=== PATIENT | female | born 1950 | race Caucasian/White ===

== ENCOUNTER → 2017-01-03 | Outpatient (CLI) | payer OTHER ==
[~2017-01-03] MED LIST: ALBUAER2 INH; ASPI-232 PO; CALC1CHW57 PO; CETI10TA10 PO; CONJ0.3T3 PO; FLUT0.0529 NAE; HYDR25TA5 PO; IPRA17AE2 INH; LEVO100T PO; LISI40TA PO; MISCCAP80 PO; MULT-884 PO; TNR25 PO; VITA1TAB4 PO
--- NOTE | 2017-01-03 15:21 | MAMMOGRAPHY REPORT ---
BILATERAL DIGITAL SCREENING MAMMOGRAM WITH CAD: 01/03/2017 CLINICAL HISTORY: Routine screening. TECHNIQUE: Current study was also evaluated with a Computer Aided Detection (CAD) system. Bilateral CC and MLO views were obtained. COMPARISON: Comparison is made to exams dated: 12/29/2015 mammogram, 12/22/2014 mammogram, 12/18/2012 saurabh mogram, 12/21/2013 mammogram, 12/10/2011 mammogram, and 12/07/2010 mammogram - [facility]. BREAST COMPOSITION: The tissue of both breasts is almost entirely fatty. FINDINGS: No suspicious masses, calcifications, or areas of architectural distortion are noted in ei ther breast. There has been no significant interval change compared to prior exams. IMPRESSION: ACR BI-RADS CATEGORY 1: NEGATIVE There is no mammographic evidence of malignancy. A 1 year screening mammogram is recommended. The pa tient will receive written notification of the results. Approximately 10% of breast cancers are not detected with mammography. A negative mammographic report should not delay biopsy if a clinically suggestive mass is present. Heaven Suarez M.D. ah/:01/03/2017 12:28:06 Computer Customer Support Specialist: Kajal TAPIA(R)(M), [facility] letter sent: Normal 1/2 BI-RADS Code: ACR BI-RADS Category 1: Negative
== END | disposition home or self-care (01) ==
LOC: C.MAMM 09:20
PROVIDERS: ATTEND Obstetrics & Gynecology
DX: Z12.31 Encounter for screening mammogram for malignant neoplasm of breast (principal)

== ENCOUNTER → 2017-01-07 | Outpatient (CLI) | payer OTHER | END | disposition home or self-care (01) | LOC: C.PAPS 09:49 | PROVIDERS: ATTEND Obstetrics & Gynecology | DX: Z01.419 Encounter for gynecological examination (general) (routine) without abnormal findings (principal) ==

== ENCOUNTER → 2018-01-16 | Outpatient (CLI) | payer OTHER ==
--- NOTE | 2018-01-16 16:01 | MAMMOGRAPHY REPORT ---
BILATERAL DIGITAL SCREENING MAMMOGRAM TOMOSYNTHESIS WITH CAD: 01/16/2018 CLINICAL HISTORY: Routine screening. Patient has no complaints. TECHNIQUE: The study was acquired using full field digital technology and interpreted from soft copy. Breast tomosynthesis in addition to standard 2D mammography was performed. Current study was also ev aluated with a Computer Aided Detection (CAD) system. COMPARISON: Comparison is made to exams dated: 01/03/2017 mammogram, 12/29/2015 mammogram, 12/22/2014 saurabh mogram, 12/21/2013 mammogram, 12/18/2012 mammogram, and 12/07/2010 mammogram - [facility]. BREAST COMPOSITION: The tissue of both breasts is almost entirely fatty. FINDINGS: No suspicious masses, calcifications, or areas of architectural distortion are noted in either breast . There has been no significant interval change compared to prior exams. Asymmetry in the right medi al posterior breast on the cc view is stable dating back to at least the 2008 exam and considered hsagufta ign given long-term stability. IMPRESSION: ACR BI-RADS CATEGORY 2: BENIGN There is no mammographic evidence of malignancy. A 1 year screening mammogram is recommended.( 019) The patient will receive written notification of the results. Some breast cancers are not detected with mammography. A negative mammographic report should not roberto y biopsy if a clinically suggestive mass is present. Heaven Suarez M.D. /:01/16/2018 15:22:02 Psychosocial Rehabilitation Counselor: RT Amrit(R)(M), [facility] letter sent: Normal 1/2 BI-RADS Code: ACR BI-RADS Category 2: Benign
== END | disposition home or self-care (01) ==
LOC: C.MAMM 14:21
PROVIDERS: ATTEND Obstetrics & Gynecology Obstetrics
DX: Z12.31 Encounter for screening mammogram for malignant neoplasm of breast (principal)

== ENCOUNTER 2022-09-20 12:52 | Inpatient (IN) ==
[2022-09-20 13:52] LABS: Basophils # (auto) 0.04 K/uL (0-0.2); Basophils % (auto) 0.3 %; Eosinophils # (auto) 0.07 K/uL (0-0.50); Eosinophils % (auto) 0.6 %; Hematocrit (blood only) 45.4 % (37.0-47.0); Hemoglobin 16.2 g/dl (12.0-16.0); Immature Granulocytes # (auto) 0.04 K/uL (0.01-0.20); Immature Granulocytes % (auto) 0.3 %; Lymphocytes # (auto) 1.38 K/uL (1.2-3.4); Lymphocytes % (auto) 11.9 %; Mean Corpuscular Hemoglobin 29.6 pg (25.0-34.0); Mean Corpuscular Hgb Conc 35.7 g/dL (32.0-36.0); Mean Corpuscular Volume 82.8 fL (80.0-100.0); Mean Platelet Volume 9.5 fL (9.4-12.4); Monocytes # (auto) 1.16 K/uL (0.11-0.59); Neutrophils # (auto) 8.88 K/uL (1.40-6.50); Neutrophils % (auto) 76.9 %; Platelet Count 352 K/uL (130-400); RDW Coefficient of Variation 12.3 % (11.5-14.5); RDW Standard Deviation 37.2 fL (36.4-46.3); Red Blood Count 5.48 M/uL (4.20-5.40); White Blood Count 11.57 K/ul (4.8-10.8)
--- NOTE | 2022-09-20 13:53 | XRay Report ---
XR chest 1V not portable CLINICAL HISTORY: Chest pain, nonspecific TECHNIQUE: Single frontal radiograph of the chest was obtained. Comparison: None available at the time of this dictation. FINDINGS: No lines and tubes are seen. The cardiomediastinal silhouette is normal. The lungs are clear. No evid ence of pleural effusion or pneumothorax. IMPRESSION: No acute chest disease. ACT 112: Negative or not required by law. Electronically signed by: Santy Fonseca M.D. 09/20/2022 1:52 PM
[2022-09-20 14:23] LABS: Partial Thromboplastin Ratio 1.1; Partial Thromboplastin Time 30.3 Seconds (21.0-31.0)
[2022-09-20 14:29] LABS: Troponin I High Sensitivity 10.9 pg/ml (0-14)
[2022-09-20 14:37] LABS: Albumin Level 4.1 gm/dl (3.4-5.0); Bilirubin,Total 0.8 mg/dl (0.2-1.0); Calcium 8.9 mg/dl (8.6-10.3); Potassium 3.4 mmol/L (3.5-5.1)
[2022-09-20 14:43] LABS: Albumin Globulin Ratio 1.2 (0.9-2); Creatinine Clr Calc Pharmacy 98.3 ml/min; Est GFR (African American) 116.8 ml/min; Est GFR (Non-African American) 100.8 ml/min; Globulin 3.3 gm/dl (2.5-4.0); Total Protein 7.4 gm/dl (6.0-8.3)
[2022-09-20] MEDS ORDERED: ALBUTEROL 0.083% NEBU SOLN 3 ML VIAL NEB STA (15:53)
[2022-09-20] MEDS ORDERED: methylPREDNISolone 125 MG/2 ML VIAL IV STA (15:53)
--- NOTE | 2022-09-20 15:56 | Emergency Department Note ---
Impression & Plan Hypoxia, COPD exacerbation ED Provider Note NAME: BLANK HAJI AGE: 71 SEX: F : 1950 ARRIVES VIA: Walk-In INFORMANT: Patient ED PROVIDER(S): Alejandro Pacheco DO CHIEF COMPLAINT: Shortness of breath HPI: Patient is a 71-year-old female who presents to the ER with past medical history of COPD for shortness of breath. She notes that she has had 2 viral upper respiratory infections with 1 in July and another when going in to August. She has been significantly short of breath since then. Denies any headache or change in vision. Still has a productive cough. No fevers. No belly pain, nausea, vomiting, or diarrhea. No dysuria, urgency, or frequency. No other exacerbating or remitting factors. PAST MEDICAL HISTORY:See Below PAST SURGICAL HISTORY:See Below FAMILY HISTORY:See Below SOCIAL HISTORY:See Below HOME MEDICATIONS:See Below ALLERGIES:See Below VITALS:See Below PHYSICAL EXAMINATION: GENERAL: Sitting up in bed, alert, well appearing, well nourished, no distress, non-toxic EYE EXAM: normal conjunctiva. OROPHARYNX:mucous membranes are dry NECK: supple, no nuchal rigidity, no adenopathy, non-tender LUNGS: Diminished bilaterally. Normal chest wall mechanics HEART: no murmurs, S1 normal and S2 normal ABDOMEN: abdomen soft, non-tender, normo-active bowel sounds, no masses, no rebound or guarding. UPPER EXTREMITIES: upper extremities are grossly normal. LOWER EXTREMITIES: No pitting edema. NEURO EXAM: Normal sensorium, cranial nerves II-XII grossly intact, normal speech, no gross weakness of arms, no gross weakness of legs. MEDICAL DECISION MAKING: Patient is a 71-year-old female with past medical history of COPD who presents to the ER for shortness of breath. IV was established blood work was obtained. She was found to be hypoxic. She was given neb treatments and steroids. Remained on 2 L nasal cannula. Pulse ox was in the upper 80s. Labs with mild leukocytosis. INR unremarkable. BMP with mild hyponatremia at 128. Mild hypokalemia 3.4. LFTs bilirubin was unremarkable. Troponin was negative. Patient was given IV fluids. She is given the neb treatments and oxygen as previously discussed. Discussed with hospitalist admitted for further work-up of her hypoxia and shortness of breath. EKG was nondiagnostic. Chest x-ray was clean. Triage Nursing notes reviewed. Limited review of prior medical records performed Vital Signs: reviewed and remarkable for hypoxic Differential diagnosis: Differential diagnoses includes but is not limited to pneumonia, bronchitis, COPD/Asthma exacerbation, pneumothorax, pulmonary embolism, congestive heart failure, acute coronary syndrome ER treatment provided: See below Diagnostics interpreted by me include EKG and cardiac monitoring as listed below: -Cardiac Monitoring: An order was placed for continuous cardiac monitoring. The monitor shows a rate of 78 with sinus rhythm. -ECG: Sinus rhythm rate 77 Normal axis No PVCs QTc 439 -Laboratory studies:Interpreted by me as stated above in MDM and shown below. Imaging studies: Xrays: As interpreted by me: Portable AP upright 1 view of the chest shows no pneumonia CTs show: none Consultation(s): Discussed with the hospitalist as described above Procedures:none Critical Care: I have personally spent 32 minutes of critical care time in the direct management of this patient. This includes bedside care, interpretation of diagnostic studies, and testing, discussion with consultants, patient, and family members, and other required patient management activities. This 32 minutes is in excess of all separately billable procedures. Past Med/Surg History Medical History (Updated 09/20/22 @ 20:29 by Alejandro Pacheco DO) Anxiety COPD (chronic obstructive pulmonary disease) HLD (hyperlipidemia) HTN (hypertension) Hx of Clostridium difficile infection Hypothyroidism Meningocele Ulcerative colitis Surgical History (Updated 09/20/22 @ 16:16 by Yulissa Hopper PA-C) History of carpal tunnel surgery Hx of partial thyroidectomy Hx of tubal ligation Family History (Updated 09/20/22 @ 16:17 by Yulissa Hopper PA-C) Father , 66 Sudden cardiac Mother Bipolar disorder Social History (Updated 09/20/22 @ 16:17 by Yulissa Hopper PA-C) Smoking Status: Former smoker packs per day: 0.5; Smoking End Date: 2022; Hx Alcohol Use: No Hx Substance Use: No Preferred Language: Brazilian Feels Safe at Home: Yes Allergies Allergies Allergy/AdvReac Type Severity Reaction Status Date / Time adhesive tape Allergy Intermediate SKIN Verified 09/20/22 16:16 IRRITATION/TAKES SKIN OFF WHEN TAKEN OFF midazolam Allergy Unknown NOT ON GMG Verified 09/20/22 16:16 OR PT LIST sulfasalazine AdvReac Severe PANCREATITI Verified 09/20/22 16:16 S Home Meds Home Medications Medication Instructions Recorded Confirmed albuterol sulfate 2.5 mg/3 mL 2.5 mg inhalation DIRECTED PRN 09/20/22 09/20/22 (0.083 %) solution for nebulization Shortness Of Breath Or Wheezing albuterol sulfate 90 mcg/actuation 2 puff inhalation Q4H PRN Wheezing 09/20/22 09/20/22 aerosol inhaler atenolol 25 mg tablet 25 mg PO QAM 09/20/22 09/20/22 betamethasone dipropionate 0.05 % 1 applic topical BID PRN AFFECTED 09/20/22 09/20/22 topical cream AREA bupropion HCl 150 mg tablet,12 hr 150 mg PO BID 09/20/22 09/20/22 sustained-release (Wellbutrin SR) cetirizine 10 mg tablet (Zyrtec) 10 mg PO HS 09/20/22 09/20/22 cholecalciferol (vitamin D3) 25 25 mcg PO DAILY 09/20/22 09/20/22 mcg (1,000 unit) capsule (Vitamin D3) diclofenac sodium 1 % topical gel 2 g topical QID PRN Pain 09/20/22 09/20/22 fluticasone propionate 50 2 spray intranasal DAILY PRN 09/20/22 09/20/22 mcg/actuation nasal Congestion spray,suspension hydrochlorothiazide 25 mg tablet 25 mg PO QAM 09/20/22 09/20/22 ipratropium 0.5 mg-albuterol 3 mg 3 ml inhalation QID 09/20/22 09/20/22 (2.5 mg base)/3 mL nebulization soln ipratropium bromide 17 2 puff inhalation QID 09/20/22 09/20/22 mcg/actuation HFA aerosol inhaler (Atrovent HFA) levothyroxine 88 mcg tablet 88 mcg PO DAILYBB 09/20/22 09/20/22 multivitamin 1 tab PO DAILY 09/20/22 09/20/22 polyethylene glycol 3350 17 8.5 g PO DAILY 09/20/22 09/20/22 gram/dose oral powder (Miralax) psyllium husk 0.4 gram capsule 0 g PO QAM 09/20/22 09/20/22 (Metamucil) tiotropium bromide 18 mcg capsule 18 mcg inhalation DAILY 09/20/22 09/20/22 with inhalation device (Spiriva with HandiHaler) vitamin E 268 mg (400 unit) capsule 268 mg PO DAILY 09/20/22 09/20/22 Results & Data (ED) Vital Signs Vital Signs - 24 hr 09/20/22 13:14 09/20/22 13:17 09/20/22 13:17 Temperature 36.6 C Temperature Source Oral Pulse Rate 83 Pulse Rate [Right Finger] Pulse Rate from SpO2 Sensor Respiratory Rate 18 Respiratory Effort / Characteristics Non-Labored Spontaneous Respiratory Depth Normal Respiratory Pattern Regular Blood Pressure 135/75 Blood Pressure [Right Arm] Blood Pressure Mean 95 Blood Pressure Mean [Right Arm] Blood Pressure Position Sitting Pulse Oximetry 88 L 91 Oxygen Delivery Method Room Air Nasal Cannula Room Air Oxygen Flow Rate 2 Sepsis Recent Fever Within 48 Hours No Sepsis New/Unexplained Change in Mental Status No Sepsis Action Taken by Nursing No Action Required 09/20/22 15:50 09/20/22 16:21 09/20/22 15:51 Temperature Temperature Source Pulse Rate 86 Pulse Rate [Right Finger] 90 Pulse Rate from SpO2 Sensor 85 Respiratory Rate 20 24 Respiratory Effort / Characteristics Respiratory Depth Respiratory Pattern Blood Pressure Blood Pressure [Right Arm] 142/85 H Blood Pressure Mean Blood Pressure Mean [Right Arm] 104 Blood Pressure Position Pulse Oximetry 97 94 Oxygen Delivery Method Room Air Nebulizer Nasal Cannula Oxygen Flow Rate 2 Sepsis Recent Fever Within 48 Hours Sepsis New/Unexplained Change in Mental Status Sepsis Action Taken by Nursing 09/20/22 16:00 09/20/22 16:10 09/20/22 16:19 Temperature Temperature Source Pulse Rate 85 85 91 H Pulse Rate [Right Finger] Pulse Rate from SpO2 Sensor 83 85 91 H Respiratory Rate 14 23 21 Respiratory Effort / Characteristics Respiratory Depth Respiratory Pattern Blood Pressure Blood Pressure [Right Arm] Blood Pressure Mean Blood Pressure Mean [Right Arm] Blood Pressure Position Pulse Oximetry 94 94 98 Oxygen Delivery Method Nasal Cannula Nasal Cannula Nasal Cannula Oxygen Flow Rate 2 2 2 Sepsis Recent Fever Within 48 Hours Sepsis New/Unexplained Change in Mental Status Sepsis Action Taken by Nursing 09/20/22 16:19 09/20/22 16:20 09/20/22 16:30 Temperature Temperature Source Pulse Rate 92 H 108 H Pulse Rate [Right Finger] Pulse Rate from SpO2 Sensor 90 109 H Respiratory Rate 18 27 H Respiratory Effort / Characteristics Respiratory Depth Respiratory Pattern Blood Pressure 142/85 H Blood Pressure [Right Arm] Blood Pressure Mean 104 Blood Pressure Mean [Right Arm] Blood Pressure Position Pulse Oximetry 97 98 Oxygen Delivery Method Oxygen Flow Rate Sepsis Recent Fever Within 48 Hours Sepsis New/Unexplained Change in Mental Status Sepsis Action Taken by Nursing 09/20/22 16:40 Temperature Temperature Source Pulse Rate 113 H Pulse Rate [Right Finger] Pulse Rate from SpO2 Sensor 114 H Respiratory Rate 22 Respiratory Effort / Characteristics Respiratory Depth Respiratory Pattern Blood Pressure Blood Pressure [Right Arm] Blood Pressure Mean Blood Pressure Mean [Right Arm] Blood Pressure Position Pulse Oximetry 91 Oxygen Delivery Method Oxygen Flow Rate Sepsis Recent Fever Within 48 Hours Sepsis New/Unexplained Change in Mental Status Sepsis Action Taken by Nursing Laboratory Data 09/20/22 13:30 09/20/22 13:30 Lab Results 09/20/22 09/20/22 09/20/22 Range/Units 13:30 13:30 13:30 WBC 11.57 H (4.8-10.8) K/ul RBC 5.48 H (4.20-5.40) M/uL Hgb 16.2 H (12.0-16.0) g/dl Hct 45.4 (37.0-47.0) % MCV 82.8 (80.0-100.0) fL MCH 29.6 (25.0-34.0) pg MCHC 35.7 (32.0-36.0) g/dL RDW Std Deviation 37.2 (36.4-46.3) fL RDW Coeff of Darryl 12.3 (11.5-14.5) % Plt Count 352 (130-400) K/uL MPV 9.5 (9.4-12.4) fL Immature Gran % (Auto) 0.3 % Neut % (Auto) 76.9 % Lymph % (Auto) 11.9 % Brewster % (Auto) 10.0 % Eos % (Auto) 0.6 % Baso % (Auto) 0.3 % Neut # (Auto) 8.88 H (1.40-6.50) K/uL Lymph # (Auto) 1.38 (1.2-3.4) K/uL Brewster # (Auto) 1.16 H (0.11-0.59) K/uL Eos # (Auto) 0.07 (0-0.50) K/uL Baso # (Auto) 0.04 (0-0.2) K/uL Immature Gran # (Auto) 0.04 (0.01-0.20) K/uL PT 11.0 (9.0-12.0) Seconds INR 1.0 (0.9-1.1) APTT 30.3 (21.0-31.0) Seconds PTT Ratio 1.1 D-Dimer (0-500) ug/L FEU Sodium 128 L (136-145) mmol/L Potassium 3.4 L (3.5-5.1) mmol/L Chloride 92 L (98-107) mmol/L Carbon Dioxide 27 (21-32) mmol/L Anion Gap 9 (3-11) BUN 6 (6-23) mg/dl Creatinine 0.46 L (0.6-1.2) mg/dl Est Cr Clr Drug Dosing 98.3 ml/min Est GFR ( Amer) 116.8 ml/min Est GFR (Non-Af Amer) 100.8 ml/min BUN/Creatinine Ratio 13.0 (10-20) Glucose 94 (70-99(Fasting)) mg/dl Osmolality (280-300) mOsm/kg Calcium 8.9 (8.6-10.3) mg/dl Total Bilirubin 0.8 (0.2-1.0) mg/dl AST 18 (13-39) U/L ALT 12 (7-52) U/L Alkaline Phosphatase 61 (34-104) U/L Troponin I High Sens 10.9 (0-14) pg/ml Total Protein 7.4 (6.0-8.3) gm/dl Albumin 4.1 (3.4-5.0) gm/dl Globulin 3.3 (2.5-4.0) gm/dl Albumin/Globulin Ratio 1.2 (0.9-2) 09/20/22 09/20/22 Range/Units 13:30 13:30 WBC (4.8-10.8) K/ul RBC (4.20-5.40) M/uL Hgb (12.0-16.0) g/dl Hct (37.0-47.0) % MCV (80.0-100.0) fL MCH (25.0-34.0) pg MCHC (32.0-36.0) g/dL RDW Std Deviation (36.4-46.3) fL RDW Coeff of Darryl (11.5-14.5) % Plt Count (130-400) K/uL MPV (9.4-12.4) fL Immature Gran % (Auto) % Neut % (Auto) % Lymph % (Auto) % Brewster % (Auto) % Eos % (Auto) % Baso % (Auto) % Neut # (Auto) (1.40-6.50) K/uL Lymph # (Auto) (1.2-3.4) K/uL Brewster # (Auto) (0.11-0.59) K/uL Eos # (Auto) (0-0.50) K/uL Baso # (Auto) (0-0.2) K/uL Immature Gran # (Auto) (0.01-0.20) K/uL PT (9.0-12.0) Seconds INR (0.9-1.1) APTT (21.0-31.0) Seconds PTT Ratio D-Dimer 360 (0-500) ug/L FEU Sodium (136-145) mmol/L Potassium (3.5-5.1) mmol/L Chloride (98-107) mmol/L Carbon Dioxide (21-32) mmol/L Anion Gap (3-11) BUN (6-23) mg/dl Creatinine (0.6-1.2) mg/dl Est Cr Clr Drug Dosing ml/min Est GFR ( Amer) ml/min Est GFR (Non-Af Amer) ml/min BUN/Creatinine Ratio (10-20) Glucose (70-99(Fasting)) mg/dl Osmolality 268 L (280-300) mOsm/kg Calcium (8.6-10.3) mg/dl Total Bilirubin (0.2-1.0) mg/dl AST (13-39) U/L ALT (7-52) U/L Alkaline Phosphatase (34-104) U/L Troponin I High Sens (0-14) pg/ml Total Protein (6.0-8.3) gm/dl Albumin (3.4-5.0) gm/dl Globulin (2.5-4.0) gm/dl Albumin/Globulin Ratio (0.9-2) Administered Medications Discontinued Medications Albuterol (Albuterol 0.083% Nebu Soln 3 Ml Vial) 5 mg NEB NOW STA; Protocol Stop: 09/20/22 15:54 Last Admin: 09/20/22 16:13 Dose: 5 mg Documented By: NRB Sodium Chloride (Nss 1000ml) 1,000 mls @ 999 mls/hr IV .Q1H1M ONE Stop: 09/20/22 17:22 Last Admin: 09/20/22 16:24 Dose: 999 mls/hr Documented By: NRB Methylprednisolone (Methylprednisolone 125 Mg/2 Ml Vial) 60 mg IV NOW STA Stop: 09/20/22 15:54 Last Admin: 09/20/22 16:12 Dose: 60 mg Documented By: NRB Potassium Chloride (Potassium Chloride Crtab 20 Meq Tabcr) 40 meq PO NOW STA Stop: 09/20/22 16:23 Last Admin: 09/20/22 16:24 Dose: 40 meq Documented By: NRB Imaging Data Radiologist's Impression: Chest X-Ray 09/20/22 13:17 XR chest 1V not portable CLINICAL HISTORY: Chest pain, nonspecific TECHNIQUE: Single frontal radiograph of the chest was obtained. Comparison: None available at the time of this dictation. FINDINGS: No lines and tubes are seen. The cardiomediastinal silhouette is normal. The lungs are clear. No evidence of pleural effusion or pneumothorax. IMPRESSION: No acute chest disease. ACT 112: Negative or not required by law. Electronically signed by: Satny Fonseca M.D. 09/20/2022 1:52 PM Discharge Plan Visit Data Chief Complaint: Shortness of Breath/Dyspnea Stated Complaint: [id number] SOB, REF BY DR TOTH ED Provider: Alejandro Pacheco Discharge Problem: Hypoxia, COPD exacerbation Patient Disposition: Admitted As Inpatient Discharge Instructions Interventions: ED Discharge Assessment Last Done: 09/20/22 19:37
--- NOTE | 2022-09-20 16:18 | History & Physical Report ---
Date of Service September 20, 2022 Assessment & Plan (1) COPD exacerbation: (2) Hypoxia: (3) Chronic hyponatremia: (4) Hypokalemia: (5) HTN (hypertension): (6) Hypothyroidism: Plan This is a 71-year-old female who has significant past medical history of HTN, HLD, COPD, hypothyroidism, ulcerative colitis, Angio-Seal, history of C. difficile s/p fecal transplant and anxiety who presents to ED secondary to shortness of breath x 2 weeks. COPD exacerbation Hypoxia Admit to medical telemetry IV Solu-Medrol 40 mg twice daily Due to patient complaining of shaking as well as mild tachycardia in ED will place on levalbuterol/ipratropium 4 times daily Pulmonary toilet with incentive spirometry and flutter valve Sputum culture Obtain CT chest, since D-dimer negative without contrast as PE less likely --CT chest:Mucoid opacification of the bronchus intermedius which extends into the proximal right middle lobe bronchi and opacifies the right lower lobe bronchi. There is patchy consolidation within the right lower lobe medially. Therefore, these findings are consistent with a right lower lobe pneumonia, likely due to aspiration. Follow-up bronchoscopy or [address] recommended to ensure resolution of these findings. 2. Subcarinal and right hilar lymphadenopathy. This may be reactive. Attention at follow-up recommended. 3. A 4 mm nodule within the right lower lobe. Will place on IV unasyn and oral azithromycin + probiotic Consider pulmonology consult, she has not established with pulm as outpatient Consult speech therapy in setting of aspiration findings on chest CT recommend f/u Chest CT in 3 months to ensure resolution Chronic hyponatremia pt runs 133-135 as OP, likely 2/2 HCTZ will d/c HCTZ urine na, osm and serum osm gentle IVF x 1 L repeat in a.m. Hypokalemia replete HTN continue atenolol will d/c HCTZ in favor of lisinopril 10mg daily pt with mild lower ext swelling therefore will avoid norvasc for now will need repeat bmp in 1 week at d/c Hypothyroidism continue levothyroxine TSH 1.49 3 DVT ppx: SQ Lovenox Dispo: admit to med tele FULL CODE PCP: Xiomara A total of 75 minutes was spent with greater than 50% of that time personally viewing all current laboratory work and diagnostic imaging studies obtained in the ED. Additionally, I was able to view the patients past medication reconciliation and history with direct visualization in the patients chart. Included in the time above, a portion of that time was spent assessing the patient while discussing and collaborating with specialists, if necessary, and making medical decision making on treatment plan. All of the above was collaborated with Dr. Brito. Please see addendum for further details. History of Present Illness Chief Complaint: SOB x 2 weeks, Primary Care Provider: Sb Solano MD This is a 71-year-old female who has significant past medical history of HTN, HLD, COPD, hypothyroidism, ulcerative colitis, Angio-Seal, history of C. difficile s/p fecal transplant and anxiety who presents to ED secondary to shortness of breath x 2 weeks. She was seen in clinic today by PCP. Per clinic note she was seen 2 weeks prior and also complained of shortness of breath with activity which was felt to be due to recent respiratory infections. Chest x-ray done 07/30/2022 showed no active disease. At that time she was only on as needed albuterol and Spiriva. She also used Atrovent on a as needed basis. In the last 2 weeks her breathing has gotten worse. She occasionally checks her pulse ox and has been as low as 88 to 89%. She further complains of coughing worse at night. She also has substernal chest discomfort that comes and goes. Per PCP notes she is lost 5 pounds in the past 2 weeks and 18 pounds in the last year. In ED patient states she has suffered from 2 respiratory infections in the past 2 months. Initially in July she was treated with a course of prednisone and antibiotics. In August states she suffered through it with routine nebulizer treatments. She continues to have worsened shortness of breath, specifically with exertion. At rest she denies shortness of breath. She complains of a productive cough of purulent sputum. Typically she does have purulent sputum but cough is worse and more productive than usual. She denies any wheezing. She occasionally gets dizzy and complaining of being off balance. She denies any fever, chills, sweats, lightheadedness, dizziness, hemoptysis, nausea, vomiting, abdominal pain, change in bowel or urinary habits. Overall she states she has poor taste and this is attributed to her weight loss. She has lost 5 pounds in the past 2 weeks and 18 pounds in the last month. Her PCP is aware of this. At home she is mostly been using nebulizer treatments twice a day as well as Atrovent and as needed albuterol. She does not use a steroid inhaler. She does not follow with a resident physician in radiology. She is a former smoker quitting in July. 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 Pt also complains of feeling shaky over last several weeks. Allergies Allergy/AdvReac Type Severity Reaction Status Date / Time adhesive tape Allergy Intermediate SKIN Verified 09/20/22 16:16 IRRITATION/TAKES SKIN OFF WHEN TAKEN OFF midazolam Allergy Unknown NOT ON GMG Verified 09/20/22 16:16 OR PT LIST sulfasalazine AdvReac Severe PANCREATITI Verified 09/20/22 16:16 S Home Medications Medication Instructions Recorded Confirmed Type albuterol sulfate 2.5 mg/3 mL 2.5 mg inhalation DIRECTED PRN 09/20/22 09/20/22 History (0.083 %) solution for nebulization Shortness Of Breath Or Wheezing albuterol sulfate 90 mcg/actuation 2 puff inhalation Q4H PRN Wheezing 09/20/22 09/20/22 History aerosol inhaler atenolol 25 mg tablet 25 mg PO QAM 09/20/22 09/20/22 History betamethasone dipropionate 0.05 % 1 applic topical BID PRN AFFECTED 09/20/22 09/20/22 History topical cream AREA bupropion HCl 150 mg tablet,12 hr 150 mg PO BID 09/20/22 09/20/22 History sustained-release (Wellbutrin SR) cetirizine 10 mg tablet (Zyrtec) 10 mg PO HS 09/20/22 09/20/22 History cholecalciferol (vitamin D3) 25 25 mcg PO DAILY 09/20/22 09/20/22 History mcg (1,000 unit) capsule (Vitamin D3) diclofenac sodium 1 % topical gel 2 g topical QID PRN Pain 09/20/22 09/20/22 History fluticasone propionate 50 2 spray intranasal DAILY PRN 09/20/22 09/20/22 History mcg/actuation nasal Congestion spray,suspension hydrochlorothiazide 25 mg tablet 25 mg PO QAM 09/20/22 09/20/22 History ipratropium 0.5 mg-albuterol 3 mg 3 ml inhalation QID 09/20/22 09/20/22 History (2.5 mg base)/3 mL nebulization soln ipratropium bromide 17 2 puff inhalation QID 09/20/22 09/20/22 History mcg/actuation HFA aerosol inhaler (Atrovent HFA) levothyroxine 88 mcg tablet 88 mcg PO DAILYBB 09/20/22 09/20/22 History multivitamin 1 tab PO DAILY 09/20/22 09/20/22 History polyethylene glycol 3350 17 8.5 g PO DAILY 09/20/22 09/20/22 History gram/dose oral powder (Miralax) psyllium husk 0.4 gram capsule 0 g PO QAM 09/20/22 09/20/22 History (Metamucil) tiotropium bromide 18 mcg capsule 18 mcg inhalation DAILY 09/20/22 09/20/22 History with inhalation device (Spiriva with HandiHaler) vitamin E 268 mg (400 unit) capsule 268 mg PO DAILY 09/20/22 09/20/22 History Past Med/Surg History Medical History (Updated 09/20/22 @ 17:02 by Yulissa Hopper PA-C) Anxiety COPD (chronic obstructive pulmonary disease) HLD (hyperlipidemia) HTN (hypertension) Hx of Clostridium difficile infection Hypothyroidism Meningocele Ulcerative colitis Surgical History (Updated 09/20/22 @ 16:16 by Yulissa Hopper PA-C) History of carpal tunnel surgery Hx of partial thyroidectomy Hx of tubal ligation Family History (Updated 09/20/22 @ 16:17 by Yulissa Hopper PA-C) Father , 66 Sudden cardiac Mother Bipolar disorder Social History (Updated 09/20/22 @ 16:17 by Yulissa Hopper PA-C) Smoking Status: Former smoker packs per day: 0.5; Smoking End Date: 2022; Hx Alcohol Use: No Hx Substance Use: No Preferred Language: Mohawk Feels Safe at Home: Yes Review of Systems Review of Systems: All systems reviewed & are unremarkable except as noted in HPI & below Physical Exam Physical Exam: Constitutional: WD/WN, vitals as above, NAD, sitting up in bed, pleasant, conversing easily Head: Normocephalic, Atraumatic Eyes: PERRL, conjunctivae normal, anicteric sclerae ENMT: external ear and nose normal, oropharynx normal Neck: trachea midline, no thyromegaly normal visual inspection Respiratory: normal respiratory effort, decreased inspiration and distant l bo sounds but otherwise lungs clear to auscultation, no wheeze, rales, rhonchi. no accessory muscle use, currently receiving Neb tx Cardiovascular: tachycardic rate, regular rhythm, no murmur, trace b/l ankle edema Vessels: no JVD or carotid bruit Chest: normal inspection of chest,+barrel chested Abdomen: normal bowel sounds, soft, nontender, no hepatosplenomegaly Musculoskeletal: no cyanosis or clubbing, extremities motor strength 5/5 Skin: + macular rash to b/l posterior thorax and erythema to nape of neck, pt states its chronic and due to hot showers/not itchy, warm and dry normal turgor Neurologic: PERRL, EOMI, accommodation nl, no face palsy, no dysarthria CN's II-XI intact bilaterally and moves all extremities Psychiatric: A+Ox3, euthymic affect Lymphatic: no cervical or axillary lymphadenopathy : deferred Results & Data Results & Data Vital Signs (Past 12 Hours) Vital Signs Temp Pulse Resp BP Pulse Ox O2 Del Method O2 Flow Rate 09/20/22 15:50 Room Air 09/20/22 13:17 91 Room Air 09/20/22 13:17 Nasal Cannula 2 09/20/22 13:14 36.6 C 83 18 135/75 88 L Room Air Diagnostic Findings Chest X-Ray 09/20/22 13:17 XR chest 1V not portable CLINICAL HISTORY: Chest pain, nonspecific TECHNIQUE: Single frontal radiograph of the chest was obtained. Comparison: None available at the time of this dictation. FINDINGS: No lines and tubes are seen. The cardiomediastinal silhouette is normal. The lungs are clear. No evidence of pleural effusion or pneumothorax. IMPRESSION: No acute chest disease. ACT 112: Negative or not required by law. Electronically signed by: Santy Fonseca M.D. 09/20/2022 1:52 PM Medications Administered Medication List Discontinued Medications Albuterol (Albuterol 0.083% Nebu Soln 3 Ml Vial) 5 mg NEB NOW STA; Protocol Stop: 09/20/22 15:54 Last Admin: 09/20/22 16:13 Dose: 5 mg Documented By: NRB Methylprednisolone (Methylprednisolone 125 Mg/2 Ml Vial) 60 mg IV NOW STA Stop: 09/20/22 15:54 Last Admin: 09/20/22 16:12 Dose: 60 mg Documented By: NRB ECG Rate (beats per minute): 77 Rhythm: normal sinus Additional Comments: qtc 439ms, reviewed by ar COVID-19 Results Results COVID-19 Adm Lab Results: RBC 5.48 M/uL (4.20-5.40) H 09/20/22 WBC 11.57 K/ul (4.8-10.8) H 09/20/22 Hgb 16.2 g/dl (12.0-16.0) H 09/20/22 Hct 45.4 % (37.0-47.0) 09/20/22 Plt Count 352 K/uL (130-400) 09/20/22 Neutrophils (%) (Auto) 76.9 % 09/20/22 Lymphocytes (%) (Auto) 11.9 % 09/20/22 Monocytes # (Auto) 1.16 K/uL (0.11-0.59) H 09/20/22 Eosinophils # (Auto) 0.07 K/uL (0-0.50) 09/20/22 Immature Granulocyte % (Auto) 0.3 % 09/20/22 Neutrophils # (Auto) 8.88 K/uL (1.40-6.50) H 09/20/22 Lymphocytes # (Auto) 1.38 K/uL (1.2-3.4) 09/20/22 Monocytes # (Auto) 1.16 K/uL (0.11-0.59) H 09/20/22 Eosinophils # (Auto) 0.07 K/uL (0-0.50) 09/20/22 Basophils # (Auto) 0.04 K/uL (0-0.2) 09/20/22 Immature Granulocyte # (Auto) 0.04 K/uL (0.01-0.20) 3 Na 128 mmol/L (136-145) L 09/20/22 K 3.4 mmol/L (3.5-5.1) L 09/20/22 Cl 92 mmol/L (98-107) L 09/20/22 CO2 27 mmol/L (21-32) 09/20/22 Anion Gap 9 (3-11) 09/20/22 BUN 6 mg/dl (6-23) 09/20/22 Creatinine 0.46 mg/dl (0.6-1.2) L 09/20/22 BUN/Creatinine Ratio 13.0 (10-20) 09/20/22 Glucose Level 94 mg/dl (70-99(Fasting)) 09/20/22 Ca 8.9 mg/dl (8.6-10.3) 09/20/22 Total Bilirubin 0.8 mg/dl (0.2-1.0) 09/20/22 AST/SGOT 18 U/L (13-39) 09/20/22 ALT/SGPT 12 U/L (7-52) 09/20/22 Alkaline Phosphatase 61 U/L (34-104) 09/20/22 Total Protein 7.4 gm/dl (6.0-8.3) 09/20/22 Albumin 4.1 gm/dl (3.4-5.0) 09/20/22 Globulin 3.3 gm/dl (2.5-4.0) 09/20/22 Albumin/Globulin Ratio 1.2 (0.9-2) 09/20/22 D-Dimer 360 ug/L FEU (0-500) 09/20/22 PTT 30.3 Seconds (21.0-31.0) 09/20/22 INR 1.0 (0.9-1.1) 09/20/22 SARS-CoV-2, RNA, NAAT NEGATIVE (NEGATIVE) 09/20/[address] 09/20/22 Chest X-Ray 09/20/22 Code Status & VTE Plan Code Status FULL CODE Supervising Physician Co-Signing Physician Notes Attending addendum: The patient was seen and examined in the emergency room in presence of the She is a chronic smoker and has been complaining of shortness of breath with minimal exertion since about July Has had 2 episodes of URI between that time and as of today Has been complaining of a cough with the urologist phlegm and increasing shortness of breath with desaturation She quit smoking 1 week ago and started on Wellbutrin She does not use any oxygen at home Denies any chest pain or palpitation On examination Moderate distress at rest due to shortness of breath Hemodynamically stable and afebrile Chest-decreased breath sounds bilaterally with occasional wheezing but no crackles Heart-S1, S2 regular Abdomen-benign Extremities-no edema Her admission labs, EKG and imaging studies reviewed Has emphysema without any pneumonia and likely has bronchitis Will start intravenous Solu-Medrol, nebulized bronchodilator and azithromycin/doxycycline Agree with assessment plan as outlined above by Edelmira Brito
[2022-09-20] MEDS ORDERED: SODIUM CHLORIDE 0.9% 1000ML 1,000 ML IV ONE (16:22)
[2022-09-20] MEDS ORDERED: POTASSIUM CHLORIDE CRTAB 20 MEQ TABCR PO STA (16:22)
[2022-09-20 16:58] LABS: D Dimer 360 ug/L FEU (0-500)
--- NOTE | 2022-09-20 18:11 | CT Scan Report ---
CT chest diagnostic wo con CT DOSE: 199.02 mGycm HISTORY: Shortness of breath. TECHNIQUE: Multiaxial CT images of the chest were performed without contrast. A dose lowering techni que was utilized adhering to the principles of ALARA. COMPARISON: Chest 09/20/2022. FINDINGS: No pneumothorax. No pleural effusions. Moderate emphysema. Mild interstitial thickening wit hin the lungs. This is likely chronic. Mucoid opacification of the bronchus intermedius which extends into the proximal right middle lobe bronchi and opacifies the right lower lobe bronchi. There is pat brii consolidation within the right lower lobe medially. Therefore, these findings are consistent with a right lower lobe pneumonia, likely due to aspiration. Follow-up bronchoscopy or [address] r ecommended to ensure resolution of these findings. There is mild diffuse bronchial wall thickening. T here is a 4 mm nodule within the right lower lobe in image 173. Multiple cystic foci within the sho en of the thoracic spine suggestive of lateral thoracic meningoceles. These are considered to be jennifer gn. There is mild enlargement of the left thyroid lobe in comparison to the right. Limited views of t he upper abdomen demonstrate normal liver, spleen, and adrenal glands. Cholelithiasis is partially vi sualized. There is a moderate hiatus hernia. Normal caliber esophagus. The heart is normal in size. N o pericardial effusion. Normal caliber thoracic aorta with mild ossified plaque. There is mild subcar inal and right hilar lymphadenopathy. This may be reactive. No suspicious lytic or blastic osseous le sions. IMPRESSION: 1. Mucoid opacification of the bronchus intermedius which extends into the proximal right middle lobe bronchi and opacifies the right lower lobe bronchi. There is patchy consolidation within the right l ower lobe medially. Therefore, these findings are consistent with a right lower lobe pneumonia, likel y due to aspiration. Follow-up bronchoscopy or [address] recommended to ensure resolution of t hese findings. 2. Subcarinal and right hilar lymphadenopathy. This may be reactive. Attention at follow-up recommend ed. 3. A 4 mm nodule within the right lower lobe. 4. Cholelithiasis. 5. Emphysema. ACT 112: Negative or not required by law. Electronically signed by: Yung Rose M.D. 09/20/2022 6:08 PM
[2022-09-20] MEDS ORDERED: SODIUM CHLORIDE 0.9% 1000ML 1,000 ML IV SCH (20:36)
[2022-09-20] MEDS ORDERED: POLYETHYLENE (MIRALAX) 17 GM PACK PO PRN (20:36)
[2022-09-20] MEDS ORDERED: XOPENEX/ATROVENT 0.63mg/0.5MG NEB COMBO NEB SCH (20:36)
[2022-09-20] MEDS ORDERED: MAGNESIUM HYDROXIDE SUSP 30 ML UDC PO PRN (20:36)
[2022-09-20] MEDS ORDERED: ONDANSETRON INJ 2 MG/ML 2 ML VIAL IV PRN (20:36)
[2022-09-20] MEDS ORDERED: ALUMINUM/MAGNESIUM SUSP 30 ML UDC PO PRN (20:36)
[2022-09-20] MEDS ORDERED: ACETAMINOPHEN 325 MG TAB PO PRN (20:36)
[2022-09-20] MEDS ORDERED: BENZONATATE 100 MG CAPSULE PO PRN (20:36)
[2022-09-20] MEDS ORDERED: AZITHROMYCIN 250 MG TAB PO STA (20:36)
[2022-09-20] MEDS: IPRATROPIUM BROMIDE NEB SOLN 0.02% 2.5 ML VIAL INH SCH (21:10)
[2022-09-20] MEDS: LEVALBUTEROL HCL 0.63 MG/3 ML NEB NEB SCH (21:10)
[2022-09-20] MEDS: guaiFENesin 600 MG TABCR PO SCH (21:30)
[2022-09-20] MEDS: CETIRIZINE HCL 10 MG TABLET PO SCH (21:30)
[2022-09-20] MEDS: buPROPion SR 150 MG TABCR PO SCH (21:30)
[2022-09-20] MEDS: AMPICILLIN/SULBACTAM SOD 3,000 MG in 0.9 % SODIUM CHLORIDE 100 ML IV SCH (21:31)
[2022-09-20] MEDS: ENOXAPARIN INJ 40 MG/0.4 ML SYR SQ SCH (21:31)
[2022-09-21] MEDS: IPRATROPIUM BROMIDE NEB SOLN 0.02% 2.5 ML VIAL INH SCH ×4 (01:30→19:08)
[2022-09-21] MEDS: LEVALBUTEROL HCL 0.63 MG/3 ML NEB NEB SCH ×4 (01:30→19:08)
[2022-09-21] MEDS: AMPICILLIN/SULBACTAM SOD 3,000 MG in 0.9 % SODIUM CHLORIDE 100 ML IV SCH ×4 (03:03→20:02)
[2022-09-21] MEDS: LEVOTHYROXINE SODIUM 88 MCG TABLET PO SCH (05:46)
--- NOTE | 2022-09-21 06:19 | Electrocardiogram Report ---
Test Reason : Blood Pressure : / mmHG Vent. Rate : 077 BPM Atrial Rate : 077 BPM P-R Int : 136 ms QRS Dur : 084 ms QT Int : 388 ms P-R-T Axes : 059 005 035 degrees QTc Int : 439 ms Poor data quality, interpretation may be adversely affected Normal sinus rhythm Normal ECG When compared with ECG of 16-NOV-2014 13:21, No significant change was found Confirmed by Alvarado Hopson ([id number]) on 09/21/2022 6:18:26 AM Referred By: Confirmed By:Alvarado Hopson
--- NOTE | 2022-09-21 08:00 | Pulmonary Consultation ---
Date of Consultation September 21, 2022 Assessment & Plan (1) Aspiration pneumonia: Consult speech therapy. Continue broad-spectrum antibiotics. Check MRSA screen. Transition to Augmentin likely starting tomorrow. Hypertonic saline and flutter valve for mucociliary clearance. Continue Mucinex. If no improvement by Saturday, may benefit from bronchoscopy. Repeat CT chest in 6 weeks to ensure resolution of pneumonia and evaluate for underlying malignant lesion. (2) COPD exacerbation: Transition to oral prednisone for 5 days. Continue DuoNebs while inpatient. Will need outpatient PFTs once recovered from this acute event. Recommend sending the patient home on a LABA/LAMA inhaler such as Stiolto or Anoro Ellipta when ready. Smoking cessation encouraged. (3) Hypoxia: Wean O2 to maintain sats of 88 to 92%. Plan We will continue to follow along with you. Thank you for allowing us to participate in the care of this patient. History of Present Illness Reason for Consultation: "abn chest ct, asp pna, mucoid opacifaction" Requesting Physician: LEON Hopper Attending Physician: Ruba Brito MD History of Present Illness 71-year-old female with history of COPD, ulcerative colitis and C. difficile who presented to the hospital due to shortness of breath over the past 1 to 2 weeks. She was seen in clinic by her PCP yesterday who recommended she go to the ER. She uses as needed albuterol and Spiriva at home. She has had a worsening cough particularly at night. She has had recurrent infections over the past 2 months and has required a couple of courses of antibiotics and prednisone. She notes that her appetite has been decreased and she has lost about 5 pounds over the past 2 weeks. This morning she has been having a nonproductive cough. She has dyspnea with minimal exertion. She is a former smoker and quit about a week ago. CT chest was personally reviewed which revealed upper lobe predominant emphysema. Mucoid impaction of the right lower lobe bronchi with consolidation noted. She has been started on broad-spectrum antibiotics by the primary team for aspiration pneumonia. Allergies Allergy/AdvReac Type Severity Reaction Status Date / Time adhesive tape Allergy Intermediate SKIN Verified 09/20/22 16:16 IRRITATION/TAKES SKIN OFF WHEN TAKEN OFF midazolam Allergy Unknown NOT ON GMG Verified 09/20/22 16:16 OR PT LIST sulfasalazine AdvReac Severe PANCREATITI Verified 09/20/22 16:16 S Home Medications Medication Instructions Recorded Confirmed Type albuterol sulfate 2.5 mg/3 mL 2.5 mg inhalation DIRECTED PRN 09/20/22 09/20/22 History (0.083 %) solution for nebulization Shortness Of Breath Or Wheezing albuterol sulfate 90 mcg/actuation 2 puff inhalation Q4H PRN Wheezing 09/20/22 09/20/22 History aerosol inhaler atenolol 25 mg tablet 25 mg PO QAM 09/20/22 09/20/22 History betamethasone dipropionate 0.05 % 1 applic topical BID PRN AFFECTED 09/20/22 09/20/22 History topical cream AREA bupropion HCl 150 mg tablet,12 hr 150 mg PO BID 09/20/22 09/20/22 History sustained-release (Wellbutrin SR) cetirizine 10 mg tablet (Zyrtec) 10 mg PO HS 09/20/22 09/20/22 History cholecalciferol (vitamin D3) 25 25 mcg PO DAILY 09/20/22 09/20/22 History mcg (1,000 unit) capsule (Vitamin D3) diclofenac sodium 1 % topical gel 2 g topical QID PRN Pain 09/20/22 09/20/22 History fluticasone propionate 50 2 spray intranasal DAILY PRN 09/20/22 09/20/22 History mcg/actuation nasal Congestion spray,suspension hydrochlorothiazide 25 mg tablet 25 mg PO QAM 09/20/22 09/20/22 History ipratropium 0.5 mg-albuterol 3 mg 3 ml inhalation QID 09/20/22 09/20/22 History (2.5 mg base)/3 mL nebulization soln ipratropium bromide 17 2 puff inhalation QID 09/20/22 09/20/22 History mcg/actuation HFA aerosol inhaler (Atrovent HFA) levothyroxine 88 mcg tablet 88 mcg PO DAILYBB 09/20/22 09/20/22 History multivitamin 1 tab PO DAILY 09/20/22 09/20/22 History polyethylene glycol 3350 17 8.5 g PO DAILY 09/20/22 09/20/22 History gram/dose oral powder (Miralax) psyllium husk 0.4 gram capsule 0 g PO QAM 09/20/22 09/20/22 History (Metamucil) tiotropium bromide 18 mcg capsule 18 mcg inhalation DAILY 09/20/22 09/20/22 History with inhalation device (Spiriva with HandiHaler) vitamin E 268 mg (400 unit) capsule 268 mg PO DAILY 09/20/22 09/20/22 History Patient History Medical History (Updated 09/21/22 @ 07:56 by Yariel Owens MD) Anxiety Aspiration pneumonia COPD (chronic obstructive pulmonary disease) HLD (hyperlipidemia) HTN (hypertension) Hx of Clostridium difficile infection Hypothyroidism Meningocele Ulcerative colitis Surgical History (Updated 09/20/22 @ 16:16 by Yulissa Hopper PA-C) History of carpal tunnel surgery Hx of partial thyroidectomy Hx of tubal ligation Family History (Updated 09/20/22 @ 16:17 by Yulissa Hopper PA-C) Father , 66 Sudden cardiac Mother Bipolar disorder Social History (Updated 09/20/22 @ 16:17 by Yulissa Hopper PA-C) Smoking Status: Former smoker packs per day: 0.5; Cigarettes Per Day: 6-8; Smoking End Date: July; Hx Alcohol Use: No Hx Substance Use: No Preferred Language: Telugu [place] Host[place] Required: No Beliefs That Will Affect Care: None Current Living Situation: Spouse Feels Safe at Home: Yes Assistive Devices: Nebulizer Review of Systems Review of Systems: All systems reviewed & are unremarkable except as noted in HPI & below Physical Exam Physical Exam: Constitutional: Thin appearing female. Looks sick and frail. Eyes: Pupils are equal round and reactive to light. Conjunctivae are normal. Anicteric sclera. Ears nose, mouth and throat: Mallampati class 2. Normal posterior oropharynx. Uvula is midline. Neck: Trachea is midline. Visual inspection is normal. Respiratory: Crackles in the right lower lobe. Diminished bilaterally. Prolonged phase of exhalation. Cardiovascular: Regular rate and rhythm. No murmurs. No edema. Gastrointestinal: Normal bowel sounds, soft, nontender and nondistended. No hepatosplenomegaly noted. Musculoskeletal: No cyanosis. Patient is able to move all extremities. Strength is 5 out of 5 in the upper and lower extremities. Skin: No rashes, warm dry and intact. Neurologic: No obvious focal neurological deficits seen. Psychiatric: Alert and oriented x3 with a euthymic affect. Results & Data Results & Data Vital Signs (Past 12 Hours) Vital Signs Temp Pulse Pulse Resp BP Pulse Ox O2 Del Method 09/21/22 07:22 85 09/21/22 07:14 91 H 20 95 Nasal Cannula 09/21/22 03:43 36.9 C 94 H 16 133/70 96 Nasal Cannula 09/21/22 01:31 93 H 18 96 Nasal Cannula 09/20/22 22:05 106 H 09/20/22 23:18 36.7 C 101 H 18 137/71 95 Nasal Cannula 09/20/22 20:04 103 H 09/20/22 21:09 121 H 18 93 Nasal Cannula O2 Flow Rate 09/21/22 07:22 09/21/22 07:14 2 09/21/22 03:43 2 09/21/22 01:31 2 09/20/22 22:05 09/20/22 23:18 2 09/20/22 20:04 09/20/22 21:09 2 PG Care Time/CCT Total # of Minutes Spent Total Time Spent with Patient: Total time spent is greater than 50% in coordination of care (as documented) at patient's floor/unit and/or counseling patient: Coding Level of Care Code 09233 INT INP/OBS CARE 3/75MIN Diagnoses Aspiration pneumonia J69.0 COPD exacerbation J44.1 Hypoxia R09.02
[2022-09-21 08:02] LABS: Basophils # (auto) 0.03 K/uL (0-0.2); Basophils % (auto) 0.2 %; Eosinophils # (auto) 0.02 K/uL (0-0.50); Eosinophils % (auto) 0.1 %; Hematocrit (blood only) 39.7 % (37.0-47.0); Hemoglobin 14.1 g/dl (12.0-16.0); Immature Granulocytes # (auto) 0.05 K/uL (0.01-0.20); Immature Granulocytes % (auto) 0.3 %; Lymphocytes # (auto) 1.32 K/uL (1.2-3.4); Lymphocytes % (auto) 7.9 %; Mean Corpuscular Hemoglobin 29.7 pg (25.0-34.0); Mean Corpuscular Hgb Conc 35.5 g/dL (32.0-36.0); Mean Corpuscular Volume 83.6 fL (80.0-100.0); Mean Platelet Volume 9.5 fL (9.4-12.4); Monocytes # (auto) 1.61 K/uL (0.11-0.59); Monocytes % (auto) 9.7 %; Neutrophils # (auto) 13.62 K/uL (1.40-6.50); Neutrophils % (auto) 81.8 %; Platelet Count 310 K/uL (130-400); RDW Coefficient of Variation 12.7 % (11.5-14.5); RDW Standard Deviation 38.9 fL (36.4-46.3); Red Blood Count 4.75 M/uL (4.20-5.40); White Blood Count 16.65 K/ul (4.8-10.8)
[2022-09-21 08:20] LABS: Albumin Globulin Ratio 1.3 (0.9-2); Albumin Level 3.6 gm/dl (3.4-5.0); BUN Creatinine Ratio 17.8 (10-20); Bilirubin,Total 0.6 mg/dl (0.2-1.0); Calcium 8.5 mg/dl (8.6-10.3); Creatinine Clr Calc Pharmacy 100.5 ml/min; Est GFR (African American) 117.7 ml/min; Est GFR (Non-African American) 101.5 ml/min; Globulin 2.7 gm/dl (2.5-4.0); Potassium 3.7 mmol/L (3.5-5.1); Total Protein 6.3 gm/dl (6.0-8.3)
[2022-09-21] MEDS: ATENOLOL 25 MG TABLET PO SCH (08:40)
[2022-09-21] MEDS: CHOLECALCIFEROL 1,000 UNITS 25 MCG TAB PO SCH (08:40)
[2022-09-21] MEDS: lisinopril 10 MG TAB PO SCH (08:40)
[2022-09-21] MEDS: POLYETHYLENE (MIRALAX) 17 GM PACK PO SCH (08:40)
[2022-09-21] MEDS: SACCHAROMYCES BOULARDII 250 MG CAP PO SCH (08:40)
[2022-09-21] MEDS: buPROPion SR 150 MG TABCR PO SCH ×2 (08:40→20:02)
[2022-09-21] MEDS: guaiFENesin 600 MG TABCR PO SCH ×2 (08:40→20:02)
[2022-09-21] MEDS: MULTIVITAMIN TAB PO SCH (08:40)
[2022-09-21] MEDS: FLUTICASONE PROPIONATE NA SPR 16 GM BTL NAE SCH (08:41)
[2022-09-21] MEDS: predniSONE 20 MG TAB PO SCH (08:46)
[2022-09-21] MEDS ORDERED: methylPREDNISolone 40 MG in SYRINGE 0 ML IV SCH (09:00)
--- NOTE | 2022-09-21 13:54 | Hospitalist Progress Note ---
Date of Service September 21, 2022 Assessment & Plan (1) COPD exacerbation: (2) Hypoxia: (3) Chronic hyponatremia: (4) Hypokalemia: (5) HTN (hypertension): (6) Hypothyroidism: Plan This is a 71-year-old female who has significant past medical history of HTN, HLD, COPD, hypothyroidism, ulcerative colitis, Angio-Seal, history of C. difficile s/p fecal transplant and anxiety who presents to ED secondary to shortness of breath x 2 weeks. COPD exacerbation Possible aspiration pneumonia Hypoxia Admit to medical telemetry IV Solu-Medrol 40 mg twice daily Due to patient complaining of shaking as well as mild tachycardia in ED will place on levalbuterol/ipratropium 4 times daily Pulmonary toilet with incentive spirometry and flutter valve Sputum culture-few gram-negative bacilli and rare gram-positive cocci-cultures and sensitivity pending Obtain CT chest, since D-dimer negative without contrast as PE less likely --CT chest:Mucoid opacification of the bronchus intermedius which extends into the proximal right middle lobe bronchi and opacifies the right lower lobe bronchi. There is patchy consolidation within the right lower lobe medially. Therefore, these findings are consistent with a right lower lobe pneumonia, likely due to aspiration. Follow-up bronchoscopy or [address] recommended to ensure resolution of these findings. 2. Subcarinal and right hilar lymphadenopathy. This may be reactive. Attention at follow-up recommended. 3. A 4 mm nodule within the right lower lobe. Will place on IV unasyn and oral azithromycin + probiotic Consult speech therapy in setting of aspiration findings on chest CT recommend f/u Chest CT in 3 months to ensure resolution Clinically better today and will continue current medications If the condition gets worse will get pulmonary evaluation otherwise will have outpatient pulmonary follow-up Chronic hyponatremia pt runs 133-135 as OP, likely 2/2 HCTZ will d/c HCTZ urine na, osm and serum osm-urine and serum osmolarity is a low, 125 and 268 res pectively gentle IVF x 1 L Sodium has been almost normalized at 134 Hypokalemia replete Normalized HTN continue atenolol will d/c HCTZ in favor of lisinopril 10mg daily pt with mild lower ext swelling therefore will avoid norvasc for now will need repeat bmp in 1 week at d/c Hypothyroidism continue levothyroxine TSH 1.49 3/ DVT ppx: SQ Lovenox Dispo: admit to med tele FULL CODE PCP: Xiomara A total of 60 minutes was spent discussing and examining the patient, viewing all current laboratory work and diagnostic imaging studies. Additionally, reviewed her medications and adjusted accordingly. Admission and Anticipated Discharge Date Admission Date: September 20, 2022 Subjective 09/21/2022 The patient was seen and examined in medical telemetry unit She has been feeling a little better Her cough, phlegm and shortness of breath are improving No fever and no chills She denies any significant problem with swallowing Review of Systems Review of Systems: All systems reviewed and are unremarkable except as noted below Respiratory: Minimal shortness of breath at rest Physical Exam Physical Exam: Lying in bed comfortably Constitutional: + ill appearing and average body habitus Eyes: PERRL, conjunctivae normal, anicteric sclerae ENMT: external ear and nose normal, oropharynx normal Neck: trachea midline, no thyromegaly Respiratory: + respiratory distress (Minimal distress at rest); no retractions Auscultation: + diminished lung sounds and + wheezes (Occasional wheezing) Cardiovascular: Rate/Rhythm: regular rate and regular rhythm; not tachycardic Heart Sounds: normal S1 and normal S2; no murmur Gastrointestinal (Abdomen): Inspection/Auscultation: normal bowel sounds; abdomen not distended Percussion/Palpation: abdomen soft; abdomen nontender Musculoskeletal: No acute arthritis involving any joint Neurologic: normal touch/pain/proprioception and moves all extremities; no fo christiana motor deficits Psychiatric: A+Ox3, euthymic affect Lymphatic: no cervical or axillary lymphadenopathy Results & Data Results & Data Vital Signs (Past 12 Hours) Vital Signs Temp Pulse Pulse Resp BP Pulse Ox O2 Del Method 09/21/22 13:34 68 22 89 L Room Air 09/21/22 12:40 94 Room Air 09/21/22 12:15 36.8 C 83 16 130/70 94 Nasal Cannula 09/21/22 11:42 97 Nasal Cannula 09/21/22 07:56 Nasal Cannula 09/21/22 08:06 36.8 C 86 16 130/68 94 Nasal Cannula 09/21/22 07:22 85 09/21/22 07:14 91 H 20 95 Nasal Cannula 09/21/22 03:43 36.9 C 94 H 16 133/70 96 Nasal Cannula O2 Flow Rate 03/31/23 13:34 09/21/22 12:40 1 09/21/22 12:15 1 09/21/22 11:42 2 09/21/22 07:56 2 09/21/22 08:06 2 09/21/22 07:22 09/21/22 07:14 2 09/21/22 03:43 2 Laboratory Results Short CBC 09/20/22 09/21/22 Range/Units 13:30 07:34 WBC 11.57 H 16.65 H (4.8-10.8) K/ul Hgb 16.2 H 14.1 (12.0-16.0) g/dl Hct 45.4 39.7 (37.0-47.0) % Plt Count 352 310 (130-400) K/uL BMP 09/20/22 09/21/22 13:30 07:34 Sodium 128 L 134 L Potassium 3.4 L 3.7 Chloride 92 L 100 Carbon Dioxide 27 28 BUN 6 8 Creatinine 0.46 L 0.45 L Glucose 94 102 H Calcium 8.9 8.5 L Liver Function 09/20/22 09/21/22 Range/Units 13:30 07:34 Total Bilirubin 0.8 0.6 (0.2-1.0) mg/dl AST 18 13 (13-39) U/L ALT 12 10 (7-52) U/L Alkaline Phosphatase 61 50 (34-104) U/L Albumin 4.1 3.6 (3.4-5.0) gm/dl Medications Administered Current Inpatient Medications Acetaminophen (Acetaminophen 325 Mg Tab) 650 mg PO Q4H PRN PRN Reason: Pain or Fever Stop: 10/20/22 20:35 Al Hydrox/Mg Hydrox/Simethicone (Aluminum/Magnesium Susp 30 Ml Udc) 15 ml PO Q4H PRN PRN Reason: Dyspepsia Stop: 10/20/22 20:35 Atenolol (Atenolol 25 Mg Tablet) 25 mg PO QAM AGGIE Stop: 10/21/22 08:59 Last Admin: 09/21/22 08:40 Dose: 25 mg Azithromycin (Azithromycin 250 Mg Tab) 250 mg PO HS AGGIE Stop: 09/24/22 21:01 Benzonatate (Benzonatate 100 Mg Capsule) 100 mg PO TID PRN PRN Reason: cough Stop: 10/20/22 20:35 Bupropion HCl (Bupropion Sr 150 Mg Tabcr) 150 mg PO BID [facility] Stop: 10/20/22 20:59 Last Admin: 09/21/22 08:40 Dose: 150 mg Cetirizine HCl (Cetirizine Hcl 10 Mg Tablet) 10 mg PO HS AGGIE Stop: 10/20/22 20:59 Last Admin: 09/20/22 21:30 Dose: 10 mg Enoxaparin Sodium (Enoxaparin Inj 40 Mg/0.4 Ml Syr) 40 mg SQ HS AGGIE Stop: 10/20/22 20:59 Last Admin: 09/20/22 21:31 Dose: 40 mg Fluticasone Propionate (Fluticasone Propionate Na Spr 16 Gm Btl) 2 sprays MATILDE DAILY [facility] Stop: 10/21/22 08:59 Last Admin: 09/21/22 08:41 Dose: 2 sprays Guaifenesin (Guaifenesin 600 Mg Tabcr) 600 mg PO Q12 AGGIE Stop: 10/20/22 20:59 Last Admin: 09/21/22 08:40 Dose: 600 mg Ampicillin Sodium/Sulbactam Sodium 3,000 mg/ Sodium Chloride 108 mls @ 200 mls/hr IV Q6H [facility]; Protocol Stop: 09/27/22 20:59 Last Infusion: 09/21/22 09:19 Dose: Infused Ipratropium Irving (Ipratropium Irving Neb Soln 0.02% 2.5 Ml Vial) 0.5 mg INH Q6R [facility] Stop: 10/20/22 21:14 Last Admin: 09/21/22 13:30 Dose: 0.5 mg Levalbuterol HCl (Levalbuterol Hcl 0.63 Mg/3 Ml Neb) 0.63 mg NEB Q6R [facility] Stop: 10/20/22 21:14 Last Admin: 09/21/22 13:30 Dose: 0.63 mg Levothyroxine Sodium (Levothyroxine Sodium 88 Mcg Tablet) 88 mcg PO DAILYBB [facility] Stop: 10/21/22 06:29 Last Admin: 09/21/22 05:46 Dose: 88 mcg Lisinopril (Lisinopril 10 Mg Tab) 10 mg PO QAM [facility] Stop: 10/21/22 08:59 Last Admin: 09/21/22 08:40 Dose: 10 mg Magnesium Hydroxide (Magnesium Hydroxide Susp 30 Ml Udc) 30 ml PO Q12H PRN PRN Reason: Constipation Stop: 10/20/22 20:35 Multivitamins (Multivitamin Tab) 1 tab PO DAILY AGGIE Stop: 10/21/22 08:59 Last Admin: 09/21/22 08:40 Dose: 1 tab Ondansetron HCl (Ondansetron Inj 2 Mg/Ml 2 Ml Vial) 4 mg IV Q6H PRN PRN Reason: Nausea Stop: 10/20/22 20:35 Polyethylene Glycol (Polyethylene (Miralax) 17 Gm Pack) 17 gm PO DAILY PRN PRN Reason: Constipation Stop: 10/20/22 20:35 Polyethylene Glycol (Polyethylene (Miralax) 17 Gm Pack) 8.5 gm PO DAILY AGGIE Stop: 10/21/22 08:59 Last Admin: 09/21/22 08:40 Dose: 8.5 gm Prednisone (Prednisone 20 Mg Tab) 40 mg PO DAILY AGGIE Stop: 10/21/22 08:59 Last Admin: 09/21/22 08:46 Dose: 40 mg Saccharomyces Boulardii (Saccharomyces Boulardii 250 Mg Cap) 250 mg PO DAILY AGGIE Stop: 09/25/22 09:01 Last Admin: 09/21/22 08:40 Dose: 250 mg Sodium Chloride (Sodium Chlor 7% 4 Ml Neb) 4 ml NEB BIDR [facility] Stop: 10/21/22 18:59 Vitamin D (Cholecalciferol 1,000 Units 25 Mcg Tab) 1,000 units PO DAILY AGGIE Stop: 10/21/22 08:59 Last Admin: 09/21/22 08:40 Dose: 1,000 units
--- NOTE | 2022-09-21 15:21 | Fluoroscopy Report ---
FL video swallow CLINICAL HISTORY: 71 years-old Female with r/o aspiration. Dysphasia with possible aspiration TECHNIQUE: Video fluoroscopic evaluation of swallowing was performed in the AP and lateral projection s by the speech pathology staff. The patient is fed thin liquid, mildly thick, moderately thick and c racker with paste consistencies. FLUOROSCOPY TIME: 1.6 minutes.. 524 images were submitted. 11.79 mGy COMPARISON STUDY: Chest CT 09/20/2022 FINDINGS: Laryngeal penetration with thin liquid barium. No definite aspiration identified. Mild vall ecular retention with the cracker and paste consistencies. Spondylitic spurring of the cervical spine . Mild esophageal dysmotility. IMPRESSION: 1. Laryngeal penetration without aspiration identified. 2. Please see the speech pathologist report for detailed findings and recommendations. ACT 112: Negative or not required by law. Electronically signed by: Ed Baugh M.D. 09/21/2022 3:20 PM
[2022-09-21] MEDS: FAMOTIDINE 20 MG TAB PO SCH (16:32)
[2022-09-21] MEDS: SODIUM CHLOR 7% 4 ML NEB NEB SCH (19:08)
[2022-09-21] MEDS: AZITHROMYCIN 250 MG TAB PO SCH (20:02)
[2022-09-21] MEDS: CETIRIZINE HCL 10 MG TABLET PO SCH (20:02)
[2022-09-21] MEDS: ENOXAPARIN INJ 40 MG/0.4 ML SYR SQ SCH (20:03)
[2022-09-22] MEDS: LEVALBUTEROL HCL 0.63 MG/3 ML NEB NEB SCH ×4 (00:36→19:18)
[2022-09-22] MEDS: IPRATROPIUM BROMIDE NEB SOLN 0.02% 2.5 ML VIAL INH SCH ×4 (00:36→19:18)
[2022-09-22] MEDS: AMPICILLIN/SULBACTAM SOD 3,000 MG in 0.9 % SODIUM CHLORIDE 100 ML IV SCH ×4 (02:14→20:09)
[2022-09-22] MEDS: LEVOTHYROXINE SODIUM 88 MCG TABLET PO SCH (05:52)
[2022-09-22] MEDS: SODIUM CHLOR 7% 4 ML NEB NEB SCH ×2 (07:23→19:18)
[2022-09-22] MEDS: guaiFENesin 600 MG TABCR PO SCH ×2 (08:19→20:10)
[2022-09-22] MEDS: buPROPion SR 150 MG TABCR PO SCH ×2 (08:19→20:10)
[2022-09-22] MEDS: FLUTICASONE PROPIONATE NA SPR 16 GM BTL NAE SCH (08:20)
[2022-09-22] MEDS: lisinopril 10 MG TAB PO SCH (08:20)
[2022-09-22] MEDS: FAMOTIDINE 20 MG TAB PO SCH (08:20)
[2022-09-22] MEDS: MULTIVITAMIN TAB PO SCH (08:20)
[2022-09-22] MEDS: ATENOLOL 25 MG TABLET PO SCH (08:20)
[2022-09-22] MEDS: CHOLECALCIFEROL 1,000 UNITS 25 MCG TAB PO SCH (08:20)
[2022-09-22] MEDS: predniSONE 20 MG TAB PO SCH (08:20)
[2022-09-22] MEDS: SACCHAROMYCES BOULARDII 250 MG CAP PO SCH (08:20)
[2022-09-22] MEDS: POLYETHYLENE (MIRALAX) 17 GM PACK PO SCH (08:21)
--- NOTE | 2022-09-22 10:18 | Pulmonology Progress Note ---
Date of Service September 22, 2022 Assessment & Plan (1) Aspiration pneumonia: Plan: MRSA screen negative. Appreciate speech therapy input. No overt signs of aspiration. Transition to Augmentin upon discharge. Hypertonic saline and flutter valve for mucociliary clearance. Continue Mucinex. PA and lateral chest x-ray tomorrow. If no improvement by Saturday, may benefit from bronchoscopy. Repeat CT chest in 6 weeks to ensure resolution of pneumonia and evaluate for underlying malignant lesion. (2) COPD exacerbation: Plan: Prednisone for 5 days. Continue DuoNebs while inpatient. Will need outpatient PFTs once recovered from this acute event. Recommend sending the patient home on a LABA/LAMA inhaler such as Stiolto or Anoro Ellipta when ready. Smoking cessation encouraged. (3) Hypoxia: Plan: Wean O2 to maintain sats of 88 to 92%. Plan We will continue to follow along with you. Thank you for allowing us to participate in the care of this patient. Admission and Anticipated Discharge Date Admission Date: September 20, 2022 Subjective More productive cough today. Shortness of breath mildly improved. No fevers overnight. No chest pain. Review of Systems Review of Systems: All systems reviewed & are unremarkable except as noted in HPI & below Physical Exam Physical Exam: Constitutional: Thin appearing female. Looks sick and frail. Eyes: Pupils are equal round and reactive to light. Conjunctivae are normal. Anicteric sclera. Ears nose, mouth and throat: Mallampati class 2. Normal posterior oropharynx. Uvula is midline. Neck: Trachea is midline. Visual inspection is normal. Respiratory: Crackles in the right lower lobe. Diminished bilaterally. Prolonged phase of exhalation. Cardiovascular: Regular rate and rhythm. No murmurs. No edema. Gastrointestinal: Normal bowel sounds, soft, nontender and nondistended. No hepatosplenomegaly noted. Musculoskeletal: No cyanosis. Patient is able to move all extremities. Strength is 5 out of 5 in the upper and lower extremities. Skin: No rashes, warm dry and intact. Neurologic: No obvious focal neurological deficits seen. Psychiatric: Alert and oriented x3 with a euthymic affect. Results & Data Results & Data Vital Signs (Past 12 Hours) Vital Signs Temp Pulse Pulse Resp BP BP Pulse Ox 09/22/22 08:00 09/22/22 07:00 112 H 09/22/22 07:24 99 H 18 95 09/22/22 07:05 36.5 C 96 H 20 156/81 H 93 09/22/22 04:13 94 09/22/22 03:39 37 C 100 H 18 155/76 H 88 L 09/22/22 00:36 88 18 98 09/21/22 23:44 91 H 09/21/22 23:08 36.7 C 91 H 18 142/77 H 88 L 09/21/22 22:32 O2 Del Method O2 Flow Rate 09/22/22 08:00 Nasal Cannula 1 09/22/22 07:00 09/22/22 07:24 Nasal Cannula 1 09/22/22 07:05 Nasal Cannula 1 09/22/22 04:13 Nasal Cannula 1 09/22/22 03:39 Room Air 09/22/22 00:36 Room Air 09/21/22 23:44 09/21/22 23:08 Room Air 09/21/22 22:32 Room Air PG Care Time/CCT Total # of Minutes Spent Total Time Spent with Patient: Total time spent is greater than 50% in coordination of care (as documented) at patient's floor/unit and/or counseling patient: Coding Level of Care Code 23013 SUB INP/OBS CARE 2/35MIN Diagnoses Aspiration pneumonia J69.0 COPD exacerbation J44.1 Hypoxia R09.02
--- NOTE | 2022-09-22 13:17 | Hospitalist Progress Note ---
Date of Service September 22, 2022 Assessment & Plan (1) COPD exacerbation: (2) Hypoxia: (3) Chronic hyponatremia: (4) Hypokalemia: (5) HTN (hypertension): (6) Hypothyroidism: Plan This is a 71-year-old female who has significant past medical history of HTN, HLD, COPD, hypothyroidism, ulcerative colitis, Angio-Seal, history of C. difficile s/p fecal transplant and anxiety who presents to ED secondary to shortness of breath x 2 weeks. COPD exacerbation Possible aspiration pneumonia Hypoxia Admit to medical telemetry IV Solu-Medrol 40 mg twice daily Due to patient complaining of shaking as well as mild tachycardia in ED will place on levalbuterol/ipratropium 4 times daily Pulmonary toilet with incentive spirometry and flutter valve Sputum culture-few gram-negative bacilli and rare gram-positive cocci-cultures and sensitivity pending Obtain CT chest, since D-dimer negative without contrast as PE less likely --CT chest:Mucoid opacification of the bronchus intermedius which extends into the proximal right middle lobe bronchi and opacifies the right lower lobe bronchi. There is patchy consolidation within the right lower lobe medially. Therefore, these findings are consistent with a right lower lobe pneumonia, likely due to aspiration. Follow-up bronchoscopy or [address] recommended to ensure resolution of these findings. 2. Subcarinal and right hilar lymphadenopathy. This may be reactive. Attention at follow-up recommended. 3. A 4 mm nodule within the right lower lobe. Will place on IV unasyn and oral azithromycin + probiotic Consult speech therapy in setting of aspiration findings on chest CT recommend f/u Chest CT in 3 months to ensure resolution Appreciate pulmonary input and recommendation Will have chest x-ray PA and lateral view tomorrow Likely discharge tomorrow if she feels better and will get a 2 steps O2 saturation test prior to discharge- We will discharge on LABA/LAMA Chronic hyponatremia pt runs 133-135 as OP, likely 2/2 HCTZ will d/c HCTZ urine na, osm and serum osm-urine and serum osmolarity is a low, 125 and 268 respectively gentle IVF x 1 L Sodium has been almost normalized at 134 Hypokalemia replete Normalized HTN continue atenolol will d/c HCTZ in favor of lisinopril 10mg daily pt with mild lower ext swelling therefore will avoid norvasc for now will need repeat bmp in 1 week at d/c Hypothyroidism continue levothyroxine TSH 1.49 08/30 DVT ppx: SQ Lovenox Dispo: admit to med tele FULL CODE PCP: Xiomara A total of 45 minutes was spent discussing and examining the patient, viewing all current laboratory work and diagnostic imaging studies. Additionally, reviewed her medications and adjusted accordingly and discussing with the specialist. Admission and Anticipated Discharge Date Admission Date: September 20, 2022 Subjective 09/21/2022 The patient was seen and examined in medical telemetry unit She has been feeling a little better Her cough, phlegm and shortness of breath are improving No fever and no chills She denies any significant problem with swallowing 09/22/2022 The patient was seen and examined in medical telemetry unit She has been feeling better today and is still requiring about 1 to 2 L of o xygen to maintain saturation She would like to have GI evaluation as an outpatient for issues with swallowing Denies any fever and/or chills Review of Systems Review of Systems: All systems reviewed and are unremarkable except as noted below Physical Exam Physical Exam: Sitting at the edge of the bed without any acute distress Constitutional: + ill appearing and average body habitus Eyes: PERRL, conjunctivae normal, anicteric sclerae ENMT: external ear and nose normal, oropharynx normal Neck: trachea midline, no thyromegaly Respiratory: + respiratory distress (Minimal distress at rest); no retractions Auscultation: + diminished lung sounds and + wheezes (Occasional wheezing) Cardiovascular: Rate/Rhythm: regular rate and regular rhythm; not tachycardic Heart Sounds: normal S1 and normal S2; no murmur Gastrointestinal (Abdomen): Inspection/Auscultation: normal bowel sounds; ab domen not distended Percussion/Palpation: abdomen soft; abdomen nontender Musculoskeletal: No acute arthritis involving any joint Neurologic: normal touch/pain/proprioception and moves all extremities; no focal motor deficits Psychiatric: A+Ox3, euthymic affect Lymphatic: no cervical or axillary lymphadenopathy Results & Data Results & Data Vital Signs (Past 12 Hours) Vital Signs Temp Pulse Pulse Resp BP BP Pulse Ox 09/22/22 10:49 36.6 C 80 20 150/78 H 96 09/22/22 08:00 09/22/22 07:00 112 H 09/22/22 07:24 99 H 18 95 09/22/22 07:05 36.5 C 96 H 20 156/81 H 93 09/22/22 04:13 94 09/22/22 03:39 37 C 100 H 18 155/76 H 88 L O2 Del Method O2 Flow Rate 09/22/22 10:49 Nasal Cannula 1 09/22/22 08:00 Nasal Cannula 1 09/22/22 07:00 09/22/22 07:24 Nasal Cannula 1 09/22/22 07:05 Nasal Cannula 1 09/22/22 04:13 Nasal Cannula 1 09/22/22 03:39 Room Air Laboratory Results Current Inpatient Medications Acetaminophen (Acetaminophen 325 Mg Tab) 650 mg PO Q4H PRN PRN Reason: Pain or Fever Stop: 10/20/22 20:35 Al Hydrox/Mg Hydrox/Simethicone (Aluminum/Magnesium Susp 30 Ml Udc) 15 ml PO Q4H PRN PRN Reason: Dyspepsia Stop: 10/20/22 20:35 Atenolol (Atenolol 25 Mg Tablet) 25 mg PO QAM [facility] Stop: 10/21/22 08:59 Last Admin: 09/22/22 08:20 Dose: 25 mg Azithromycin (Azithromycin 250 Mg Tab) 250 mg PO HS AGGIE Stop: 09/24/22 21:01 Last Admin: 09/21/22 20:02 Dose: 250 mg Benzonatate (Benzonatate 100 Mg Capsule) 100 mg PO TID PRN PRN Reason: cough Stop: 10/20/22 20:35 Bupropion HCl (Bupropion Sr 150 Mg Tabcr) 150 mg PO BID [facility]GGIE Stop: 10/20/22 20:59 Last Admin: 09/22/22 08:19 Dose: 150 mg Cetirizine HCl (Cetirizine Hcl 10 Mg Tablet) 10 mg PO HS AGGIE Stop: 10/20/22 20:59 Last Admin: 09/21/22 20:02 Dose: 10 mg Enoxaparin Sodium (Enoxaparin Inj 40 Mg/0.4 Ml Syr) 40 mg SQ HS AGGIE Stop: 10/20/22 20:59 Last Admin: 09/21/22 20:03 Dose: 40 mg Famotidine (Famotidine 20 Mg Tab) 20 mg PO QAM [facility]GGIE Stop: 10/21/22 16:14 Last Admin: 09/22/22 08:20 Dose: 20 mg Fluticasone Propionate (Fluticasone Propionate Na Spr 16 Gm Btl) 2 sprays MATILDE DAILY [facility] Stop: 10/21/22 08:59 Last Admin: 09/22/22 08:20 Dose: 2 sprays Guaifenesin (Guaifenesin 600 Mg Tabcr) 600 mg PO Q12 [facility] Stop: 10/20/22 20:59 Last Admin: 09/22/22 08:19 Dose: 600 mg Ampicillin Sodium/Sulbactam Sodium 3,000 mg/ Sodium Chloride 108 mls @ 200 mls/hr IV Q6H [facility]; Protocol Stop: 09/27/22 20:59 Last Infusion: 09/22/22 09:03 Dose: Infused Ipratropium Huslia (Ipratropium Huslia Neb Soln 0.02% 2.5 Ml Vial) 0.5 mg INH Q6R [facility] Stop: 10/20/22 21:14 Last Admin: 09/22/22 07:23 Dose: 0.5 mg Levalbuterol HCl (Levalbuterol Hcl 0.63 Mg/3 Ml Neb) 0.63 mg NEB Q6R [facility] Stop: 10/20/22 21:14 Last Admin: 09/22/22 07:23 Dose: 0.63 mg Levothyroxine Sodium (Levothyroxine Sodium 88 Mcg Tablet) 88 mcg PO DAILYBB [facility] Stop: 10/21/22 06:29 Last Admin: 09/22/22 05:52 Dose: 88 mcg Lisinopril (Lisinopril 10 Mg Tab) 10 mg PO QAM [facility] Stop: 10/21/22 08:59 Last Admin: 09/22/22 08:20 Dose: 10 mg Magnesium Hydroxide (Magnesium Hydroxide Susp 30 Ml Udc) 30 ml PO Q12H PRN PRN Reason: Constipation Stop: 10/20/22 20:35 Multivitamins (Multivitamin Tab) 1 tab PO DAILY [facility] Stop: 10/21/22 08:59 Last Admin: 09/22/22 08:20 Dose: 1 tab Ondansetron HCl (Ondansetron Inj 2 Mg/Ml 2 Ml Vial) 4 mg IV Q6H PRN PRN Reason: Nausea Stop: 10/20/22 20:35 Polyethylene Glycol (Polyethylene (Miralax) 17 Gm Pack) 17 gm PO DAILY PRN PRN Reason: Constipation Stop: 10/20/22 20:35 Polyethylene Glycol (Polyethylene (Miralax) 17 Gm Pack) 8.5 gm PO DAILY [facility] Stop: 10/21/22 08:59 Last Admin: 09/22/22 08:21 Dose: 8.5 gm Prednisone (Prednisone 20 Mg Tab) 40 mg PO DAILY [facility] Stop: 10/21/22 08:59 Last Admin: 09/22/22 08:20 Dose: 40 mg Saccharomyces Boulardii (Saccharomyces Boulardii 250 Mg Cap) 250 mg PO DAILY [facility] Stop: 09/25/22 09:01 Last Admin: 09/22/22 08:20 Dose: 250 mg Sodium Chloride (Sodium Chlor 7% 4 Ml Neb) 4 ml NEB BIDR [facility] Stop: 10/21/22 18:59 Last Admin: 09/22/22 07:23 Dose: 4 ml Vitamin D (Cholecalciferol 1,000 Units 25 Mcg Tab) 1,000 units PO DAILY [facility] Stop: 10/21/22 08:59 Last Admin: 09/22/22 08:20 Dose: 1,000 units Medications Administered Current Inpatient Medications Acetaminophen (Acetaminophen 325 Mg Tab) 650 mg PO Q4H PRN PRN Reason: Pain or Fever Stop: 10/20/22 20:35 Al Hydrox/Mg Hydrox/Simethicone (Aluminum/Magnesium Susp 30 Ml Udc) 15 ml PO Q4H PRN PRN Reason: Dyspepsia Stop: 10/20/22 20:35 Atenolol (Atenolol 25 Mg Tablet) 25 mg PO QAM [facility] Stop: 10/21/22 08:59 Last Admin: 09/22/22 08:20 Dose: 25 mg Azithromycin (Azithromycin 250 Mg Tab) 250 mg PO HS [facility] Stop: 09/24/22 21:01 Last Admin: 09/21/22 20:02 Dose: 250 mg Benzonatate (Benzonatate 100 Mg Capsule) 100 mg PO TID PRN PRN Reason: cough Stop: 10/20/22 20:35 Bupropion HCl (Bupropion Sr 150 Mg Tabcr) 150 mg PO BID [facility] Stop: 10/20/22 20:59 Last Admin: 09/22/22 08:19 Dose: 150 mg Cetirizine HCl (Cetirizine Hcl 10 Mg Tablet) 10 mg PO HS [facility] Stop: 10/20/22 20:59 Last Admin: 09/21/22 20:02 Dose: 10 mg Enoxaparin Sodium (Enoxaparin Inj 40 Mg/0.4 Ml Syr) 40 mg SQ HS [facility] Stop: 10/20/22 20:59 Last Admin: 09/21/22 20:03 Dose: 40 mg Famotidine (Famotidine 20 Mg Tab) 20 mg PO QAM [facility] Stop: 10/21/22 16:14 Last Admin: 09/22/22 08:20 Dose: 20 mg Fluticasone Propionate (Fluticasone Propionate Na Spr 16 Gm Btl) 2 sprays MATILDE DAILY [facility] Stop: 10/21/22 08:59 Last Admin: 09/22/22 08:20 Dose: 2 sprays Guaifenesin (Guaifenesin 600 Mg Tabcr) 600 mg PO Q12 [facility] Stop: 10/20/22 20:59 Last Admin: 09/22/22 08:19 Dose: 600 mg Ampicillin Sodium/Sulbactam Sodium 3,000 mg/ Sodium Chloride 108 mls @ 200 mls/hr IV Q6H [facility]; Protocol Stop: 09/27/22 20:59 Last Infusion: 09/22/22 09:03 Dose: Infused Ipratropium Huslia (Ipratropium Huslia Neb Soln 0.02% 2.5 Ml Vial) 0.5 mg INH Q6R [facility] Stop: 10/20/22 21:14 Last Admin: 09/22/22 07:23 Dose: 0.5 mg Levalbuterol HCl (Levalbuterol Hcl 0.63 Mg/3 Ml Neb) 0.63 mg NEB Q6R [facility] Stop: 10/20/22 21:14 Last Admin: 09/22/22 07:23 Dose: 0.63 mg Levothyroxine Sodium (Levothyroxine Sodium 88 Mcg Tablet) 88 mcg PO DAILYBB [facility] Stop: 10/21/22 06:29 Last Admin: 09/22/22 05:52 Dose: 88 mcg Lisinopril (Lisinopril 10 Mg Tab) 10 mg PO QAM [facility] Stop: 10/21/22 08:59 Last Admin: 09/22/22 08:20 Dose: 10 mg Magnesium Hydroxide (Magnesium Hydroxide Susp 30 Ml Udc) 30 ml PO Q12H PRN PRN Reason: Constipation Stop: 10/20/22 20:35 Multivitamins (Multivitamin Tab) 1 tab PO DAILY [facility] Stop: 10/21/22 08:59 Last Admin: 09/22/22 08:20 Dose: 1 tab Ondansetron HCl (Ondansetron Inj 2 Mg/Ml 2 Ml Vial) 4 mg IV Q6H PRN PRN Reason: Nausea Stop: 10/20/22 20:35 Polyethylene Glycol (Polyethylene (Miralax) 17 Gm Pack) 17 gm PO DAILY PRN PRN Reason: Constipation Stop: 10/20/22 20:35 Polyethylene Glycol (Polyethylene (Miralax) 17 Gm Pack) 8.5 gm PO DAILY [facility] Stop: 10/21/22 08:59 Last Admin: 09/22/22 08:21 Dose: 8.5 gm Prednisone (Prednisone 20 Mg Tab) 40 mg PO DAILY [facility] Stop: 10/21/22 08:59 Last Admin: 09/22/22 08:20 Dose: 40 mg Saccharomyces Boulardii (Saccharomyces Boulardii 250 Mg Cap) 250 mg PO DAILY [facility] Stop: 09/25/22 09:01 Last Admin: 09/22/22 08:20 Dose: 250 mg Sodium Chloride (Sodium Chlor 7% 4 Ml Neb) 4 ml NEB BIDR [facility] Stop: 10/21/22 18:59 Last Admin: 09/22/22 07:23 Dose: 4 ml Vitamin D (Cholecalciferol 1,000 Units 25 Mcg Tab) 1,000 units PO DAILY [facility] Stop: 10/21/22 08:59 Last Admin: 09/22/22 08:20 Dose: 1,000 units
[2022-09-22] MEDS: AZITHROMYCIN 250 MG TAB PO SCH (20:09)
[2022-09-22] MEDS: CETIRIZINE HCL 10 MG TABLET PO SCH (20:10)
[2022-09-22] MEDS: ENOXAPARIN INJ 40 MG/0.4 ML SYR SQ SCH (20:11)
[2022-09-23] MEDS: LEVALBUTEROL HCL 0.63 MG/3 ML NEB NEB SCH ×4 (00:13→20:06)
[2022-09-23] MEDS: IPRATROPIUM BROMIDE NEB SOLN 0.02% 2.5 ML VIAL INH SCH ×4 (00:13→20:06)
[2022-09-23] MEDS: AMPICILLIN/SULBACTAM SOD 3,000 MG in 0.9 % SODIUM CHLORIDE 100 ML IV SCH ×4 (04:16→20:22)
[2022-09-23] MEDS: LEVOTHYROXINE SODIUM 88 MCG TABLET PO SCH (06:08)
[2022-09-23] MEDS: SODIUM CHLOR 7% 4 ML NEB NEB SCH ×2 (07:12→20:06)
[2022-09-23 07:14] LABS: BUN Creatinine Ratio 17.1 (10-20); Calcium 8.3 mg/dl (8.6-10.3); Creatinine Clr Calc Pharmacy 129.2 ml/min; Est GFR (African American) 127.8 ml/min; Est GFR (Non-African American) 110.3 ml/min; Potassium 3.3 mmol/L (3.5-5.1)
[2022-09-23] MEDS ORDERED: POTASSIUM CHLORIDE CRTAB 20 MEQ TABCR PO STA (07:45)
[2022-09-23] MEDS: FLUTICASONE PROPIONATE NA SPR 16 GM BTL NAE SCH (08:00)
[2022-09-23] MEDS: buPROPion SR 150 MG TABCR PO SCH ×2 (08:01→20:22)
[2022-09-23] MEDS: guaiFENesin 600 MG TABCR PO SCH ×2 (08:01→20:23)
[2022-09-23] MEDS: predniSONE 20 MG TAB PO SCH (08:01)
[2022-09-23] MEDS: CHOLECALCIFEROL 1,000 UNITS 25 MCG TAB PO SCH (08:01)
[2022-09-23] MEDS: ATENOLOL 25 MG TABLET PO SCH (08:01)
[2022-09-23] MEDS: SACCHAROMYCES BOULARDII 250 MG CAP PO SCH (08:01)
[2022-09-23] MEDS: POLYETHYLENE (MIRALAX) 17 GM PACK PO SCH (08:01)
[2022-09-23] MEDS: MULTIVITAMIN TAB PO SCH (08:01)
[2022-09-23] MEDS: FAMOTIDINE 20 MG TAB PO SCH (08:02)
[2022-09-23] MEDS: lisinopril 10 MG TAB PO SCH (08:02)
--- NOTE | 2022-09-23 09:19 | XRay Report ---
XR chest 2V PA/lateral CLINICAL HISTORY: follow up pna TECHNIQUE: 2 views of the chest were obtained. Comparison: Comparison is made to chest radiograph 09/20/2022 FINDINGS: No lines and tubes are seen. Calcified aortic knob is seen. Airspace opacities are in the right lower lobe. No evidence of pleural effusion or pneumothorax. IMPRESSION: Right lower lung airspace opacities are compatible with pneumonia. ACT 112: Negative or not required by law. Electronically signed by: Santy Fonseca M.D. 09/23/2022 9:17 AM
--- NOTE | 2022-09-23 09:36 | Pulmonology Progress Note ---
Date of Service September 23, 2022 Assessment & Plan (1) Aspiration pneumonia: Plan: MRSA screen negative. Appreciate speech therapy input. No overt signs of aspiration. Transition to Augmentin upon discharge. Hypertonic saline and flutter valve for mucociliary clearance. Continue Mucinex. PA and lateral chest x-ray reviewed. Airspace opacity in the right lower lobe with spine sign present. Patient clinically feels improved. Repeat CT chest without contrast in 6 weeks to ensure resolution of pneumonia and evaluate for underlying malignant lesion. (2) COPD exacerbation: Plan: Prednisone for 5 days. Continue DuoNebs while inpatient. Will need outpatient PFTs once recovered from this acute event. Recommend sending the patient home on a LABA/LAMA inhaler such as Stiolto or Anoro Ellipta when ready. Smoking cessation encouraged. (3) Hypoxia: Plan: Wean O2 to maintain sats of 88 to 92%. Plan We will follow-up in the pulmonary clinic. Thank you for the consult. No further interventions at this time. Please call with questions. Admission and Anticipated Discharge Date Admission Date: September 20, 2022 Subjective Cough and shortness of breath improving. Down to 1 L of oxygen with exertion. Review of Systems Review of Systems: All systems reviewed & are unremarkable except as noted in HPI & below Physical Exam Physical Exam: Constitutional: Thin appearing female. Looks sick and frail. Eyes: Pupils are equal round and reactive to light. Conjunctivae are normal. Anicteric sclera. Ears nose, mouth and throat: Mallampati class 2. Normal posterior oropharynx. Uvula is midline. Neck: Trachea is midline. Visual inspection is normal. Respiratory: Crackles in the right lower lobe. Diminished bilaterally. Prolonged phase of exhalation. Cardiovascular: Regular rate and rhythm. No murmurs. No edema. Gastrointestinal: Normal bowel sounds, soft, nontender and nondistended. No hepatosplenomegaly noted. Musculoskeletal: No cyanosis. Patient is able to move all extremities. Strength is 5 out of 5 in the upper and lower extremities. Skin: No rashes, warm dry and intact. Neurologic: No obvious focal neurological deficits seen. Psychiatric: Alert and oriented x3 with a euthymic affect. Results & Data Results & Data Vital Signs (Past 12 Hours) Vital Signs Temp Pulse Pulse Resp BP Pulse Ox O2 Del Method 09/23/22 07:30 Nasal Cannula 09/23/22 07:45 37.1 C 90 16 133/73 93 Nasal Cannula 09/23/22 07:27 92 H 09/23/22 07:12 91 H 20 95 Nasal Cannula 09/23/22 03:49 36.7 C 89 16 144/71 H 95 Nasal Cannula 09/23/22 00:44 94 H 09/23/22 00:44 Nasal Cannula 09/23/22 00:17 91 H 16 92 Nasal Cannula 09/22/22 22:43 36.9 C 69 16 135/75 95 Nasal Cannula O2 Flow Rate 09/23/22 07:30 2 09/23/22 07:45 1 09/23/22 07:27 09/23/22 07:12 1.5 09/23/22 03:49 1 09/23/22 00:44 09/23/22 00:44 1 09/23/22 00:17 2 09/22/22 22:43 1 PG Care Time/CCT Total # of Minutes Spent Total Time Spent with Patient: Total time spent is greater than 50% in coordination of care (as documented) at patient's floor/unit and/or counseling patient: Coding Level of Care Code 23610 SUB INP/OBS CARE 07/18MIN Diagnoses Aspiration pneumonia J69.0 COPD exacerbation J44.1 Hypoxia R09.02
[2022-09-23] MEDS ORDERED: SALINE NASAL 225 SPRAYS, GENTAMICIN SULFATE 60 MG, BARCODE IDENTIFIER 0 EACH PRN (11:49)
[2022-09-23] MEDS ORDERED: SODIUM CHLORIDE 0.65% NA SOLN 45 ML (OCEAN) ONE (12:20)
[2022-09-23] MEDS: SODIUM CHLORIDE 0.65% NA SOLN 45 ML (OCEAN) PRN (12:30)
[2022-09-23] MEDS ORDERED: OLANZAPINE 2.5 MG TAB PO STA (12:53)
--- NOTE | 2022-09-23 13:14 | Hospitalist Progress Note ---
Date of Service September 23, 2022 Assessment & Plan (1) COPD exacerbation: (2) Hypoxia: (3) Chronic hyponatremia: (4) Hypokalemia: (5) HTN (hypertension): (6) Hypothyroidism: Plan This is a 71-year-old female who has significant past medical history of HTN, HLD, COPD, hypothyroidism, ulcerative colitis, Angio-Seal, history of C. difficile s/p fecal transplant and anxiety who presents to ED secondary to shortness of breath x 2 weeks. COPD exacerbation Possible aspiration pneumonia Hypoxia Admit to medical telemetry IV Solu-Medrol 40 mg twice daily Due to patient complaining of shaking as well as mild tachycardia in ED will place on levalbuterol/ipratropium 4 times daily Pulmonary toilet with incentive spirometry and flutter valve Sputum culture-few gram-negative bacilli and rare gram-positive cocci-cultures and sensitivity pending Obtain CT chest, since D-dimer negative without contrast as PE less likely --CT chest:Mucoid opacification of the bronchus intermedius which extends into the proximal right middle lobe bronchi and opacifies the right lower lobe bronchi. There is patchy consolidation within the right lower lobe medially. Therefore, these findings are consistent with a right lower lobe pneumonia, likely due to aspiration. Follow-up bronchoscopy or [address] recommended to ensure resolution of these findings. 2. Subcarinal and right hilar lymphadenopathy. This may be reactive. Attention at follow-up recommended. 3. A 4 mm nodule within the right lower lobe. Will place on IV unasyn and oral azithromycin + probiotic Consult speech therapy in setting of aspiration findings on chest CT recommend f/u Chest CT in 3 months to ensure resolution Appreciate pulmonary input and recommendation Will have chest x-ray PA and lateral view tomorrow Likely discharge tomorrow if she feels better and will get a 2 steps O2 saturation test prior to discharge- We will discharge on LABA/LAMA X-ray did show persistence of right lower lobe pneumonia-a dedicated CT scan of the chest was advised by the nursing informatics clinical analyst She has been feeling much better and will be discharged home tomorrow She will have a 2 steps O2 saturation prior to discharge Chronic hyponatremia pt runs 133-135 as OP, likely 2/2 HCTZ will d/c HCTZ urine na, osm and serum osm-urine and serum osmolarity is a low, 125 and 268 respectively gentle IVF x 1 L Sodium has been almost normalized at 134 Hypokalemia replete Normalized HTN continue atenolol will d/c HCTZ in favor of lisinopril 10mg daily pt with mild lower ext swelling therefore will avoid norvasc for now will need repeat bmp in 1 week at d/c Hypothyroidism continue levothyroxine TSH 1.49 3 DVT ppx: SQ Lovenox Dispo: admit to med tele FULL CODE PCP: Xiomara A total of 45 minutes was spent discussing and examining the patient, viewing all current laboratory work and diagnostic imaging studies. Additionally, reviewed her medications and adjusted accordingly and discussing with the specialist. Admission and Anticipated Discharge Date Admission Date: September 20, 2022 Subjective 09/21/2022 The patient was seen and examined in medical telemetry unit She has been feeling a little better Her cough, phlegm and shortness of breath are improving No fever and no chills She denies any significant problem with swallowing 09/22/2022 The patient was seen and examined in medical telemetry unit She has been feeling better today and is still requiring about 1 to 2 L of oxygen to maintain saturation She would like to have GI evaluation as an outpatient for issues with swallowing Denies any fever and/or chills 09/23/2022 The patient was seen and examined in medical telemetry unit She has been feeling much better but complains to have some shortness of breath with exertion Her cough is improved and the chest x-ray showed persistence of right lower lobe pneumonia Later on she was noted to be very anxious and a dose of oral Zyprexa was given Review of Systems Review of Systems: All systems reviewed and are unremarkable except as noted below Respiratory: Minimal shortness of breath at rest Physical Exam Physical Exam: Sitting at the edge of the bed without any acute distress Constitutional: + ill appearing and average body habitus Eyes: PERRL, conjunctivae normal, anicteric sclerae ENMT: external ear and nose normal, oropharynx normal Neck: trachea midline, no thyromegaly Respiratory: + respiratory distress (Minimal distress at rest); no retractions Auscultation: + diminished lung sounds and + wheezes (Occasional wheezing) Cardiovascular: Rate/Rhythm: regular rate and regular rhythm; not tachycardic Heart Sounds: normal S1 and normal S2; no murmur Gastrointestinal (Abdomen): Inspection/Auscultation: normal bowel sounds; abdomen not distended Percussion/Palpation: abdomen soft; abdomen nontender Neurologic: normal touch/pain/proprioception and moves all extremities; no focal motor deficits Psychiatric: A+Ox3, euthymic affect Lymphatic: no cervical or axillary lymphadenopathy Results & Data Results & Data Vital Signs (Past 12 Hours) Vital Signs Temp Pulse Pulse Resp BP BP Pulse Ox 09/23/22 10:59 36.7 C 96 H 20 154/80 H 95 09/23/22 07:30 09/23/22 07:45 37.1 C 90 16 133/73 93 09/23/22 07:27 92 H 09/23/22 07:12 91 H 20 95 09/23/22 03:49 36.7 C 89 16 144/71 H 95 O2 Del Method O2 Flow Rate 09/23/22 10:59 Nasal Cannula 1 09/23/22 07:30 Nasal Cannula 2 09/23/22 07:45 Nasal Cannula 1 09/23/22 07:27 09/23/22 07:12 Nasal Cannula 1.5 09/23/22 03:49 Nasal Cannula 1 Laboratory Results BMP 09/23/22 06:16 Sodium 131 L Potassium 3.3 L Chloride 95 L Carbon Dioxide 29 BUN 6 Creatinine 0.35 L Glucose 98 Calcium 8.3 L Medications Administered Current Inpatient Medications Acetaminophen (Acetaminophen 325 Mg Tab) 650 mg PO Q4H PRN PRN Reason: Pain or Fever Stop: 10/20/22 20:35 Al Hydrox/Mg Hydrox/Simethicone (Aluminum/Magnesium Susp 30 Ml Udc) 15 ml PO Q4H PRN PRN Reason: Dyspepsia Stop: 10/20/22 20:35 Atenolol (Atenolol 25 Mg Tablet) 25 mg PO QAM [facility] Stop: 10/21/22 08:59 Last Admin: 09/23/22 08:01 Dose: 25 mg Azithromycin (Azithromycin 250 Mg Tab) 250 mg PO [facility] Stop: 09/24/22 21:01 Last Admin: 09/22/22 20:09 Dose: 250 mg Benzonatate (Benzonatate 100 Mg Capsule) 100 mg PO TID PRN PRN Reason: cough Stop: 10/20/22 20:35 Last Admin: 09/23/22 08:01 Dose: 100 mg Bupropion HCl (Bupropion Sr 150 Mg Tabcr) 150 mg PO BID [facility] Stop: 10/20/22 20:59 Last Admin: 09/23/22 08:01 Dose: 150 mg Cetirizine HCl (Cetirizine Hcl 10 Mg Tablet) 10 mg PO HS [facility] Stop: 10/20/22 20:59 Last Admin: 09/22/22 20:10 Dose: 10 mg Enoxaparin Sodium (Enoxaparin Inj 40 Mg/0.4 Ml Syr) 40 mg SQ HS [facility] Stop: 10/20/22 20:59 Last Admin: 09/22/22 20:11 Dose: 40 mg Famotidine (Famotidine 20 Mg Tab) 20 mg PO QAM [facility] Stop: 10/21/22 16:14 Last Admin: 09/23/22 08:02 Dose: 20 mg Fluticasone Propionate (Fluticasone Propionate Na Spr 16 Gm Btl) 2 sprays MATILDE DAILY [facility] Stop: 10/21/22 08:59 Last Admin: 09/23/22 08:00 Dose: 2 sprays Guaifenesin (Guaifenesin 600 Mg Tabcr) 600 mg PO Q12 [facility] Stop: 10/20/22 20:59 Last Admin: 09/23/22 08:01 Dose: 600 mg Ampicillin Sodium/Sulbactam Sodium 3,000 mg/ Sodium Chloride 108 mls @ 200 mls/hr IV Q6H [facility]; Protocol Stop: 09/27/22 20:59 Last Infusion: 09/23/22 09:38 Dose: Infused Ipratropium [place] (Ipratropium [place] Neb Soln 0.02% 2.5 Ml Vial) 0.5 mg INH Q6R [facility] Stop: 10/20/22 21:14 Last Admin: 09/23/22 07:12 Dose: 0.5 mg Levalbuterol HCl (Levalbuterol Hcl 0.63 Mg/3 Ml Neb) 0.63 mg NEB Q6R [facility] Stop: 10/20/22 21:14 Last Admin: 09/23/22 07:12 Dose: 0.63 mg Levothyroxine Sodium (Levothyroxine Sodium 88 Mcg Tablet) 88 mcg PO DAILYBB [facility]IE Stop: 10/21/22 06:29 Last Admin: 09/23/22 06:08 Dose: 88 mcg Lisinopril (Lisinopril 10 Mg Tab) 10 mg PO QAM [facility]IE Stop: 10/21/22 08:59 Last Admin: 09/23/22 08:02 Dose: 10 mg Magnesium Hydroxide (Magnesium Hydroxide Susp 30 Ml Udc) 30 ml PO Q12H PRN PRN Reason: Constipation Stop: 10/20/22 20:35 Multivitamins (Multivitamin Tab) 1 tab PO DAILY AGGIE Stop: 10/21/22 08:59 Last Admin: 09/23/22 08:01 Dose: 1 tab Ondansetron HCl (Ondansetron Inj 2 Mg/Ml 2 Ml Vial) 4 mg IV Q6H PRN PRN Reason: Nausea Stop: 10/20/22 20:35 Polyethylene Glycol (Polyethylene (Miralax) 17 Gm Pack) 17 gm PO DAILY PRN PRN Reason: Constipation Stop: 10/20/22 20:35 Polyethylene Glycol (Polyethylene (Miralax) 17 Gm Pack) 8.5 gm PO DAILY AGGIE Stop: 10/21/22 08:59 Last Admin: 09/23/22 08:01 Dose: 8.5 gm Prednisone (Prednisone 20 Mg Tab) 40 mg PO DAILY AGGIE Stop: 10/21/22 08:59 Last Admin: 09/23/22 08:01 Dose: 40 mg Saccharomyces Boulardii (Saccharomyces Boulardii 250 Mg Cap) 250 mg PO DAILY AGGIE Stop: 09/25/22 09:01 Last Admin: 09/23/22 08:01 Dose: 250 mg Sodium Chloride (Sodium Chlor 7% 4 Ml Neb) 4 ml NEB BIDR AGGIE Stop: 10/21/22 18:59 Last Admin: 09/23/22 07:12 Dose: Not Given Sodium Chloride (Sodium Chloride 0.65% Na Soln 45 Ml ([place])) 2 sprays NA TID PRN PRN Reason: Dryness Stop: 10/23/22 12:14 Last Admin: 09/23/22 12:30 Dose: 2 sprays Vitamin D (Cholecalciferol 1,000 Units 25 Mcg Tab) 1,000 units PO DAILY AGGIE Stop: 10/21/22 08:59 Last Admin: 09/23/22 08:01 Dose: 1,000 units
[2022-09-23] MEDS: AZITHROMYCIN 250 MG TAB PO SCH (20:22)
[2022-09-23] MEDS: ENOXAPARIN INJ 40 MG/0.4 ML SYR SQ SCH (20:23)
[2022-09-23] MEDS: CETIRIZINE HCL 10 MG TABLET PO SCH (20:23)
[2022-09-24] MEDS: LEVALBUTEROL HCL 0.63 MG/3 ML NEB NEB SCH ×3 (00:12→12:44)
[2022-09-24] MEDS: IPRATROPIUM BROMIDE NEB SOLN 0.02% 2.5 ML VIAL INH SCH ×3 (00:13→12:44)
[2022-09-24] MEDS: AMPICILLIN/SULBACTAM SOD 3,000 MG in 0.9 % SODIUM CHLORIDE 100 ML IV SCH ×2 (02:05→09:04)
[2022-09-24] MEDS: LEVOTHYROXINE SODIUM 88 MCG TABLET PO SCH (05:38)
[2022-09-24] MEDS: SODIUM CHLORIDE 0.65% NA SOLN 45 ML (OCEAN) PRN (06:34)
[2022-09-24] MEDS: SODIUM CHLOR 7% 4 ML NEB NEB SCH (07:32)
[2022-09-24] MEDS: POLYETHYLENE (MIRALAX) 17 GM PACK PO SCH (08:04)
[2022-09-24] MEDS: lisinopril 10 MG TAB PO SCH (08:05)
[2022-09-24] MEDS: FLUTICASONE PROPIONATE NA SPR 16 GM BTL NAE SCH (08:05)
[2022-09-24] MEDS: CHOLECALCIFEROL 1,000 UNITS 25 MCG TAB PO SCH (08:06)
[2022-09-24] MEDS: ATENOLOL 25 MG TABLET PO SCH (08:06)
[2022-09-24] MEDS: FAMOTIDINE 20 MG TAB PO SCH (08:06)
[2022-09-24] MEDS: MULTIVITAMIN TAB PO SCH (08:06)
[2022-09-24] MEDS: buPROPion SR 150 MG TABCR PO SCH (08:06)
[2022-09-24] MEDS: guaiFENesin 600 MG TABCR PO SCH (08:06)
[2022-09-24] MEDS: SACCHAROMYCES BOULARDII 250 MG CAP PO SCH (08:06)
[2022-09-24] MEDS: predniSONE 20 MG TAB PO SCH (08:06)
--- NOTE | 2022-09-24 12:39 | Hospitalist Progress Note ---
Date of Service September 24, 2022 Assessment & Plan (1) COPD exacerbation: (2) Hypoxia: (3) Chronic hyponatremia: (4) Hypokalemia: (5) HTN (hypertension): (6) Hypothyroidism: Plan This is a 71-year-old female who has significant past medical history of HTN, HLD, COPD, hypothyroidism, ulcerative colitis, Angio-Seal, history of C. difficile s/p fecal transplant and anxiety who presents to ED secondary to shortness of breath x 2 weeks. COPD exacerbation Possible aspiration pneumonia Hypoxia Admit to medical telemetry IV Solu-Medrol 40 mg twice daily Due to patient complaining of shaking as well as mild tachycardia in ED will place on levalbuterol/ipratropium 4 times daily Pulmonary toilet with incentive spirometry and flutter valve Sputum culture-few gram-negative bacilli and rare gram-positive cocci-cultures and sensitivity pending Obtain CT chest, since D-dimer negative without contrast as PE less likely --CT chest:Mucoid opacification of the bronchus intermedius which extends into the proximal right middle lobe bronchi and opacifies the right lower lobe bronchi. There is patchy consolidation within the right lower lobe medially. Therefore, these findings are consistent with a right lower lobe pneumonia, likely due to aspiration. Follow-up bronchoscopy or [address] recommended to ensure resolution of these findings. 2. Subcarinal and right hilar lymphadenopathy. This may be reactive. Attention at follow-up recommended. 3. A 4 mm nodule within the right lower lobe. Will place on IV unasyn and oral azithromycin + probiotic Consult speech therapy in setting of aspiration findings on chest CT recommend f/u Chest CT in 3 months to ensure resolution Appreciate pulmonary input and recommendation Will have chest x-ray PA and lateral view tomorrow Likely discharge tomorrow if she feels better and will get a 2 steps O2 saturation test prior to discharge- We will discharge on LABA/LAMA X-ray did show persistence of right lower lobe pneumonia-a dedicated CT scan of the chest was advised by the supervisor aircraft cleaning She has been feeling much better and will be discharged home tomorrow She will need 2 L of oxygen via nasal cannula with ambulation Discharge home this afternoon Chronic hyponatremia pt runs 133-135 as OP, likely 2/2 HCTZ will d/c HCTZ urine na, osm and serum osm-urine and serum osmolarity is a low, 125 and 268 respectively gentle IVF x 1 L Sodium has been almost normalized at 134 Hydrochlorothiazide was discontinued Hypokalemia replete Normalized HTN continue atenolol will d/c HCTZ in favor of lisinopril 10mg daily pt with mild lower ext swelling therefore will avoid norvasc for now will need repeat bmp in 1 week at d/c Hypothyroidism continue levothyroxine TSH 1.49 08/30 DVT ppx: SQ Lovenox Dispo: admit to med tele FULL CODE PCP: Xiomara A total of 45 minutes was spent discussing and examining the patient, viewing all current laboratory work and diagnostic imaging studies. Additionally, reviewed her medications and adjusted accordingly and discussing with the specialist. Admission and Anticipated Discharge Date Admission Date: September 20, 2022 Subjective 09/21/2022 The patient was seen and examined in medical telemetry unit She has been feeling a little better Her cough, phlegm and shortness of breath are improving No fever and no chills She denies any significant problem with swallowing 09/22/2022 The patient was seen and examined in medical telemetry unit She has been feeling better today and is still requiring about 1 to 2 L of oxygen to maintain saturation She would like to have GI evaluation as an outpatient for issues with swallowing Denies any fever and/or chills 09/23/2022 The patient was seen and examined in medical telemetry unit She has been feeling much better but complains to have some shortness of breath with exertion Her cough is improved and the chest x-ray showed persistence of right lower lobe pneumonia Later on she was noted to be very anxious and a dose of oral Zyprexa was given 09/24/2022 The patient was seen and examined in medical telemetry unit She has been feeling much better still has shortness of breath on exertion She will have a 2 steps O2 saturation test before discharge today Review of Systems Review of Systems: All systems reviewed and are unremarkable except as noted below Respiratory: Minimal shortness of breath at rest Physical Exam Physical Exam: Sitting at the edge of the bed without any acute distress Constitutional: average body habitus; not ill appearing Eyes: PERRL, conjunctivae normal, anicteric sclerae ENMT: external ear and nose normal, oropharynx normal Neck: trachea midline, no thyromegaly Respiratory: no respiratory distress Auscultation: + diminished lung sounds and + wheezes (Minimal to no wheezing) Cardiovascular: Rate/Rhythm: regular rate and regular rhythm; not tachycardic Heart Sounds: normal S1 and normal S2; no murmur Gastrointestinal (Abdomen): Inspection/Auscultation: normal bowel sounds; abdomen not distended Percussion/Palpation: abdomen soft; abdomen nontender Musculoskeletal: No acute arthritis involving any joint Neurologic: normal touch/pain/proprioception and moves all extremities; no focal motor deficits Psychiatric: A+Ox3, euthymic affect Lymphatic: no cervical or axillary lymphadenopathy Results & Data Results & Data Vital Signs (Past 12 Hours) Vital Signs Temp Pulse Pulse Pulse Pulse Pulse Pulse 09/24/22 11:10 36.8 C 81 09/24/22 11:06 117 H 110 H 107 H 104 H 09/24/22 10:49 92 H 09/24/22 07:59 86 09/24/22 07:20 09/24/22 07:33 87 09/24/22 07:23 36.5 C 111 H 09/24/22 04:01 36.3 C L 98 H Resp Resp Resp Resp Resp BP Pulse Ox 09/24/22 11:10 20 153/80 H 92 09/24/22 11:06 18 18 18 18 09/24/22 10:49 96 09/24/22 07:59 09/24/22 07:20 09/24/22 07:33 16 92 09/24/22 07:23 20 165/85 H 90 09/24/22 04:01 20 170/90 H 92 Pulse Ox Pulse Ox Pulse Ox Pulse Ox O2 Del Method O2 Flow Rate O2 Flow Rate 09/24/22 11:10 Room Air 1 09/24/22 11:06 92 82 L 90 90 2 09/24/22 10:49 Nasal Cannula 1 09/24/22 07:59 09/24/22 07:20 Nasal Cannula 1 09/24/22 07:33 Nasal Cannula 2 09/24/22 07:23 Nasal Cannula 1 09/24/22 04:01 Nasal Cannula 1
--- NOTE | 2022-09-24 17:23 | Discharge Summary ---
Date of Service September 24, 2022 Admission HPI Per Admitting Provider This is a 71-year-old female who has significant past medical history of HTN, HLD, COPD, hypothyroidism, ulcerative colitis, Angio-Seal, history of C. difficile s/p fecal transplant and anxiety who presents to ED secondary to shortness of breath x 2 weeks. She was seen in clinic today by PCP. Per clinic note she was seen 2 weeks prior and also complained of shortness of breath with activity which was felt to be due to recent respiratory infections. Chest x-ray done 07/30/2022 showed no active disease. At that time she was only on as needed albuterol and Spiriva. She also used Atrovent on a as needed basis. In the last 2 weeks her breathing has gotten worse. She occasionally checks her pulse ox and has been as low as 88 to 89%. She further complains of coughing worse at night. She also has substernal chest discomfort that comes and goes. Per PCP notes she is lost 5 pounds in the past 2 weeks and 18 pounds in the last year. In ED patient states she has suffered from 2 respiratory infections in the past 2 months. Initially in July she was treated with a course of prednisone and antibiotics. In August states she suffered through it with routine nebulizer treatments. She continues to have worsened shortness of breath, specifically with exertion. At rest she denies shortness of breath. She complains of a productive cough of purulent sputum. Typically she does have purulent sputum but cough is worse and more productive than usual. She denies any wheezing. She occasionally gets dizzy and complaining of being off balance. She denies any fever, chills, sweats, lightheadedness, dizziness, hemoptysis, nausea, vomiting, abdominal pain, change in bowel or urinary habits. Overall she states she has poor taste and this is attributed to her weight loss. She has lost 5 pounds in the past 2 weeks and 18 pounds in the last month. Her PCP is aware of this. At home she is mostly been using nebulizer treatments twice a day as well as Atrovent and as needed albuterol. She does not use a steroid inhaler. She does not follow with a cluster bore operator. She is a former smoker quitting in July. 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 Pt also complains of feeling shaky over last several weeks. Admission Exam Per Admitting Provider Physical Exam:M Constitutional: WD/WN, vitals as above, NAD, sitting up in bed, pleasant, conversing easily Head: Normocephalic, Atraumatic Eyes: PERRL, conjunctivae normal, anicteric sclerae ENMT: external ear and nose normal, oropharynx normal Neck: trachea midline, no thyromegaly normal visual inspection Respiratory: normal respiratory effort, decreased inspiration and distant l bo sounds but otherwise lungs clear to auscultation, no wheeze, rales, rhonchi. no accessory muscle use, currently receiving Neb tx Cardiovascular: tachycardic rate, regular rhythm, no murmur, trace b/l ankle edema Vessels: no JVD or carotid bruit Chest: normal inspection of chest,+barrel chested Abdomen: normal bowel sounds, soft, nontender, no hepatosplenomegaly Musculoskeletal: no cyanosis or clubbing, extremities motor strength 5/5 Skin: + macular rash to b/l posterior thorax and erythema to nape of neck, pt states its chronic and due to hot showers/not itchy, warm and dry normal turgor Neurologic: PERRL, EOMI, accommodation nl, no face palsy, no dysarthria CN's II-XI intact bilaterally and moves all extremities Psychiatric: A+Ox3, euthymic affect Lymphatic: no cervical or axillary lymphadenopathy : deferred Principal Diagnosis COPD exacerbation, aspiration pneumonia, chronic hyponatremia Discharge Exam Sitting at the edge of the bed without any acute distress Constitutional average body habitus; not ill appearing Eyes PERRL, conjunctivae normal, anicteric sclerae ENMT external ear and nose normal, oropharynx normal Neck trachea midline, no thyromegaly Respiratory no respiratory distress and no retractions Auscultation: + diminished lung sounds and + wheezes (Minimal to no wheezing) Cardiovascular Rate/Rhythm: regular rate and regular rhythm; not tachycardic Heart Sounds: normal S1 and normal S2; no murmur Gastrointestinal (Abdomen) Inspection/Auscultation: normal bowel sounds; abdomen not distended Percussion/Palpation: abdomen soft; abdomen nontender Neurologic normal touch/pain/proprioception and moves all extremities; no focal motor deficits Psychiatric A+Ox3, euthymic affect Lymphatic no cervical or axillary lymphadenopathy Discharge Data Allergies Allergy/AdvReac Type Severity Reaction Status Date / Time adhesive tape Allergy Intermediate SKIN Verified 09/20/22 16:16 IRRITATION/TAKES SKIN OFF WHEN TAKEN OFF midazolam Allergy Unknown NOT ON GMG Verified 09/20/22 16:16 OR PT LIST sulfasalazine AdvReac Severe PANCREATITI Verified 09/20/22 16:16 S Consultations 09/20/22 15:56 ED Decision to Admit Stat 09/20/22 19:45 Consult Pulmonology Routine Ordered Studies 09/20/22 17:01 CT chest without contrast [CT chest diagnostic wo con] Stat 09/21/22 15:00 Fluoro video [FL video swallow] Routine Hospital Course (1) COPD exacerbation: (2) Hypoxia: (3) Chronic hyponatremia: (4) Hypokalemia: (5) HTN (hypertension): (6) Hypothyroidism: Plan This is a 71-year-old female who has significant past medical history of HTN, HLD, COPD, hypothyroidism, ulcerative colitis, Angio-Seal, history of C. difficile s/p fecal transplant and anxiety who presents to ED secondary to shortness of breath x 2 weeks. COPD exacerbation Possible aspiration pneumonia Hypoxia Admit to medical telemetry IV Solu-Medrol 40 mg twice daily Due to patient complaining of shaking as well as mild tachycardia in ED will place on levalbuterol/ipratropium 4 times daily Pulmonary toilet with incentive spirometry and flutter valve Sputum culture-few gram-negative bacilli and rare gram-positive cocci-cultures and sensitivity pending Obtain CT chest, since D-dimer negative without contrast as PE less likely --CT chest:Mucoid opacification of the bronchus intermedius which extends into the proximal right middle lobe bronchi and opacifies the right lower lobe bronchi. There is patchy consolidation within the right lower lobe medially. Therefore, these findings are consistent with a right lower lobe pneumonia, likely due to aspiration. Follow-up bronchoscopy or [address] recommended to ensure resolution of these findings. 2. Subcarinal and right hilar lymphadenopathy. This may be reactive. Attention at follow-up recommended. 3. A 4 mm nodule within the right lower lobe. Will place on IV unasyn and oral azithromycin + probiotic Consult speech therapy in setting of aspiration findings on chest CT recommend f/u Chest CT in 3 months to ensure resolution Appreciate pulmonary input and recommendation Will have chest x-ray PA and lateral view tomorrow Likely discharge tomorrow if she feels better and will get a 2 steps O2 saturation test prior to discharge- We will discharge on LABA/LAMA X-ray did show persistence of right lower lobe pneumonia-a dedicated CT scan of the chest was advised by the cluster bore operator She has been feeling much better and will be discharged home tomorrow She will need 2 L of oxygen via nasal cannula with ambulation Discharge home this afternoon Chronic hyponatremia pt runs 133-135 as OP, likely 2/2 HCTZ will d/c HCTZ urine na, osm and serum osm-urine and serum osmolarity is a low, 125 and 268 respectively gentle IVF x 1 L Sodium has been almost normalized at 134 Hydrochlorothiazide was discontinued Hypokalemia replete Normalized HTN continue atenolol will d/c HCTZ in favor of lisinopril 10mg daily pt with mild lower ext swelling therefore will avoid norvasc for now will need repeat bmp in 1 week at d/c Hypothyroidism continue levothyroxine TSH 1.49 08/30 DVT ppx: SQ Lovenox Dispo: admit to med tele FULL CODE PCP: Xiomara A total of 45 minutes was spent discussing and examining the patient, viewing all current laboratory work and diagnostic imaging studies. Additionally, reviewed her medications and adjusted accordingly and discussing with the specialist. Total Time Total Time Spent Total Time Spent (In Minutes): 35 minutes Discharge Plan Discharge Items Patient Disposition: Home - Self-Care Reason For Visit: COPD EXAC Discharge Diagnosis: COPD exacerbation, aspiration pneumonia, chronic hyponatremia Activity: Resume your previous activity Non-emergency contact: Primary Care Provider Call non-emergency contact if: you have any medication questions and your sympt oms worsen Follow-up/Referrals: Donovan Guillaume MD [Other] (Date & Time 10/15/2022 9:00 AM Provider Donovan Guillaume MD Department Pulmonary Medicine, [facility] ) Sb Solano MD [Primary Care Provider] - (Date & Time 10/02/2022 11:20 AM Provider Sb Solano MD Department [facility] ) Diet: Regular Diet Comment: Slippery diet with thin liquids-do not use any straw, aspiration precaution Addtl Attending Provider Instructions: Please take precautions to avoid fall Take your medications as advised Take precaution to avoid aspiration We will need to have a GI appointment through your PCP office Please keep appointments with your healthcare providers Pending Studies at Discharge: No Stand-Alone Forms: My [facility] [email or web address], Smoking Cessation Medications and DC Order Prescriptions: New azithromycin 250 mg Tablet 250 mg PO HS Qty: 3 0RF prednisone 20 mg Tablet 40 mg PO DAILY Qty: 4 0RF benzonatate 100 mg Capsule 100 mg PO TID PRN (Reason: cough) Qty: 20 0RF lisinopril 20 mg tablet 20 mg PO DAILY Qty: 30 0RF amoxicillin-pot clavulanate 875-125 mg tablet 1 tab PO BID Qty: 6 0RF Continued multivitamin Tablet 1 tab PO DAILY bupropion HCl [Wellbutrin SR] 150 mg Tablet Sustained-Release 12 Hr 150 mg PO BID ipratropium-albuterol 0.5 mg-3 mg(2.5 mg base)/3 mL Solution For Nebulization 3 ml INHALATION QID albuterol sulfate 2.5 mg /3 mL (0.083 %) Solution For Nebulization 2.5 mg INHALATION DIRECTED PRN (Reason: Shortness Of Breath Or Wheezing) cetirizine [Zyrtec] 10 mg Tablet 10 mg PO HS atenolol 25 mg tablet 25 mg PO QAM levothyroxine 88 mcg Tablet 88 mcg PO DAILYBB betamethasone dipropionate 0.05 % Cream 1 applic TOPICAL BID PRN (Reason: AFFECTED AREA) polyethylene glycol 3350 [Miralax] 17 gram/dose Powder 8.5 g PO DAILY albuterol sulfate 90 mcg/actuation Hfa Aerosol Inhaler 2 puff INHALATION Q4H PRN (Reason: Wheezing) fluticasone propionate 50 mcg/actuation [place],Suspension 2 spray INTRANASAL DAILY PRN (Reason: Congestion) Rx Instructions: administer into each nostril vitamin E 268 mg (400 unit) Capsule 268 mg PO DAILY cholecalciferol (vitamin D3) [Vitamin D3] 25 mcg (1,000 unit) Capsule 25 mcg PO DAILY Spiriva with HandiHaler 18 mcg capsule, w/inhalation device 18 mcg INHALATION DAILY Atrovent HFA 17 mcg/actuation Hfa Aerosol Inhaler 2 puff INHALATION QID diclofenac sodium 1 % Gel 2 g TOPICAL QID PRN (Reason: Pain) psyllium husk [Metamucil] 0.4 gram Capsule 0 g PO QAM Rx Instructions: PER GMG 0.36 GR CAPSULES/TAKES 3 CAPS QAM. Discontinued hydrochlorothiazide 25 mg tablet 25 mg PO QAM Discharge Orders: Discharge Order (Routine); Ordered 09/24/22 Ordered By: Ruba Brito Admission Data Admit Date/Time: 09/20/22 16:41 Attending Provider: Ruba Brito Admit Provider: Ruba Brito Primary Care Provider: Sb Solano Other Providers: Ruba Brito ; Yariel Owens Other Interventions: Discharge Summary Assessment (RN) Last Done: 09/24/22 14:17
== END 2022-09-24 16:28 | disposition home or self-care (01) | DRG 178 ==
LOC: ED 12:52 → 2N 16:41

== ENCOUNTER 2022-11-07 08:53 | Inpatient (IN) ==
--- NOTE | 2022-11-03 09:29 | Anesthesiology Consultation ---
Date of Service November 03, 2022 History Surgery Operation Date: 11/07/22 10:00 Proposed Procedures p Colonoscopy EGD Alex Johnson, Height/Weight Height: 5 ft 4 in Weight: 63.049 kg Allergies Allergy/AdvReac Type Severity Reaction Status Date / Time adhesive tape Allergy Intermediate SKIN Verified 11/02/22 10:17 IRRITATION/TAKES SKIN OFF WHEN TAKEN OFF midazolam Allergy Unknown NOT ON GMG Verified 11/02/22 10:17 OR PT LIST sulfasalazine AdvReac Severe PANCREATITI Verified 11/02/22 10:17 S Medications Home Medications Medication Instructions Recorded Confirmed Last Taken albuterol sulfate 2.5 mg/3 mL 2.5 mg inhalation DIRECTED PRN 09/20/22 11/02/22 Unknown (0.083 %) solution for nebulization Shortness Of Breath Or Wheezing albuterol sulfate 90 mcg/actuation 2 puff inhalation Q4H PRN Wheezing 09/20/22 11/02/22 Unknown aerosol inhaler atenolol 25 mg tablet 25 mg PO QAM 09/20/22 11/02/22 09/20/22 cetirizine 10 mg tablet (Zyrtec) 10 mg PO HS 09/20/22 11/02/22 09/19/22 cholecalciferol (vitamin D3) 25 25 mcg PO BID 09/20/22 11/02/22 09/20/22 mcg (1,000 unit) capsule (Vitamin D3) diclofenac sodium 1 % topical gel 2 g topical QID PRN Pain 09/20/22 11/02/22 Unknown fluticasone propionate 50 2 spray intranasal DAILY PRN 09/20/22 11/02/22 Unknown mcg/actuation nasal Congestion spray,suspension levothyroxine 88 mcg tablet 88 mcg PO QAM 09/20/22 11/02/22 09/20/22 multivitamin 1 tab PO QAM 09/20/22 11/02/22 09/20/22 tiotropium bromide 18 mcg capsule 18 mcg inhalation QDL 09/20/22 11/02/22 09/20/22 with inhalation device (Spiriva with HandiHaler) vitamin E 268 mg (400 unit) capsule 268 mg PO QAM 09/20/22 11/02/22 09/20/22 amoxicillin 875 mg-potassium 1 tab PO BID #6 tabs 09/24/22 11/02/22 Unknown clavulanate 125 mg tablet azithromycin 250 mg tablet 250 mg PO HS #3 tabs 09/24/22 11/02/22 Unknown prednisone 20 mg tablet 40 mg PO DAILY #4 tabs 09/24/22 11/02/22 Unknown fluticasone 250 mcg-salmeterol 50 1 inh inhalation BID 11/02/22 11/02/22 Unknown mcg/dose blistr powdr for inhalation (Advair Diskus) lisinopril 20 mg tablet 20 mg PO QAM 11/02/22 11/02/22 Unknown nicotine 7 mg/24 hr daily 2 patch transdermal DAILY 11/02/22 11/02/22 Unknown transdermal patch Past Medical History Medical History (Updated 11/02/22 @ 10:37 by Ginette Cox RN) Anxiety no meds Aspiration pneumonia hospitalized at [facility] for this in September 2022 > no further issues COPD (chronic obstructive pulmonary disease) uses res inh daily History of COVID-12 Aug 2021 > not hospitalized HLD (hyperlipidemia) HTN (hypertension) Hx of Clostridium difficile infection 8 yrs ago > fecal transplant > resolved Hypothyroidism Meningocele Palpitations no longer Ulcerative colitis Ulcerative colitis hx of 25 yrs ago > possible issue now?? reason for up coming colon/EGD Past Family History Family History Father , 66 Sudden cardiac Mother Bipolar disorder Past Surgical History Surgical History (Updated 11/02/22 @ 10:37 by Ginette Cox RN) History of carpal tunnel surgery bilat History of colonoscopy History of tooth extraction Hx of partial thyroidectomy Hx of tubal ligation S/P fecal transplant Social History Smoking Status: Former smoker tobacco type: cigarettes Smoking cigarettes per day: 6-8 Do You Dip or Chew Tobacco: No Smoking End Date: Jul 2022 Hx Alcohol Use: No Hx Substance Use: No substance use type: does not use
[2022-11-07] MEDS ORDERED: LIDOCAINE 2% 2 ML VIAL/AMP(20MG/ML) INFIL ONE (10:19)
[2022-11-07] MEDS ORDERED: PROPOFOL IV EMULSION 10 MG/ML 20 ML VIAL IV ONE (10:19)
--- NOTE | 2022-11-07 10:19 | History & Physical Report ---
Date of Service November 07, 2022 Assessment & Plan (1) Ulcerative colitis: Plan: Proceed with planned EGD and colonoscopy. History of Present Illness Chief Complaint: here today for EGD and colonoscopy. Primary Care Provider: Sb Solano MD 71 y/o F with history of ulcerative proctitis and dysphagia here today for EGD and colonoscopy. Allergies Allergy/AdvReac Type Severity Reaction Status Date / Time adhesive tape Allergy Intermediate SKIN Verified 11/07/22 09:18 IRRITATION/TAKES SKIN OFF WHEN TAKEN OFF midazolam Allergy Unknown NOT ON GMG Verified 11/07/22 09:18 OR PT LIST sulfasalazine AdvReac Severe PANCREATITI Verified 11/07/22 09:18 S Home Medications Medication Instructions Recorded Confirmed Type albuterol sulfate 2.5 mg/3 mL 2.5 mg inhalation DIRECTED PRN 09/20/22 11/07/22 History (0.083 %) solution for nebulization Shortness Of Breath Or Wheezing albuterol sulfate 90 mcg/actuation 2 puff inhalation Q4H PRN Wheezing 09/20/22 11/07/22 History aerosol inhaler atenolol 25 mg tablet 25 mg PO QAM 09/20/22 11/07/22 History cetirizine 10 mg tablet (Zyrtec) 10 mg PO HS 09/20/22 11/07/22 History cholecalciferol (vitamin D3) 25 25 mcg PO BID 09/20/22 11/07/22 History mcg (1,000 unit) capsule (Vitamin D3) diclofenac sodium 1 % topical gel 2 g topical QID PRN Pain 09/20/22 11/07/22 History fluticasone propionate 50 2 spray intranasal DAILY PRN 09/20/22 11/07/22 History mcg/actuation nasal Congestion spray,suspension levothyroxine 88 mcg tablet 88 mcg PO QAM 09/20/22 11/07/22 History multivitamin 1 tab PO QAM 09/20/22 11/07/22 History tiotropium bromide 18 mcg capsule 18 mcg inhalation QDL 09/20/22 11/07/22 History with inhalation device (Spiriva with HandiHaler) vitamin E 268 mg (400 unit) capsule 268 mg PO QAM 09/20/22 11/07/22 History prednisone 20 mg tablet 40 mg PO DAILY #4 tabs 09/24/22 11/07/22 Rx fluticasone 250 mcg-salmeterol 50 1 inh inhalation BID 11/02/22 11/07/22 History mcg/dose blistr powdr for inhalation (Advair Diskus) lisinopril 20 mg tablet 20 mg PO QAM 11/02/22 11/07/22 History nicotine 7 mg/24 hr daily 2 patch transdermal DAILY 11/02/22 11/07/22 History transdermal patch Past Med/Surg History Medical History Anxiety no meds Aspiration pneumonia hospitalized at [facility] for this in September 2022 > no further issues COPD (chronic obstructive pulmonary disease) uses res inh daily History of COVID-12 Aug 2021 > not hospitalized HLD (hyperlipidemia) HTN (hypertension) Hx of Clostridium difficile infection 8 yrs ago > fecal transplant > resolved Hypothyroidism Meningocele Palpitations no longer Ulcerative colitis Ulcerative colitis hx of 25 yrs ago > possible issue now?? reason for up coming colon/EGD Surgical History History of carpal tunnel surgery bilat History of colonoscopy History of tooth extraction Hx of partial thyroidectomy Hx of tubal ligation S/P fecal transplant Family History Father , 66 Sudden cardiac Mother Bipolar disorder Social History Smoking Status: Former smoker packs per day: 0.5; Cigarettes Per Day: 6-8; Smoking End Date: Jul 2022; Second Hand Exposure: No; Do You Dip or Chew Tobacco: No; Tobacco Cessation Education Requested by Patient: No Hx Alcohol Use: No Hx Substance Use: No Preferred Language: Armenian Communication Ability: Effective Occup Ther Required: No Beliefs That Will Affect Care: None Current Living Situation: Spouse Other Information That Helps Us Care for You: No Feels Safe at Home: Yes Safety Concerns: Feels Safe At This Time Assistive Devices: None Review of Systems All systems reviewed & are unremarkable except as noted in HPI & below Physical Exam Constitutional: WD/WN, vitals as above Respiratory: normal respiratory effort, lungs clear to auscultation Cardiovascular: RRR, no murmur, no edema Gastrointestinal (Abdomen): normal bowel sounds, soft, nontender, no hepatosplenomegaly Psychiatric: A+Ox3, euthymic affect Results & Data Vital Signs (Past 12 Hours) Vital Signs Temp Pulse Resp BP Pulse Ox O2 Del Method 11/07/22 09:24 36.5 C 72 16 128/75 94 Room Air
--- NOTE | 2022-11-07 11:02 | GI REPORT ---
Patient Name: Darshana Evans Procedure Date: 11/07/2022 10:35 AM Date of : 1950 Admit Type: Outpatient Age: 71 Gender: Female Attending MD: Cailin Johnson DO, Procedure: Upper GI endoscopy Providers: Cailin Johnson DO Referring MD: Edelmira Maravilla Indications: Dysphagia Medicines: Monitored Anesthesia Care Complications: No immediate complications. Estimated Blood Loss: Estimated blood loss: none. Procedure: Pre-Anesthesia Assessment: - Prior to the procedure, a History and Physical was performed, and patient medications and allergies were reviewed. The risks and benefits of the procedure and the sedation options and risks were discussed with the patient. All questions were answered and informed consent was obtained. Patient identification and proposed procedure were verified by the physician, the nurse and the care tech in the procedure room. Mental Status Examination: alert and oriented. Airway Examination: Mallampati Class II (the uvula but not tonsillar pillars visualized). Respiratory Examination: clear to auscultation. CV Examination: RRR, no murmurs, no S3 or S4. Prophylactic Antibiotics: The patient does not require prophylactic antibiotics. Prior Anticoagulants: The patient has taken no anticoagulant or antiplatelet agents. ASA Grade Assessment: III - A patient with severe systemic disease. After reviewing the risks and benefits, the patient was deemed in satisfactory condition to undergo the procedure. The anesthesia plan was to use monitored anesthesia care (MAC). Immediately prior to administration of medications, the patient was re-assessed for adequacy to receive sedatives. The physical status of the patient was re-assessed after the procedure. After obtaining informed consent, the endoscope was passed under direct vision. Throughout the procedure, the patient's blood pressure, pulse, and oxygen saturations were monitored continuously. The Endoscope was introduced through the mouth, and advanced to the second part of duodenum. The upper GI endoscopy was accomplished without difficulty. The patient tolerated the procedure well. Findings: The Z-line was regular and was found 35 cm from the incisors. A large hiatal hernia was present. The exam of the esophagus was otherwise normal. The entire examined stomach was normal. The duodenal bulb and second portion of the duodenum were normal. Impression: - Z-line regular, 35 cm from the incisors. - Large hiatal hernia with a akash erosion with some scattered hematin the hernia sac. - Normal stomach. - Normal duodenal bulb and second portion of the duodenum. - No specimens collected. Recommendation: - Patient has a contact number available for emergencies. The signs and symptoms of potential delayed complications were discussed with the patient. Return to normal activities tomorrow. Written discharge instructions were provided to the patient. - The patient will be observed post-procedure, until all discharge criteria are met. - Discharge patient to home (with escort). - Resume previous diet. - Continue present medications. - Recommend PPI 40 mg once daily and consider oral iron if patient develops anemia given the akash erosion seen. - Proceed to same day colonsocopy. Cailin Johnson, 11/07/2022 11:01:25 AM Note Initiated On: 11/07/2022 10:35 AM Number of Addenda: 0 I attest to the content of the Intraoperative Record and orders documented therein, exceptions below {[id number]}
--- NOTE | 2022-11-07 11:10 | GI REPORT ---
Patient Name: Darshana Evans Procedure Date: 11/07/2022 10:35 AM Date of : 1950 Admit Type: Outpatient Age: 71 Gender: Female Attending MD: Cailin Johnson DO, Procedure: Colonoscopy Providers: Cailin Johnson DO Referring MD: Edelmira Maravilla Indications: Hematochezia, Follow-up of chronic ulcerative proctitis Patient Profile: This is a 71 year old female. Refer to note in patient chart for documentation of history and physical. Medicines: Monitored Anesthesia Care Complications: No immediate complications. Estimated Blood Loss: Estimated blood loss was minimal. Procedure: Pre-Anesthesia Assessment: - Prior to the procedure, a History and Physical was performed, and patient medications and allergies were reviewed. The risks and benefits of the procedure and the sedation options and risks were discussed with the patient. All questions were answered and informed consent was obtained. Patient identification and proposed procedure were verified by the physician, the nurse and the python programmer in the procedure room. Mental Status Examination: alert and oriented. Airway Examination: Mallampati Class II (the uvula but not tonsillar pillars visualized). Respiratory Examination: clear to auscultation. CV Examination: RRR, no murmurs, no S3 or S4. Prophylactic Antibiotics: The patient does not require prophylactic antibiotics. Prior Anticoagulants: The patient has taken no anticoagulant or antiplatelet agents. ASA Grade Assessment: III - A patient with severe systemic disease. After reviewing the risks and benefits, the patient was deemed in satisfactory condition to undergo the procedure. The anesthesia plan was to use general anesthesia. Immediately prior to administration of medications, the patient was re-assessed for adequacy to receive sedatives. The physical status of the patient was re-assessed after the procedure. After I obtained informed consent, the scope was passed under direct vision. Throughout the procedure, the patient's blood pressure, pulse, and oxygen saturations were monitored continuously. The Colonoscope was introduced through the anus with the intention of advancing to the cecum. The scope was advanced to the sigmoid colon before the procedure was aborted. Medications were given. The colonoscopy was performed without difficulty. The patient tolerated the procedure well. The quality of the bowel preparation was good. Findings: The perianal and digital rectal examinations were normal. Inflammation was found in a continuous and circumferential pattern from the rectum to the sigmoid colon. This was graded as Castano Score 3 (severe, with spontaneous bleeding, ulcerations), and when compared to the previous examination, the findings are worsened. Impression: - Severe (Castano Score 3) ulcerative colitis, worsened since the last examination. The rectum, rectosigmoid, and beginning of the sigmoid colon were severely ulcerated and bleeding with even minimal scope contact. The rectosigmoid was severely narrowed due to inflammation and the scope had to be downsized to the ultrathin scope with inability to pass this area due to ulceration. As the colon was extremely friable and bleeding with any contact the decision was made to abort and admit the patient to the hospital for IV steroids and ongoing care. - No specimens collected. Recommendation: - Ad[facility] the patient to [facility] for [facility] care. - Resume previous diet. - Continue present medications. - Check CRP, C. diff, enteric stool panel, - Start IV prednisone 40 mg daily - Mindy a STEFANIA Johnson DO 11/07/2022 11:10:25 AM Note Initiated On: 11/07/2022 10:35 AM Number of Addenda: 0 I attest to the content of the Intraoperative Record and orders documented therein, exceptions below {[id number]}
--- NOTE | 2022-11-07 11:21 | Communication Note ---
Date of Service: November 07, 2022 Endoscopist recommending admission for management of ulcerative colitis. 71 year old female with UC on PO prednisone, colonoscopy with severe inflammatory ch anges. Will contact on-call [facility] admission team. Please update CBC, CMP, CRP, ESR. Arrange KUB today. Check stool culture and c.diff. Plan to initiate IV methylprednisolone 20 every 8 hours.
--- NOTE | 2022-11-07 13:17 | Anesthesiology Progress Note ---
Date of Service November 07, 2022 Anesthesia Post Procedure Vital Signs Vital Signs: Temp Pulse Resp BP Pulse Ox O2 Del Method 11/07/22 12:30 71 16 139/70 92 Room Air 11/07/22 11:30 72 16 158/77 H 96 Room Air 11/07/22 11:15 74 16 149/86 H 97 Room Air 11/07/22 11:00 71 16 110/59 L 94 Room Air 11/07/22 09:24 36.5 C 72 16 128/75 94 Room Air Transfer of Care Handoff Completed per policy Notes Mental Status: alert / awake / arousable and participated in evaluation Patient Amnestic to Procedure: Yes Nausea / Vomiting: adequately controlled Pain: adequately controlled Airway Patency, RR, SpO2: stable & adequate BP & HR: stable & adequate Hydration State: stable & adequate Anesthetic Complications: no major complications apparent
[2022-11-07] MEDS ORDERED: MAGNESIUM HYDROXIDE SUSP 30 ML UDC PO PRN (13:35)
[2022-11-07] MEDS ORDERED: POLYETHYLENE (MIRALAX) 17 GM PACK PO PRN (13:35)
[2022-11-07] MEDS ORDERED: ALUMINUM/MAGNESIUM SUSP 30 ML UDC PO PRN (13:35)
[2022-11-07] MEDS ORDERED: ONDANSETRON INJ 2 MG/ML 2 ML VIAL IV PRN (13:35)
[2022-11-07] MEDS ORDERED: ACETAMINOPHEN 325 MG TAB PO PRN (13:35)
--- NOTE | 2022-11-07 13:46 | History & Physical Report ---
Date of Service November 07, 2022 Assessment & Plan (1) Ulcerative colitis: (2) Dysphagia: (3) COPD (chronic obstructive pulmonary disease): (4) HTN (hypertension): (5) HLD (hyperlipidemia): (6) Hypothyroidism: Plan Pt presented to [facility] today for an elective EGD For evaluation of dysphagia in the endoscopy suite. During the EGD procedure patient was found to have significant inflammation and gastroenterology recommended inpatient admission for further evaluation and management. Patient has a history of ulcerative colitis that was diagnosed 35 years ago and follows with GI as an outpatient. Additional past medical history includes COPD, hypothyroidism and hyperlipidemia. 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 Bowel rest keeping patient NPO for now. KUB for imaging and methylprednisone 20 mg every 8 scheduled will be ordered. Additionally patient will have CRP and ESR along with routine CMP and CBC labs in AM. Patient stated that she has been experiencing 4-5 nocturnal bowel movements awaking her from sleep with significant malodor. Full stool study work up including c-diff will be ordered. Ulcerative Colitis: Dysphagia: EGD today; UC inflammation takes Prednisone 40 mg PO daily for the past week; hold and switch to IV Per conversation with GI: Admit for bowel rest/NPO Methyrprednisone 20 mg IV Q8 CRP/ESR in AM Stool study, including C-Diff stool sample ordered KUB Official GI consult placed COPD: Uses rescue inhaler and Fluticasone; continue Advair No supplemental O2 at home HTN: Takes Atenolol and Lisinopril; continue Assess labs in AM HLD: Hypothyroidism: Takes Levothyroxine; continue H/O C-Diff: Had fecal transplant 8years ago Obtain repeat C-Diff sample here Disposition: PCP: Dr. Solano Code Status: DNR/DNI VTE Prophylaxis: TEDs and SCDs for now I spent a total of 87 minutes coordinating, documenting, and providing care for this patient excluding time spent in the performance of separately billed services. All of the aforementioned completed while collaborating with the assigned attending physician for a full treatment plan. Please see their addendum for further details. History of Present Illness Chief Complaint: dysphagia Primary Care Provider: Sb Solano MD Ms. Evans is a 71 year old female that presented to the [facility] today for an elective EGD For evaluation of dysphagia. During the EGD procedure patient was found to have significant inflammation and gastroenterology recommended inpatient admission for further evaluation and management. Patient has a history of ulcerative colitis that was diagnosed 35 years ago and follows with GI as an outpatient. Additional past medical history includes COPD, hypothyroidism and hyperlip idemia. 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 Per conversation with GI patient will be placed on bowel rest keeping patient NPO for now. KUB for imaging and methylprednisone 20 mg every 8 scheduled will be ordered. Additionally patient will have CRP and ESR along with routine CMP and CBC labs in AM. Patient stated that she has been experiencing 4-5 nocturnal bowel movements awaking her from sleep with significant malodor. Full stool study work up including c-diff will be ordered. Otherwise, patient denies NGUYEN, dizziness, CP, SOB, abdominal pain, hematochezia, recent falls or other trauma, new rashes, appetite changes or nausea/vomiting. Pt able to sit in her bed, follow commands and appears to be in no apparent distress and is hemodynamically stable. Patient will be admitted for further evaluation and management. Please see A/P for further details. Allergies Allergy/AdvReac Type Severity Reaction Status Date / Time adhesive tape Allergy Intermediate SKIN Verified 11/07/22 09:18 IRRITATION/TAKES SKIN OFF WHEN TAKEN OFF midazolam Allergy Unknown NOT ON GMG Verified 11/07/22 09:18 OR PT LIST sulfasalazine AdvReac Severe PANCREATITI Verified 11/07/22 09:18 S Home Medications Medication Instructions Recorded Confirmed Type albuterol sulfate 2.5 mg/3 mL 2.5 mg inhalation DIRECTED PRN 09/20/22 11/07/22 History (0.083 %) solution for nebulization Shortness Of Breath Or Wheezing albuterol sulfate 90 mcg/actuation 2 puff inhalation Q4H PRN Wheezing 09/20/22 11/07/22 History aerosol inhaler atenolol 25 mg tablet 25 mg PO QAM 09/20/22 11/07/22 History cetirizine 10 mg tablet (Zyrtec) 10 mg PO HS 09/20/22 11/07/22 History cholecalciferol (vitamin D3) 25 25 mcg PO BID 09/20/22 11/07/22 History mcg (1,000 unit) capsule (Vitamin D3) diclofenac sodium 1 % topical gel 2 g topical QID PRN Pain 09/20/22 11/07/22 History fluticasone propionate 50 2 spray intranasal DAILY PRN 09/20/22 11/07/22 History mcg/actuation nasal Congestion spray,suspension levothyroxine 88 mcg tablet 88 mcg PO QAM 09/20/22 11/07/22 History multivitamin 1 tab PO QAM 09/20/22 11/07/22 History tiotropium bromide 18 mcg capsule 18 mcg inhalation QDL 09/20/22 11/07/22 Histo ry with inhalation device (Spiriva with HandiHaler) vitamin E 268 mg (400 unit) capsule 268 mg PO QAM 09/20/22 11/07/22 History prednisone 20 mg tablet 40 mg PO DAILY #4 tabs 09/24/22 11/07/22 Rx fluticasone 250 mcg-salmeterol 50 1 inh inhalation BID 11/02/22 11/07/22 History mcg/dose blistr powdr for inhalation (Advair Diskus) lisinopril 20 mg tablet 20 mg PO QAM 11/02/22 11/07/22 History nicotine 7 mg/24 hr daily 2 patch transdermal DAILY 11/02/22 11/07/22 History transdermal patch Past Med/Surg History Medical History Anxiety no meds Aspiration pneumonia hospitalized at [facility] for this in September 2022 > no further issues COPD (chronic obstructive pulmonary disease) uses res inh daily Dysphagia History of COVID-12 Aug 2021 > not hospitalized HLD (hyperlipidemia) HTN (hypertension) Hx of Clostridium difficile infection 8 yrs ago > fecal transplant > resolved Hypothyroidism Meningocele Palpitations no longer Ulcerative colitis Ulcerative colitis hx of 25 yrs ago > possible issue now?? reason for up coming colon/EGD Surgical History History of carpal tunnel surgery bilat History of colonoscopy History of tooth extraction Hx of partial thyroidectomy Hx of tubal ligation S/P fecal transplant Family History Father , 66 Sudden cardiac Mother Bipolar disorder Social History Smoking Status: Former smoker packs per day: 0.5; Cigarettes Per Day: 6-8; Smoking End Date: Jul 2022; Second Hand Exposure: No; Do You Dip or Chew Tobacco: No; Tobacco Cessation Education Requested by Patient: No Hx Alcohol Use: No Hx Substance Use: No Preferred Language: Latvian Communication Ability: Effective Senior Living Sales Counselor Required: No Beliefs That Will Affect Care: None Current Living Situation: Spouse Other Information That Helps Us Care for You: No Feels Safe at Home: Yes Safety Concerns: Feels Safe At This Time Assistive Devices: None Assistive Devices Comment: pt has O2 from previous visit but does not wear it Review of Systems Review of Systems: Neuro: (-) Falls, trauma, slurred speech HEENT: (-) NGUYEN, dizziness, dysphagia, visual or auditory changes CV: (-) CP, palpitations, swelling Resp: (-) SOB GI: (-) appetite changes, N/V/D, bowel changes : (-) urinary changes Skin: (-) rashes Psych: (-) anxiety, depression Physical Exam Physical Exam: Neuro: AAOx4, PERRLA, no aphagia, memory changes, CNII-XII grossly intact HEENT: head normocephalic, moist mucus membranes CV: S1/S2, (-) M/G/R, (-) edema, cap refill < 3 seconds Resp: Lungs CTA in all gutierrez. On RA GI: Abdomen S/NT/ND, Ax4 bowel sounds, (-) CVA tenderness Musculoskeletal: 5/5 B/L UE strength, 5/5 B/L LE strength. No gait disturbance Skin: (-) rashes , (-) erythema. Psych: euthymic mood Results & Data Results & Data Vital Signs (Past 12 Hours) Vital Signs Temp Pulse Resp BP Pulse Ox O2 Del Method 11/07/22 12:30 71 16 139/70 92 Room Air 11/07/22 11:30 72 16 158/77 H 96 Room Air 11/07/22 11:15 74 16 149/86 H 97 Room Air 11/07/22 11:00 71 16 110/59 L 94 Room Air 11/07/22 09:24 36.5 C 72 16 128/75 94 Room Air Code Status & VTE Plan Code Status Full Code in the event of cardiac or respiratory arrest VTE Prophylaxis Plan VTE Prophylaxis will be ordered: Yes Supervising Physician Co-Signing Physician Notes Patient seen and examined independently. Discussed with above provider. Patient is a 71-year-old female with history of ulcerative colitis. She underwent colonoscopy today; found to have severe ulcerative colitis which had worsened since last examination. See colonoscopy for further details. Admitted to [facility] for ulcerative colitis flareup. Patient reports multiple bowel movements for several days. Denies any abdominal pain or discomfort. Started on IV methylprednisolone 20 mg every 8 as per GI recommendation. Stool PCR, C. difficile sent. KUB obtained and reviewed; no acute finding. Full liquid diet. GI consult.
--- NOTE | 2022-11-07 15:32 | XRay Report ---
XR KUB/Abdomen 1 view CLINICAL HISTORY: Ulcerative colitis TECHNIQUE: 1 view of the abdomen was obtained. Comparison: None available at the time of this dictation. FINDINGS: Lung bases are unremarkable. Degenerative changes are seen in the visualized skeleton. The bowel gas pattern is nonobstructive. A moderate amount of stool is noted within the large bowel. IMPRESSION: Nonobstructive bowel gas pattern. ACT 112: Negative or not required by law. Electronically signed by: Santy Fonseca M.D. 11/07/2022 3:31 PM
[2022-11-07] MEDS: methylPREDNISolone 20 MG in SYRINGE 0 ML IV SCH ×2 (15:33→22:28)
[2022-11-07] MEDS ORDERED: SODIUM CHLORIDE 0.9% 500 ML IV SCH (18:00)
[2022-11-07] MEDS ORDERED: Nursing to Pharmacy Communication SCH (18:00)
[2022-11-07] MEDS: SODIUM CHLORIDE 0.9% 1000ML 1,000 ML IV SCH (18:26)
[2022-11-07] MEDS: CETIRIZINE HCL 10 MG TABLET PO SCH (20:37)
[2022-11-07] MEDS: CHOLECALCIFEROL 1,000 UNITS 25 MCG TAB PO SCH (20:37)
[2022-11-08 02:15] LABS: Adenovirus F 40/41 PCR Not Detected (NotDetected); Astrovirus PCR Not Detected (NotDetected); Campylobacter PCR Not Detected (NotDetected); Cryptosporidium PCR Not Detected (NotDetected); Cyclospora cayetanensis PCR Not Detected (NotDetected); Entamoeba histolytica PCR Not Detected (NotDetected); Enteroaggregative E.coli(EAEC) Not Detected (NotDetected); Enteropathogenic E.coli (EPEC) Not Detected (NotDetected); Enterotoxigenic E.coli (ETEC) Not Detected (NotDetected); Giardia lamblia PCR Not Detected (NotDetected); Norovirus GI/GII PCR Not Detected (NotDetected); Plesiomonas shigelloides PCR Not Detected (NotDetected); Rotavirus A PCR Not Detected (NotDetected); Salmonella PCR Not Detected (NotDetected); Sapovirus PCR Not Detected (NotDetected); Shiga-like Toxin E.coli (STEC) Not Detected (NotDetected); Shigella/Enteroinvasive E.coli Not Detected (NotDetected); Vibrio cholerae PCR Not Detected (NotDetected); Vibrio species PCR Not Detected (NotDetected); Yersinia enterocolitica PCR Not Detected (NotDetected)
[2022-11-08] MEDS: SODIUM CHLORIDE 0.9% 1000ML 1,000 ML IV SCH ×2 (06:04→18:24)
[2022-11-08] MEDS: methylPREDNISolone 20 MG in SYRINGE 0 ML IV SCH ×3 (06:04→22:16)
[2022-11-08] MEDS: LEVOTHYROXINE SODIUM 88 MCG TABLET PO SCH (06:04)
[2022-11-08 08:27] LABS: Albumin Globulin Ratio 1.3 (0.9-2); Albumin Level 3.3 gm/dl (3.4-5.0); BUN Creatinine Ratio 14.9 (10-20); Bilirubin,Total 0.4 mg/dl (0.2-1.0); C Reactive Protein 4.17 mg/dl (0-0.5); Calcium 8.8 mg/dl (8.6-10.3); Creatinine Clr Calc Pharmacy 96.2 ml/min; Est GFR (Non-African American) 100.1 ml/min; Globulin 2.6 gm/dl (2.5-4.0); Potassium 4.5 mmol/L (3.5-5.1); Total Protein 5.9 gm/dl (6.0-8.3)
[2022-11-08] MEDS: FLUTICASONE/VILANTEROL 100/25MCG 14 PUFFS/INHALER INH SCH (08:29)
[2022-11-08] MEDS: UMECLIDINIUM BROMIDE 62.5MCG/BLISTER 7 PUFFS/INHALER INH SCH (08:29)
[2022-11-08] MEDS: NICOTINE 14 MG/24 HR PATCH TD SCH (08:29)
[2022-11-08] MEDS: lisinopril 20 MG TAB PO SCH (08:30)
[2022-11-08] MEDS: CHOLECALCIFEROL 1,000 UNITS 25 MCG TAB PO SCH ×2 (08:30→20:11)
[2022-11-08] MEDS: ATENOLOL 25 MG TABLET PO SCH (08:30)
[2022-11-08 08:39] LABS: Hematocrit (blood only) 42.6 % (37.0-47.0); Mean Corpuscular Hemoglobin 30.1 pg (25.0-34.0); Mean Corpuscular Hgb Conc 35.2 g/dL (32.0-36.0); Mean Corpuscular Volume 85.4 fL (80.0-100.0); Mean Platelet Volume 9.2 fL (9.4-12.4); Platelet Count 381 K/uL (130-400); RDW Coefficient of Variation 14.7 % (11.5-14.5); RDW Standard Deviation 45.8 fL (36.4-46.3); Red Blood Count 4.99 M/uL (4.20-5.40); White Blood Count 14.04 K/ul (4.8-10.8)
--- NOTE | 2022-11-08 10:20 | Gastroenterology Progress Note ---
Date of Service November 08, 2022 Assessment & Plan (1) Ulcerative colitis: Plan: 71 year old female admitted from endoscopy unit for management of severe ulcerative colitis, failing OP oral prednisone improving on IV methylprednisolone Would continue IV methylpred 20 TID x 48 hours Then convert to oral steroids, 50 mg once daily x 7 days decreasing by intervals of 5mg weekly Ultimately needs to be started on remicade/humira as an OP Will screen quant gold and Hep B while admitted Regarding her large HH, she prefers to avoid PPI therapy as this was thought to contribute to c.diff in the past May use pepcid as needed Thank you for allowing us to participate in the care of this patient. Please call with any acute changes, questions or concerns. Please see addendum below with additional recommendation from my supervising physician. Admission and Anticipated Discharge Date Admission Date: November 07, 2022 Supervising Physician Co-Signing Physician Notes I personally saw and evaluated the patient on 11/08/2022 with RAYSA Yin and agree with her findings and plan of care. On physical exam abdomen is soft, non-tender, and non-distended. Admitted yesterday with severe UC flare on outpatient PO prednisone 40 mg. Colonoscopy only advanced to rectosigmoid and unable to pass due to severe inflammation and ulceration causing some stenosis. The entire rectum was ulcerated and friable. patient had been having multiple bloody BMs at home. All stool studies including C. diff negative. CRP mildly elevatd. KUB without concerns for megacolon. Will plan for 3 days of inpatient IV solumedrol and then discharge on PO prednisone 40 mg daily. She will likely need biologic therapy but first should undergo a full colonoscopy once some of the inflammation resolves (as unable to pass rectosigmoid yesterday) to see the extent of the inflammation which we will arrange as an outpatient. Chart all BMs. Cailin Johnson DO Gastroenterology and Hepatology Subjective Pt was seen and evaluated, chart reviewed. Notes she is feeling improved on IV steroids. Suggests only 2 BMs. Although these were loose no black or bloody stools. No abd pain. Is hungry. No nausea, vomiting.Tolerating liquids. Stools negative. No acute findings on KUB but mention of stool burden ESR ok, CRP elevated EGD 2022: Z-line regular, 35 cm from the incisors. - Large hiatal hernia with a akash erosion with some scattered hematin the hernia sac. - Normal stomach. - Normal duodenal bulb and second portion of the duodenum. - No specimens collected. Colonoscopy 2022: - Severe (Castano Score 3) ulcerative colitis, worsened since the last examination. The rectum, rectosigmoid, and beginning of the sigmoid colon were severely ulcerated and bleeding with even minimal scope contact. The rectosigmoid was severely narrowed due to inflammation and the scope had to be downsized to the ultrathin scope with inability to pass this area due to ulceration. As the colon was extremely friable and bleeding with any contact the decision was made to abort and admit the patient to the hospital for IV steroids and ongoing care. - No specimens collected. Review of Systems Review of Systems: All systems reviewed & are unremarkable except as noted in HPI & below Physical Exam Constitutional: WD/WN, vitals as above Respiratory: normal respiratory effort, lungs clear to auscultation Cardiovascular: Rate/Rhythm: regular rate and regular rhythm Gastrointestinal (Abdomen): normal bowel sounds, soft, nontender, no hepatosplenomegaly Results & Data Vital Signs (Past 12 Hours) Vital Signs Temp Pulse Resp BP Pulse Ox O2 Del Method 11/08/22 08:11 36.5 C 75 16 119/71 93 Room Air Laboratory Results 11/08/22 11/08/22 11/08/22 Range/Units 07:45 07:45 07:45 WBC 14.04 H (4.8-10.8) K/ul RBC 4.99 (4.20-5.40) M/uL Hgb 15.0 (12.0-16.0) g/dl Hct 42.6 (37.0-47.0) % MCV 85.4 (80.0-100.0) fL MCH 30.1 (25.0-34.0) pg MCHC 35.2 (32.0-36.0) g/dL RDW Std Deviation 45.8 (36.4-46.3) fL RDW Coeff of Darryl 14.7 H (11.5-14.5) % Plt Count 381 (130-400) K/uL MPV 9.2 L (9.4-12.4) fL ESR 24 (0-30) mm/hr Sodium 136 (136-145) mmol/L Potassium 4.5 (3.5-5.1) mmol/L Chloride 102 (98-107) mmol/L Carbon Dioxide 28 (21-32) mmol/L Anion Gap 6 (3-11) BUN 7 (6-23) mg/dl Creatinine 0.47 L (0.6-1.2) mg/dl Est Cr Clr Drug Dosing 96.2 ml/min Est GFR ( Amer) 116.0 ml/min Est GFR (Non-Af Amer) 100.1 ml/min BUN/Creatinine Ratio 14.9 (10-20) Glucose 94 (70-99(Fasting)) mg/dl Calcium 8.8 (8.6-10.3) mg/dl Magnesium 2.0 (1.7-2.4) mg/dl Total Bilirubin 0.4 (0.2-1.0) mg/dl AST 12 L (13-39) U/L ALT 10 (7-52) U/L Alkaline Phosphatase 61 (34-104) U/L C-Reactive Protein 4.17 H (0-0.5) mg/dl Total Protein 5.9 L (6.0-8.3) gm/dl Albumin 3.3 L (3.4-5.0) gm/dl Globulin 2.6 (2.5-4.0) gm/dl Albumin/Globulin Ratio 1.3 (0.9-2) Stl C. cayetanensis PCR (NotDetected) Stool Rotavirus A PCR (NotDetected) Stl Adenov F 40/41 PCR (NotDetected) Stool Astrovirus (PCR) (NotDetected) Stool Campylobacter PCR (NotDetected) Stl C. diff Tox B Gene (Neg) Stool Cryptosporidium PCR (NotDetected) Stl E.coli Shiga Tox PCR (NotDetected) Stl Enterotoxigenic E PCR (NotDetected) Stool EPEC (PCR) (NotDetected) Stool EAEC (PCR) (NotDetected) Stl E. histolytica PCR (NotDetected) Stool Giardia Lamblia PCR (NotDetected) Stool Salmonella PCR (NotDetected) Stool Sapovirus (PCR) (NotDetected) Stl P. shigelloides PCR (NotDetected) Stl Shigella/EIEC PCR (NotDetected) St Y.enterocolitica PCR (NotDetected) Stool Vibrio (PCR) (NotDetected) Stl Vibrio cholerae PCR (NotDetected) Stl Norovirus GI/GII PCR (NotDetected) SARS-CoV-2, RNA, NAAT (NEGATIVE) 11/08/22 11/08/22 11/07/22 Range/Units 00:38 00:38 12:24 WBC (4.8-10.8) K/ul RBC (4.20-5.40) M/uL Hgb (12.0-16.0) g/dl Hct (37.0-47.0) % MCV (80.0-100.0) fL MCH (25.0-34.0) pg MCHC (32.0-36.0) g/dL RDW Std Deviation (36.4-46.3) fL RDW Coeff of Darryl (11.5-14.5) % Plt Count (130-400) K/uL MPV (9.4-12.4) fL ESR (0-30) mm/hr Sodium (136-145) mmol/L Potassium (3.5-5.1) mmol/L Chloride (98-107) mmol/L Carbon Dioxide (21-32) mmol/L Anion Gap (3-11) BUN (6-23) mg/dl Creatinine (0.6-1.2) mg/dl Est Cr Clr Drug Dosing ml/min Est GFR ( Amer) ml/min Est GFR (Non-Af Amer) ml/min BUN/Creatinine Ratio (10-20) Glucose (70-99(Fasting)) mg/dl Calcium (8.6-10.3) mg/dl Magnesium (1.7-2.4) mg/dl Total Bilirubin (0.2-1.0) mg/dl AST (13-39) U/L ALT (7-52) U/L Alkaline Phosphatase (34-104) U/L C-Reactive Protein (0-0.5) mg/dl Total Protein (6.0-8.3) gm/dl Albumin (3.4-5.0) gm/dl Globulin (2.5-4.0) gm/dl Albumin/Globulin Ratio (0.9-2) Stl C. cayetanensis PCR Not Detected (NotDetected) Stool Rotavirus A PCR Not Detected (NotDetected) Stl Adenov F 40/41 PCR Not Detected (NotDetected) Stool Astrovirus (PCR) Not Detected (NotDetected) Stool Campylobacter PCR Not Detected (NotDetected) Stl C. diff Tox B Gene Negative Cdiff Gene (Neg) Stool Cryptosporidium PCR Not Detected (NotDetected) Stl E.coli Shiga Tox PCR Not Detected (NotDetected) Stl Enterotoxigenic E PCR Not Detected (NotDetected) Stool EPEC (PCR) Not Detected (NotDetected) Stool EAEC (PCR) Not Detected (NotDetected) Stl E. histolytica PCR Not Detected (NotDetected) Stool Giardia Lamblia PCR Not Detected (NotDetected) Stool Salmonella PCR Not Detected (NotDetected) Stool Sapovirus (PCR) Not Detected (NotDetected) Stl P. shigelloides PCR Not Detected (NotDetected) Stl Shigella/EIEC PCR Not Detected (NotDetected) St Y.enterocolitica PCR Not Detected (NotDetected) Stool Vibrio (PCR) Not Detected (NotDetected) Stl Vibrio cholerae PCR Not Detected (NotDetected) Stl Norovirus GI/GII PCR Not Detected (NotDetected) SARS-CoV-2, RNA, NAAT NEGATIVE (NEGATIVE)
--- NOTE | 2022-11-08 18:22 | Hospitalist Progress Note ---
Date of Service November 08, 2022 Assessment & Plan (1) Ulcerative colitis: (2) Dysphagia: (3) COPD (chronic obstructive pulmonary disease): (4) HTN (hypertension): (5) HLD (hyperlipidemia): (6) Hypothyroidism: Plan Pt presented to [facility] for an elective EGD For evaluation of dysphagia in the endoscopy suite. During the EGD procedure patient was found to have significant inflammation and gastroenterology recommended inpatient admission for further evaluation and management. Patient has a history of ulcerative colitis that was diagnosed 35 years ago and follows with GI as an outpatient. Additional past medical history includes COPD, hypothyroidism and hyperlipidemia. 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 Ulcerative Colitis: Dysphagia: --S/P EGD:Z-line regular, 35 cm from the incisors. Large hiatal hernia with a akash erosion with some scattered hematin the hernia sac. Normal stomach. Normal duodenal bulb and second portion of the duodenum. No specimens collected. --S/P Colonoscopy:Severe (Castano Score 3) ulcerative colitis, worsened since the last examination. The rectum, rectosigmoid,and beginning of the sigmoid colon were severely ulcerated and bleeding with even minimal scope contact. The rectosigmoid was severely narrowed due to inflammation and the scope had to be downsized to the ultrathin scope with inability to pass this area due to ulceration. As the colon was extremely friable and bleeding with any contact the decision was made to abort and admit the patient to the hospital for IV steroids and ongoing care. No specimens collected. --CRP 4.17 --Stool studies negative Hold p.o. prednisone Continue IV Solu-Medrol for 3 days Plan to transition to oral prednisone taper course upon discharge Appreciate GI input Plan for Remicade/Humira as outpatient Needs follow-up with GI upon discharge Pepcid as needed COPD: Uses rescue inhaler and Fluticasone; continue Advair No supplemental O2 at home HTN: on Atenolol and Lisinopril HLD: Hypothyroidism: Continue Levothyroxine H/O C-Diff: Had fecal transplant 8years ago Stool for C-Diff negative DVT Px: SCDs for now Code Status DNR/DNI Admission and Anticipated Discharge Date Admission Date: November 07, 2022 Subjective Patient is seen and examined at bedside States feeling better today Diarrhea slowly improving Reports " gurgling" abdomen No other complaints Review of Systems Review of Systems: All systems reviewed & are unremarkable except as noted in Subjective Physical Exam Physical Exam: Physical Exam: Vitals signs as noted above General Appearance:Moderately built and nourished, no apparent distress Head: normocephalic, Atraumatic Eyes: normal inspection, EOMI Neck: supple, Trachea midline Respiratory/Chest: Normal breath sounds, CTA, No accessory muscle use Cardiovascular: S1, S2, No murmur Abdomen/GI:Soft, Non tender, Bowel sounds present Extremities/Musculoskeletal:normal inspection, no edema Neurologic/Psych:AAOX3, grossly no focal neurological deficits Skin: normal color, warm Results & Data Results & Data Vital Signs (Past 12 Hours) Vital Signs Temp Pulse Resp BP Pulse Ox O2 Del Method 11/08/22 16:45 84 94 Room Air 11/08/22 15:37 36.7 C 93 H 16 108/69 93 Room Air 11/08/22 08:11 36.5 C 75 16 119/71 93 Room Air Laboratory Results Short CBC 11/08/22 Range/Units 07:45 WBC 14.04 H (4.8-10.8) K/ul Hgb 15.0 (12.0-16.0) g/dl Hct 42.6 (37.0-47.0) % Plt Count 381 (130-400) K/uL BMP 11/08/22 07:45 Sodium 136 Potassium 4.5 Chloride 102 Carbon Dioxide 28 BUN 7 Creatinine 0.47 L Glucose 94 Calcium 8.8 Liver Function 11/08/22 Range/Units 07:45 Total Bilirubin 0.4 (0.2-1.0) mg/dl AST 12 L (13-39) U/L ALT 10 (7-52) U/L Alkaline Phosphatase 61 (34-104) U/L Albumin 3.3 L (3.4-5.0) gm/dl
[2022-11-08] MEDS ORDERED: FAMOTIDINE 10 MG TABLET PO PRN (18:32)
[2022-11-08] MEDS: CETIRIZINE HCL 10 MG TABLET PO SCH (20:11)
[2022-11-09] MEDS ORDERED: ALBUTEROL HFA 8 GM INHALER INH PRN (01:12)
[2022-11-09] MEDS: LEVOTHYROXINE SODIUM 88 MCG TABLET PO SCH (06:21)
[2022-11-09] MEDS: methylPREDNISolone 20 MG in SYRINGE 0 ML IV SCH ×3 (06:21→21:31)
[2022-11-09] MEDS: SODIUM CHLORIDE 0.9% 1000ML 1,000 ML IV SCH ×2 (06:24→18:57)
[2022-11-09 07:36] LABS: Hematocrit (blood only) 38.1 % (37.0-47.0); Hemoglobin 13.3 g/dl (12.0-16.0); Mean Corpuscular Hemoglobin 29.3 pg (25.0-34.0); Mean Corpuscular Hgb Conc 34.9 g/dL (32.0-36.0); Mean Corpuscular Volume 83.9 fL (80.0-100.0); Platelet Count 354 K/uL (130-400); RDW Coefficient of Variation 14.6 % (11.5-14.5); RDW Standard Deviation 45.2 fL (36.4-46.3); Red Blood Count 4.54 M/uL (4.20-5.40); White Blood Count 13.21 K/ul (4.8-10.8)
[2022-11-09 08:03] LABS: BUN Creatinine Ratio 17.1 (10-20); Calcium 8.5 mg/dl (8.6-10.3); Creatinine Clr Calc Pharmacy 110.3 ml/min; Est GFR (African American) 121.3 ml/min; Est GFR (Non-African American) 104.7 ml/min; Magnesium 1.9 mg/dl (1.7-2.4)
[2022-11-09] MEDS: lisinopril 20 MG TAB PO SCH (08:14)
[2022-11-09] MEDS: CHOLECALCIFEROL 1,000 UNITS 25 MCG TAB PO SCH ×2 (08:14→21:31)
[2022-11-09] MEDS: ATENOLOL 25 MG TABLET PO SCH (08:14)
[2022-11-09] MEDS: UMECLIDINIUM BROMIDE 62.5MCG/BLISTER 7 PUFFS/INHALER INH SCH (08:15)
[2022-11-09] MEDS: NICOTINE 14 MG/24 HR PATCH TD SCH (08:15)
[2022-11-09] MEDS: FLUTICASONE/VILANTEROL 100/25MCG 14 PUFFS/INHALER INH SCH (08:15)
[2022-11-09 12:53] LABS: HBSAG NON-REACTIVE (NON-REACTIVE); Hepatitis A Antibody IgM NON-REACTIVE (NON-REACTIVE); Hepatitis B Core Antibody IgM NON-REACTIVE (NON-REACTIVE)
--- NOTE | 2022-11-09 18:46 | Hospitalist Progress Note ---
Date of Service November 09, 2022 Assessment & Plan (1) Ulcerative colitis: (2) Dysphagia: (3) COPD (chronic obstructive pulmonary disease): (4) HTN (hypertension): (5) HLD (hyperlipidemia): (6) Hypothyroidism: Plan Pt presented to [facility] for an elective EGD For evaluation of dysphagia in the endoscopy suite. During the EGD procedure patient was found to have significant inflammation and gastroenterology recommended inpatient admission for further evaluation and management. Patient has a history of ulcerative colitis that was diagnosed 35 years ago and follows with GI as an outpatient. Additional past medical history includes COPD, hypothyroidism and hyperlipidemia. 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 Ulcerative Colitis: Dysphagia: --S/P EGD:Z-line regular, 35 cm from the incisors. Large hiatal hernia with a akash erosion with some scattered hematin the hernia sac. Normal stomach. Normal duodenal bulb and second portion of the duodenum. No specimens collected. --S/P Colonoscopy:Severe (Castano Score 3) ulcerative colitis, worsened since the last examination. The rectum, rectosigmoid,and beginning of the sigmoid colon were severely ulcerated and bleeding with even minimal scope contact. The rectosigmoid was severely narrowed due to inflammation and the scope had to be downsized to the ultrathin scope with inability to pass this area due to ulceration. As the colon was extremely friable and bleeding with any contact the decision was made to abort and admit the patient to the hospital for IV steroids and ongoing care. No specimens collected. --CRP 4.17 --Stool studies negative --Serological tests for hepatitis negative --Serological test for TB pending Hold p.o. prednisone Continue IV Solu-Medrol for 3 days Plan to transition to oral prednisone taper course upon discharge Appreciate GI input Plan for Remicade/Humira as outpatient Needs follow-up with GI upon discharge Pepcid as needed Continue current management Likely plan to discharge home tomorrow COPD: Uses rescue inhaler and Fluticasone; continue Advair No supplemental O2 at home HTN: on Atenolol and Lisinopril HLD: Hypothyroidism: Continue Levothyroxine H/O C-Diff: Had fecal transplant 8years ago Stool for C-Diff negative DVT Px: SCDs for now Code Status DNR/DNI Admission and Anticipated Discharge Date Admission Date: November 07, 2022 Subjective Patient is seen and examined at bedside States having very minimal blood in stool today No other complaints Denies any abdominal pain, nausea, vomiting, chest pain, dyspnea Discussed with patient's family at bedside Review of Systems Review of Systems: All systems reviewed & are unremarkable except as noted in Subjective Physical Exam Physical Exam: Physical Exam: Vitals signs as noted above General Appearance:Moderately built and nourished, no apparent distress Head: normocephalic, Atraumatic Eyes: normal inspection, EOMI Neck: supple, Trachea midline Respiratory/Chest: Normal breath sounds, CTA, No accessory muscle use Cardiovascular: S1, S2, No murmur Abdomen/GI:Soft, Non tender, Bowel sounds present Extremities/Musculoskeletal:normal inspection, no edema Neurologic/Psych:AAOX3, grossly no focal neurological deficits Skin: normal color, warm Results & Data Results & Data Vital Signs (Past 12 Hours) Vital Signs Temp Pulse Resp BP Pulse Ox O2 Del Method 11/09/22 14:45 36.6 C 78 16 128/73 93 Room Air 11/09/22 07:45 Room Air 11/09/22 08:12 36.6 C 88 17 146/82 H 92 Room Air Laboratory Results Short CBC 11/09/22 Range/Units 07:13 WBC 13.21 H (4.8-10.8) K/ul Hgb 13.3 (12.0-16.0) g/dl Hct 38.1 (37.0-47.0) % Plt Count 354 (130-400) K/uL BMP 11/09/22 07:13 Sodium 136 Potassium 4.0 Chloride 105 Carbon Dioxide 29 BUN 7 Creatinine 0.41 L Glucose 109 H Calcium 8.5 L
[2022-11-09] MEDS: CETIRIZINE HCL 10 MG TABLET PO SCH (21:31)
[2022-11-10] MEDS: methylPREDNISolone 20 MG in SYRINGE 0 ML IV SCH ×2 (05:40→14:08)
[2022-11-10] MEDS: LEVOTHYROXINE SODIUM 88 MCG TABLET PO SCH (05:40)
[2022-11-10 07:22] LABS: Hematocrit (blood only) 38.6 % (37.0-47.0); Hemoglobin 13.7 g/dl (12.0-16.0); Mean Corpuscular Hgb Conc 35.5 g/dL (32.0-36.0); Mean Corpuscular Volume 84.6 fL (80.0-100.0); Platelet Count 346 K/uL (130-400); RDW Coefficient of Variation 14.9 % (11.5-14.5); RDW Standard Deviation 45.6 fL (36.4-46.3); Red Blood Count 4.56 M/uL (4.20-5.40); White Blood Count 12.19 K/ul (4.8-10.8)
[2022-11-10] MEDS: SODIUM CHLORIDE 0.9% 1000ML 1,000 ML IV SCH (07:22)
[2022-11-10 07:40] LABS: BUN Creatinine Ratio 20.9 (10-20); Calcium 8.5 mg/dl (8.6-10.3); Creatinine Clr Calc Pharmacy 105.1 ml/min; Est GFR (African American) 119.4 ml/min; Est GFR (Non-African American) 103.1 ml/min; Potassium 4.2 mmol/L (3.5-5.1)
[2022-11-10] MEDS: UMECLIDINIUM BROMIDE 62.5MCG/BLISTER 7 PUFFS/INHALER INH SCH (08:49)
[2022-11-10] MEDS: FLUTICASONE/VILANTEROL 100/25MCG 14 PUFFS/INHALER INH SCH (08:49)
[2022-11-10] MEDS: CHOLECALCIFEROL 1,000 UNITS 25 MCG TAB PO SCH (08:50)
[2022-11-10] MEDS: lisinopril 20 MG TAB PO SCH (08:50)
[2022-11-10] MEDS: ATENOLOL 25 MG TABLET PO SCH (08:50)
[2022-11-10] MEDS: NICOTINE 14 MG/24 HR PATCH TD SCH (08:51)
--- NOTE | 2022-11-10 13:01 | Hospitalist Progress Note ---
Date of Service November 10, 2022 Assessment & Plan (1) Ulcerative colitis: (2) Dysphagia: (3) COPD (chronic obstructive pulmonary disease): (4) HTN (hypertension): (5) HLD (hyperlipidemia): (6) Hypothyroidism: Plan Pt presented to [facility] for an elective EGD For evaluation of dysphagia in the endoscopy suite. During the EGD procedure patient was found to have significant inflammation and gastroenterology recommended inpatient admission for further evaluation and management. Patient has a history of ulcerative colitis that was diagnosed 35 years ago and follows with GI as an outpatient. Additional past medical history includes COPD, hypothyroidism and hyperlipidemia. 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 Ulcerative Colitis: Dysphagia: --S/P EGD:Z-line regular, 35 cm from the incisors. Large hiatal hernia with a akash erosion with some scattered hematin the hernia sac. Normal stomach. Normal duodenal bulb and second portion of the duodenum. No specimens collected. --S/P Colonoscopy:Severe (Castano Score 3) ulcerative colitis, worsened since the last examination. The rectum, rectosigmoid,and beginning of the sigmoid colon were severely ulcerated and bleeding with even minimal scope contact. The rectosigmoid was severely narrowed due to inflammation and the scope had to be downsized to the ultrathin scope with inability to pass this area due to ulceration. As the colon was extremely friable and bleeding with any contact the decision was made to abort and admit the patient to the hospital for IV steroids and ongoing care. No specimens collected. --CRP 4.17 --Stool studies negative --Serological tests for hepatitis negative --Serological test for TB pending Completed IV Solu-Medrol for 3 days Appreciate GI input Plan for Remicade/Humira as outpatient Needs follow-up with GI upon discharge Pepcid as needed Plan to discharge on prednisone 40 mg daily. Further titration as outpatient Plan to discharge home today COPD: Uses rescue inhaler and Fluticasone; continue Advair No supplemental O2 at home HTN: on Atenolol and Lisinopril HLD: Hypothyroidism: Continue Levothyroxine H/O C-Diff: Had fecal transplant 8years ago Stool for C-Diff negative DVT Px: SCDs for now Code Status DNR/DNI Admission and Anticipated Discharge Date Admission Date: November 07, 2022 Subjective Patient is seen and examined at bedside States feeling well today Denies any blood in stools No new complaints Also denies any chest pain, dyspnea, dizziness, nausea, abdominal pain Plan to discharge home today Review of Systems Review of Systems: All systems reviewed & are unremarkable except as noted in Subjective Physical Exam Physical Exam: Physical Exam: Vitals signs as noted above General Appearance:Moderately built and nourished, no apparent distress Head: normocephalic, Atraumatic Eyes: normal inspection, EOMI Neck: supple, Trachea midline Respiratory/Chest: Normal breath sounds, CTA, No accessory muscle use Cardiovascular: S1, S2, No murmur Abdomen/GI:Soft, Non tender, Bowel sounds present Extremities/Musculoskeletal:normal inspection, no edema Neurologic/Psych:AAOX3, grossly no focal neurological deficits Skin: normal color, warm Results & Data Results & Data Vital Signs (Past 12 Hours) Vital Signs Temp Pulse Pulse Resp BP Pulse Ox O2 Del Method 11/10/22 07:35 Room Air 11/10/22 08:00 36.6 C 74 18 148/79 H 93 Room Air 11/10/22 08:48 80 17 136/79 92 Room Air Laboratory Results Short CBC 11/10/22 Range/Units 07:03 WBC 12.19 H (4.8-10.8) K/ul Hgb 13.7 (12.0-16.0) g/dl Hct 38.6 (37.0-47.0) % Plt Count 346 (130-400) K/uL BMP 11/10/22 07:03 Sodium 137 Potassium 4.2 Chloride 103 Carbon Dioxide 29 BUN 9 Creatinine 0.43 L Glucose 108 H Calcium 8.5 L
--- NOTE | 2022-11-10 13:14 | Discharge Summary ---
Date of Service November 10, 2022 Admission HPI Per Admitting Provider Ms. Evans is a 71 year old female that presented to the [facility] today for an elective EGD For evaluation of dysphagia. During the EGD procedure patient was found to have significant inflammation and gastroenterology recommended inpatient admission for further evaluation and management. Patient has a history of ulcerative colitis that was diagnosed 35 years ago and follows with GI as an outpatient. Additional past medical history includes COPD, hypothyroidism and hyperlipidemia. 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 Per conversation with GI patient will be placed on bowel rest keeping patient NPO for now. KUB for imaging and methylprednisone 20 mg every 8 scheduled will be ordered. Additionally patient will have CRP and ESR along with routine CMP and CBC labs in AM. Patient stated that she has been experiencing 4-5 nocturnal bowel movements awaking her from sleep with significant malodor. Full stool study work up including c-diff will be ordered. Otherwise, patient denies NGUYEN, dizziness, CP, SOB, abdominal pain, hematochezia, recent falls or other trauma, new rashes, appetite changes or nausea/vomiting. Pt able to sit in her bed, follow commands and appears to be in no apparent dist ress and is hemodynamically stable. Patient will be admitted for further evaluation and management. Please see A/P for further details. Admission Exam Per Admitting Provider Neuro: AAOx4, PERRLA, no aphagia, memory changes, CNII-XII grossly intact HEENT: head normocephalic, moist mucus membranes CV: S1/S2, (-) M/G/R, (-) edema, cap refill < 3 seconds Resp: Lungs CTA in all gutierrez. On RA GI: Abdomen S/NT/ND, Ax4 bowel sounds, (-) CVA tenderness Musculoskeletal: 5/5 B/L UE strength, 5/5 B/L LE strength. No gait disturbance Skin: (-) rashes , (-) erythema. Psych: euthymic mood Principal Diagnosis Ulcerative Colitis Discharge Data Allergies Allergy/AdvReac Type Severity Reaction Status Date / Time adhesive tape Allergy Intermediate SKIN Verified 11/07/22 09:18 IRRITATION/TAKES SKIN OFF WHEN TAKEN OFF midazolam Allergy Unknown NOT ON GMG Verified 11/07/22 09:18 OR PT LIST sulfasalazine AdvReac Severe PANCREATITI Verified 11/07/22 09:18 S Consultations 11/07/22 13:35 Consult Gastroenterology Routine Procedures Performed Operation Date: 11/07/22 10:00 Actual Procedures p Esophagogastroduodenoscopy - Cailin Johnson DO s Colonoscopy - Cailin Johnson DO Ordered Studies Laboratory Results WBC 12.19 K/ul (4.8-10.8) H 11/10/22 07:03 RBC 4.56 M/uL (4.20-5.40) 11/10/22 07:03 Hgb 13.7 g/dl (12.0-16.0) 11/10/22 07:03 Hct 38.6 % (37.0-47.0) 11/10/22 07:03 MCV 84.6 fL (80.0-100.0) 11/10/22 07:03 MCH 30.0 pg (25.0-34.0) 11/10/22 07:03 MCHC 35.5 g/dL (32.0-36.0) 11/10/22 07:03 RDW Std Deviation 45.6 fL (36.4-46.3) 11/10/22 07:03 RDW Coeff of Darryl 14.9 % (11.5-14.5) H 11/10/22 07:03 Plt Count 346 K/uL (130-400) 11/10/22 07:03 MPV 9.0 fL (9.4-12.4) L 11/10/22 07:03 ESR 24 mm/hr (0-30) 11/08/22 07:45 Sodium 137 mmol/L (136-145) 11/10/22 07:03 Potassium 4.2 mmol/L (3.5-5.1) 11/10/22 07:03 Chloride 103 mmol/L (98-107) 11/10/22 07:03 Carbon Dioxide 29 mmol/L (21-32) 11/10/22 07:03 Anion Gap 5 (3-11) 11/10/22 07:03 BUN 9 mg/dl (6-23) 11/10/22 07:03 Creatinine 0.43 mg/dl (0.6-1.2) L 11/10/22 07:03 Est Cr Clr Drug Dosing 105.1 ml/min 11/10/22 07:03 Est GFR ( Amer) 119.4 ml/min 11/10/22 07:03 Est GFR (Non-Af Amer) 103.1 ml/min 11/10/22 07:03 BUN/Creatinine Ratio 20.9 (10-20) H 11/10/22 07:03 Glucose 108 mg/dl (70-99(Fasting)) H 11/10/22 07:03 Calcium 8.5 mg/dl (8.6-10.3) L 11/10/22 07:03 Magnesium 1.9 mg/dl (1.7-2.4) 11/09/22 07:13 Total Bilirubin 0.4 mg/dl (0.2-1.0) 11/08/22 07:45 AST 12 U/L (13-39) L 11/08/22 07:45 ALT 10 U/L (7-52) 11/08/22 07:45 Alkaline Phosphatase 61 U/L (34-104) 11/08/22 07:45 C-Reactive Protein 4.17 mg/dl (0-0.5) H 11/08/22 07:45 Total Protein 5.9 gm/dl (6.0-8.3) L 11/08/22 07:45 Albumin 3.3 gm/dl (3.4-5.0) L 11/08/22 07:45 Globulin 2.6 gm/dl (2.5-4.0) 11/08/22 07:45 Albumin/Globulin Ratio 1.3 (0.9-2) 11/08/22 07:45 Stl C. cayetanensis PCR Not Detected (NotDetected) 11/08/22 00:38 Stool Rotavirus A PCR Not Detected (NotDetected) 11/08/22 00:38 Stl Adenov F 40/41 PCR Not Detected (NotDetected) 11/08/22 00:38 Stool Astrovirus (PCR) Not Detected (NotDetected) 11/08/22 00:38 Stool Campylobacter PCR Not Detected (NotDetected) 11/08/22 00:38 Stl C. diff Tox B Gene Negative Cdiff Gene (Neg) 11/08/22 00:38 Stool Cryptosporidium PCR Not Detected (NotDetected) 11/08/22 00:38 Stl E.coli Shiga Tox PCR Not Detected (NotDetected) 11/08/22 00:38 Stl Enterotoxigenic E PCR Not Detected (NotDetected) 11/08/22 00:38 Stool EPEC (PCR) Not Detected (NotDetected) 11/08/22 00:38 Stool EAEC (PCR) Not Detected (NotDetected) 11/08/22 00:38 Stl E. histolytica PCR Not Detected (NotDetected) 11/08/22 00:38 Stool Giardia Lamblia PCR Not Detected (NotDetected) 11/08/22 00:38 Stool Salmonella PCR Not Detected (NotDetected) 11/08/22 00:38 Stool Sapovirus (PCR) Not Detected (NotDetected) 11/08/22 00:38 Stl P. shigelloides PCR Not Detected (NotDetected) 11/08/22 00:38 Stl Shigella/EIEC PCR Not Detected (NotDetected) 11/08/22 00:38 St Y.enterocolitica PCR Not Detected (NotDetected) 11/08/22 00:38 Stool Vibrio (PCR) Not Detected (NotDetected) 11/08/22 00:38 Stl Vibrio cholerae PCR Not Detected (NotDetected) 11/08/22 00:38 Stl Norovirus GI/GII PCR Not Detected (NotDetected) 11/08/22 00:38 Hepatitis A IgM Ab NON-REACTIVE (NON-REACTIVE) 11/08/22 10:35 Hepatitis B Ab, Qual NON-REACTIVE (NON-REACTIVE) 11/08/22 10:35 Hep Bs Antigen NON-REACTIVE (NON-REACTIVE) 11/08/22 10:35 Hep Bs Ag Confirmation TNP 11/08/22 10:35 Hep B Core IgM Ab NON-REACTIVE (NON-REACTIVE) 11/08/22 10:35 Hepatitis C Ab (EIA) NON-REACTIVE (NON-REACTIVE) 11/08/22 10:35 Hep C Ab Signal/Cutoff <0.02 (<1.00) 11/08/22 10:35 SARS-CoV-2, RNA, NAAT NEGATIVE (NEGATIVE) 11/07/22 12:24 Impressions KUB X-Ray 11/07/22 13:46 XR KUB/Abdomen 1 view CLINICAL HISTORY: Ulcerative colitis TECHNIQUE: 1 view of the abdomen was obtained. Comparison: None available at the time of this dictation. FINDINGS: Lung bases are unremarkable. Degenerative changes are seen in the visualized skeleton. The bowel gas pattern is nonobstructive. A moderate amount of stool is noted within the large bowel. IMPRESSION: Nonobstructive bowel gas pattern. ACT 112: Negative or not required by law. Electronically signed by: Santy Fonseca M.D. 11/07/2022 3:31 PM Hospital Course (1) Ulcerative colitis: (2) Dysphagia: (3) COPD (chronic obstructive pulmonary disease): (4) HTN (hypertension): (5) HLD (hyperlipidemia): (6) Hypothyroidism: Plan Pt presented to [facility] for an elective EGD For evaluation of dysphagia in the endoscopy suite. During the EGD procedure patient was found to have significant inflammation and gastroenterology recommended inpatient admission for further evaluation and management. Patient has a history of ulcerative colitis that was diagnosed 35 years ago and follows with GI as an outpatient. Additional past medical history includes COPD, hypothyroidism and hyperlipidemia. 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 Ulcerative Colitis: Dysphagia: --S/P EGD:Z-line regular, 35 cm from the incisors. Large hiatal hernia with a akash erosion with some scattered hematin the hernia sac. Normal stomach. Normal duodenal bulb and second portion of the duodenum. No specimens collected. --S/P Colonoscopy:Severe (Castano Score 3) ulcerative colitis, worsened since the last examination. The rectum, rectosigmoid,and beginning of the sigmoid colon were severely ulcerated and bleeding with even minimal scope contact. The rectosigmoid was severely narrowed due to inflammation and the scope had to be downsized to the ultrathin scope with inability to pass this area due to ulceration. As the colon was extremely friable and bleeding with any contact the decision was made to abort and admit the patient to the hospital for IV steroids and ongoing care. No specimens collected. --CRP 4.17 --Stool studies negative --Serological tests for hepatitis negative --Serological test for TB pending Completed IV Solu-Medrol for 3 days Appreciate GI input Plan for Remicade/Humira as outpatient Needs follow-up with GI upon discharge Pepcid as needed Plan to discharge on prednisone 40 mg daily. Further titration as outpatient Plan to discharge home today COPD: Uses rescue inhaler and Fluticasone; continue Advair No supplemental O2 at home HTN: on Atenolol and Lisinopril HLD: Hypothyroidism: Continue Levothyroxine H/O C-Diff: Had fecal transplant 8years ago Stool for C-Diff negative DVT Px: SCDs for now Code Status DNR/DNI Total Time Total Time Spent Total Time Spent (In Minutes): 53 minutes Discharge Plan Discharge Items Patient Disposition: Home - Self-Care Reason For Visit: ULCERATIVE COLITIS Discharge Diagnosis: Ulcerative Colitis Activity: Per Instructions section Exercise/Sports: Wait until after follow-up appointment Non-emergency contact: Primary Care Provider and Asphalt Plant Operator Call non-emergency contact if: you have any medication questions, your symptoms worsen, your pain is concerning for you and you have a fever Follow-up/Referrals: Sb Solano MD [Primary Care Provider] - Diet: Heart Healthy Addtl Attending Provider Instructions: Follow-up with your primary care physician Dr. Solano in 1 week Follow-up with your tie fastener Dr. Johnson in 1 to 2 weeks as advised --Your serological test for tuberculosis is pending at the time of discharge. Follow-up with your physician for results. --- Continue prednisone 40 mg daily until follow-up with your tie fastener. Further recommendations as per your tie fastener. Seek immediate medical attention if your symptoms reoccur or worsen Please take all medications as instructed on discharge list below. Please call if you have any questions or problems. You can reach a [facility] hospitalist on duty at [facility] 24 hours a day by calling [phone] Pending Studies at Discharge: Yes Studies:: Serological test for tuberculosis Stand-Alone Forms: My [facility], Smoking Cessation Medications and DC Order Prescriptions: New famotidine [Acid Synthetic Filament Extruder (famotidine)] 10 mg Tablet 10 mg PO BID PRN (Reason: heartburn) Qty: 30 0RF Continued fluticasone propion-salmeterol [Advair Diskus] 250-50 mcg/dose Blister With Device 1 inh INHALATION BID lisinopril 20 mg tablet 20 mg PO QAM nicotine 7 mg/24 hr Patch 24 Hour 2 patch TRANSDERMAL DAILY multivitamin Tablet 1 tab PO QAM albuterol sulfate 2.5 mg /3 mL (0.083 %) Solution For Nebulization 2.5 mg INHALATION DIRECTED PRN (Reason: Shortness Of Breath Or Wheezing) cetirizine [Zyrtec] 10 mg Tablet 10 mg PO HS atenolol 25 mg tablet 25 mg PO QAM levothyroxine 88 mcg Tablet 88 mcg PO QAM albuterol sulfate 90 mcg/actuation Hfa Aerosol Inhaler 2 puff INHALATION Q4H PRN (Reason: Wheezing) fluticasone propionate 50 mcg/actuation Red Bud,Suspension 2 spray INTRANASAL DAILY PRN (Reason: Congestion) Rx Instructions: administer into each nostril vitamin E 268 mg (400 unit) Capsule 268 mg PO QAM cholecalciferol (vitamin D3) [Vitamin D3] 25 mcg (1,000 unit) Capsule 25 mcg PO BID Spiriva with HandiHaler 18 mcg capsule, w/inhalation device 18 mcg INHALATION QDL diclofenac sodium 1 % Gel 2 g TOPICAL QID PRN (Reason: Pain) Changed prednisone 20 mg Tablet 40 mg PO UD Qty: 30 0RF Rx Instructions: 40mg daily for 2 weeks. Follow up with Asphalt Plant Operator for further instructions Discharge Orders: Discharge Order (Routine); Ordered 11/10/22 Ordered By: Fidel Wallace Admission Data Admit Date/Time: 11/07/22 13:35 Attending Provider: Fidel Wallace Admit Provider: Braxton Dick Primary Care Provider: Sb Solano Other Providers: Cailin Johnson Other Interventions: Discharge Summary Assessment (RN) Last Done: 11/07/22 11:30
[2022-11-11 16:12] LABS: Quantiferon NIL 0.01 IU/mL; Quantiferon TB Gold Plus NEGATIVE (NEGATIVE); Quantiferon TB1-NIL 0.01 IU/mL
== END 2022-11-10 14:57 | disposition home or self-care (01) | DRG 386 ==
LOC: ENDO 08:53 → SUATTDRO 13:35 → 3N 13:35

== ENCOUNTER 2022-11-13 23:10 | Inpatient (IN) ==
[2022-11-13] MEDS ORDERED: SODIUM CHLORIDE 0.9% 1000ML 1,000 ML IV STA (23:15)
[2022-11-13] MEDS ORDERED: ONDANSETRON INJ 2 MG/ML 2 ML VIAL IV STA (23:15)
--- NOTE | 2022-11-13 23:20 | Emergency Department Note ---
History of Present Illness General Chief complaint: Rectal Bleed Stated complaint: GI Bleed, Abdominal Pain History of Present Illness Maximum Pain Intensity: 3 71-year-old female presents via EMS for rectal bleeding and nausea. Patient also states some mild lower abdominal cramping. Patient is states that she has been having nausea and diarrhea with bloody stools. Patient of note was admitted to our facility from the endoscopy suite on Saturday due to the inability to pass colonoscope past the rectosigmoid junction. Patient was started on high-dose IV steroids and p.o. prednisone and was discharged 2 days later. Patient states continued bright red blood per rectum with some abdominal pain this evening and she felt like she was going to faint. This is why she called EMS. Home Medications Medication Instructions Recorded Confirmed Type albuterol sulfate 2.5 mg/3 mL 2.5 mg inhalation DIRECTED PRN 09/20/22 11/07/22 History (0.083 %) solution for nebulization Shortness Of Breath Or Wheezing albuterol sulfate 90 mcg/actuation 2 puff inhalation Q4H PRN Wheezing 09/20/22 11/07/22 History aerosol inhaler atenolol 25 mg tablet 25 mg PO QAM 09/20/22 11/07/22 History cetirizine 10 mg tablet (Zyrtec) 10 mg PO HS 09/20/22 11/07/22 History cholecalciferol (vitamin D3) 25 25 mcg PO BID 09/20/22 11/07/22 History mcg (1,000 unit) capsule (Vitamin D3) diclofenac sodium 1 % topical gel 2 g topical QID PRN Pain 09/20/22 11/07/22 History fluticasone propionate 50 2 spray intranasal DAILY PRN 09/20/22 11/07/22 History mcg/actuation nasal Congestion spray,suspension levothyroxine 88 mcg tablet 88 mcg PO QAM 09/20/22 11/07/22 History multivitamin 1 tab PO QAM 09/20/22 11/07/22 History tiotropium bromide 18 mcg capsule 18 mcg inhalation QDL 09/20/22 11/07/22 History with inhalation device (Spiriva with HandiHaler) vitamin E 268 mg (400 unit) capsule 268 mg PO QAM 09/20/22 11/07/22 History fluticasone 250 mcg-salmeterol 50 1 inh inhalation BID 11/02/22 11/07/22 History mcg/dose blistr powdr for inhalation (Advair Diskus) lisinopril 20 mg tablet 20 mg PO QAM 11/02/22 11/07/22 History nicotine 7 mg/24 hr daily 2 patch transdermal DAILY 11/02/22 11/07/22 History transdermal patch famotidine 10 mg tablet (Acid 10 mg PO BID PRN heartburn #30 tabs 11/10/22 Rx Marionette Performer (famotidine)) prednisone 20 mg tablet 40 mg PO UD #30 tabs 11/10/22 Rx Allergies Allergy/AdvReac Type Severity Reaction Status Date / Time adhesive tape Allergy Intermediate SKIN Verified 11/07/22 09:18 IRRITATION/TAKES SKIN OFF WHEN TAKEN OFF midazolam Allergy Unknown NOT ON GMG Verified 11/07/22 09:18 OR PT LIST sulfasalazine AdvReac Severe PANCREATITI Verified 11/07/22 09:18 S Past Med/Surg History Medical History Anxiety no meds Aspiration pneumonia hospitalized at [facility] for this in September 2022 > no further issues COPD (chronic obstructive pulmonary disease) uses res inh daily Dysphagia History of COVID-12 Aug 2021 > not hospitalized HLD (hyperlipidemia) HTN (hypertension) Hx of Clostridium difficile infection 8 yrs ago > fecal transplant > resolved Hypothyroidism Meningocele Palpitations no longer Ulcerative colitis Ulcerative colitis hx of 25 yrs ago > possible issue now?? reason for up coming colon/EGD Surgical History History of carpal tunnel surgery bilat History of colonoscopy History of tooth extraction Hx of partial thyroidectomy Hx of tubal ligation S/P fecal transplant Family History Father , 66 Sudden cardiac Mother Bipolar disorder Social History Smoking Status: Former smoker Tobacco Type: Cigarettes packs per day: 0.5; Cigarettes Per Day: 6-8; Second Hand Exposure: No; Do You Dip or Chew Tobacco: No; Hx Alcohol Use: No Hx Substance Use: No Preferred Language: Thai Communication Ability: Effective Leather Heel Breaster Required: No Beliefs That Will Affect Care: None Current Living Situation: Spouse Feels Safe at Home: Yes Assistive Devices: Nebulizer and Other Review of Systems A total of 10 systems reviewed and were otherwise negative Gastrointestinal: + nausea, + diarrhea/loose stools and + blood in stools Physical Exam Vital Signs Vital Signs - 24 hr 11/13/22 23:13 11/13/22 23:16 11/13/22 23:16 Pulse Rate 120 H 119 H 120 H Pulse Rate from SpO2 Sensor 118 H Respiratory Rate 20 22 Respiratory Effort / Characteristics Non-Labored Respiratory Depth Normal Blood Pressure 124/62 Blood Pressure Mean 82 Pulse Oximetry 92 92 Oxygen Delivery Method Room Air Sepsis Recent Fever Within 48 Hours No Sepsis New/Unexplained Change in Mental Status No Sepsis Action Taken by Nursing No Action Required 11/13/22 23:30 11/14/22 00:00 11/14/22 00:30 Pulse Rate 95 H 100 H 102 H Pulse Rate from SpO2 Sensor 94 H 98 H 101 H Respiratory Rate 21 27 H 17 Respiratory Effort / Characteristics Respiratory Depth Blood Pressure 114/52 L Blood Pressure Mean 72 Pulse Oximetry 91 90 91 Oxygen Delivery Method Sepsis Recent Fever Within 48 Hours Sepsis New/Unexplained Change in Mental Status Sepsis Action Taken by Nursing 11/14/22 00:50 11/14/22 01:00 Pulse Rate 105 H 101 H Pulse Rate from SpO2 Sensor Respiratory Rate 28 H 23 Respiratory Effort / Characteristics Respiratory Depth Blood Pressure 118/50 L Blood Pressure Mean 72 Pulse Oximetry Oxygen Delivery Method Sepsis Recent Fever Within 48 Hours Sepsis New/Unexplained Change in Mental Status Sepsis Action Taken by Nursing GENERAL: Patient is awake alert in no acute distress patient is resting comfortably and showing no signs of anxiety EYES: The conjunctivae are clear. The pupils are round and reactive. EARS, NOSE, MOUTH AND THROAT: The nose is without any evidence of any deformity. Mucous membranes are moist. Tongue is midline. NECK: The neck is nontender and supple. RESPIRATORY: Normal respiratory effort is noted there is no evidence of wheezing rhonchi or rales CARDIOVASCULAR: Regular rate and rhythm noted there no murmurs rubs or gallops normal S1 normal S2. GASTROINTESTINAL: The abdomen is soft. Abdomen is nontender. There is no rebound rigidity or guarding present BACK: Full range of motion of the back MUSCULOSKELETAL/EXTREMITIES: There is no evidence of gross deformity full range of motion is noted in the hips and shoulders. SKIN: There is no obvious evidence of any rash. There are no petechiae, pallor or cyanosis noted. NEUROLOGIC: Patient is awake alert and oriented x3 strength is symmetric Psych normal affect Course Reevaluation(s) Reevaluation #1: Patient was started on IV fluids, patient remained normotensive throughout the emergency department evaluation. Time: 00:26 Consultations Consultation #1: This case was discussed with the [facility] hospitalist for admission Time: 00:26 Administered Medications Discontinued Medications Sodium Chloride (Nss 1000ml) 1,000 mls @ 999 mls/hr IV .Q1H1M STA Stop: 11/14/22 00:15 Last Infusion: 11/14/22 01:03 Dose: 0 mls/hr Documented By: Admin: 11/14/22 00:00 Dose: 999 mls/hr Documented By: VARSHA Ioversol (Optiray 320 100ml) 100 ml IV ONCE ONE Stop: 11/14/22 00:51 Last Admin: 11/14/22 00:50 Dose: 87 ml Documented By: CYNDEE Ondansetron HCl (Ondansetron Inj 2 Mg/Ml 2 Ml Vial) 4 mg IV NOW STA Stop: 11/13/22 23:16 Last Admin: 11/14/22 00:00 Dose: 4 mg Documented By: VARSHA Medical Decision Making Medical Records Attestation: I reviewed the patient's medical records. Home Medications Current Medication List: was personally reviewed by me Laboratory Data Attestation: I reviewed the patient's lab results. Patient has a leukocytosis which I suspect is due to being on prednisone 11/13/22 23:36 11/13/22 23:36 Lab Results 11/13/22 11/13/22 11/13/22 Range/Units 23:36 23:36 23:36 WBC 16.44 H (4.8-10.8) K/ul RBC 4.68 (4.20-5.40) M/uL Hgb 13.8 (12.0-16.0) g/dl Hct 40.5 (37.0-47.0) % MCV 86.5 (80.0-100.0) fL MCH 29.5 (25.0-34.0) pg MCHC 34.1 (32.0-36.0) g/dL RDW Std Deviation 47.1 H (36.4-46.3) fL RDW Coeff of Darryl 14.9 H (11.5-14.5) % Plt Count 354 (130-400) K/uL MPV 8.8 L (9.4-12.4) fL Immature Gran % (Auto) 0.5 % Neut % (Auto) 74.8 % Lymph % (Auto) 9.8 % [place] % (Auto) 13.1 % Eos % (Auto) 1.3 % Baso % (Auto) 0.5 % Neut # (Auto) 12.30 H (1.40-6.50) K/uL Lymph # (Auto) 1.61 (1.2-3.4) K/uL [place] # (Auto) 2.16 H (0.11-0.59) K/uL Eos # (Auto) 0.21 (0-0.50) K/uL Baso # (Auto) 0.08 (0-0.2) K/uL Immature Gran # (Auto) 0.08 (0.01-0.20) K/uL PT 11.4 (9.0-12.0) Seconds INR 1.0 (0.9-1.1) Sodium (136-145) mmol/L Potassium (3.5-5.1) mmol/L Chloride (98-107) mmol/L Carbon Dioxide (21-32) mmol/L Anion Gap (3-11) BUN (6-23) mg/dl Creatinine (0.6-1.2) mg/dl Est Cr Clr Drug Dosing ml/min Est GFR ( Amer) ml/min Est GFR (Non-Af Amer) ml/min BUN/Creatinine Ratio (10-20) Glucose (70-99(Fasting)) mg/dl Calcium (8.6-10.3) mg/dl Total Bilirubin (0.2-1.0) mg/dl AST (13-39) U/L ALT (7-52) U/L Alkaline Phosphatase (34-104) U/L Total Protein (6.0-8.3) gm/dl Albumin (3.4-5.0) gm/dl Globulin (2.5-4.0) gm/dl Albumin/Globulin Ratio (0.9-2) Lipase (11-82) U/L Blood Type A Positive Antibody Screen NEGATIVE 11/13/22 Range/Units 23:36 WBC (4.8-10.8) K/ul RBC (4.20-5.40) M/uL Hgb (12.0-16.0) g/dl Hct (37.0-47.0) % MCV (80.0-100.0) fL MCH (25.0-34.0) pg MCHC (32.0-36.0) g/dL RDW Std Deviation (36.4-46.3) fL RDW Coeff of Darryl (11.5-14.5) % Plt Count (130-400) K/uL MPV (9.4-12.4) fL Immature Gran % (Auto) % Neut % (Auto) % Lymph % (Auto) % [place] % (Auto) % Eos % (Auto) % Baso % (Auto) % Neut # (Auto) (1.40-6.50) K/uL Lymph # (Auto) (1.2-3.4) K/uL [place] # (Auto) (0.11-0.59) K/uL Eos # (Auto) (0-0.50) K/uL Baso # (Auto) (0-0.2) K/uL Immature Gran # (Auto) (0.01-0.20) K/uL PT (9.0-12.0) Seconds INR (0.9-1.1) Sodium 135 L (136-145) mmol/L Potassium 3.5 (3.5-5.1) mmol/L Chloride 101 (98-107) mmol/L Carbon Dioxide 27 (21-32) mmol/L Anion Gap 7 (3-11) BUN 14 (6-23) mg/dl Creatinine 0.51 L (0.6-1.2) mg/dl Est Cr Clr Drug Dosing 88.6 ml/min Est GFR ( Amer) 112.9 ml/min Est GFR (Non-Af Amer) 97.4 ml/min BUN/Creatinine Ratio 27.5 H (10-20) Glucose 121 H (70-99(Fasting)) mg/dl Calcium 8.1 L (8.6-10.3) mg/dl Total Bilirubin 0.5 (0.2-1.0) mg/dl AST 10 L (13-39) U/L ALT 11 (7-52) U/L Alkaline Phosphatase 53 (34-104) U/L Total Protein 5.5 L (6.0-8.3) gm/dl Albumin 3.1 L (3.4-5.0) gm/dl Globulin 2.4 L (2.5-4.0) gm/dl Albumin/Globulin Ratio 1.3 (0.9-2) Lipase 22 (11-82) U/L Blood Type Antibody Screen Imaging Data Attestation: I personally reviewed and interpreted this imaging study as follows: My Impression: CT abdomen pelvis per my interpretation is negative for bowel obstruction Radiologist's Impression: Abdomen/Pelvis CT 11/13/22 23:15 Exam(s): CT ABDOMEN + PELVIS With Contrast IV Amt: 87 ML OPTIRAY 320 EXAM: CT Abdomen and Pelvis With Intravenous Contrast CLINICAL HISTORY: Reason for exam: abd pain. TECHNIQUE: Axial computed tomography images of the abdomen and pelvis with intravenous contrast. CTDI is 10.85 mGy and DLP is 513.15 mGy-cm. Automated exposure control was utilized for the study. A dose lowering technique was utilized adhering to the principles of ALARA. CONTRAST: Patient received 87 ML OPTIRAY 320 of IV contrast COMPARISON: No relevant prior studies available. FINDINGS: Lung bases: There is a pulmonary parenchymal consolidation at the right lung base which is concerning for underlying infection. Mediastinum: There is a small hiatal hernia. ABDOMEN: Liver: Unremarkable. No mass. Gallbladder and bile ducts: Cholelithiasis. No ductal dilation. Pancreas: Unremarkable. No mass. No ductal dilation. Spleen: Unremarkable. No splenomegaly. Adrenals: Unremarkable. No mass. Kidneys and ureters: Unremarkable. No solid mass. No hydronephrosis. Stomach and bowel: There is moderate to severe transverse colitis. No obstruction. PELVIS: Appendix: No findings to suggest acute appendicitis. Bladder: Unremarkable. No mass. Reproductive: Unremarkable as visualized. ABDOMEN and PELVIS: Intraperitoneal space: Small volume of free fluid in the pelvis. No free air. Bones/joints: Degenerative disease of the thoracolumbar spine. No acute fracture. No dislocation. Soft tissues: Unremarkable. Vasculature: There is diffuse atherosclerotic calcification of the aorta and its major branch vessels. No abdominal aortic aneurysm. Lymph nodes: Unremarkable. No enlarged lymph nodes. IMPRESSION: 1. There is moderate to severe transverse colitis. 2. There is a pulmonary parenchymal consolidation at the right lung base which is concerning for underlying infection. Electronically signed by: Aayush Lemus MD 11/14/22 01:01 AM ECG Data Attestation: I personally reviewed and interpreted this ECG as follows: Additional Comments: EKG interpreted by me normal sinus rhythm rate of 94, normal intervals normal axis no obvious ST segment elevation or depression, poor R wave progression the precordium Telemetry was ordered by me, interpreted as normal sinus rhythm rate of 92 MDM Narrative Medical decision making differential diagnosis includes lower GI bleeding, ulcerative colitis exacerbation, dehydration, presyncope, vasovagal syncope, electrolyte abnormality, anemia Plan is to check labs, give IV fluids, CT abdomen pelvis EMS gave me bedside report I have reviewed the patient's admission from this past weekend as well as the control systems designer's notes regarding this patient's presentation Patient will be readmitted for ulcerative colitis exacerbation with lower GI bleeding and near syncope Impression & Plan Lower gastrointestinal hemorrhage, Ulcerative colitis Discharge Plan Visit Data Chief Complaint: Rectal Bleed Stated Complaint: GI Bleed, Abdominal Pain ED Provider: Khang Henderson Discharge Problem: Lower gastrointestinal hemorrhage, Ulcerative colitis Patient Disposition: Admitted As Inpatient Forms Stand Alone Forms: My [facility] Prescriptions Prescriptions: No Action fluticasone propion-salmeterol [Advair Diskus] 250-50 mcg/dose Blister With Device 1 inh INHALATION BID lisinopril 20 mg tablet 20 mg PO QAM nicotine 7 mg/24 hr Patch 24 Hour 2 patch TRANSDERMAL DAILY famotidine [Acid Marionette Performer (famotidine)] 10 mg Tablet 10 mg PO BID PRN (Reason: heartburn) Qty: 30 0RF prednisone 20 mg Tablet 40 mg PO UD Qty: 30 0RF Rx Instructions: 40mg daily for 2 weeks. Follow up with Patient Financial Services Manager for further instructions multivitamin Tablet 1 tab PO QAM albuterol sulfate 2.5 mg /3 mL (0.083 %) Solution For Nebulization 2.5 mg INHALATION DIRECTED PRN (Reason: Shortness Of Breath Or Wheezing) cetirizine [Zyrtec] 10 mg Tablet 10 mg PO HS atenolol 25 mg tablet 25 mg PO QAM levothyroxine 88 mcg Tablet 88 mcg PO QAM albuterol sulfate 90 mcg/actuation Hfa Aerosol Inhaler 2 puff INHALATION Q4H PRN (Reason: Wheezing) fluticasone propionate 50 mcg/actuation [place],Suspension 2 spray INTRANASAL DAILY PRN (Reason: Congestion) Rx Instructions: administer into each nostril vitamin E 268 mg (400 unit) Capsule 268 mg PO QAM cholecalciferol (vitamin D3) [Vitamin D3] 25 mcg (1,000 unit) Capsule 25 mcg PO BID Spiriva with HandiHaler 18 mcg capsule, w/inhalation device 18 mcg INHALATION QDL diclofenac sodium 1 % Gel 2 g TOPICAL QID PRN (Reason: Pain) Referrals Referrals: Sb Solano MD [Primary Care Provider] -
[2022-11-13 23:51] LABS: Basophils # (auto) 0.08 K/uL (0-0.2); Basophils % (auto) 0.5 %; Eosinophils # (auto) 0.21 K/uL (0-0.50); Eosinophils % (auto) 1.3 %; Hematocrit (blood only) 40.5 % (37.0-47.0); Hemoglobin 13.8 g/dl (12.0-16.0); Immature Granulocytes # (auto) 0.08 K/uL (0.01-0.20); Immature Granulocytes % (auto) 0.5 %; Lymphocytes # (auto) 1.61 K/uL (1.2-3.4); Lymphocytes % (auto) 9.8 %; Mean Corpuscular Hemoglobin 29.5 pg (25.0-34.0); Mean Corpuscular Hgb Conc 34.1 g/dL (32.0-36.0); Mean Corpuscular Volume 86.5 fL (80.0-100.0); Mean Platelet Volume 8.8 fL (9.4-12.4); Monocytes # (auto) 2.16 K/uL (0.11-0.59); Monocytes % (auto) 13.1 %; Neutrophils % (auto) 74.8 %; Platelet Count 354 K/uL (130-400); RDW Coefficient of Variation 14.9 % (11.5-14.5); RDW Standard Deviation 47.1 fL (36.4-46.3); Red Blood Count 4.68 M/uL (4.20-5.40); White Blood Count 16.44 K/ul (4.8-10.8)
[2022-11-14 00:05] LABS: Albumin Globulin Ratio 1.3 (0.9-2); Albumin Level 3.1 gm/dl (3.4-5.0); BUN Creatinine Ratio 27.5 (10-20); Bilirubin,Total 0.5 mg/dl (0.2-1.0); Calcium 8.1 mg/dl (8.6-10.3); Creatinine Clr Calc Pharmacy 88.6 ml/min; Est GFR (African American) 112.9 ml/min; Est GFR (Non-African American) 97.4 ml/min; Globulin 2.4 gm/dl (2.5-4.0); Potassium 3.5 mmol/L (3.5-5.1); Total Protein 5.5 gm/dl (6.0-8.3)
[2022-11-14 00:13] LABS: Prothrombin Time 11.4 Seconds (9.0-12.0)
[2022-11-14] MEDS ORDERED: OPTIRAY 320 100ml IV ONE (00:50)
--- NOTE | 2022-11-14 01:02 | CT Scan Report ---
Exam(s): CT ABDOMEN + PELVIS With Contrast IV Amt: 87 ML OPTIRAY 320 EXAM: CT Abdomen and Pelvis With Intravenous Contrast CLINICAL HISTORY: Reason for exam: abd pain. TECHNIQUE: Axial computed tomography images of the abdomen and pelvis with intravenous contrast. CTDI is 10.85 mGy and DLP is 513.15 mGy-cm. Automated exposure control was utilized for the study. A dose lowering technique was utilized adhering to the principles of ALARA. CONTRAST: Patient received 87 ML OPTIRAY 320 of IV contrast COMPARISON: No relevant prior studies available. FINDINGS: Lung bases: There is a pulmonary parenchymal consolidation at the right lung base which is concerning for underlying infection. Mediastinum: There is a small hiatal hernia. ABDOMEN: Liver: Unremarkable. No mass. Gallbladder and bile ducts: Cholelithiasis. No ductal dilation. Pancreas: Unremarkable. No mass. No ductal dilation. Spleen: Unremarkable. No splenomegaly. Adrenals: Unremarkable. No mass. Kidneys and ureters: Unremarkable. No solid mass. No hydronephrosis. Stomach and bowel: There is moderate to severe transverse colitis. No obstruction. PELVIS: Appendix: No findings to suggest acute appendicitis. Bladder: Unremarkable. No mass. Reproductive: Unremarkable as visualized. ABDOMEN and PELVIS: Intraperitoneal space: Small volume of free fluid in the pelvis. No free air. Bones/joints: Degenerative disease of the thoracolumbar spine. No acute fracture. No dislocation. Soft tissues: Unremarkable. Vasculature: There is diffuse atherosclerotic calcification of the aorta and its major branch vessels. No abdominal aortic aneurysm. Lymph nodes: Unremarkable. No enlarged lymph nodes. IMPRESSION: 1. There is moderate to severe transverse colitis. 2. There is a pulmonary parenchymal consolidation at the right lung base which is concerning for underlying infection. Electronically signed by: Aayush Lemus MD 11/14/22 01:01 AM
[2022-11-14] MEDS ORDERED: NITROGLYCERIN SL 0.4 MG/TAB TAB SL PRN (03:28)
[2022-11-14] MEDS ORDERED: ALBUTEROL HFA 8 GM INHALER INH PRN (03:28)
[2022-11-14] MEDS ORDERED: ACETAMINOPHEN 325 MG TAB PO PRN (03:28)
[2022-11-14] MEDS ORDERED: FAMOTIDINE 10 MG TABLET PO PRN (03:28)
[2022-11-14] MEDS ORDERED: ONDANSETRON INJ 2 MG/ML 2 ML VIAL IV PRN (03:28)
[2022-11-14] MEDS ORDERED: ALBUTEROL 0.083% NEBU SOLN 3 ML VIAL INH PRN (03:28)
[2022-11-14] MEDS ORDERED: MoRPHine SULFATE 4 MG/ML 1 ML CARP\\VIAL IV PRN (03:28)
[2022-11-14] MEDS: SODIUM CHLORIDE 0.9% 1000ML 1,000 ML IV SCH ×2 (04:35→11:44)
--- NOTE | 2022-11-14 05:07 | History and Physical Report ---
DATE OF ADMISSION: 11/14/2022. CHIEF COMPLAINT: Abdominal cramping and rectal bleed. HISTORY OF PRESENT ILLNESS: This is a 71-year-old female with past medical history significant for ulcerative colitis, COPD, hypertension, hyperlipidemia, hypothyroidism, history of C. diff, presents with abdominal cramping, nausea and rectal bleed. The patient was recently in the hospital for ulcerative colitis flare, treated with steroids. Was discharged on prednisone. Plan for Remicade and Humira as outpatient. She was doing okay, but then today, she was feeling nauseous and she ate her dinner, then she felt a lot of abdominal cramping, then she had a big bloody bowel movement. That is the reason she came here. Currently, abdominal cramp has improved. Denies any fevers. No chest pain, no shortness of breath, no cough, no fevers, no headache, no blurred visions, no earache, no runny nose, no sore throat. Currently, resting comfortably and hemodynamically stable. ALLERGIES: ADHESIVE TAPE, MIDAZOLAM, SULFASALAZINE. PAST MEDICAL HISTORY: As mentioned above. PAST SURGICAL HISTORY: History of bilateral carpal tunnel surgery, colonoscopy, history of tooth extraction, history of partial thyroidectomy, history of tubal ligation, status post fecal transplant. FAMILY HISTORY: Significant for father of sudden cardiac at 66. Mother has a fib and bipolar disorder. SOCIAL HISTORY: Former smoker, smoked half pack a day, quit smoking in 2022 as per previous records. No alcohol use. No drug use. MEDICATIONS: The patient is on atenolol 25 mg p.o. daily, albuterol 2.5 mg inhalation every 4 hours p.r.n., cetirizine 10 mg p.o. at bedtime, vitamin D 25 mcg p.o. b.i.d., diclofenac sodium 2 g topical q.i.d. p.r.n., famotidine 10 mg p.o. b.i.d. p.r.n., Advair Diskus 1 inhalation b.i.d., Flonase 2 sprays intranasal p.r.n., levothyroxine 88 mcg p.o. daily, lisinopril 20 mg p.o. daily, multivitamins 1 tablet p.o. daily, nicotine patch daily, prednisone 40 mg as directed, Spiriva HandiHaler 18 mcg p.o. daily. REVIEW OF SYSTEMS: As per HPI. Rest of review of systems is negative. PHYSICAL EXAMINATION: GENERAL: The patient is of moderate build, not in acute distress. VITAL SIGNS: Temperature afebrile, pulse 101, respiratory rate 18, blood pressure 118/50, oxygen 91% on room air. HEENT: Pupils equal, round and reactive to light. Oral mucosa moist. NECK: No JVD. No neck masses. CARDIOVASCULAR: S1 and S2 heard. Regular rate and rhythm. No murmur, no gallop. RESPIRATORY SYSTEM: Normal AP diameter. No accessory muscle use. No wheezing or crackles. ABDOMEN: Soft, bowel sounds present, nontender, no distention. CENTRAL NERVOUS SYSTEM: Alert and oriented. Speech is clear. No facial droop. Obeys commands. Moves extremities. EXTREMITIES: No edema, no erythema. LABORATORY DATA: WBC 16, hemoglobin 13.8, hematocrit 40.5, platelets 354. PT 11.4, INR 1. Sodium 135, potassium 3.5, chloride 101, bicarbonate 27, BUN 14, creatinine 0.5, serum glucose 131, calcium 8.1, total bilirubin 0.5, AST 10, ALT 11, alkaline phosphatase 53. SARS-COVID rapid test negative. IMAGING DATA: CT of abdomen and pelvis with IV contrast shows [id number] transverse colitis, pulmonary parenchymal consolidation, right lung bases, concerning for underlying infection. EKG: Normal sinus rhythm, rate 94, no acute ST changes seen. ASSESSMENT AND PLAN: This is a 71-year-old female with history of ulcerative colitis, presents with abdominal cramping and blood per rectum. 1. Abdominal cramping and blood per rectum. Ulcerative colitis flare recently, was in the hospital and discharged on p.o. prednisone. Continue with IV steroids for now. N.p.o. IV fluids.IV pepcid. Consult GI for further recommendations. Monitor in the hospital. Monitor the labs. 2. Questionable pneumonia on her CAT scan. The patient has no cough, no fevers, no shortness of breath. We will monitor. 3. Chronic obstructive pulmonary disease. Continue home inhalers. 4. Hypertension. On lisinopril. 5. Hypothyroidism. Continue Synthroid. 6. History of Clostridium difficile, history of fecal transplant 8 years ago. 7. Deep venous thrombosis prophylaxis. Sequential compression devices. DISPOSITION: Closely monitor in the hospital. Expect to discharge home and follow with family doctor. Job ID[facility] [id number] [email or web address]
[2022-11-14] MEDS: methylPREDNISolone 20 MG in SYRINGE 0 ML IV SCH ×3 (06:28→20:16)
[2022-11-14] MEDS: LEVOTHYROXINE SODIUM 88 MCG TABLET PO SCH (06:28)
[2022-11-14 07:30] LABS: Basophils # (auto) 0.05 K/uL (0-0.2); Basophils % (auto) 0.4 %; Eosinophils # (auto) 0.48 K/uL (0-0.50); Eosinophils % (auto) 3.7 %; Hematocrit (blood only) 37.7 % (37.0-47.0); Immature Granulocytes # (auto) 0.07 K/uL (0.01-0.20); Immature Granulocytes % (auto) 0.5 %; Lymphocytes # (auto) 2.46 K/uL (1.2-3.4); Lymphocytes % (auto) 18.7 %; Mean Corpuscular Hemoglobin 29.2 pg (25.0-34.0); Mean Corpuscular Hgb Conc 34.5 g/dL (32.0-36.0); Mean Corpuscular Volume 84.7 fL (80.0-100.0); Mean Platelet Volume 9.2 fL (9.4-12.4); Monocytes # (auto) 1.84 K/uL (0.11-0.59); Neutrophils # (auto) 8.23 K/uL (1.40-6.50); Neutrophils % (auto) 62.7 %; Platelet Count 380 K/uL (130-400); RDW Coefficient of Variation 14.9 % (11.5-14.5); RDW Standard Deviation 46.4 fL (36.4-46.3); Red Blood Count 4.45 M/uL (4.20-5.40); White Blood Count 13.13 K/ul (4.8-10.8)
[2022-11-14 07:32] LABS: BUN Creatinine Ratio 20.8 (10-20); Calcium 8.1 mg/dl (8.6-10.3); Creatinine Clr Calc Pharmacy 94.2 ml/min; Est GFR (African American) 115.2 ml/min; Est GFR (Non-African American) 99.4 ml/min; Magnesium 1.6 mg/dl (1.7-2.4); Potassium 3.4 mmol/L (3.5-5.1)
--- NOTE | 2022-11-14 07:51 | Gastrointestinal Consultation ---
Date of Consultation November 14, 2022 Assessment & Plan (1) Ulcerative colitis: 1. IV steroids, when improved, then po prednisone at 60mg /day. 2. Clear liquid diet. 3. Will check CRP. 4. Per Dr. Johnson's note on 11/14/22 plan is to repeat full colonoscopy once pt's symptoms are improved, then likely start Humira or Remicade. Will need close OP GI f/u to arrange Humira or Remicade. Was scheduled for OP F/u w Marilyn Lona today, will notify the office that she is here as an IP and will reschedule OP f/u for the next 1-2 wks. Supervising Physician Co-Signing Physician Notes I performed a history and physical examination of the patient today, including specifically on physical exam - soft abdomen. I have discussed the patient's management with the advanced practitioner. Please refer to the nurse practitioner's note for the documented findings and plan of care. IV Steroids. Monitor CRP/ESR. Needs to be discharged on Prednisone 60 mg and close OP f/u to start on Biological therapy. Please call us back with any questions or concerns. History of Present Illness Reason for Consultation: rectal bleed. UC flare Requesting Physician: Dr. Small Attending Physician: Fidel Wallace MD History of Present Illness Ms. Darshana Evans is a 71 yr old female pt of Dr. Solano w a hx of UC followed by Edelmira Zamorano in GI clinic. She was admitted here on 11/07 because severe colitis was seen on op colonosocpy here. She was tx w IV steroids and bowel rest. She was discharged on Sat 11/10 on an oral prednisone taper (40mg/day). She was passing about 4 liquid BMs/day, initially w/o blood, but last night, passed a bloody BM and felt sweaty and due to these symptoms her summoned EMS and she was brought to [facility]. She tells me that she believes she was discharged before she was ready. CT on arrival w moderate/severe transverse colitis.Her Hb is normal at 13, BN also normal at 10, Stool for C-diff is (-). Colonoscopy on November 07, [address] Johnson showed severe (Castano score 3) rect osigmoid colitis with severe narrowing in this area. Because of the friability and easy bleeding of the mucosa, the colonoscopy procedure was aborted. EGD on the same day for dysphagia revealed a large hiatal hernia, no cause for symptoms. Allergies Allergy/AdvReac Type Severity Reaction Status Date / Time adhesive tape Allergy Intermediate SKIN Verified 11/07/22 09:18 IRRITATION/TAKES SKIN OFF WHEN TAKEN OFF midazolam Allergy Unknown NOT ON GMG Verified 11/07/22 09:18 OR PT LIST sulfasalazine AdvReac Severe PANCREATITI Verified 11/07/22 09:18 S Home Medications Medication Instructions Recorded Confirmed Type albuterol sulfate 2.5 mg/3 mL 2.5 mg inhalation DIRECTED PRN 09/20/22 11/14/22 History (0.083 %) solution for nebulization Shortness Of Breath Or Wheezing albuterol sulfate 90 mcg/actuation 2 puff inhalation Q4H PRN Wheezing 09/20/22 11/14/22 History aerosol inhaler atenolol 25 mg tablet 25 mg PO QAM 09/20/22 11/14/22 History cetirizine 10 mg tablet (Zyrtec) 10 mg PO HS 09/20/22 11/14/22 History cholecalciferol (vitamin D3) 25 25 mcg PO BID 09/20/22 11/14/22 History mcg (1,000 unit) capsule (Vitamin D3) diclofenac sodium 1 % topical gel 2 g topical QID PRN Pain 09/20/22 11/14/22 History fluticasone propionate 50 2 spray intranasal DAILY PRN 09/20/22 11/14/22 History mcg/actuation nasal Congestion spray,suspension levothyroxine 88 mcg tablet 88 mcg PO QAM 09/20/22 11/14/22 History multivitamin 1 tab PO QAM 09/20/22 11/14/22 History tiotropium bromide 18 mcg capsule 18 mcg inhalation QDL 09/20/22 11/14/22 History with inhalation device (Spiriva with HandiHaler) vitamin E 268 mg (400 unit) capsule 268 mg PO QAM 09/20/22 11/14/22 History fluticasone 250 mcg-salmeterol 50 1 inh inhalation BID 11/02/22 11/14/22 History mcg/dose blistr powdr for inhalation (Advair Diskus) lisinopril 20 mg tablet 20 mg PO QAM 11/02/22 11/14/22 History nicotine 7 mg/24 hr daily 2 patch transdermal DAILY 11/02/22 11/14/22 History transdermal patch famotidine 10 mg tablet (Acid 10 mg PO BID PRN heartburn #30 tabs 11/10/22 11/14/22 Rx Collections Analyst (famotidine)) prednisone 20 mg tablet 40 mg PO UD #30 tabs 11/10/22 11/14/22 Rx Patient History Medical History Anxiety no meds Aspiration pneumonia hospitalized at [facility] for this in September 2022 > no further issues COPD (chronic obstructive pulmonary disease) uses res inh daily Dysphagia History of COVID-12 Aug 2021 > not hospitalized HLD (hyperlipidemia) HTN (hypertension) Hx of Clostridium difficile infection 8 yrs ago > fecal transplant > resolved Hypothyroidism Meningocele Palpitations no longer Ulcerative colitis Ulcerative colitis hx of 25 yrs ago > possible issue now?? reason for up coming colon/EGD Surgical History History of carpal tunnel surgery bilat History of colonoscopy History of tooth extraction Hx of partial thyroidectomy Hx of tubal ligation S/P fecal transplant Family History Father , 66 Sudden cardiac Mother Bipolar disorder Social History Smoking Status: Former smoker Tobacco Type: Cigarettes packs per day: 0.5; Cigarettes Per Day: 6-8; Second Hand Exposure: No; Do You Dip or Chew Tobacco: No; Hx Alcohol Use: No Hx Substance Use: No Preferred Language: Polish Communication Ability: Effective Television Antenna Installer Required: No Beliefs That Will Affect Care: None Current Living Situation: Spouse and Family Current Living Situation Comment: house Feels Safe at Home: Yes Safety Concerns: Feels Safe At This Time Assistive Devices: Nebulizer and Other Review of Systems Review of Systems: ROS: Gen: + chills; No measured fevers Eyes: No eye redness, or pain, no recent vision changes Resp: No SOB, no cough Cardio: No palpitations/irregular beats, no chest pain GI: Moderate, diffuse abdominal pain, ongoing, + diarrhea : Denies pain on urination Skin: No jaundice, itching or new rashes M/S: Denies red swollen joints Physical Exam Constitutional: well developed, + ill appearing (mildly) and + thin; no acute distress able to ambulate to the BR w/o assistance ENMT: external ear and nose normal, oropharynx normal Neck: trachea midline, no thyromegaly Respiratory: normal respiratory effort, lungs clear to auscultation Cardiovascular: RRR, no murmur, no edema Gastrointestinal (Abdomen): moderate diffuse tenderness, normal BS, no distention,no masses Musculoskeletal: no cyanosis or clubbing, extremities motor strength 5/5 Skin: no rashes, warm and dry pale Neurologic: PERRL, EOMI, accommodation nl, no face palsy, no dysarthria Psychiatric: A+Ox3, euthymic affect Lymphatic: no cervical or axillary lymphadenopathy Results & Data Vital Signs (Past 12 Hours) Vital Signs Pulse Pulse Resp BP BP Pulse Ox Pulse Ox 11/14/22 07:19 86 11/14/22 04:13 98 H 21 116/55 L 93 11/14/22 03:56 97 H 16 122/58 L 11/14/22 03:56 97 11/14/22 01:00 101 H 23 118/50 L 11/14/22 00:50 105 H 28 H 11/14/22 00:30 102 H 17 91 11/14/22 00:00 100 H 27 H 90 11/13/22 23:30 95 H 21 114/52 L 91 11/13/22 23:16 120 H 22 92 11/13/22 23:16 119 H 11/13/22 23:13 120 H 20 124/62 92 O2 Del Method O2 Del Method 11/14/22 07:19 11/14/22 04:13 Room Air 11/14/22 03:56 Room Air 11/14/22 03:56 Room Air 11/14/22 01:00 11/14/22 00:50 11/14/22 00:30 11/14/22 00:00 11/13/22 23:30 11/13/22 23:16 11/13/22 23:16 11/13/22 23:13 Room Air Laboratory Results WBC 13, Hb 13, HCT 37, PLT S3 80, NA 138, K3.4, CL 104, CO2 26, BUN 10, CR 0.48, glucose 92. Albumin 3.1 CRP last week was 4. Diagnostic Findings CTAP w IV contrast 11/13/22: 1. There is moderate to severe transverse colitis. 2. There is a pulmonary parenchymal consolidation at the right lung base which is concerning for underlying infection.
[2022-11-14] MEDS ORDERED: MAGNESIUM SULFATE / D5W 1 GM/100 ML BAG IV ONE (08:42)
[2022-11-14] MEDS ORDERED: POTASSIUM CHLORIDE CRTAB 20 MEQ TABCR PO STA (08:43)
[2022-11-14] MEDS: ATENOLOL 25 MG TABLET PO SCH (09:20)
[2022-11-14] MEDS: CHOLECALCIFEROL 1,000 UNITS 25 MCG TAB PO SCH ×2 (09:22→20:16)
[2022-11-14] MEDS: FLUTICASONE/VILANTEROL 200/25MCG 14 PUFFS/INHALER INH SCH (09:23)
[2022-11-14] MEDS: MULTIVITAMIN TAB PO SCH (09:27)
[2022-11-14] MEDS: lisinopril 20 MG TAB PO SCH (09:27)
[2022-11-14] MEDS: NICOTINE 14 MG/24 HR PATCH TD SCH (09:28)
[2022-11-14] MEDS: FAMOTIDINE 20 MG in SYRINGE 3 ML IV SCH ×2 (09:50→20:40)
--- NOTE | 2022-11-14 10:52 | Electrocardiogram Report ---
Test Reason : Blood Pressure : / mmHG Vent. Rate : 094 BPM Atrial Rate : 094 BPM P-R Int : 120 ms QRS Dur : 088 ms QT Int : 340 ms P-R-T Axes : 081 068 065 degrees QTc Int : 425 ms Normal sinus rhythm Anteroseptal infarct , age undetermined Abnormal ECG When compared with ECG of 20-SEP-2022 13:27, Anteroseptal infarct is now Present Confirmed by Jaden Gates ([id number]) on 11/14/2022 10:52:08 AM Referred By: REFERRED SELF Confirmed By:Jaden Gates
[2022-11-14 11:49] LABS: C Reactive Protein 9.66 mg/dl (0-0.5)
[2022-11-14] MEDS: UMECLIDINIUM BROMIDE 62.5MCG/BLISTER 7 PUFFS/INHALER INH SCH (12:32)
--- NOTE | 2022-11-14 15:58 | Hospitalist Progress Note ---
Date of Service November 14, 2022 Assessment & Plan (1) Lower gastrointestinal hemorrhage: Plan: Ulcerative Colitis: Rectal bleeding secondary to above --S/P EGD on 11/07/22: Z-line regular, 35 cm from the incisors. Large hiatal hernia with a akash erosion with some scattered hematin the hernia sac. Normal stomach. Normal duodenal bulb and second portion of the duodenum. No specimens collected. --S/P Colonoscopy on 11/07/22::Severe (Castano Score 3) ulcerative colitis, worsened since the last examination. The rectum, rectosigmoid,and beginning of the sigmoid colon were severely ulcerated and bleeding with even minimal scope contact. The rectosigmoid was severely narrowed due toinflammation and the scope had to be downsized to the ultrathin scope with inability to pass this area due to ulceration. As the colon was extremely friable and bleeding with any contact the decision was made to abort and admit the patient to the hospital for IV steroids and ongoing care. No specimens collected. --CT ABD on 11/14/22:There is moderate to severe transverse colitis. There is a pulmonary parenchymal consolidation at the right lung base which is concerning for underlying infection. --Stool studies pending Continue IV Solu-Medrol Appreciate GI input Monitor CBC and transfuse PRBCs as needed Needs follow-up with GI upon discharge Clear liquid diet today COPD: Uses rescue inhaler and Fluticasone; continue Advair No supplemental O2 at home HTN: Continue Atenolol and Lisinopril Hypothyroidism: Continue Levothyroxine H/O C-Diff: Had fecal transplant 8years ago Stool studies pending DVT Px: SCDs for now Re: Rectal Bleed Code Status Full Code Admission and Anticipated Discharge Date Admission Date: November 14, 2022 Subjective Patient is seen and examined at bedside States having rectal bleeding this morning Denies any nausea, vomiting, abdominal pain, chest pain, dyspnea Offers no other complaints Review of Systems Review of Systems: All systems reviewed & are unremarkable except as noted in Subjective Physical Exam Physical Exam: Physical Exam: Vitals signs as noted above General Appearance:Moderately built and nourished, no apparent distress Head: normocephalic, Atraumatic Eyes: normal inspection, EOMI Neck: supple, Trachea midline Respiratory/Chest: Normal breath sounds, CTA, No accessory muscle use Cardiovascular: S1, S2, No murmur Abdomen/GI:Soft, Non tender, Bowel sounds present Extremities/Musculoskeletal:normal inspection, no edema Neurologic/Psych:AAOX3, grossly no focal neurological deficits Skin: normal color, warm Results & Data Results & Data Vital Signs (Past 12 Hours) Vital Signs Pulse Pulse Resp BP BP Pulse Ox Pulse Ox 11/14/22 15:17 103 H 11/14/22 14:30 78 22 93 11/14/22 14:00 84 15 93 11/14/22 14:00 111/51 L 11/14/22 13:30 81 19 91 11/14/22 13:00 77 22 93 11/14/22 13:00 124/61 11/14/22 12:30 79 19 91 11/14/22 12:00 79 19 92 11/14/22 12:00 125/61 11/14/22 11:30 78 23 90 11/14/22 11:00 79 21 88 L 11/14/22 11:00 117/55 L 11/14/22 10:30 81 19 88 L 11/14/22 10:00 85 17 90 11/14/22 10:00 125/59 L 11/14/22 09:30 97 H 21 11/14/22 09:22 93 H 23 11/14/22 09:22 127/54 L 11/14/22 09:00 87 21 90 11/14/22 09:00 111/55 L 11/14/22 08:30 86 19 90 11/14/22 08:00 89 22 91 11/14/22 08:00 115/62 11/14/22 07:30 88 20 92 11/14/22 07:00 89 22 88 L 11/14/22 07:00 113/65 11/14/22 06:52 109/54 L 11/14/22 06:52 90 23 11/14/22 06:30 97 H 17 92 11/14/22 06:00 87 23 90 11/14/22 06:00 96/46 L 11/14/22 05:30 87 23 89 L 11/14/22 05:00 88 21 90 11/14/22 04:30 92 H 24 92 11/14/22 04:00 96 H 24 11/14/22 04:00 116/55 L 11/14/22 10:00 83 18 125/59 L 91 11/14/22 09:20 86 16 127/54 L 92 11/14/22 07:19 86 11/14/22 04:13 98 H 21 116/55 L 93 11/14/22 03:56 97 H 16 122/58 L 11/14/22 03:56 97 O2 Del Method O2 Del Method 11/14/22 15:17 11/14/22 14:30 11/14/22 14:00 11/14/22 14:00 11/14/22 13:30 11/14/22 13:00 11/14/22 13:00 11/14/22 12:30 11/14/22 12:00 11/14/22 12:00 11/14/22 11:30 11/14/22 11:00 11/14/22 11:00 11/14/22 10:30 11/14/22 10:00 11/14/22 10:00 11/14/22 09:30 11/14/22 09:22 11/14/22 09:22 11/14/22 09:00 11/14/22 09:00 11/14/22 08:30 11/14/22 08:00 11/14/22 08:00 11/14/22 07:30 11/14/22 07:00 11/14/22 07:00 11/14/22 06:52 11/14/22 06:52 11/14/22 06:30 11/14/22 06:00 11/14/22 06:00 11/14/22 05:30 11/14/22 05:00 11/14/22 04:30 11/14/22 04:00 11/14/22 04:00 11/14/22 10:00 Room Air 11/14/22 09:20 Room Air 11/14/22 07:19 11/14/22 04:13 Room Air 11/14/22 03:56 Room Air 11/14/22 03:56 Room Air Laboratory Results Short CBC 11/13/22 11/14/22 Range/Units 23:36 06:44 WBC 16.44 H 13.13 H (4.8-10.8) K/ul Hgb 13.8 13.0 (12.0-16.0) g/dl Hct 40.5 37.7 (37.0-47.0) % Plt Count 354 380 (130-400) K/uL BMP 11/13/22 11/14/22 23:36 06:44 Sodium 135 L 136 Potassium 3.5 3.4 L Chloride 101 104 Carbon Dioxide 27 26 BUN 14 10 Creatinine 0.51 L 0.48 L Glucose 121 H 92 Calcium 8.1 L 8.1 L Liver Function 11/13/22 Range/Units 23:36 Total Bilirubin 0.5 (0.2-1.0) mg/dl AST 10 L (13-39) U/L ALT 11 (7-52) U/L Alkaline Phosphatase 53 (34-104) U/L Albumin 3.1 L (3.4-5.0) gm/dl
[2022-11-14] MEDS: CETIRIZINE HCL 10 MG TABLET PO SCH (20:16)
[2022-11-15] MEDS: SODIUM CHLORIDE 0.9% 1000ML 1,000 ML IV SCH ×2 (00:02→18:35)
[2022-11-15] MEDS: LEVOTHYROXINE SODIUM 88 MCG TABLET PO SCH (05:10)
[2022-11-15] MEDS: methylPREDNISolone 20 MG in SYRINGE 0 ML IV SCH ×3 (05:10→21:46)
[2022-11-15 06:16] LABS: Adenovirus F 40/41 PCR Not Detected (NotDetected); Astrovirus PCR Not Detected (NotDetected); Campylobacter PCR Not Detected (NotDetected); Cryptosporidium PCR Not Detected (NotDetected); Cyclospora cayetanensis PCR Not Detected (NotDetected); Entamoeba histolytica PCR Not Detected (NotDetected); Enteroaggregative E.coli(EAEC) Not Detected (NotDetected); Enteropathogenic E.coli (EPEC) Not Detected (NotDetected); Enterotoxigenic E.coli (ETEC) Not Detected (NotDetected); Giardia lamblia PCR Not Detected (NotDetected); Norovirus GI/GII PCR Not Detected (NotDetected); Plesiomonas shigelloides PCR Not Detected (NotDetected); Rotavirus A PCR Not Detected (NotDetected); Salmonella PCR Not Detected (NotDetected); Sapovirus PCR Not Detected (NotDetected); Shiga-like Toxin E.coli (STEC) Not Detected (NotDetected); Shigella/Enteroinvasive E.coli Not Detected (NotDetected); Vibrio cholerae PCR Not Detected (NotDetected); Vibrio species PCR Not Detected (NotDetected); Yersinia enterocolitica PCR Not Detected (NotDetected)
[2022-11-15 07:32] LABS: Hematocrit (blood only) 37.6 % (37.0-47.0); Hemoglobin 12.9 g/dl (12.0-16.0); Mean Corpuscular Hemoglobin 29.7 pg (25.0-34.0); Mean Corpuscular Hgb Conc 34.3 g/dL (32.0-36.0); Mean Corpuscular Volume 86.4 fL (80.0-100.0); Platelet Count 355 K/uL (130-400); RDW Standard Deviation 47.8 fL (36.4-46.3); Red Blood Count 4.35 M/uL (4.20-5.40); White Blood Count 12.03 K/ul (4.8-10.8)
[2022-11-15 07:46] LABS: Calcium 8.3 mg/dl (8.6-10.3); Creatinine Clr Calc Pharmacy 107.6 ml/min; Est GFR (African American) 120.4 ml/min; Est GFR (Non-African American) 103.8 ml/min; Magnesium 1.9 mg/dl (1.7-2.4); Potassium 4.3 mmol/L (3.5-5.1)
[2022-11-15] MEDS: ATENOLOL 25 MG TABLET PO SCH (08:28)
[2022-11-15] MEDS: MULTIVITAMIN TAB PO SCH (08:28)
[2022-11-15] MEDS: CHOLECALCIFEROL 1,000 UNITS 25 MCG TAB PO SCH ×2 (08:28→21:46)
[2022-11-15] MEDS: NICOTINE 14 MG/24 HR PATCH TD SCH (08:28)
[2022-11-15] MEDS: lisinopril 20 MG TAB PO SCH (08:28)
[2022-11-15] MEDS: FAMOTIDINE 20 MG in SYRINGE 3 ML IV SCH ×2 (08:28→21:45)
--- NOTE | 2022-11-15 10:31 | Gastroenterology Progress Note ---
Date of Service November 15, 2022 Assessment & Plan (1) Ulcerative colitis: Plan: Slight improvement since arrival - now no significant blood in BMs, but continues w significant diarrhea. Stool studies are (-) for C-diff/GI pathogens. Plan 1. Continue solumedrol 20mg Q 8 hrs. When improved, then po prednisone at 60mg /day. 2. Continue Clear liquid diet. 3. Will be in touch w IBD pharmacist and Dr. Johnson (who did recent colonoscopy) - will suggest starting Humira or Remicade w/o awaiting a repeat C- scope. Admission and Anticipated Discharge Date Admission Date: November 14, 2022 Supervising Physician Co-Signing Physician Notes I performed a history and physical examination of the patient today, including specifically on physical exam - soft abdomen. I have discussed the patient's management with the advanced practitioner. Please refer to the nurse sampson lott's note for the documented findings and plan of care. No further rectal bleeding today. We discussed Biological options, she wants Humira, discussed need for close skin exam and monitoring in view of prior Hx of Skin Cancer or alternatively she can use Entyvio. I will defer further discussion and decision about this to her primary Junior Staff Accountant as OP. Continue steroids. Recall GI if needed. Subjective This morning frustrated, tearful, stating she has been sick for a very long time and that she is weak. She is ambulating to the BR independently. She had 4 wakening BMs last night that were liquid - no blood. Then one episode of tenesmus passing just blood tinged mucous. No abd pain. No nausea/vomiting. Review of Systems Review of Systems: ROS: Gen: + fatigue, No chills; No measured fevers Eyes: No eye redness, or pain, no recent vision changes Resp: No SOB, no cough Cardio: No palpitations/irregular beats, no chest pain GI: + diarrhea, no pain; see HPI. : Denies pain on urination Skin: No jaundice, itching or new rashes M/S: Denies red swollen joints Physical Exam Constitutional: well developed, + ill appearing (mildly) and + thin ENMT: external ear and nose normal, oropharynx normal Neck: trachea midline, no thyromegaly Respiratory: normal respiratory effort, lungs clear to auscultation Cardiovascular: RRR, no murmur, no edema Gastrointestinal (Abdomen): normal bowel sounds, soft, nontender, no hepatosplenomegaly Musculoskeletal: no cyanosis or clubbing, extremities motor strength 5/5 Skin: no rashes, warm and dry Neurologic: PERRL, EOMI, accommodation nl, no face palsy, no dysarthria Psychiatric: A+Ox3, euthymic affect Lymphatic: no cervical or axillary lymphadenopathy Results & Data Vital Signs (Past 12 Hours) Vital Signs Temp Pulse Pulse Resp BP BP Pulse Ox 11/15/22 09:42 78 11/15/22 08:00 36.5 C 66 18 120/68 96 11/15/22 04:00 36.6 C 81 18 107/58 L 92 11/14/22 23:54 36.6 C 81 18 108/61 91 11/14/22 23:45 83 O2 Del Method 11/15/22 09:42 11/15/22 08:00 Room Air 11/15/22 04:00 Room Air 11/14/22 23:54 Room Air 11/14/22 23:45 Laboratory Results WBC 12, Hb 12.9, HCT 37.6, PLT is 355, NA 136, K4.3, CL 103, CO2 28, BUN 8, CR 0.42, glucose 99. CRP 9, up from 4 last week. Stool for C. difficile and other GI pathogens are negative.
[2022-11-15] MEDS: FLUTICASONE PROPIONATE NA SPR 16 GM BTL NAE PRN (10:48)
[2022-11-15] MEDS: UMECLIDINIUM BROMIDE 62.5MCG/BLISTER 7 PUFFS/INHALER INH SCH (10:48)
[2022-11-15] MEDS: FLUTICASONE/VILANTEROL 200/25MCG 14 PUFFS/INHALER INH SCH (11:50)
--- NOTE | 2022-11-15 14:22 | Hospitalist Progress Note ---
Date of Service November 15, 2022 Assessment & Plan (1) Lower gastrointestinal hemorrhage: Plan: Ulcerative Colitis: Rectal bleeding secondary to above --S/P EGD on 11/07/22: Z-line regular, 35 cm from the incisors. Large hiatal hernia with a akash erosion with some scattered hematin the hernia sac. Normal stomach. Normal duodenal bulb and second portion of the duodenum. No specimens collected. --S/P Colonoscopy on 11/07/22::Severe (Castano Score 3) ulcerative colitis, worsened since the last examination. The rectum, rectosigmoid,and beginning of the sigmoid colon were severely ulcerated and bleeding with even minimal scope contact. The rectosigmoid was severely narrowed due toinflammation and the scope had to be downsized to the ultrathin scope with inability to pass this area due to ulceration. As the colon was extremely friable and bleeding with any contact the decision was made to abort and admit the patient to the hospital for IV steroids and ongoing care. No specimens collected. --CT ABD on 11/14/22:There is moderate to severe transverse colitis. There is a pulmonary parenchymal consolidation at the right lung base which is concerning for underlying infection. --Stool studies Negative Appreciate GI input Monitor CBC and transfuse PRBCs as needed Needs follow-up with GI upon discharge Clear liquid diet Continue IV Solu-Medrol. Plan to transition to prednisone 60 mg/day upon discharge Still has significant diarrhea Monitor electrolytes, renal function COPD: Uses rescue inhaler and Fluticasone; continue Advair No supplemental O2 at home HTN: Continue Atenolol and Lisinopril Hypothyroidism: Continue Levothyroxine H/O C-Diff: Had fecal transplant 8years ago Stool studies Negative DVT Px: SCDs for now Re: Rectal Bleed Code Status Full Code Admission and Anticipated Discharge Date Admission Date: November 14, 2022 Subjective Patient is seen and examined at bedside Had 5 loose bowel movements overnight Reports minimal abdominal cramping or diarrhea Also had minimal dark-colored blood with bowel movement this morning Denies any nausea, vomiting, abdominal pain, chest pain, dyspnea Review of Systems Review of Systems: All systems reviewed & are unremarkable except as noted in Subjective Physical Exam Physical Exam: Physical Exam: Vitals signs as noted above General Appearance:Moderately built and nourished, no apparent distress Head: normocephalic, Atraumatic Eyes: normal inspection, EOMI Neck: supple, Trachea midline Respiratory/Chest: Normal breath sounds, CTA, No accessory muscle use Cardiovascular: S1, S2, No murmur Abdomen/GI:Soft, Non tender, Bowel sounds present Extremities/Musculoskeletal:normal inspection, no edema Neurologic/Psych:AAOX3, grossly no focal neurological deficits Skin: normal color, warm Results & Data Results & Data Vital Signs (Past 12 Hours) Vital Signs Temp Pulse Pulse Resp BP Pulse Ox O2 Del Method 11/15/22 11:43 36.5 C 72 18 110/68 93 Room Air 11/15/22 10:18 Room Air 11/15/22 09:42 78 11/15/22 08:00 36.5 C 66 18 120/68 96 Room Air 11/15/22 04:00 36.6 C 81 18 107/58 L 92 Room Air Laboratory Results Short CBC 11/15/22 Range/Units 06:50 WBC 12.03 H (4.8-10.8) K/ul Hgb 12.9 (12.0-16.0) g/dl Hct 37.6 (37.0-47.0) % Plt Count 355 (130-400) K/uL BMP 11/15/22 06:50 Sodium 136 Potassium 4.3 D Chloride 103 Carbon Dioxide 28 BUN 8 Creatinine 0.42 L Glucose 99 Calcium 8.3 L
[2022-11-15] MEDS: CETIRIZINE HCL 10 MG TABLET PO SCH (21:46)
[2022-11-16 06:22] LABS: Hematocrit (blood only) 39.3 % (37.0-47.0); Hemoglobin 13.7 g/dl (12.0-16.0); Mean Corpuscular Hemoglobin 29.3 pg (25.0-34.0); Mean Corpuscular Hgb Conc 34.9 g/dL (32.0-36.0); Mean Corpuscular Volume 84.2 fL (80.0-100.0); Mean Platelet Volume 8.9 fL (9.4-12.4); Platelet Count 374 K/uL (130-400); RDW Coefficient of Variation 15.1 % (11.5-14.5); RDW Standard Deviation 45.7 fL (36.4-46.3); Red Blood Count 4.67 M/uL (4.20-5.40); White Blood Count 9.35 K/ul (4.8-10.8)
[2022-11-16] MEDS: methylPREDNISolone 20 MG in SYRINGE 0 ML IV SCH ×3 (06:39→21:08)
[2022-11-16] MEDS: LEVOTHYROXINE SODIUM 88 MCG TABLET PO SCH (06:39)
[2022-11-16 06:40] LABS: BUN Creatinine Ratio 15.6 (10-20); Calcium 8.3 mg/dl (8.6-10.3); Creatinine Clr Calc Pharmacy 100.5 ml/min; Est GFR (African American) 117.7 ml/min; Est GFR (Non-African American) 101.5 ml/min; Magnesium 1.9 mg/dl (1.7-2.4); Potassium 3.8 mmol/L (3.5-5.1)
[2022-11-16] MEDS: NICOTINE 14 MG/24 HR PATCH TD SCH (08:18)
[2022-11-16] MEDS: CHOLECALCIFEROL 1,000 UNITS 25 MCG TAB PO SCH ×2 (08:20→21:08)
[2022-11-16] MEDS: lisinopril 20 MG TAB PO SCH (08:20)
[2022-11-16] MEDS: ATENOLOL 25 MG TABLET PO SCH (08:21)
[2022-11-16] MEDS: FLUTICASONE/VILANTEROL 200/25MCG 14 PUFFS/INHALER INH SCH (08:21)
[2022-11-16] MEDS: MULTIVITAMIN TAB PO SCH (08:21)
[2022-11-16] MEDS: FAMOTIDINE 20 MG in SYRINGE 3 ML IV SCH ×2 (08:35→21:08)
[2022-11-16] MEDS: UMECLIDINIUM BROMIDE 62.5MCG/BLISTER 7 PUFFS/INHALER INH SCH (12:00)
--- NOTE | 2022-11-16 14:40 | Hospitalist Progress Note ---
Date of Service November 16, 2022 Assessment & Plan (1) Lower gastrointestinal hemorrhage: Plan: Ulcerative Colitis flare: Rectal bleeding secondary to above --S/P EGD on 11/07/22: Z-line regular, 35 cm from the incisors. Large hiatal hernia with a akash erosion with some scattered hematin the hernia sac. Normal stomach. Normal duodenal bulb and second portion of the duodenum. No specimens collected. --S/P Colonoscopy on 11/07/22::Severe (Castano Score 3) ulcerative colitis, worsened since the last examination. The rectum, rectosigmoid,and beginning of the sigmoid colon were severely ulcerated and bleeding with even minimal scope contact. The rectosigmoid was severely narrowed due toinflammation and the scope had to be downsized to the ultrathin scope with inability to pass this area due to ulceration. As the colon was extremely friable and bleeding with any contact the decision was made to abort and admit the patient to the hospital for IV steroids and ongoing care. No specimens collected. --CT ABD on 11/14/22:There is moderate to severe transverse colitis. There is a pulmonary parenchymal consolidation at the right lung base which is concerning for underlying infection. --Stool studies Negative Discussed with GI; recommended to continue IV Solu-Medrol.When improved, then po prednisone at 60mg /day. Monitor CBC and transfuse PRBCs as needed Needs follow-up with GI upon discharge Advance diet as tolerated. COPD: Uses rescue inhaler and Fluticasone; continue Advair No supplemental O2 at home HTN: Continue Atenolol and Lisinopril Hypothyroidism: Continue Levothyroxine H/O C-Diff: Had fecal transplant 8years ago Stool studies Negative DVT Px: SCDs for now Re: Rectal Bleed Code Status Full Code Dispositionpatient continues to be hospitalized due to need for close monitoring with severe diarrhea secondary to ulcerative colitis flare. she will requiring iv steroids for UC flare. Admission and Anticipated Discharge Date Admission Date: November 14, 2022 Subjective Patient seen and examined at bedside. She reports ongoing diarrhea. Says that she had 2 bowel movements overnight. Denies any abdominal pain. Review of Systems Review of Systems: All systems reviewed & are unremarkable except as noted in Subjective Physical Exam Physical Exam: Physical Exam: Vitals signs as noted above General Appearance: Alert orient x3. Head: normocephalic, Atraumatic Eyes: normal inspection, EOMI Neck: supple, Trachea midline Respiratory/Chest: Normal breath sounds, CTA, No accessory muscle use Cardiovascular: S1, S2, No murmur Abdomen/GI:Soft, Non tender, Bowel sounds present Extremities/Musculoskeletal:normal inspection, no edema Neurologic/Psych:AAOX3, grossly no focal neurological deficits Skin: normal color, warm Results & Data Results & Data Vital Signs (Past 12 Hours) Vital Signs Temp Pulse Pulse Resp BP Pulse Ox O2 Del Method 11/16/22 08:00 Room Air 11/16/22 11:24 36.8 C 73 18 108/63 94 Room Air 11/16/22 07:43 36.5 C 72 18 122/70 93 Room Air 11/16/22 07:32 75 11/16/22 04:09 36.6 C 72 18 128/72 92 Room Air Laboratory Results Laboratory Results WBC 9.35 K/ul (4.8-10.8) 11/16/22 05:59 RBC 4.67 M/uL (4.20-5.40) 11/16/22 05:59 Hgb 13.7 g/dl (12.0-16.0) 11/16/22 05:59 Hct 39.3 % (37.0-47.0) 11/16/22 05:59 MCV 84.2 fL (80.0-100.0) 11/16/22 05:59 MCH 29.3 pg (25.0-34.0) 11/16/22 05:59 MCHC 34.9 g/dL (32.0-36.0) 11/16/22 05:59 RDW Std Deviation 45.7 fL (36.4-46.3) 11/16/22 05:59 RDW Coeff of Darryl 15.1 % (11.5-14.5) H 11/16/22 05:59 Plt Count 374 K/uL (130-400) 11/16/22 05:59 MPV 8.9 fL (9.4-12.4) L 11/16/22 05:59 Immature Gran % (Auto) 0.5 % 11/14/22 06:44 Neut % (Auto) 62.7 % 11/14/22 06:44 Lymph % (Auto) 18.7 % 11/14/22 06:44 [place] % (Auto) 14.0 % 11/14/22 06:44 Eos % (Auto) 3.7 % 11/14/22 06:44 Baso % (Auto) 0.4 % 11/14/22 06:44 Neut # (Auto) 8.23 K/uL (1.40-6.50) H 11/14/22 06:44 Lymph # (Auto) 2.46 K/uL (1.2-3.4) 11/14/22 06:44 [place] # (Auto) 1.84 K/uL (0.11-0.59) H 11/14/22 06:44 Eos # (Auto) 0.48 K/uL (0-0.50) 11/14/22 06:44 Baso # (Auto) 0.05 K/uL (0-0.2) 11/14/22 06:44 Immature Gran # (Auto) 0.07 K/uL (0.01-0.20) 11/14/22 06:44 ESR 20 mm/hr (0-30) 11/14/22 06:44 PT 11.4 Seconds (9.0-12.0) 11/13/22 23:36 INR 1.0 (0.9-1.1) 11/13/22 23:36 Sodium 137 mmol/L (136-145) 11/16/22 05:59 Potassium 3.8 mmol/L (3.5-5.1) 11/16/22 05:59 Chloride 102 mmol/L (98-107) 11/16/22 05:59 Carbon Dioxide 28 mmol/L (21-32) 11/16/22 05:59 Anion Gap 7 (3-11) 11/16/22 05:59 BUN 7 mg/dl (6-23) 11/16/22 05:59 Creatinine 0.45 mg/dl (0.6-1.2) L 11/16/22 05:59 Est Cr Clr Drug Dosing 100.5 ml/min 11/16/22 05:59 Est GFR ( Amer) 117.7 ml/min 11/16/22 05:59 Est GFR (Non-Af Amer) 101.5 ml/min 11/16/22 05:59 BUN/Creatinine Ratio 15.6 (10-20) 11/16/22 05:59 Glucose 107 mg/dl (70-99(Fasting)) H 11/16/22 05:59 Calcium 8.3 mg/dl (8.6-10.3) L 11/16/22 05:59 Magnesium 1.9 mg/dl (1.7-2.4) 11/16/22 05:59 Total Bilirubin 0.5 mg/dl (0.2-1.0) 11/13/22 23:36 AST 10 U/L (13-39) L 11/13/22 23:36 ALT 11 U/L (7-52) 11/13/22 23:36 Alkaline Phosphatase 53 U/L (34-104) 11/13/22 23:36 C-Reactive Protein 9.66 mg/dl (0-0.5) H 11/14/22 06:44 Total Protein 5.5 gm/dl (6.0-8.3) L 11/13/22 23:36 Albumin 3.1 gm/dl (3.4-5.0) L 11/13/22 23:36 Globulin 2.4 gm/dl (2.5-4.0) L 11/13/22 23:36 Albumin/Globulin Ratio 1.3 (0.9-2) 11/13/22 23:36 Lipase 22 U/L (11-82) 11/13/22 23:36 Procalcitonin < 0.05 ng/ml (0-0.5) 11/15/22 06:50 Stl C. cayetanensis PCR Not Detected (NotDetected) 11/15/22 Unknown Stool Rotavirus A PCR Not Detected (NotDetected) 11/15/22 Unknown Stl Adenov F 40/41 PCR Not Detected (NotDetected) 11/15/22 Unknown Stool Astrovirus (PCR) Not Detected (NotDetected) 11/15/22 Unknown Stool Campylobacter PCR Not Detected (NotDetected) 11/15/22 Unknown Stl C. diff Tox B Gene Negative Cdiff Gene (Neg) 11/15/22 Unknown Stool Cryptosporidium PCR Not Detected (NotDetected) 11/15/22 Unknown Stl E.coli Shiga Tox PCR Not Detected (NotDetected) 11/15/22 Unknown Stl Enterotoxigenic E PCR Not Detected (NotDetected) 11/15/22 Unknown Stool EPEC (PCR) Not Detected (NotDetected) 11/15/22 Unknown Stool EAEC (PCR) Not Detected (NotDetected) 11/15/22 Unknown Stl E. histolytica PCR Not Detected (NotDetected) 11/15/22 Unknown Stool Giardia Lamblia PCR Not Detected (NotDetected) 11/15/22 Unknown Stool Salmonella PCR Not Detected (NotDetected) 11/15/22 Unknown Stool Sapovirus (PCR) Not Detected (NotDetected) 11/15/22 Unknown Stl P. shigelloides PCR Not Detected (NotDetected) 11/15/22 Unknown Stl Shigella/EIEC PCR Not Detected (NotDetected) 11/15/[address]enterocolitica PCR Not Detected (NotDetected) 11/15/22 Unknown Stool Vibrio (PCR) Not Detected (NotDetected) 11/15/22 Unknown Stl Vibrio cholerae PCR Not Detected (NotDetected) 11/15/22 Unknown Stl Norovirus GI/GII PCR Not Detected (NotDetected) 11/15/22 Unknown SARS-CoV-2, RNA, NAAT NEGATIVE (NEGATIVE) 11/14/22 01:09 Blood Type A Positive 11/13/22 23:36 Antibody Screen NEGATIVE 11/13/22 23:36 Impressions Abdomen/Pelvis CT 11/13/22 23:15 Exam(s): CT ABDOMEN + PELVIS With Contrast IV Amt: 87 ML OPTIRAY 320 EXAM: CT Abdomen and Pelvis With Intravenous Contrast CLINICAL HISTORY: Reason for exam: abd pain. TECHNIQUE: Axial computed tomography images of the abdomen and pelvis with intravenous contrast. CTDI is 10.85 mGy and DLP is 513.15 mGy-cm. Automated exposure control was utilized for the study. A dose lowering technique was utilized adhering to the principles of ALARA. CONTRAST: Patient received 87 ML OPTIRAY 320 of IV contrast COMPARISON: No relevant prior studies available. FINDINGS: Lung bases: There is a pulmonary parenchymal consolidation at the right lung base which is concerning for underlying infection. Mediastinum: There is a small hiatal hernia. ABDOMEN: Liver: Unremarkable. No mass. Gallbladder and bile ducts: Cholelithiasis. No ductal dilation. Pancreas: Unremarkable. No mass. No ductal dilation. Spleen: Unremarkable. No splenomegaly. Adrenals: Unremarkable. No mass. Kidneys and ureters: Unremarkable. No solid mass. No hydronephrosis. Stomach and bowel: There is moderate to severe transverse colitis. No obstruction. PELVIS: Appendix: No findings to suggest acute appendicitis. Bladder: Unremarkable. No mass. Reproductive: Unremarkable as visualized. ABDOMEN and PELVIS: Intraperitoneal space: Small volume of free fluid in the pelvis. No free air. Bones/joints: Degenerative disease of the thoracolumbar spine. No acute fracture. No dislocation. Soft tissues: Unremarkable. Vasculature: There is diffuse atherosclerotic calcification of the aorta and its major branch vessels. No abdominal aortic aneurysm. Lymph nodes: Unremarkable. No enlarged lymph nodes. IMPRESSION: 1. There is moderate to severe transverse colitis. 2. There is a pulmonary parenchymal consolidation at the right lung base which is concerning for underlying infection. Electronically signed by: Aayush Lemus MD 11/14/22 01:01 AM
[2022-11-16] MEDS: CETIRIZINE HCL 10 MG TABLET PO SCH (21:08)
[2022-11-17] MEDS: methylPREDNISolone 20 MG in SYRINGE 0 ML IV SCH ×3 (06:17→21:04)
[2022-11-17] MEDS: LEVOTHYROXINE SODIUM 88 MCG TABLET PO SCH (06:17)
[2022-11-17 07:22] LABS: Basophils # (auto) 0.09 K/uL (0-0.2); Basophils % (auto) 0.8 %; Eosinophils # (auto) 0.03 K/uL (0-0.50); Eosinophils % (auto) 0.3 %; Hematocrit (blood only) 40.4 % (37.0-47.0); Hemoglobin 13.8 g/dl (12.0-16.0); Immature Granulocytes # (auto) 0.08 K/uL (0.01-0.20); Immature Granulocytes % (auto) 0.7 %; Lymphocytes % (auto) 12.7 %; Mean Corpuscular Hemoglobin 29.3 pg (25.0-34.0); Mean Corpuscular Hgb Conc 34.2 g/dL (32.0-36.0); Mean Corpuscular Volume 85.8 fL (80.0-100.0); Mean Platelet Volume 8.9 fL (9.4-12.4); Monocytes # (auto) 2.08 K/uL (0.11-0.59); Monocytes % (auto) 17.7 %; Neutrophils # (auto) 7.99 K/uL (1.40-6.50); Neutrophils % (auto) 67.8 %; Platelet Count 388 K/uL (130-400); RDW Coefficient of Variation 14.6 % (11.5-14.5); RDW Standard Deviation 45.8 fL (36.4-46.3); Red Blood Count 4.71 M/uL (4.20-5.40); White Blood Count 11.77 K/ul (4.8-10.8)
[2022-11-17 07:47] LABS: BUN Creatinine Ratio 15.9 (10-20); Calcium 8.4 mg/dl (8.6-10.3); Creatinine Clr Calc Pharmacy 102.7 ml/min; Est GFR (African American) 118.5 ml/min; Est GFR (Non-African American) 102.3 ml/min; Potassium 3.9 mmol/L (3.5-5.1)
[2022-11-17] MEDS: ATENOLOL 25 MG TABLET PO SCH (08:48)
[2022-11-17] MEDS: NICOTINE 14 MG/24 HR PATCH TD SCH (08:48)
[2022-11-17] MEDS: CHOLECALCIFEROL 1,000 UNITS 25 MCG TAB PO SCH ×2 (08:48→21:03)
[2022-11-17] MEDS: lisinopril 20 MG TAB PO SCH (08:48)
[2022-11-17] MEDS: MULTIVITAMIN TAB PO SCH (08:48)
[2022-11-17] MEDS: FLUTICASONE/VILANTEROL 200/25MCG 14 PUFFS/INHALER INH SCH (08:50)
[2022-11-17] MEDS: FAMOTIDINE 20 MG in SYRINGE 3 ML IV SCH ×2 (08:54→21:04)
[2022-11-17] MEDS: UMECLIDINIUM BROMIDE 62.5MCG/BLISTER 7 PUFFS/INHALER INH SCH (11:05)
--- NOTE | 2022-11-17 14:14 | Hospitalist Progress Note ---
Date of Service November 17, 2022 Assessment & Plan (1) Lower gastrointestinal hemorrhage: Plan: Ulcerative Colitis flare: Rectal bleeding secondary to above --S/P EGD on 11/07/22: Z-line regular, 35 cm from the incisors. Large hiatal hernia with a akash erosion with some scattered hematin the hernia sac. Normal stomach. Normal duodenal bulb and second portion of the duodenum. No specimens collected. --S/P Colonoscopy on 11/07/22::Severe (Castano Score 3) ulcerative colitis, worsened since the last examination. The rectum, rectosigmoid,and beginning of the sigmoid colon were severely ulcerated and bleeding with even minimal scope contact. The rectosigmoid was severely narrowed due toinflammation and the scope had to be downsized to the ultrathin scope with inability to pass this area due to ulceration. As the colon was extremely friable and bleeding with any contact the decision was made to abort and admit the patient to the hospital for IV steroids and ongoing care. No specimens collected. --CT ABD on 11/14/22 reviewed:There is moderate to severe transverse colitis. There is a pulmonary parenchymal consolidation at the right lung base which is concerning for underlying infection. --Stool studies Negative Labs reviewed; mild leukocytosis likely due to steroids. Discussed with GI; recommended to continue IV Solu-Medrol.When improved, then po prednisone at 60mg /day. Monitor CBC and transfuse PRBCs as needed Needs follow-up with GI upon discharge Advance diet as tolerated. COPD: Uses rescue inhaler and Fluticasone; continue Advair No supplemental O2 at home HTN: Continue Atenolol and Lisinopril Hypothyroidism: Continue Levothyroxine H/O C-Diff: Had fecal transplant 8years ago Stool studies Negative DVT Px: SCDs for now Re: Rectal Bleed Code Status Full Code Dispositionpatient continues to be hospitalized due to need for close monitoring with severe diarrhea secondary to ulcerative colitis flare. she will requiring iv steroids for UC flare. Admission and Anticipated Discharge Date Admission Date: November 14, 2022 Subjective Patient seen and examined at bedside. Overnight, 2 bowel movements at night. reports that bleeding is decreasing. Review of Systems Review of Systems: All systems reviewed & are unremarkable except as noted in Subjective Physical Exam Physical Exam: Physical Exam: Vitals signs as noted above General Appearance: Alert orient x3. Head: normocephalic, Atraumatic Eyes: normal inspection, EOMI Neck: supple, Trachea midline Respiratory/Chest: Normal breath sounds, CTA, No accessory muscle use Cardiovascular: S1, S2, No murmur Abdomen/GI:Soft, Non tender, Bowel sounds present Extremities/Musculoskeletal:normal inspection, no edema Neurologic/Psych:AAOX3, grossly no focal neurological deficits Skin: normal color, warm Results & Data Results & Data Vital Signs (Past 12 Hours) Vital Signs Temp Pulse Pulse Resp BP Pulse Ox O2 Del Method 11/17/22 11:10 37.0 C 74 18 128/77 92 Room Air 11/17/22 07:52 69 11/17/22 07:36 36.5 C 75 18 127/69 94 Room Air 11/17/22 04:56 36.5 C 73 20 130/71 92 Room Air 11/17/22 02:27 70 Laboratory Results Laboratory Results WBC 11.77 K/ul (4.8-10.8) H 11/17/22 06:56 RBC 4.71 M/uL (4.20-5.40) 11/17/22 06:56 Hgb 13.8 g/dl (12.0-16.0) 11/17/22 06:56 Hct 40.4 % (37.0-47.0) 11/17/22 06:56 MCV 85.8 fL (80.0-100.0) 11/17/22 06:56 MCH 29.3 pg (25.0-34.0) 11/17/22 06:56 MCHC 34.2 g/dL (32.0-36.0) 11/17/22 06:56 RDW Std Deviation 45.8 fL (36.4-46.3) 11/17/22 06:56 RDW Coeff of Darryl 14.6 % (11.5-14.5) H 11/17/22 06:56 Plt Count 388 K/uL (130-400) 11/17/22 06:56 MPV 8.9 fL (9.4-12.4) L 11/17/22 06:56 Immature Gran % (Auto) 0.7 % 11/17/22 06:56 Neut % (Auto) 67.8 % 11/17/22 06:56 Lymph % (Auto) 12.7 % 11/17/22 06:56 [place] % (Auto) 17.7 % 11/17/22 06:56 Eos % (Auto) 0.3 % 11/17/22 06:56 Baso % (Auto) 0.8 % 11/17/22 06:56 Neut # (Auto) 7.99 K/uL (1.40-6.50) H 11/17/22 06:56 Lymph # (Auto) 1.50 K/uL (1.2-3.4) 11/17/22 06:56 [place] # (Auto) 2.08 K/uL (0.11-0.59) H 11/17/22 06:56 Eos # (Auto) 0.03 K/uL (0-0.50) 11/17/22 06:56 Baso # (Auto) 0.09 K/uL (0-0.2) 11/17/22 06:56 Immature Gran # (Auto) 0.08 K/uL (0.01-0.20) 11/17/22 06:56 ESR 20 mm/hr (0-30) 11/14/22 06:44 PT 11.4 Seconds (9.0-12.0) 11/13/22 23:36 INR 1.0 (0.9-1.1) 11/13/22 23:36 Sodium 137 mmol/L (136-145) 11/17/22 06:56 Potassium 3.9 mmol/L (3.5-5.1) 11/17/22 06:56 Chloride 102 mmol/L (98-107) 11/17/22 06:56 Carbon Dioxide 30 mmol/L (21-32) 11/17/22 06:56 Anion Gap 5 (3-11) 11/17/22 06:56 BUN 7 mg/dl (6-23) 11/17/22 06:56 Creatinine 0.44 mg/dl (0.6-1.2) L 11/17/22 06:56 Est Cr Clr Drug Dosing 102.7 ml/min 11/17/22 06:56 Est GFR ( Amer) 118.5 ml/min 11/17/22 06:56 Est GFR (Non-Af Amer) 102.3 ml/min 11/17/22 06:56 BUN/Creatinine Ratio 15.9 (10-20) 11/17/22 06:56 Glucose 99 mg/dl (70-99(Fasting)) 11/17/22 06:56 Calcium 8.4 mg/dl (8.6-10.3) L 11/17/22 06:56 Magnesium 1.9 mg/dl (1.7-2.4) 11/16/22 05:59 Total Bilirubin 0.5 mg/dl (0.2-1.0) 11/13/22 23:36 AST 10 U/L (13-39) L 11/13/22 23:36 ALT 11 U/L (7-52) 11/13/22 23:36 Alkaline Phosphatase 53 U/L (34-104) 11/13/22 23:36 C-Reactive Protein 9.66 mg/dl (0-0.5) H 11/14/22 06:44 Total Protein 5.5 gm/dl (6.0-8.3) L 11/13/22 23:36 Albumin 3.1 gm/dl (3.4-5.0) L 11/13/22 23:36 Globulin 2.4 gm/dl (2.5-4.0) L 11/13/22 23:36 Albumin/Globulin Ratio 1.3 (0.9-2) 11/13/22 23:36 Lipase 22 U/L (11-82) 11/13/22 23:36 Procalcitonin < 0.05 ng/ml (0-0.5) 11/15/22 06:50 Stl C. cayetanensis PCR Not Detected (NotDetected) 11/15/22 Unknown Stool Rotavirus A PCR Not Detected (NotDetected) 11/15/22 Unknown Stl Adenov F 40/41 PCR Not Detected (NotDetected) 11/15/22 Unknown Stool Astrovirus (PCR) Not Detected (NotDetected) 11/15/22 Unknown Stool Campylobacter PCR Not Detected (NotDetected) 11/15/22 Unknown Stl C. diff Tox B Gene Negative Cdiff Gene (Neg) 11/15/22 Unknown Stool Cryptosporidium PCR Not Detected (NotDetected) 11/15/22 Unknown Stl E.coli Shiga Tox PCR Not Detected (NotDetected) 11/15/22 Unknown Stl Enterotoxigenic E PCR Not Detected (NotDetected) 11/15/22 Unknown Stool EPEC (PCR) Not Detected (NotDetected) 11/15/22 Unknown Stool EAEC (PCR) Not Detected (NotDetected) 11/15/22 Unknown Stl E. histolytica PCR Not Detected (NotDetected) 11/15/22 Unknown Stool Giardia Lamblia PCR Not Detected (NotDetected) 11/15/22 Unknown Stool Salmonella PCR Not Detected (NotDetected) 11/15/22 Unknown Stool Sapovirus (PCR) Not Detected (NotDetected) 11/15/22 Unknown Stl P. shigelloides PCR Not Detected (NotDetected) 11/15/22 Unknown Stl Shigella/EIEC PCR Not Detected (NotDetected) 11/15/[address] Y[address]enterocolitica PCR Not Detected (NotDetected) 11/15/22 Unknown Stool Vibrio (PCR) Not Detected (NotDetected) 11/15/22 Unknown Stl Vibrio cholerae PCR Not Detected (NotDetected) 11/15/22 Unknown Stl Norovirus GI/GII PCR Not Detected (NotDetected) 11/15/22 Unknown SARS-CoV-2, RNA, NAAT NEGATIVE (NEGATIVE) 11/14/22 01:09 Blood Type A Positive 11/13/22 23:36 Antibody Screen NEGATIVE 11/13/22 23:36 Impressions Abdomen/Pelvis CT 11/13/22 23:15 Exam(s): CT ABDOMEN + PELVIS With Contrast IV Amt: 87 ML OPTIRAY 320 EXAM: CT Abdomen and Pelvis With Intravenous Contrast CLINICAL HISTORY: Reason for exam: abd pain. TECHNIQUE: Axial computed tomography images of the abdomen and pelvis with intravenous contrast. CTDI is 10.85 mGy and DLP is 513.15 mGy-cm. Automated exposure control was utilized for the study. A dose lowering technique was utilized adhering to the principles of ALARA. CONTRAST: Patient received 87 ML OPTIRAY 320 of IV contrast COMPARISON: No relevant prior studies available. FINDINGS: Lung bases: There is a pulmonary parenchymal consolidation at the right lung base which is concerning for underlying infection. Mediastinum: There is a small hiatal hernia. ABDOMEN: Liver: Unremarkable. No mass. Gallbladder and bile ducts: Cholelithiasis. No ductal dilation. Pancreas: Unremarkable. No mass. No ductal dilation. Spleen: Unremarkable. No splenomegaly. Adrenals: Unremarkable. No mass. Kidneys and ureters: Unremarkable. No solid mass. No hydronephrosis. Stomach and bowel: There is moderate to severe transverse colitis. No obstruction. PELVIS: Appendix: No findings to suggest acute appendicitis. Bladder: Unremarkable. No mass. Reproductive: Unremarkable as visualized. ABDOMEN and PELVIS: Intraperitoneal space: Small volume of free fluid in the pelvis. No free air. Bones/joints: Degenerative disease of the thoracolumbar spine. No acute fracture. No dislocation. Soft tissues: Unremarkable. Vasculature: There is diffuse atherosclerotic calcification of the aorta and its major branch vessels. No abdominal aortic aneurysm. Lymph nodes: Unremarkable. No enlarged lymph nodes. IMPRESSION: 1. There is moderate to severe transverse colitis. 2. There is a pulmonary parenchymal consolidation at the right lung base which is concerning for underlying infection. Electronically signed by: Aayush Lemus MD 11/14/22 01:01 AM
[2022-11-17] MEDS: CETIRIZINE HCL 10 MG TABLET PO SCH (21:03)
[2022-11-18] MEDS: methylPREDNISolone 20 MG in SYRINGE 0 ML IV SCH (06:12)
[2022-11-18] MEDS: LEVOTHYROXINE SODIUM 88 MCG TABLET PO SCH (06:12)
[2022-11-18 07:05] LABS: Hematocrit (blood only) 41.7 % (37.0-47.0); Hemoglobin 14.5 g/dl (12.0-16.0); Mean Corpuscular Hemoglobin 29.4 pg (25.0-34.0); Mean Corpuscular Hgb Conc 34.8 g/dL (32.0-36.0); Mean Corpuscular Volume 84.4 fL (80.0-100.0); Mean Platelet Volume 8.8 fL (9.4-12.4); Platelet Count 424 K/uL (130-400); RDW Standard Deviation 45.2 fL (36.4-46.3); Red Blood Count 4.94 M/uL (4.20-5.40); White Blood Count 12.66 K/ul (4.8-10.8)
[2022-11-18 07:31] LABS: BUN Creatinine Ratio 20.4 (10-20); Calcium 8.4 mg/dl (8.6-10.3); Creatinine Clr Calc Pharmacy 92.3 ml/min; Est GFR (African American) 114.4 ml/min; Est GFR (Non-African American) 98.7 ml/min; Potassium 3.7 mmol/L (3.5-5.1)
[2022-11-18 07:43] LABS: Basophils # (auto) 0.06 K/uL (0-0.2); Basophils % (auto) 0.5 %; Eosinophils # (auto) 0.03 K/uL (0-0.50); Eosinophils % (auto) 0.2 %; Immature Granulocytes # (auto) 0.09 K/uL (0.01-0.20); Immature Granulocytes % (auto) 0.7 %; Lymphocytes % (auto) 12.6 %; Monocytes # (auto) 2.39 K/uL (0.11-0.59); Monocytes % (auto) 18.9 %; Neutrophils # (auto) 8.49 K/uL (1.40-6.50); Neutrophils % (auto) 67.1 %; Polychromasia 1+
[2022-11-18] MEDS: FLUTICASONE PROPIONATE NA SPR 16 GM BTL NAE PRN (08:31)
[2022-11-18] MEDS: NICOTINE 14 MG/24 HR PATCH TD SCH (08:32)
[2022-11-18] MEDS: FLUTICASONE/VILANTEROL 200/25MCG 14 PUFFS/INHALER INH SCH (08:32)
[2022-11-18] MEDS: CHOLECALCIFEROL 1,000 UNITS 25 MCG TAB PO SCH (08:33)
[2022-11-18] MEDS: ATENOLOL 25 MG TABLET PO SCH (08:33)
[2022-11-18] MEDS: MULTIVITAMIN TAB PO SCH (08:33)
[2022-11-18] MEDS: lisinopril 20 MG TAB PO SCH (08:33)
[2022-11-18] MEDS: FAMOTIDINE 20 MG in SYRINGE 3 ML IV SCH (08:34)
[2022-11-18] MEDS: UMECLIDINIUM BROMIDE 62.5MCG/BLISTER 7 PUFFS/INHALER INH SCH (11:28)
--- NOTE | 2022-11-18 16:31 | Discharge Summary ---
Date of Service November 18, 2022 Admission HPI Per Admitting Provider This is a 71-year-old female with past medical history significant for ulcerative colitis, COPD, hypertension, hyperlipidemia, hypothyroidism, history of C. diff, presents with abdominal cramping, nausea and rectal bleed. The patient was recently in the hospital for ulcerative colitis flare, treated with steroids. Was discharged on prednisone. Plan for Remicade and Humira as outpatient. She was doing okay, but then today, she was feeling nauseous and she ate her dinner, then she felt a lot of abdominal cramping, then she had a big bloody bowel movement. That is the reason she came here. Currently, abdominal cramp has improved. Denies any fevers. No chest pain, no shortness of breath, no cough, no fevers, no headache, no blurred visions, no earache, no runny nose, no sore throat. Currently, resting comfortably and hemodynamically stable. Admission Exam Per Admitting Provider GENERAL: The patient is of moderate build, not in acute distress. VITAL SIGNS: Temperature afebrile, pulse 101, respiratory rate 18, blood pressure 118/50, oxygen 91% on room air. HEENT: Pupils equal, round and reactive to light. Oral mucosa moist. NECK: No JVD. No neck masses. CARDIOVASCULAR: S1 and S2 heard. Regular rate and rhythm. No murmur, no gallop. RESPIRATORY SYSTEM: Normal AP diameter. No accessory muscle use. No wheezing or crackles. ABDOMEN: Soft, bowel sounds present, nontender, no distention. CENTRAL NERVOUS SYSTEM: Alert and oriented. Speech is clear. No facial droop. Obeys commands. Moves extremities. EXTREMITIES: No edema, no erythema. Principal Diagnosis Ulcerative colitis flare Discharge Exam Physical Exam: Vitals signs as noted above General Appearance: Alert orient x3. Head: normocephalic, Atraumatic Eyes: normal inspection, EOMI Neck: supple, Trachea midline Respiratory/Chest: Normal breath sounds, CTA, No accessory muscle use Cardiovascular: S1, S2, No murmur Abdomen/GI:Soft, Non tender, Bowel sounds present Extremities/Musculoskeletal:normal inspection, no edema Neurologic/Psych:AAOX3, grossly no focal neurological deficits Skin: normal color, warm Discharge Data Allergies Allergy/AdvReac Type Severity Reaction Status Date / Time adhesive tape Allergy Intermediate SKIN Verified 11/07/22 09:18 IRRITATION/TAKES SKIN OFF WHEN TAKEN OFF midazolam Allergy Unknown NOT ON GMG Verified 11/07/22 09:18 OR PT LIST sulfasalazine AdvReac Severe PANCREATITI Verified 11/07/22 09:18 S Consultations 11/14/22 00:24 ED Decision to Admit Stat 11/14/22 08:00 Consult Gastroenterology Routine Ordered Studies 11/13/22 23:15 CT abd pelvis IV con only Stat Hospital Course (1) Ulcerative colitis: (2) Lower gastrointestinal hemorrhage: Patient is a 71-year-old female with past medical history of ulcerative colitis, COPD, hypertension, hyperlipidemia presented to the ED with abdominal pain, nausea and cramping. She was discharged 3 days prior to presentation; was treated for ulcerative colitis flare. Discharged home on oral prednisone. CT abdomen on admission showed moderate to severe transverse colitis. During the hospitalization, patient was started on IV steroids. GI was consulted. During the course of the hospitalization, patient showed signs of improvement with decrease amount of diarrhea. She had minimal amount of rectal bleeding. Did not require any transfusion during the hospitalization. At the time of discharge, she was discharged on 60 mg of prednisone. She was recommended to follow-up with GI regarding the taper of the steroids. All other medication were continued as before. Please note the above document was generated using voice recognition software. It may contain grammatical, syntax or spelling errors. Any formal questions or c oncerns about the content, text or information contained within the body of this dictation should be directly addressed to the provider for clarification Total Time Total Time Spent Total Time Spent (In Minutes): 40 Total Time Includes: Examination of the Patient, Discharge Planning, Medication Reconciliation, Communication With Other Providers and Other Discharge Plan Discharge Items Patient Disposition: Home - Self-Care Reason For Visit: RECTAL BLEED Discharge Diagnosis: Ulcerative colitis flareup Activity: Resume your previous activity Non-emergency contact: Primary Care Provider Call non-emergency contact if: you have any medication questions and your symptoms worsen Follow-up/Referrals: Sb Solano MD [Primary Care Provider] - (Date & Time 11/21/2022 12:40 PM Provider Cruz Bustos MD [facility] ) Diet: Regular Addtl Attending Provider Instructions: You were admitted here with ulcerative colitis flareup. Your evaluated by gastroenterology who recommended prednisone. Please follow the following instructions regarding prednisone: Take 60 mg once daily for 7 days. Contact your GI doctor to see if you need to continue on 60 mg once daily for more than 7 days. If your GI doctor recommends you to decrease the dose; do as instructed. Follow-up with your primary care doctor and GI doctor. Pending Studies at Discharge: No Stand-Alone Forms: My [employer], Smoking Cessation Medications and DC Order Prescriptions: New prednisone 10 mg tablet See Taper PO DAILY 21 Days Qty: 126 0RF Taper: Taper, Blank 60 mg DAILY for 7 Days 55 mg DAILY for 7 Days 50 mg DAILY for 7 Days Continued fluticasone propion-salmeterol [Advair Diskus] 250-50 mcg/dose Blister With Device 1 inh INHALATION BID lisinopril 20 mg tablet 20 mg PO QAM nicotine 7 mg/24 hr Patch 24 Hour 2 patch TRANSDERMAL DAILY famotidine [Acid Product Development Ecologist (famotidine)] 10 mg Tablet 10 mg PO BID PRN (Reason: heartburn) Qty: 30 0RF multivitamin Tablet 1 tab PO QAM albuterol sulfate 2.5 mg /3 mL (0.083 %) Solution For Nebulization 2.5 mg INHALATION DIRECTED PRN (Reason: Shortness Of Breath Or Wheezing) cetirizine [Zyrtec] 10 mg Tablet 10 mg PO HS atenolol 25 mg tablet 25 mg PO QAM levothyroxine 88 mcg Tablet 88 mcg PO QAM albuterol sulfate 90 mcg/actuation Hfa Aerosol Inhaler 2 puff INHALATION Q4H PRN (Reason: Wheezing) fluticasone propionate 50 mcg/actuation [place],Suspension 2 spray INTRANASAL DAILY PRN (Reason: Congestion) Rx Instructions: administer into each nostril vitamin E 268 mg (400 unit) Capsule 268 mg PO QAM cholecalciferol (vitamin D3) [Vitamin D3] 25 mcg (1,000 unit) Capsule 25 mcg PO BID Spiriva with HandiHaler 18 mcg capsule, w/inhalation device 18 mcg INHALATION QDL diclofenac sodium 1 % Gel 2 g TOPICAL QID PRN (Reason: Pain) Rx Instructions: Patient stated she applies every morning Discontinued prednisone 20 mg Tablet 40 mg PO UD Qty: 30 0RF Rx Instructions: 40mg daily for 2 weeks. Follow up with Horse Racetrack Manager for further instructions Discharge Orders: Discharge Order (Routine); Ordered 11/18/22 Ordered By: Braxton Dick Admission Data Admit Date/Time: 11/14/22 02:16 Attending Provider: Braxton Dick Admit Provider: Linwood Small Primary Care Provider: Sb Solano Other Providers: Linwood Small ; Mandi Love ; Aaron Raza ; Nia Hopkins ; Payal Yin ; Jessica Laughlin ; Daysi Cowan ; Fady Hatfield ; Ravin Snowden ; Wendy Borja ; Martina Rendon ; Truman Ku ; Griselda Cobb ; Magaly Brice ; Edelmira Zamorano ; Laila Carcamo ; Yudith Neil ; Ezekiel Vasquez ; Moises Burk ; Cailin Johnson ; Shane Beasley Jr ; Fidel Wallace Other Interventions: Discharge Summary Assessment (RN) Last Done: 11/18/22 12:26
== END 2022-11-18 12:46 | disposition home or self-care (01) | DRG 386 ==
LOC: ED 23:10 → EDINP 11-14 02:16 → SUATTDRO 11-14 02:16 → 2W 11-14 03:27

== ENCOUNTER 2022-11-18 23:26 | Inpatient (IN) ==
--- NOTE | 2022-11-18 23:40 | Emergency Department Note ---
History of Present Illness General Chief complaint: GI Assessment Stated complaint: AGGREVATED UC/RECTAL BLEEDING Time Seen by Provider: 11/18/22 23:27 History of Present Illness 71-year-old female presents emergency department states that she was discharged from the hospital for an exacerbation of ulcerative colitis this morning. Patient in fact was seen by me last week and was admitted for the same. Patient states at 5 PM she had soup and then she had bloody diarrhea and felt dizzy and nauseated. Patient is reportedly to start prednisone 60 mg tomorrow. Patient denies any hematemesis she states nausea she was given Zofran by EMS prior to arrival. Patient denies any specific abdominal pain there were no other mitigating or alleviating factors Home Medications Medication Instructions Recorded Confirmed Type albuterol sulfate 2.5 mg/3 mL 2.5 mg inhalation DIRECTED PRN 09/20/22 11/19/22 History (0.083 %) solution for nebulization Shortness Of Breath Or Wheezing albuterol sulfate 90 mcg/actuation 2 puff inhalation Q4H PRN Wheezing 09/20/22 11/19/22 History aerosol inhaler atenolol 25 mg tablet 25 mg PO QAM 09/20/22 11/19/22 History cetirizine 10 mg tablet (Zyrtec) 10 mg PO HS 09/20/22 11/19/22 History cholecalciferol (vitamin D3) 25 25 mcg PO BID 09/20/22 11/19/22 History mcg (1,000 unit) capsule (Vitamin D3) diclofenac sodium 1 % topical gel 2 g topical QID PRN Pain 09/20/22 11/19/22 History fluticasone propionate 50 2 spray intranasal DAILY PRN 09/20/22 11/19/22 History mcg/actuation nasal Congestion spray,suspension levothyroxine 88 mcg tablet 88 mcg PO QAM 09/20/22 11/19/22 History multivitamin 1 tab PO QAM 09/20/22 11/19/22 History tiotropium bromide 18 mcg capsule 18 mcg inhalation QDL 09/20/22 11/19/22 History with inhalation device (Spiriva with HandiHaler) vitamin E 268 mg (400 unit) capsule 268 mg PO QAM 09/20/22 11/19/22 History fluticasone 250 mcg-salmeterol 50 1 inh inhalation BID 11/02/22 11/19/22 History mcg/dose blistr powdr for inhalation (Advair Diskus) lisinopril 20 mg tablet 20 mg PO QAM 11/02/22 11/19/22 History nicotine 7 mg/24 hr daily 2 patch transdermal DAILY 11/02/22 11/19/22 History transdermal patch famotidine 10 mg tablet (Acid 10 mg PO BID PRN heartburn #30 tabs 11/10/22 11/19/22 Rx Receptionist Airline Lounge (famotidine)) prednisone 10 mg tablet See Taper PO HS 11/19/22 11/19/22 History Allergies Allergy/AdvReac Type Severity Reaction Status Date / Time adhesive tape Allergy Intermediate SKIN Verified 11/19/22 00:20 IRRITATION/TAKES SKIN OFF WHEN TAKEN OFF midazolam Allergy Unknown NOT ON GMG Verified 11/19/22 00:20 OR PT LIST sulfasalazine AdvReac Severe PANCREATITI Verified 11/19/22 00:20 S Past Med/Surg History Medical History Anxiety no meds Aspiration pneumonia hospitalized at [facility] for this in September 2022 > no further issues COPD (chronic obstructive pulmonary disease) uses res inh daily Dysphagia History of COVID-12 Aug 2021 > not hospitalized HLD (hyperlipidemia) HTN (hypertension) Hx of Clostridium difficile infection 8 yrs ago > fecal transplant > resolved Hypothyroidism Meningocele Palpitations no longer Ulcerative colitis Ulcerative colitis hx of 25 yrs ago > possible issue now?? reason for up coming colon/EGD Surgical History History of carpal tunnel surgery bilat History of colonoscopy History of tooth extraction Hx of partial thyroidectomy Hx of tubal ligation S/P fecal transplant Family History Father , 66 Sudden cardiac Mother Bipolar disorder Social History Smoking Status: Unknown if ever smoked Tobacco Type: Cigarettes packs per day: 0.5; Cigarettes Per Day: 6-8; Second Hand Exposure: No; Do You Dip or Chew Tobacco: No; Hx Alcohol Use: No Hx Substance Use: No Preferred Language: Nepali Communication Ability: Effective Magician Helper Required: No Beliefs That Will Affect Care: None Current Living Situation: Spouse and Family Current Living Situation Comment: house Feels Safe at Home: Yes Assistive Devices: Nebulizer and Other Review of Systems A total of 10 systems reviewed and were otherwise negative Cardiovascular: no chest pain Gastrointestinal: + nausea, + diarrhea/loose stools and + blood in stools; no abdominal pain Physical Exam Vital Signs Vital Signs - 24 hr 11/18/22 23:39 11/18/22 23:39 11/18/22 23:39 Temperature 36.8 C Temperature Source Oral Pulse Rate 86 Pulse Rate [Finger] 86 Respiratory Rate 16 16 Respiratory Effort / Characteristics Non-Labored Spontaneous Non-Labored Spontaneous Respiratory Depth Normal Normal Blood Pressure 115/65 Blood Pressure [Right Arm] 115/65 Blood Pressure Mean 81 Blood Pressure Mean [Right Arm] 81 Pulse Oximetry 93 93 93 Oxygen Delivery Method Room Air Room Air Room Air Sepsis Recent Fever Within 48 Hours No Sepsis New/Unexplained Change in Mental Status N/A Sepsis Action Taken by Nursing No Action Required GENERAL: Patient is awake alert in no acute distress patient is resting comfortably and showing no signs of anxiety EYES: The conjunctivae are clear. The pupils are round and reactive. EARS, NOSE, MOUTH AND THROAT: The nose is without any evidence of any deformity. Mucous membranes are moist. Tongue is midline. NECK: The neck is nontender and supple. RESPIRATORY: Normal respiratory effort is noted there is no evidence of wheezing rhonchi or rales CARDIOVASCULAR: Regular rate and rhythm noted there no murmurs rubs or gallops normal S1 normal S2. GASTROINTESTINAL: The abdomen is soft. Abdomen is nontender. There is no rebound rigidity or guarding BACK: No midline tenderness or or step-off noted range of motion in flexion extension as well as rotation no signs of muscle spasm noted MUSCULOSKELETAL/EXTREMITIES: There is no evidence of gross deformity full range of motion is noted in the hips and shoulders. SKIN: There is no obvious evidence of any rash. There are no petechiae, pallor or cyanosis noted. NEUROLOGIC: Patient is awake alert and oriented x3 strength is symmetric Course Reevaluation(s) Reevaluation #1: Patient is resting in no distress. Patient was given IV fluids and Zofran patient has a blood pressure greater than 110. Time: 00:35 Consultations Consultation #1: The case was discussed with the [facility] hospitalist for admission Time: 00:35 Administered Medications Sodium Chloride (Nss 1000ml) 1,000 mls @ 999 mls/hr IV .Q1H1M AGGIE Stop: 11/19/22 00:45 Last Admin: 11/19/22 00:06 Dose: 999 mls/hr Documented By: CLAUDIO Discontinued Medications Ondansetron HCl (Ondansetron Inj 2 Mg/Ml 2 Ml Vial) 4 mg IV NOW STA Stop: 11/19/22 00:18 Last Admin: 11/19/22 00:21 Dose: 4 mg Documented By: CLAUDIO Medical Decision Making Medical Records Attestation: I reviewed the patient's medical records. Home Medications Current Medication List: was personally reviewed by me Laboratory Data Attestation: I reviewed the patient's lab results. Patient has an elevated white blood cell count, hypokalemia 11/18/22 23:35 11/18/22 23:35 Lab Results 11/18/22 11/18/22 11/18/22 Range/Units 23:35 23:35 Unknown WBC 18.06 H (4.8-10.8) K/ul RBC 5.09 (4.20-5.40) M/uL Hgb 15.1 (12.0-16.0) g/dl Hct 44.3 (37.0-47.0) % MCV 87.0 (80.0-100.0) fL MCH 29.7 (25.0-34.0) pg MCHC 34.1 (32.0-36.0) g/dL RDW Std Deviation 47.3 H (36.4-46.3) fL RDW Coeff of Darryl 14.9 H (11.5-14.5) % Plt Count 444 H (130-400) K/uL MPV 8.9 L (9.4-12.4) fL Immature Gran % (Auto) 1.3 % Neut % (Auto) 72.5 % Lymph % (Auto) 10.8 % [place] % (Auto) 14.0 % Eos % (Auto) 1.3 % Baso % (Auto) 0.1 % Neut # (Auto) 13.10 H (1.40-6.50) K/uL Lymph # (Auto) 1.95 (1.2-3.4) K/uL [place]undy # (Auto) 2.53 H (0.11-0.59) K/uL Eos # (Auto) 0.23 (0-0.50) K/uL Baso # (Auto) 0.01 (0-0.2) K/uL Immature Gran # (Auto) 0.24 H (0.01-0.20) K/uL Polychromasia 1+ Echinocytes 1+ Sodium 135 L (136-145) mmol/L Potassium 3.2 L (3.5-5.1) mmol/L Chloride 102 (98-107) mmol/L Carbon Dioxide 26 (21-32) mmol/L Anion Gap 7 (3-11) BUN 12 (6-23) mg/dl Creatinine 0.65 (0.6-1.2) mg/dl Est Cr Clr Drug Dosing Not Reportable Est GFR ( Amer) 104.3 ml/min Est GFR (Non-Af Amer) 90.0 ml/min BUN/Creatinine Ratio 18.5 (10-20) Glucose 142 H (70-99(Fasting)) mg/dl Calcium 7.8 L (8.6-10.3) mg/dl Total Bilirubin 0.4 (0.2-1.0) mg/dl AST 9 L (13-39) U/L ALT 8 (7-52) U/L Alkaline Phosphatase 42 (34-104) U/L Total Protein 5.3 L (6.0-8.3) gm/dl Albumin 2.8 L (3.4-5.0) gm/dl Globulin 2.5 (2.5-4.0) gm/dl Albumin/Globulin Ratio 1.1 (0.9-2) POC Stool Occult Blood (Negative) SARS-CoV-2, RNA, NAAT NEGATIVE (NEGATIVE) 11/19/22 Range/Units 00:15 WBC (4.8-10.8) K/ul RBC (4.20-5.40) M/uL Hgb (12.0-16.0) g/dl Hct (37.0-47.0) % MCV (80.0-100.0) fL MCH (25.0-34.0) pg MCHC (32.0-36.0) g/dL RDW Std Deviation (36.4-46.3) fL RDW Coeff of Darryl (11.5-14.5) % Plt Count (130-400) K/uL MPV (9.4-12.4) fL Immature Gran % (Auto) % Neut % (Auto) % Lymph % (Auto) % [place] % (Auto) % Eos % (Auto) % Baso % (Auto) % Neut # (Auto) (1.40-6.50) K/uL Lymph # (Auto) (1.2-3.4) K/uL [place]undy # (Auto) (0.11-0.59) K/uL Eos # (Auto) (0-0.50) K/uL Baso # (Auto) (0-0.2) K/uL Immature Gran # (Auto) (0.01-0.20) K/uL Polychromasia Echinocytes Sodium (136-145) mmol/L Potassium (3.5-5.1) mmol/L Chloride (98-107) mmol/L Carbon Dioxide (21-32) mmol/L Anion Gap (3-11) BUN (6-23) mg/dl Creatinine (0.6-1.2) mg/dl Est Cr Clr Drug Dosing Est GFR ( Amer) ml/min Est GFR (Non-Af Amer) ml/min BUN/Creatinine Ratio (10-20) Glucose (70-99(Fasting)) mg/dl Calcium (8.6-10.3) mg/dl Total Bilirubin (0.2-1.0) mg/dl AST (13-39) U/L ALT (7-52) U/L Alkaline Phosphatase (34-104) U/L Total Protein (6.0-8.3) gm/dl Albumin (3.4-5.0) gm/dl Globulin (2.5-4.0) gm/dl Albumin/Globulin Ratio (0.9-2) POC Stool Occult Blood Positive A (Negative) SARS-CoV-2, RNA, NAAT (NEGATIVE) MDM Narrative Medical decision making differential diagnosis includes lower GI hemorrhage, ulcerative colitis exacerbation, anemia, electrolyte abnormality, vasovagal syncope, dehydration Plan is to check labs, observe EMS gave me bedside report External medical records including my admission 5 days ago were reviewed by me Patient is heme positive has a history of ulcerative colitis and continues to have bright red blood per rectum. Patient has a stable hemoglobin stable vital signs. The case was discussed with the [facility] hospitalist for admission Impression & Plan Acute lower GI bleeding, Ulcerative colitis Discharge Plan Visit Data Chief Complaint: GI Assessment Stated Complaint: AGGREVATED UC/RECTAL BLEEDING ED Provider: Khang Henderson Discharge Problem: Acute lower GI bleeding, Ulcerative colitis Patient Disposition: Admitted As Inpatient Forms Stand Alone Forms: My [facility], Virtual Emergency Department, Important Visit Information Prescriptions Prescriptions: No Action fluticasone propion-salmeterol [Advair Diskus] 250-50 mcg/dose Blister With Device 1 inh INHALATION BID lisinopril 20 mg tablet 20 mg PO QAM nicotine 7 mg/24 hr Patch 24 Hour 2 patch TRANSDERMAL DAILY famotidine [Acid Receptionist Airline Lounge (famotidine)] 10 mg Tablet 10 mg PO BID PRN (Reason: heartburn) Qty: 30 0RF prednisone 10 mg tablet See Taper PO HS Taper: Taper, Blank 60 mg DAILY for 7 Days 55 mg DAILY for 7 Days 50 mg DAILY for 7 Days multivitamin Tablet 1 tab PO QAM albuterol sulfate 2.5 mg /3 mL (0.083 %) Solution For Nebulization 2.5 mg INHALATION DIRECTED PRN (Reason: Shortness Of Breath Or Wheezing) cetirizine [Zyrtec] 10 mg Tablet 10 mg PO HS atenolol 25 mg tablet 25 mg PO QAM levothyroxine 88 mcg Tablet 88 mcg PO QAM albuterol sulfate 90 mcg/actuation Hfa Aerosol Inhaler 2 puff INHALATION Q4H PRN (Reason: Wheezing) fluticasone propionate 50 mcg/actuation [place],Suspension 2 spray INTRANASAL DAILY PRN (Reason: Congestion) Rx Instructions: administer into each nostril vitamin E 268 mg (400 unit) Capsule 268 mg PO QAM cholecalciferol (vitamin D3) [Vitamin D3] 25 mcg (1,000 unit) Capsule 25 mcg PO BID Spiriva with HandiHaler 18 mcg capsule, w/inhalation device 18 mcg INHALATION QDL diclofenac sodium 1 % Gel 2 g TOPICAL QID PRN (Reason: Pain) Rx Instructions: Patient stated she applies every morning Referrals Referrals: Sb Solano MD [Primary Care Provider] -
[2022-11-18] MEDS ORDERED: SODIUM CHLORIDE 0.9% 1000ML 1,000 ML IV SCH (23:45)
[2022-11-19] MEDS ORDERED: ONDANSETRON INJ 2 MG/ML 2 ML VIAL IV STA (00:17)
[2022-11-19 00:23] LABS: Hematocrit (blood only) 44.3 % (37.0-47.0); Hemoglobin 15.1 g/dl (12.0-16.0); Mean Corpuscular Hemoglobin 29.7 pg (25.0-34.0); Mean Corpuscular Hgb Conc 34.1 g/dL (32.0-36.0); Mean Platelet Volume 8.9 fL (9.4-12.4); Platelet Count 444 K/uL (130-400); RDW Coefficient of Variation 14.9 % (11.5-14.5); RDW Standard Deviation 47.3 fL (36.4-46.3); Red Blood Count 5.09 M/uL (4.20-5.40); White Blood Count 18.06 K/ul (4.8-10.8)
[2022-11-19 00:24] LABS: Alanine Aminotransferase 8 U/L (7-52); Albumin Globulin Ratio 1.1 (0.9-2); Albumin Level 2.8 gm/dl (3.4-5.0); Alkaline Phosphatase 42 U/L (34-104); Anion Gap 7 (3-11); Aspartate Aminotransferase 9 U/L (13-39); BUN Creatinine Ratio 18.5 (10-20); Bilirubin,Total 0.4 mg/dl (0.2-1.0); Blood Urea Nitrogen 12 mg/dl (6-23); Calcium 7.8 mg/dl (8.6-10.3); Carbon Dioxide 26 mmol/L (21-32); Chloride 102 mmol/L (98-107); Est GFR (African American) 104.3 ml/min; Globulin 2.5 gm/dl (2.5-4.0); Glucose 142 mg/dl (70-99(Fasting)); Potassium 3.2 mmol/L (3.5-5.1); Sodium 135 mmol/L (136-145); Total Protein 5.3 gm/dl (6.0-8.3)
[2022-11-19 00:33] LABS: Basophils # (auto) 0.01 K/uL (0-0.2); Basophils % (auto) 0.1 %; Echinocytes 1+; Eosinophils # (auto) 0.23 K/uL (0-0.50); Eosinophils % (auto) 1.3 %; Immature Granulocytes # (auto) 0.24 K/uL (0.01-0.20); Immature Granulocytes % (auto) 1.3 %; Lymphocytes # (auto) 1.95 K/uL (1.2-3.4); Lymphocytes % (auto) 10.8 %; Monocytes # (auto) 2.53 K/uL (0.11-0.59); Neutrophils % (auto) 72.5 %; Polychromasia 1+
[2022-11-19 00:36] LABS: INR 1.1 (0.9-1.1); Partial Thromboplastin Ratio 0.9; Partial Thromboplastin Time 24.6 Seconds (21.0-31.0)
[2022-11-19] MEDS ORDERED: POTASSIUM CHLORIDE CRTAB 20 MEQ TABCR PO STA (00:53)
[2022-11-19] MEDS ORDERED: NSS + 20MEQ KCL 20 MEQ/1,000 ML BAG IV ONE (00:54)
[2022-11-19 01:12] LABS: Magnesium 1.7 mg/dl (1.7-2.4)
[2022-11-19] MEDS ORDERED: methylPREDNISolone 20 MG in SYRINGE 0 ML IV STA (02:44)
[2022-11-19] MEDS ORDERED: methylPREDNISolone 125 MG/2 ML VIAL IV STA (03:05)
--- NOTE | 2022-11-19 03:05 | History & Physical Report ---
Date of Service November 19, 2022 Assessment & Plan (1) IBD (inflammatory bowel disease): Plan: Protracted IBD flare Patient nontoxic. hypertension, BP on the lower side hx COPD, chronic wheezing symptoms as per patient hypothyroidism, euthyroid as of today's TSH anxiety disorder, at baseline Steroid-induced hyperglycemia rule out DM Hypokalemia secondary to diarrhea recurrent admissions rule out functional disability past tobacco abuse OBS Medical telemetry Solu-Medrol clear liquid diet GI consult Re: Protracted IBD flare Hold lisinopril for now given borderline BP Follow H&H, transfuse PRBC if hemoglobin less than 7 and or for symptomatic anemia Check hemoglobin A1c Replace potassium PT OT eval DVT prophylaxis. SCDs Re: L GIB DNR Patient requesting updates from providers. Mr. Ted Evans, contact #[phone]. Text document was generated using I-frontdesk voice recognition software. It may contain grammatical or spelling errors. Kindly contact undersigned for clarification of any documentation item in question. History of Present Illness Chief Complaint: Bloody diarrhea, abdominal pain Primary Care Provider: Sb Solano MD History obtained from patient, family, and records. Medical history significant for ulcerative colitis, hypertension, hyperlipidemia, COPD, hypothyroidism, anxiety disorder, past history of C. difficile, past tobacco abuse Four admissions since August 2022. Last confinement November 14 to 2022 for ulcerative colitis flare. Patient discharged on prednisone taper yesterday. GI specialist coordinating outpatient insurance coverage for [facility] as per outpatient documentation. Patient noted bloody diarrhea after a soup dinner last night. Belly pain not any worse than last admission. Patient denies chest pain or unusual SOB/cough symptoms. Patient brought to ER for evaluation. Medical History as above 2022 colonoscopy showed severe (Castano Score 3) ulcerative colitis, worsened since the last examination. The rectum, rectosigmoid, and beginning of the sigmoid colon were severely ulcerated and bleeding with even minimal scope contact. 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 Allergies Allergy/AdvReac Type Severity Reaction Status Date / Time adhesive tape Allergy Intermediate SKIN Verified 11/19/22 00:20 IRRITATION/TAKES SKIN OFF WHEN TAKEN OFF midazolam Allergy Unknown NOT ON GMG Verified 11/19/22 00:20 OR PT LIST sulfasalazine AdvReac Severe PANCREATITI Verified 11/19/22 00:20 S Home Medications Medication Instructions Recorded Confirmed Type albuterol sulfate 2.5 mg/3 mL 2.5 mg inhalation DIRECTED PRN 09/20/22 11/19/22 History (0.083 %) solution for nebulization Shortness Of Breath Or Wheezing albuterol sulfate 90 mcg/actuation 2 puff inhalation Q4H PRN Wheezing 09/20/22 11/19/22 History aerosol inhaler atenolol 25 mg tablet 25 mg PO QAM 09/20/22 11/19/22 History cetirizine 10 mg tablet (Zyrtec) 10 mg PO HS 09/20/22 11/19/22 History cholecalciferol (vitamin D3) 25 25 mcg PO BID 09/20/22 11/19/22 History mcg (1,000 unit) capsule (Vitamin D3) diclofenac sodium 1 % topical gel 2 g topical QID PRN Pain 09/20/22 11/19/22 History fluticasone propionate 50 2 spray intranasal DAILY PRN 09/20/22 11/19/22 History mcg/actuation nasal Congestion spray,suspension levothyroxine 88 mcg tablet 88 mcg PO QAM 09/20/22 11/19/22 History multivitamin 1 tab PO QAM 09/20/22 11/19/22 History tiotropium bromide 18 mcg capsule 18 mcg inhalation QDL 09/20/22 11/19/22 History with inhalation device (Spiriva with HandiHaler) vitamin E 268 mg (400 unit) capsule 268 mg PO QAM 09/20/22 11/19/22 History fluticasone 250 mcg-salmeterol 50 1 inh inhalation BID 11/02/22 11/19/22 History mcg/dose blistr powdr for inhalation (Advair Diskus) lisinopril 20 mg tablet 20 mg PO QAM 11/02/22 11/19/22 History nicotine 7 mg/24 hr daily 2 patch transdermal DAILY 11/02/22 11/19/22 History transdermal patch famotidine 10 mg tablet (Acid 10 mg PO BID PRN heartburn #30 tabs 11/10/22 11/19/22 Rx Law Instructor (famotidine)) prednisone 10 mg tablet See Taper PO HS 11/19/22 11/19/22 History Past Med/Surg History Medical History Anxiety no meds Aspiration pneumonia hospitalized at [facility] for this in September 2022 > no further issues COPD (chronic obstructive pulmonary disease) uses res inh daily Dysphagia History of COVID-12 Aug 2021 > not hospitalized HLD (hyperlipidemia) HTN (hypertension) Hx of Clostridium difficile infection 8 yrs ago > fecal transplant > resolved Hypothyroidism Meningocele Palpitations no longer Ulcerative colitis Ulcerative colitis hx of 25 yrs ago > possible issue now?? reason for up coming colon/EGD Surgical History History of carpal tunnel surgery bilat History of colonoscopy History of tooth extraction Hx of partial thyroidectomy Hx of tubal ligation S/P fecal transplant Family History Father , 66 Sudden cardiac Mother Bipolar disorder Social History Smoking Status: Former smoker Tobacco Type: Cigarettes packs per day: 0.5; Cigarettes Per Day: 6-8; Second Hand Exposure: No; Do You Dip or Chew Tobacco: No; Hx Alcohol Use: No Hx Substance Use: No Preferred Language: Vietnamese Communication Ability: Effective Merchandise Buyer Required: No Beliefs That Will Affect Care: None Current Living Situation: Spouse Current Living Situation Comment: house Other Information That Helps Us Care for You: No Feels Safe at Home: Yes Safety Concerns: Feels Safe At This Time Assistive Devices: None Review of Systems Review of Systems: As per HPI, all other systems reviewed and negative Physical Exam Physical Exam: GENERAL: Slightly uncomfortable, no respiratory distress SKIN: Normal color, warm HEENT: [place] palpebral conjunctivae, no ptosis, dry buccal mucosa NECK : Supple, no tenderness CHEST : Decreased breath sounds, scattered wheezes right lower lung field, no tenderness HEART : RRR, no obvious murmurs ABDOMEN: Some distention, hypogastric tenderness EXTREMITIES : No LE swelling/tenderness, no other conspicuous deformities noted NEUROLOGIC : Coherent, no facial asymmetry, no other gross focality Results & Data Results & Data Vital Signs (Past 12 Hours) Vital Signs Temp Pulse Pulse Resp BP BP Pulse Ox 11/18/22 23:30 81 11/19/22 01:42 88 20 125/57 L 92 11/18/22 23:39 86 16 115/65 93 11/18/22 23:39 93 11/18/22 23:39 36.8 C 86 16 115/65 93 O2 Del Method 11/18/22 23:30 11/19/22 01:42 Room Air 11/18/22 23:39 Room Air 11/18/22 23:39 Room Air 11/18/22 23:39 Room Air Laboratory Results Laboratory Results WBC 18.06 K/ul (4.8-10.8) H 11/18/22 23:35 RBC 5.09 M/uL (4.20-5.40) 11/18/22 23:35 Hgb 15.1 g/dl (12.0-16.0) 11/18/22 23:35 Hct 44.3 % (37.0-47.0) 11/18/22 23:35 MCV 87.0 fL (80.0-100.0) 11/18/22 23:35 MCH 29.7 pg (25.0-34.0) 11/18/22 23:35 MCHC 34.1 g/dL (32.0-36.0) 11/18/22 23:35 RDW Std Deviation 47.3 fL (36.4-46.3) H 11/18/22 23:35 RDW Coeff of Darryl 14.9 % (11.5-14.5) H 11/18/22 23:35 Plt Count 444 K/uL (130-400) H 11/18/22 23:35 MPV 8.9 fL (9.4-12.4) L 11/18/22 23:35 Immature Gran % (Auto) 1.3 % 11/18/22 23:35 Neut % (Auto) 72.5 % 11/18/22 23:35 Lymph % (Auto) 10.8 % 11/18/22 23:35 [place] % (Auto) 14.0 % 11/18/22 23:35 Eos % (Auto) 1.3 % 11/18/22 23:35 Baso % (Auto) 0.1 % 11/18/22 23:35 Neut # (Auto) 13.10 K/uL (1.40-6.50) H 11/18/22 23:35 Lymph # (Auto) 1.95 K/uL (1.2-3.4) 11/18/22 23:35 [place] # (Auto) 2.53 K/uL (0.11-0.59) H 11/18/22 23:35 Eos # (Auto) 0.23 K/uL (0-0.50) 11/18/22 23:35 Baso # (Auto) 0.01 K/uL (0-0.2) 11/18/22 23:35 Immature Gran # (Auto) 0.24 K/uL (0.01-0.20) H 11/18/22 23:35 Polychromasia 1+ 11/18/22 23:35 Echinocytes 1+ 11/18/22 23:35 PT 12.0 Seconds (9.0-12.0) 11/18/22 23:35 INR 1.1 (0.9-1.1) 11/18/22 23:35 APTT 24.6 Seconds (21.0-31.0) 11/18/22 23:35 PTT Ratio 0.9 11/18/22 23:35 Sodium 135 mmol/L (136-145) L 11/18/22 23:35 Potassium 3.2 mmol/L (3.5-5.1) L 11/18/22 23:35 Chloride 102 mmol/L (98-107) 11/18/22 23:35 Carbon Dioxide 26 mmol/L (21-32) 11/18/22 23:35 Anion Gap 7 (3-11) 11/18/22 23:35 BUN 12 mg/dl (6-23) 11/18/22 23:35 Creatinine 0.65 mg/dl (0.6-1.2) 11/18/22 23:35 Est Cr Clr Drug Dosing Not Reportable 11/18/22 23:35 Est GFR ( Amer) 104.3 ml/min 11/18/22 23:35 Est GFR (Non-Af Amer) 90.0 ml/min 11/18/22 23:35 BUN/Creatinine Ratio 18.5 (10-20) 11/18/22 23:35 Glucose 142 mg/dl (70-99(Fasting)) H 11/18/22 23:35 Calcium 7.8 mg/dl (8.6-10.3) L 11/18/22 23:35 Magnesium 1.7 mg/dl (1.7-2.4) 11/18/22 23:35 Total Bilirubin 0.4 mg/dl (0.2-1.0) 11/18/22 23:35 AST 9 U/L (13-39) L 11/18/22 23:35 ALT 8 U/L (7-52) 11/18/22 23:35 Alkaline Phosphatase 42 U/L (34-104) 11/18/22 23:35 Total Protein 5.3 gm/dl (6.0-8.3) L 11/18/22 23:35 Albumin 2.8 gm/dl (3.4-5.0) L 11/18/22 23:35 Globulin 2.5 gm/dl (2.5-4.0) 11/18/22 23:35 Albumin/Globulin Ratio 1.1 (0.9-2) 11/18/22 23:35 POC Stool Occult Blood Positive (Negative) A 11/19/22 00:15 SARS-CoV-2, RNA, NAAT NEGATIVE (NEGATIVE) 11/18/22 Unknown Blood Type A Positive 11/18/22 23:35 Antibody Screen NEGATIVE 11/18/22 23:35 Diagnostic Findings EKG as per my interpretation : 885, NSR, normal axis, septal infarct, no ischemia
[2022-11-19] MEDS ORDERED: LORazepam 0.5 MG TAB PO PRN (03:10)
[2022-11-19] MEDS ORDERED: MoRPHine SULFATE 2 MG/ML CARP IV PRN (03:10)
[2022-11-19] MEDS ORDERED: FLUTICASONE PROPIONATE NA SPR 16 GM BTL PRN (04:09)
[2022-11-19] MEDS ORDERED: methylPREDNISolone 20 MG in SYRINGE 0 ML IV SCH (05:00)
[2022-11-19] MEDS: methylPREDNISolone 20 MG in SYRINGE 0 ML IV SCH ×3 (05:27→20:25)
[2022-11-19] MEDS: LEVOTHYROXINE SODIUM 88 MCG TABLET PO SCH (05:27)
[2022-11-19 05:55] LABS: Hematocrit (blood only) 40.7 % (37.0-47.0); Hemoglobin 13.8 g/dl (12.0-16.0); Mean Corpuscular Hemoglobin 29.4 pg (25.0-34.0); Mean Corpuscular Hgb Conc 33.9 g/dL (32.0-36.0); Mean Corpuscular Volume 86.6 fL (80.0-100.0); Mean Platelet Volume 8.7 fL (9.4-12.4); Platelet Count 406 K/uL (130-400); RDW Standard Deviation 47.5 fL (36.4-46.3); White Blood Count 15.22 K/ul (4.8-10.8)
[2022-11-19 06:05] LABS: Anion Gap 5 (3-11); BUN Creatinine Ratio 19.6 (10-20); Blood Urea Nitrogen 11 mg/dl (6-23); Calcium 7.4 mg/dl (8.6-10.3); Carbon Dioxide 26 mmol/L (21-32); Chloride 105 mmol/L (98-107); Est GFR (African American) 109.5 ml/min; Est GFR (Non-African American) 94.5 ml/min; Glucose 104 mg/dl (70-99(Fasting)); Sodium 136 mmol/L (136-145)
[2022-11-19 06:21] LABS: Basophils # (auto) 0.13 K/uL (0-0.2); Basophils % (auto) 0.9 %; Eosinophils # (auto) 0.15 K/uL (0-0.50); Immature Granulocytes # (auto) 0.22 K/uL (0.01-0.20); Immature Granulocytes % (auto) 1.4 %; Lymphocytes # (auto) 1.91 K/uL (1.2-3.4); Lymphocytes % (auto) 12.5 %; Monocytes # (auto) 2.07 K/uL (0.11-0.59); Monocytes % (auto) 13.6 %; Neutrophils # (auto) 10.74 K/uL (1.40-6.50); Neutrophils % (auto) 70.6 %; Polychromasia 1+
[2022-11-19] MEDS: ATENOLOL 25 MG TABLET PO SCH (08:48)
[2022-11-19] MEDS: FLUTICASONE/VILANTEROL 200/25MCG 14 PUFFS/INHALER INH SCH (08:50)
[2022-11-19] MEDS: MULTIVITAMIN TAB PO SCH (08:50)
[2022-11-19] MEDS ORDERED: lisinopril 20 MG TAB PO SCH (09:00)
--- NOTE | 2022-11-19 10:32 | Gastroenterology Progress Note ---
Date of Service November 19, 2022 Assessment & Plan (1) IBD (inflammatory bowel disease): Plan: Agree with continuing IV steroids. Will have Bisi see tomorrow to decide about starting biologic therapy. She understands that she will be taking remicade. Admission and Anticipated Discharge Date Admission Date: November 19, 2022 Subjective discharged yesterday and immediately returned after having had a bloody bowel movement and feeling "buzzy". Not really different from yesterday before discharge. Physical Exam Physical Exam: She looks well Results & Data Vital Signs (Past 12 Hours) Vital Signs Temp Pulse Pulse Resp BP BP Pulse Ox 11/19/22 10:00 83 11/19/22 10:00 11/19/22 07:39 36.8 C 86 20 98/52 L 94 11/19/22 03:55 90 11/19/22 04:09 36.7 C 84 16 96/53 L 91 11/19/22 04:11 11/19/22 03:57 36.8 C 87 18 105/49 L 92 11/19/22 03:07 88 20 105/53 L 90 11/18/22 23:30 81 11/19/22 01:42 88 20 125/57 L 92 11/18/22 23:39 86 16 115/65 93 11/18/22 23:39 93 11/18/22 23:39 36.8 C 86 16 115/65 93 O2 Del Method 11/19/22 10:00 11/19/22 10:00 Room Air 11/19/22 07:39 Room Air 11/19/22 03:55 11/19/22 04:09 Room Air 11/19/22 04:11 Room Air 11/19/22 03:57 Room Air 11/19/22 03:07 Room Air 11/18/22 23:30 11/19/22 01:42 Room Air 11/18/22 23:39 Room Air 11/18/22 23:39 Room Air 11/18/22 23:39 Room Air
--- NOTE | 2022-11-19 10:48 | Electrocardiogram Report ---
Test Reason : Blood Pressure : / mmHG Vent. Rate : 084 BPM Atrial Rate : 084 BPM P-R Int : 132 ms QRS Dur : 076 ms QT Int : 360 ms P-R-T Axes : 076 -02 048 degrees QTc Int : 425 ms Normal sinus rhythm Possible Left atrial enlargement RSR' or QR pattern in V1 suggests right ventricular conduction delay Abnormal ECG When compared with ECG of 13-NOV-2022 23:30, No significant change was found Confirmed by Dieter Robert ([id number]) on 11/19/2022 10:48:09 AM Referred By: REFERRED SELF Confirmed By:Dieter Robert
[2022-11-19] MEDS: UMECLIDINIUM BROMIDE 62.5MCG/BLISTER 7 PUFFS/INHALER INH SCH (11:31)
--- NOTE | 2022-11-19 12:19 | Hospitalist Progress Note ---
Date of Service November 19, 2022 Assessment & Plan (1) IBD (inflammatory bowel disease): Plan: 1) Ulcerative Colitis flare: Rectal bleeding secondary to above This is patient's third admission in the last 2 weeks due to ulcerative colitis flare Patient came back on the same day due to rectal bleeding and diarrhea after dinner. Patient was treated with IV methylprednisolone last admission. She was discharged on 60 mg of prednisone as per recommendation by GI Endoscopy on 11/07/22:Z-line regular, 35 cm from the incisors. Large hiatal hernia with a akash erosion with some scattered hematin the hernia sac. Normal stomach. Normal duodenal bulb and second portion of the duodenum. No specimens collected. Colonoscopy on 11/07/22::Severe (Castano Score 3) ulcerative colitis, worsened since the last examination. The rectum, rectosigmoid,and beginning of the sigmoid colon were severely ulcerated and bleeding with even minimal scope contact. The rectosigmoid was severely narrowed due toinflammation and the scope had to be downsized to the ultrathin scope with inability to pass this area due to ulceration. As the colon was extremely friable and bleeding with any contact the decision was made to abort and admit the patient to the hospital for IV steroids and ongoing care. No specimens collected. CT abdomen pelvis on 11/14/22:There is moderate to severe transverse colitis. There is a pulmonary parenchymal consolidation at the right lung base which is concerning for underlying infection. will restart back on IV methylprednisolone 20 mg 3 times daily. Appreciate GIs input Obtain CRP/ESR Plan is to start Biologics as outpatient. Patient wants to be started on Humira. COPD: Uses rescue inhaler and Fluticasone; continue Advair No supplemental O2 at home HTN: Continue Atenolol and Lisinopril Hypothyroidism: Continue Levothyroxine H/O C-Diff: Had fecal transplant 8years ago Stool studies Negative DVT Px: SCDs for now Re: Rectal Bleed Code Status Full Code Admission and Anticipated Discharge Date Admission Date: November 19, 2022 Subjective Patient seen and examined at bedside. She denies any abdominal pain. Comfortable. No diarrhea in AM. Review of Systems Review of Systems: All systems reviewed & are unremarkable except as noted in Subjective Physical Exam Physical Exam: General Appearance: Alert orient x3. Head: normocephalic, Atraumatic Eyes: normal inspection, EOMI Neck: supple, Trachea midline Respiratory/Chest: Normal breath sounds, CTA, No accessory muscle use Cardiovascular: S1, S2, No murmur Abdomen/GI:Soft, Non tender, Bowel sounds present Extremities/Musculoskeletal:normal inspection, no edema Neurologic/Psych:AAOX3, grossly no focal neurological deficits Skin: normal color, warm Results & Data Results & Data Vital Signs (Past 12 Hours) Vital Signs Temp Pulse Pulse Resp BP Pulse Ox O2 Del Method 11/19/22 12:04 36.8 C 87 17 121/63 92 Room Air 11/19/22 10:00 83 11/19/22 10:00 Room Air 11/19/22 07:39 36.8 C 86 20 98/52 L 94 Room Air 11/19/22 03:55 90 11/19/22 04:09 36.7 C 84 16 96/53 L 91 Room Air 11/19/22 04:11 Room Air 11/19/22 03:57 36.8 C 87 18 105/49 L 92 Room Air 11/19/22 03:07 88 20 105/53 L 90 Room Air 11/19/22 01:42 88 20 125/57 L 92 Room Air Laboratory Results Laboratory Results WBC 15.22 K/ul (4.8-10.8) H 11/19/22 05:34 RBC 4.70 M/uL (4.20-5.40) 11/19/22 05:34 Hgb 13.8 g/dl (12.0-16.0) 11/19/22 05:34 Hct 40.7 % (37.0-47.0) 11/19/22 05:34 MCV 86.6 fL (80.0-100.0) 11/19/22 05:34 MCH 29.4 pg (25.0-34.0) 11/19/22 05:34 MCHC 33.9 g/dL (32.0-36.0) 11/19/22 05:34 RDW Std Deviation 47.5 fL (36.4-46.3) H 11/19/22 05:34 RDW Coeff of Darryl 15.0 % (11.5-14.5) H 11/19/22 05:34 Plt Count 406 K/uL (130-400) H 11/19/22 05:34 MPV 8.7 fL (9.4-12.4) L 11/19/22 05:34 Immature Gran % (Auto) 1.4 % 11/19/22 05:34 Neut % (Auto) 70.6 % 11/19/22 05:34 Lymph % (Auto) 12.5 % 11/19/22 05:34 [place] % (Auto) 13.6 % 11/19/22 05:34 Eos % (Auto) 1.0 % 11/19/22 05:34 Baso % (Auto) 0.9 % 11/19/22 05:34 Neut # (Auto) 10.74 K/uL (1.40-6.50) H 11/19/22 05:34 Lymph # (Auto) 1.91 K/uL (1.2-3.4) 11/19/22 05:34 [place] # (Auto) 2.07 K/uL (0.11-0.59) H 11/19/22 05:34 Eos # (Auto) 0.15 K/uL (0-0.50) 11/19/22 05:34 Baso # (Auto) 0.13 K/uL (0-0.2) 11/19/22 05:34 Immature Gran # (Auto) 0.22 K/uL (0.01-0.20) H 11/19/22 05:34 Polychromasia 1+ 11/19/22 05:34 Echinocytes 1+ 11/18/22 23:35 PT 12.0 Seconds (9.0-12.0) 11/18/22 23:35 INR 1.1 (0.9-1.1) 11/18/22 23:35 APTT 24.6 Seconds (21.0-31.0) 11/18/22 23:35 PTT Ratio 0.9 11/18/22 23:35 Sodium 136 mmol/L (136-145) 11/19/22 05:34 Potassium 4.0 mmol/L (3.5-5.1) D 11/19/22 05:34 Chloride 105 mmol/L (98-107) 11/19/22 05:34 Carbon Dioxide 26 mmol/L (21-32) 11/19/22 05:34 Anion Gap 5 (3-11) 11/19/22 05:34 BUN 11 mg/dl (6-23) 11/19/22 05:34 Creatinine 0.56 mg/dl (0.6-1.2) L 11/19/22 05:34 Est Cr Clr Drug Dosing Not Reportable 11/19/22 05:34 Est GFR ( Amer) 109.5 ml/min 11/19/22 05:34 Est GFR (Non-Af Amer) 94.5 ml/min 11/19/22 05:34 BUN/Creatinine Ratio 19.6 (10-20) 11/19/22 05:34 Glucose 104 mg/dl (70-99(Fasting)) H 11/19/22 05:34 Lactate 1.7 mmol/L (0.4-2.0) 11/19/22 05:34 Calcium 7.4 mg/dl (8.6-10.3) L 11/19/22 05:34 Magnesium 1.7 mg/dl (1.7-2.4) 11/18/22 23:35 Total Bilirubin 0.4 mg/dl (0.2-1.0) 11/18/22 23:35 AST 9 U/L (13-39) L 11/18/22 23:35 ALT 8 U/L (7-52) 11/18/22 23:35 Alkaline Phosphatase 42 U/L (34-104) 11/18/22 23:35 Total Protein 5.3 gm/dl (6.0-8.3) L 11/18/22 23:35 Albumin 2.8 gm/dl (3.4-5.0) L 11/18/22 23:35 Globulin 2.5 gm/dl (2.5-4.0) 11/18/22 23:35 Albumin/Globulin Ratio 1.1 (0.9-2) 11/18/22 23:35 Procalcitonin 0.05 ng/ml (0-0.5) 11/18/22 23:35 TSH 3.087 uIu/ml (0.300-4.500) 11/18/22 23:35 POC Stool Occult Blood Positive (Negative) A 11/19/22 00:15 SARS-CoV-2, RNA, NAAT NEGATIVE (NEGATIVE) 11/18/22 Unknown Blood Type A Positive 11/18/22 23:35 Antibody Screen NEGATIVE 11/18/22 23:35
[2022-11-19] MEDS: FAMOTIDINE 10 MG TABLET PO PRN ×2 (12:36→20:24)
[2022-11-19 15:18] LABS: Appearance Urine Clear (Clear); Bilirubin Urine Negative (Negative); Blood Urine Negative (Negative); Color Urine Yellow; Glucose Urine UA Negative (Negative); Ketones Urine Negative (Negative); Leukocyte Esterase Urine Negative (Negative); Nitrite Urine Negative (Negative); Protein Urine Negative (Negative); Specific Gravity Urine 1.015 (1.000-1.030); Urobilinogen Urine Negative (Negative); pH Urine 6.5 (4.5-7.5)
[2022-11-19] MEDS: CETIRIZINE HCL 10 MG TABLET PO SCH (20:24)
[2022-11-20] MEDS: LEVOTHYROXINE SODIUM 88 MCG TABLET PO SCH (05:42)
[2022-11-20] MEDS: methylPREDNISolone 20 MG in SYRINGE 0 ML IV SCH ×3 (05:42→20:06)
[2022-11-20] MEDS: ATENOLOL 25 MG TABLET PO SCH (07:19)
[2022-11-20] MEDS: MULTIVITAMIN TAB PO SCH (07:19)
[2022-11-20] MEDS: FLUTICASONE/VILANTEROL 200/25MCG 14 PUFFS/INHALER INH SCH (07:20)
[2022-11-20 08:34] LABS: Hemoglobin 13.8 g/dl (12.0-16.0); Mean Corpuscular Hemoglobin 29.6 pg (25.0-34.0); Mean Corpuscular Hgb Conc 34.5 g/dL (32.0-36.0); Mean Corpuscular Volume 85.8 fL (80.0-100.0); Mean Platelet Volume 8.9 fL (9.4-12.4); Platelet Count 414 K/uL (130-400); RDW Coefficient of Variation 15.2 % (11.5-14.5); RDW Standard Deviation 47.3 fL (36.4-46.3); Red Blood Count 4.66 M/uL (4.20-5.40); White Blood Count 14.28 K/ul (4.8-10.8)
[2022-11-20 08:35] LABS: Basophils # (auto) 0.03 K/uL (0-0.2); Basophils % (auto) 0.2 %; Echinocytes 1+; Eosinophils # (auto) 0.03 K/uL (0-0.50); Eosinophils % (auto) 0.2 %; Hypogranular Neutrophils 1+; Immature Granulocytes # (auto) 0.12 K/uL (0.01-0.20); Immature Granulocytes % (auto) 0.8 %; Lymphocytes # (auto) 0.89 K/uL (1.2-3.4); Lymphocytes % (auto) 6.2 %; Monocytes # (auto) 1.48 K/uL (0.11-0.59); Monocytes % (auto) 10.4 %; Neutrophils # (auto) 11.73 K/uL (1.40-6.50); Neutrophils % (auto) 82.2 %; Toxic Granulation 1+
--- NOTE | 2022-11-20 10:04 | Gastroenterology Progress Note ---
Date of Service November 20, 2022 Assessment & Plan (1) IBD (inflammatory bowel disease): Plan: 71 y/o female with history of ulcerative colitis. It seems recently she's had severe symptoms prompting hospitalizations and was just DC'd on 11/18 with prompt return to the hospital the same day due to ongoing symptoms of rectal bleeding. Currently seems somewhat improved, to the point that she's not having rectal bleeding and is tolerating a solid food diet. On exam, abd soft, nontender. - The team from last week was working with our outpt pharmacy team to get her approved for a biologic. Humira was discussed but unfortunately is quite expensive for this pt and an alternative such as Remicade (i.e. biosimilar) would probably be a better option - Will touch base with the outpt pharmacy team to make sure biosimilar to Remicade will be feasible and if so, will touch base with inpt pharmacist here to attempt to get her her first infusion dose as an inpt (at 5 mg/kg, week 0), then will need subsequent doses at 2 and 6 weeks, followed by every 8 weeks thereafter. - In the mean time continue IV steroids, supportive care - Would follow low-residue diet as here severe inflammation will take time to improve - Will make sure her Hep B and quant Gold studies are completed Thank you for allowing us to participate in the care of this patient. Please call with any acute changes, questions or concerns. Please see addendum below with additional recommendation from my supervising physician. (2) Lower gastrointestinal hemorrhage: Admission and Anticipated Discharge Date Admission Date: November 19, 2022 Supervising Physician Co-Signing Physician Notes I saw and evaluted the patient, she was previously seen by our group during a recent admission and was to be started on Humira, unfortunatly the cost of the medicaiton with her insurance plan will be quite high, therefore we are working to see if Remicade or a Biosimilar may be an option. Subjective Patient seen and examined, chart reviewed. No acute events overnight. She is tolerating solid food; was given eggs and whole wheat toast. Stools are still liquid but have begun to change from bloody to more brown. No abd pain, n/v, melena, fever, chills today. Review of Systems Review of Systems: All systems reviewed & are unremarkable except as noted in HPI & below Physical Exam Constitutional: well developed, well nourished and comfortable; no acute distress Eyes: Sclera anicteric, no conjunctival injection ENMT: moist mucous membranes, no pallor Neck: trachea midline supple Respiratory: normal respiratory effort, lungs clear to auscultation Cardiovascular: RRR, no murmur, no edema Gastrointestinal (Abdomen): normal bowel sounds, soft, nontender, no hepatosplenomegaly Inspection/Auscultation: abdomen not distended Skin: no rashes, warm and dry Neurologic: alert and oriented x 3, no obvious focal neuro deficit Psychiatric: normal mood and affect Results & Data Vital Signs (Past 12 Hours) Vital Signs Temp Pulse Resp BP Pulse Ox O2 Del Method 11/20/22 07:15 Room Air 11/20/22 07:34 36.6 C 86 16 113/61 94 Room Air Laboratory Results 11/20/22 11/19/22 11/19/22 Range/Units 07:40 14:42 12:18 WBC 14.28 H (4.8-10.8) K/ul RBC 4.66 (4.20-5.40) M/uL Hgb 13.8 (12.0-16.0) g/dl Hct 40.0 (37.0-47.0) % MCV 85.8 (80.0-100.0) fL MCH 29.6 (25.0-34.0) pg MCHC 34.5 (32.0-36.0) g/dL RDW Std Deviation 47.3 H (36.4-46.3) fL RDW Coeff of Darryl 15.2 H (11.5-14.5) % Plt Count 414 H (130-400) K/uL MPV 8.9 L (9.4-12.4) fL Immature Gran % (Auto) 0.8 % Neut % (Auto) 82.2 % Lymph % (Auto) 6.2 % [place] % (Auto) 10.4 % Eos % (Auto) 0.2 % Baso % (Auto) 0.2 % Neut # (Auto) 11.73 H (1.40-6.50) K/uL Lymph # (Auto) 0.89 L (1.2-3.4) K/uL [place] # (Auto) 1.48 H (0.11-0.59) K/uL Eos # (Auto) 0.03 (0-0.50) K/uL Baso # (Auto) 0.03 (0-0.2) K/uL Immature Gran # (Auto) 0.12 (0.01-0.20) K/uL Hypogranular Neuts 1+ Toxic Granulation 1+ Echinocytes 1+ ESR (0-30) mm/hr C-Reactive Protein (0-0.5) mg/dl Urine Color Yellow Urine Appearance Clear (Clear) Urine pH 6.5 (4.5-7.5) Ur Specific [place] 1.015 (1.000-1.030) Urine Protein Negative (Negative) Urine Glucose (UA) Negative (Negative) Urine Ketones Negative (Negative) Urine Blood Negative (Negative) Urine Nitrite Negative (Negative) Urine Bilirubin Negative (Negative) Urine Urobilinogen Negative (Negative) Ur Leukocyte Esterase Negative (Negative) Stl C. diff Tox B Gene Negative Cdiff Gene (Neg) 11/19/22 11/19/22 Range/Units 11:59 11:59 WBC (4.8-10.8) K/ul RBC (4.20-5.40) M/uL Hgb (12.0-16.0) g/dl Hct (37.0-47.0) % MCV (80.0-100.0) fL MCH (25.0-34.0) pg MCHC (32.0-36.0) g/dL RDW Std Deviation (36.4-46.3) fL RDW Coeff of Darryl (11.5-14.5) % Plt Count (130-400) K/uL MPV (9.4-12.4) fL Immature Gran % (Auto) % Neut % (Auto) % Lymph % (Auto) % [place] % (Auto) % Eos % (Auto) % Baso % (Auto) % Neut # (Auto) (1.40-6.50) K/uL Lymph # (Auto) (1.2-3.4) K/uL [place] # (Auto) (0.11-0.59) K/uL Eos # (Auto) (0-0.50) K/uL Baso # (Auto) (0-0.2) K/uL Immature Gran # (Auto) (0.01-0.20) K/uL Hypogranular Neuts Toxic Granulation Echinocytes ESR 25 (0-30) mm/hr C-Reactive Protein 12.43 H (0-0.5) mg/dl Urine Color Urine Appearance (Clear) Urine pH (4.5-7.5) Ur Specific [place] (1.000-1.030) Urine Protein (Negative) Urine Glucose (UA) (Negative) Urine Ketones (Negative) Urine Blood (Negative) Urine Nitrite (Negative) Urine Bilirubin (Negative) Urine Urobilinogen (Negative) Ur Leukocyte Esterase (Negative) Stl C. diff Tox B Gene (Neg)
[2022-11-20] MEDS: UMECLIDINIUM BROMIDE 62.5MCG/BLISTER 7 PUFFS/INHALER INH SCH (11:47)
--- NOTE | 2022-11-20 16:51 | Hospitalist Progress Note ---
Date of Service November 20, 2022 Assessment & Plan (1) IBD (inflammatory bowel disease): Plan: 1) Ulcerative Colitis flare: Rectal bleeding secondary to above This is patient's third admission in the last 2 weeks due to ulcerative colitis flare Patient came back on the same day due to rectal bleeding and diarrhea after dinner. Patient was treated with IV methylprednisolone last admission. She was discharged on 60 mg of prednisone as per recommendation by GI Endoscopy on 11/07/22:Z-line regular, 35 cm from the incisors. Large hiatal hernia with a akash erosion with some scattered hematin the hernia sac. Normal stomach. Normal duodenal bulb and second portion of the duodenum. No specimens collected. Colonoscopy on 11/07/22::Severe (Castano Score 3) ulcerative colitis, worsened since the last examination. The rectum, rectosigmoid,and beginning of the sigmoid colon were severely ulcerated and bleeding with even minimal scope contact. The rectosigmoid was severely narrowed due toinflammation and the scope had to be downsized to the ultrathin scope with inability to pass this area due to ulceration. As the colon was extremely friable and bleeding with any contact the decision was made to abort and admit the patient to the hospital for IV steroids and ongoing care. No specimens collected. CT abdomen pelvis on 11/14/22:There is moderate to severe transverse colitis. There is a pulmonary parenchymal consolidation at the right lung base which is concerning for underlying infection. will restart back on IV methylprednisolone 20 mg 3 times daily. Discussed with GI; GI recommends IV methylprednisolone for now. Plan to give first dose of Biologics inpatient. GI working with pharmacy to arrange for nonformulary drug. COPD: Uses rescue inhaler and Fluticasone; continue Advair No supplemental O2 at home HTN: Continue Atenolol and Lisinopril Hypothyroidism: Continue Levothyroxine H/O C-Diff: Had fecal transplant 8years ago Stool studies Negative DVT Px: SCDs for now Re: Rectal Bleed Code Status Full Code Admission and Anticipated Discharge Date Admission Date: November 19, 2022 Subjective Patient reports that she had multiple bowel movement overnight. Denies any abdominal pain. Review of Systems Review of Systems: All systems reviewed & are unremarkable except as noted in Subjective Physical Exam Physical Exam: General Appearance: Alert orient x3. Head: normocephalic, Atraumatic Eyes: normal inspection, EOMI Neck: supple, Trachea midline Respiratory/Chest: Normal breath sounds, CTA, No accessory muscle use Cardiovascular: S1, S2, No murmur Abdomen/GI:Soft, Non tender, Bowel sounds present Extremities/Musculoskeletal:normal inspection, no edema Neurologic/Psych:AAOX3, grossly no focal neurological deficits Skin: normal color, warm Results & Data Results & Data Vital Signs (Past 12 Hours) Vital Signs Temp Pulse Resp BP Pulse Ox O2 Del Method 11/20/22 15:07 36.8 C 80 16 116/65 92 Room Air 11/20/22 07:15 Room Air 11/20/22 07:34 36.6 C 86 16 113/61 94 Room Air Laboratory Results Laboratory Results WBC 14.28 K/ul (4.8-10.8) H 11/20/22 07:40 RBC 4.66 M/uL (4.20-5.40) 11/20/22 07:40 Hgb 13.8 g/dl (12.0-16.0) 11/20/22 07:40 Hct 40.0 % (37.0-47.0) 11/20/22 07:40 MCV 85.8 fL (80.0-100.0) 11/20/22 07:40 MCH 29.6 pg (25.0-34.0) 11/20/22 07:40 MCHC 34.5 g/dL (32.0-36.0) 11/20/22 07:40 RDW Std Deviation 47.3 fL (36.4-46.3) H 11/20/22 07:40 RDW Coeff of Darryl 15.2 % (11.5-14.5) H 11/20/22 07:40 Plt Count 414 K/uL (130-400) H 11/20/22 07:40 MPV 8.9 fL (9.4-12.4) L 11/20/22 07:40 Immature Gran % (Auto) 0.8 % 11/20/22 07:40 Neut % (Auto) 82.2 % 11/20/22 07:40 Lymph % (Auto) 6.2 % 11/20/22 07:40 [place] % (Auto) 10.4 % 11/20/22 07:40 Eos % (Auto) 0.2 % 11/20/22 07:40 Baso % (Auto) 0.2 % 11/20/22 07:40 Neut # (Auto) 11.73 K/uL (1.40-6.50) H 11/20/22 07:40 Lymph # (Auto) 0.89 K/uL (1.2-3.4) L 11/20/22 07:40 [place] # (Auto) 1.48 K/uL (0.11-0.59) H 11/20/22 07:40 Eos # (Auto) 0.03 K/uL (0-0.50) 11/20/22 07:40 Baso # (Auto) 0.03 K/uL (0-0.2) 11/20/22 07:40 Immature Gran # (Auto) 0.12 K/uL (0.01-0.20) 11/20/22 07:40 Hypogranular Neuts 1+ 11/20/22 07:40 Toxic Granulation 1+ 11/20/22 07:40 Polychromasia 1+ 11/19/22 05:34 Echinocytes 1+ 11/20/22 07:40 ESR 25 mm/hr (0-30) 11/19/22 11:59 PT 12.0 Seconds (9.0-12.0) 11/18/22 23:35 INR 1.1 (0.9-1.1) 11/18/22 23:35 APTT 24.6 Seconds (21.0-31.0) 11/18/22 23:35 PTT Ratio 0.9 11/18/22 23:35 Sodium 136 mmol/L (136-145) 11/19/22 05:34 Potassium 4.0 mmol/L (3.5-5.1) D 11/19/22 05:34 Chloride 105 mmol/L (98-107) 11/19/22 05:34 Carbon Dioxide 26 mmol/L (21-32) 11/19/22 05:34 Anion Gap 5 (3-11) 11/19/22 05:34 BUN 11 mg/dl (6-23) 11/19/22 05:34 Creatinine 0.56 mg/dl (0.6-1.2) L 11/19/22 05:34 Est Cr Clr Drug Dosing Not Reportable 11/19/22 05:34 Est GFR ( Amer) 109.5 ml/min 11/19/22 05:34 Est GFR (Non-Af Amer) 94.5 ml/min 11/19/22 05:34 BUN/Creatinine Ratio 19.6 (10-20) 11/19/22 05:34 Glucose 104 mg/dl (70-99(Fasting)) H 11/19/22 05:34 Lactate 1.7 mmol/L (0.4-2.0) 11/19/22 05:34 Calcium 7.4 mg/dl (8.6-10.3) L 11/19/22 05:34 Magnesium 1.7 mg/dl (1.7-2.4) 11/18/22 23:35 Total Bilirubin 0.4 mg/dl (0.2-1.0) 11/18/22 23:35 AST 9 U/L (13-39) L 11/18/22 23:35 ALT 8 U/L (7-52) 11/18/22 23:35 Alkaline Phosphatase 42 U/L (34-104) 11/18/22 23:35 C-Reactive Protein 12.43 mg/dl (0-0.5) H 11/19/22 11:59 Total Protein 5.3 gm/dl (6.0-8.3) L 11/18/22 23:35 Albumin 2.8 gm/dl (3.4-5.0) L 11/18/22 23:35 Globulin 2.5 gm/dl (2.5-4.0) 11/18/22 23:35 Albumin/Globulin Ratio 1.1 (0.9-2) 11/18/22 23:35 Procalcitonin 0.05 ng/ml (0-0.5) 11/18/22 23:35 TSH 3.087 uIu/ml (0.300-4.500) 11/18/22 23:35 Urine Color Yellow 11/19/22 14:42 Urine Appearance Clear (Clear) 11/19/22 14:42 Urine pH 6.5 (4.5-7.5) 11/19/22 14:42 Ur Specific Gore 1.015 (1.000-1.030) 11/19/22 14:42 Urine Protein Negative (Negative) 11/19/22 14:42 Urine Glucose (UA) Negative (Negative) 11/19/22 14:42 Urine Ketones Negative (Negative) 11/19/22 14:42 Urine Blood Negative (Negative) 11/19/22 14:42 Urine Nitrite Negative (Negative) 11/19/22 14:42 Urine Bilirubin Negative (Negative) 11/19/22 14:42 Urine Urobilinogen Negative (Negative) 11/19/22 14:42 Ur Leukocyte Esterase Negative (Negative) 11/19/22 14:42 POC Stool Occult Blood Positive (Negative) A 11/19/22 00:15 Stl C. diff Tox B Gene Negative Cdiff Gene (Neg) 11/19/22 12:18 SARS-CoV-2, RNA, NAAT NEGATIVE (NEGATIVE) 11/18/22 Unknown Blood Type A Positive 11/18/22 23:35 Antibody Screen NEGATIVE 11/18/22 23:35
[2022-11-20] MEDS: CETIRIZINE HCL 10 MG TABLET PO SCH (20:05)
[2022-11-20] MEDS: FAMOTIDINE 10 MG TABLET PO PRN (20:06)
[2022-11-20] MEDS: MELATONIN 3 MG TAB PO PRN (22:36)
[2022-11-21] MEDS: LEVOTHYROXINE SODIUM 88 MCG TABLET PO SCH (06:13)
[2022-11-21] MEDS: methylPREDNISolone 20 MG in SYRINGE 0 ML IV SCH (06:13)
[2022-11-21] MEDS: MULTIVITAMIN TAB PO SCH (07:32)
[2022-11-21] MEDS: FLUTICASONE/VILANTEROL 200/25MCG 14 PUFFS/INHALER INH SCH (07:33)
[2022-11-21] MEDS: ATENOLOL 25 MG TABLET PO SCH (07:33)
[2022-11-21 09:01] LABS: Basophils # (auto) 0.01 K/uL (0-0.2); Basophils % (auto) 0.1 %; Eosinophils # (auto) 0.02 K/uL (0-0.50); Eosinophils % (auto) 0.1 %; Hematocrit (blood only) 41.7 % (37.0-47.0); Hemoglobin 14.5 g/dl (12.0-16.0); Immature Granulocytes # (auto) 0.13 K/uL (0.01-0.20); Immature Granulocytes % (auto) 0.9 %; Lymphocytes % (auto) 5.3 %; Mean Corpuscular Hemoglobin 29.2 pg (25.0-34.0); Mean Corpuscular Hgb Conc 34.8 g/dL (32.0-36.0); Mean Corpuscular Volume 84.1 fL (80.0-100.0); Mean Platelet Volume 8.8 fL (9.4-12.4); Monocytes % (auto) 11.3 %; Neutrophils # (auto) 12.34 K/uL (1.40-6.50); Neutrophils % (auto) 82.3 %; Platelet Count 480 K/uL (130-400); RDW Coefficient of Variation 14.9 % (11.5-14.5); RDW Standard Deviation 45.9 fL (36.4-46.3); Red Blood Count 4.96 M/uL (4.20-5.40)
[2022-11-21 09:02] LABS: Calcium 8.5 mg/dl (8.6-10.3); Magnesium 1.9 mg/dl (1.7-2.4); Potassium 3.9 mmol/L (3.5-5.1)
[2022-11-21 09:08] LABS: BUN Creatinine Ratio 22.2 (10-20); Creatinine Clr Calc Pharmacy 100.5 ml/min; Est GFR (African American) 117.7 ml/min; Est GFR (Non-African American) 101.5 ml/min
--- NOTE | 2022-11-21 10:06 | Gastroenterology Progress Note ---
Date of Service November 21, 2022 Assessment & Plan (1) IBD (inflammatory bowel disease): Plan: 71 y/o female with history of severe refractory ulcerative colitis. This is her 3rd hospitalization this month for the same. She has not improved despite IV steroids since most recent readmission 11/19. Labs are stable. - As she has failed IV steroids and has ongoing symptoms she should be escalated to biologic therapy and we are planning on starting her on infliximab (IFX, biosimilar to Remicade such as Avsola). Humira was also considered but the cost would have been too high for the pt - Our outpt pharmacy team is working to get her approved for IFX - Given her ongoing symptoms, would recommend first dose be given as an inpt (at 5 mg/kg, week 0), then will need subsequent doses at 2 and 6 weeks, followed by every 8 weeks thereafter. - In the mean time will try increasing dose of IV steroids to 40 mg TID and add Rowasa enemas BID today - Check repeat C diff and also add CMV studies - Would follow low-residue diet as here severe inflammation will take time to improve; high-protein diet encouraged - Hep B and quant Gold studies were completed; they were neg - Monitor and document GI output - I have discussed this with intpt pharmacist, outpt pharmacist, GI attending and hospital attending Thank you for allowing us to participate in the care of this patient. Please call with any acute changes, questions or concerns. Please see addendum below with additional recommendation from my supervising physician. (2) Lower gastrointestinal hemorrhage: Admission and Anticipated Discharge Date Admission Date: November 19, 2022 Supervising Physician Co-Signing Physician Notes I saw and evaluated the patient. Unfortunately she does not significant improvement over the last 24 hours. Given this we will have the dose of her steroid increased to 40 mg 3 times daily, begin Rowasa enemas twice daily and await initiation of Remicade therapy. Should the patient not improve in the next 48-70 she may need a repeat colonoscopy with biopsy and perhaps even a referral to tertiary care center with inflammatory bowel disease subspecialty expertise. We are also recommending a repeat C. difficile PCR and screening study for CMV. Subjective Patient seen and examined, chart reviewed. Since early this AM around 4 AM pt has had at least 4 bloody BMs along with abd cramping. She tells me she has lost 3 lbs. She is tolerating low fiber diet; doesn't eat all of it but eats what she can. She is tearful; feeling down; was hoping to be much more improved than she is. No vomiting, nausea, fever, chills, CP, SOB. Review of Systems Review of Systems: All systems reviewed & are unremarkable except as noted in HPI & below Physical Exam Constitutional: well-developed, NAD. + Thin Eyes: Sclera anicteric ENMT: external ear and nose normal, oropharynx normal Respiratory: No resp distress Skin: no rashes, warm and dry Neurologic: AAOx 3 Psychiatric: Tearful Results & Data Vital Signs (Past 12 Hours) Vital Signs Temp Pulse Resp BP Pulse Ox O2 Del Method 11/21/22 07:26 36.4 C L 77 16 125/76 92 Room Air Laboratory Results 11/21/22 11/21/22 Range/Units 08:08 08:08 WBC 15.00 H (4.8-10.8) K/ul RBC 4.96 (4.20-5.40) M/uL Hgb 14.5 (12.0-16.0) g/dl Hct 41.7 (37.0-47.0) % MCV 84.1 (80.0-100.0) fL MCH 29.2 (25.0-34.0) pg MCHC 34.8 (32.0-36.0) g/dL RDW Std Deviation 45.9 (36.4-46.3) fL RDW Coeff of Darryl 14.9 H (11.5-14.5) % Plt Count 480 H (130-400) K/uL MPV 8.8 L (9.4-12.4) fL Immature Gran % (Auto) 0.9 % Neut % (Auto) 82.3 % Lymph % (Auto) 5.3 % [place] % (Auto) 11.3 % Eos % (Auto) 0.1 % Baso % (Auto) 0.1 % Neut # (Auto) 12.34 H (1.40-6.50) K/uL Lymph # (Auto) 0.80 L (1.2-3.4) K/uL [place] # (Auto) 1.70 H (0.11-0.59) K/uL Eos # (Auto) 0.02 (0-0.50) K/uL Baso # (Auto) 0.01 (0-0.2) K/uL Immature Gran # (Auto) 0.13 (0.01-0.20) K/uL Sodium 135 L (136-145) mmol/L Potassium 3.9 (3.5-5.1) mmol/L Chloride 97 L (98-107) mmol/L Carbon Dioxide 31 (21-32) mmol/L Anion Gap 7 (3-11) BUN 10 (6-23) mg/dl Creatinine 0.45 L (0.6-1.2) mg/dl Est Cr Clr Drug Dosing 100.5 ml/min Est GFR ( Amer) 117.7 ml/min Est GFR (Non-Af Amer) 101.5 ml/min BUN/Creatinine Ratio 22.2 H (10-20) Glucose 94 (70-99(Fasting)) mg/dl Calcium 8.5 L (8.6-10.3) mg/dl Magnesium 1.9 (1.7-2.4) mg/dl
[2022-11-21] MEDS ORDERED: INFLIXIMAB IV ONE (10:52)
[2022-11-21] MEDS: UMECLIDINIUM BROMIDE 62.5MCG/BLISTER 7 PUFFS/INHALER INH SCH (11:15)
[2022-11-21] MEDS: methylPREDNISolone 40 MG in SYRINGE 0 ML IV SCH ×2 (11:53→18:02)
[2022-11-21] MEDS: MESALAMINE 4 GM/60 ML ENEMA PR SCH ×2 (13:30→20:47)
--- NOTE | 2022-11-21 19:45 | Hospitalist Progress Note ---
Date of Service November 21, 2022 Assessment & Plan (1) IBD (inflammatory bowel disease): Plan: 1) Ulcerative Colitis flare: Rectal bleeding secondary to above This is patient's third admission in the last 2 weeks due to ulcerative colitis flare She reports her last normal bowel movement was the first week in September 2022 She feels that her admission for aspiration pneumonia in June and subsequent antibiotics in the setting of IBD and C. difficile contributed to her current refractive flare. Increase IV methylprednisolone today to 40 3 times daily. Add Rowasa enema twice daily per GI. Plan to start Avsola, a bio similar agent. First dose planned inpatient and then to continue outpatient. COPD: Chronic, stable. Uses rescue inhaler and Fluticasone; continue Advair No supplemental O2 at home HTN: Chronic, at goal. Continue Atenolol and Lisinopril Hypothyroidism: Chronic, stable. Continue Levothyroxine H/O C-Diff: Had fecal transplant 8years ago Stool studies continue to remain negative DVT Px: SCDs for now Re: Rectal Bleed Code Status Full Code Dispo- to home when symptoms improve. Kim Valdovinos DO [facility] Hospitalist Admission and Anticipated Discharge Date Admission Date: November 19, 2022 Subjective 71-year-old female presents with ulcerative colitis flare. Multiple recent admissions for the same issue. She reports 4 BMs this morning with bright red blood. Abdominal cramping is present relieved by bowel movements Tolerating p.o. and briefly discussed diet modifications such as switching to almond milk and avoiding dairy Per GI Current plan is to start the bio similar, Avsola with first dose as inpatient Today steroids were increased from 20 to 40 mg 3 times daily through the IV and Rowasa enemas were added twice daily. Repeat check of C. difficile was negati ve. Review of Systems Review of Systems: All systems reviewed negative except as indicated above. Physical Exam Physical Exam: CONSTITUTIONAL: WNWD, vitals as above, generally well-appearing, frustrated EYES: normal conjunctivae, no scleral icterus, ENT: external ear and nose normal NECK: trachea midline, RESPIRATORY: clear to auscultation bilaterally, no crackles, rales or wheezes, normal respiratory effort CARDIOVASCULAR: regular rate and rhythm, S1 and 2 heard without murmurs, gallops or rubs, no JVD, no peripheral edema CHEST: inspection of chest was normal GASTROINTESTINAL: generalized tenderness, soft, ND, no guarding MUSCULOSKELETAL: strength 5/5 throughout, head is normocephalic and atraumatic SKIN: warm and dry NEUROLOGIC: CN 2-12 grossly intact, no sensory deficit, normal cognition, normal speech, no tremor PSYCHIATRIC: alert cooperative and oriented to person, place and time. Results & Data Results & Data Vital Signs (Past 12 Hours) Vital Signs Temp Pulse Resp BP Pulse Ox O2 Del Method 11/21/22 14:57 36.5 C 75 16 122/70 93 Room Air Laboratory Results Short CBC 11/21/22 Range/Units 08:08 WBC 15.00 H (4.8-10.8) K/ul Hgb 14.5 (12.0-16.0) g/dl Hct 41.7 (37.0-47.0) % Plt Count 480 H (130-400) K/uL BMP 11/21/22 08:08 Sodium 135 L Potassium 3.9 Chloride 97 L Carbon Dioxide 31 BUN 10 Creatinine 0.45 L Glucose 94 Calcium 8.5 L Diagnostic Findings Endoscopy on 11/07/22:Z-line regular, 35 cm from the incisors. Large hiatal hernia with a akash erosion with some scattered hematin the hernia sac. Normal stomach. Normal duodenal bulb and second portion of the duodenum. No specimens collected. Colonoscopy on 11/07/22::Severe (Castano Score 3) ulcerative colitis, worsened since the last examination. The rectum, rectosigmoid,and beginning of the sigmoid colon were severely ulcerated and bleeding with even minimal scope contact. The rectosigmoid was severely narrowed due toinflammation and the scope had to be downsized to the ultrathin scope with inability to pass this area due to u lceration. As the colon was extremely friable and bleeding with any contact the decision was made to abort and admit the patient to the hospital for IV steroids and ongoing care. No specimens collected. CT abdomen pelvis on 11/14/22:There is moderate to severe transverse colitis. There is a pulmonary parenchymal consolidation at the right lung base which is concerning for underlying infection. Medications Administered Current Inpatient Medications Acetaminophen (Acetaminophen 325 Mg Tab) 650 mg PO Q4H PRN PRN Reason: Pain or Fever Stop: 12/19/22 04:08 Atenolol (Atenolol 25 Mg Tablet) 25 mg PO QAM [facility] Stop: 12/19/22 08:59 Last Admin: 11/21/22 07:33 Dose: 25 mg Cetirizine HCl (Cetirizine Hcl 10 Mg Tablet) 10 mg PO HS AGGIE Stop: 12/19/22 20:59 Last Admin: 11/20/22 20:05 Dose: 10 mg Famotidine (Famotidine 10 Mg Tablet) 10 mg PO BID PRN PRN Reason: heartburn Stop: 12/19/22 04:08 Last Admin: 11/20/22 20:06 Dose: 10 mg Fluticasone Propionate (Fluticasone Propionate Na Spr 16 Gm Btl) 2 sprays NA DAILY PRN PRN Reason: Congestion Stop: 12/19/22 04:08 Fluticasone/Vilanterol (Fluticasone/Vilanterol 200/25mcg 14 Puffs/Inhaler) 1 puffs INH DAILY AGGIE Stop: 12/19/22 08:59 Last Admin: 11/21/22 07:33 Dose: 1 puffs Promethazine HCl 6.25 mg/ (Sodium Chloride) 50.25 mls @ 201 mls/hr IV Q6H PRN PRN Reason: Nausea And Vomiting Stop: 12/19/22 03:09 Methylprednisolone 40 mg/ (Syringe) 0.64 mls @ 1.5 mls/min IV Q8H AGGIE Stop: 12/19/22 10:59 Last Admin: 11/21/22 18:02 Dose: 1.5 mls/min Infliximab-axxq 300 mg/ Sodium (Chloride) 250 mls @ 125 mls/hr IV TODAY@1200 AGGIE; Protocol Stop: 11/22/22 13:59 N/A (1.2 Micron Filter Ext Set 15" W/Dehp ([id number])) 0 mls @ 0 mls/hr IV 1200 AGGIE Stop: 11/22/22 18:00 Levothyroxine Sodium (Levothyroxine Sodium 88 Mcg Tablet) 88 mcg PO DAILYBB AGGIE Stop: 12/19/22 06:29 Last Admin: 11/21/22 06:13 Dose: 88 mcg Lorazepam (Lorazepam 0.5 Mg Tab) 0.25 mg PO TID PRN PRN Reason: Anxiety Stop: 12/19/22 03:09 Melatonin (Melatonin 3 Mg Tab) 3 mg PO HS PRN PRN Reason: Sleep Stop: 12/20/22 20:21 Last Admin: 11/20/22 22:36 Dose: 3 mg Mesalamine (Mesalamine 4 Gm/60 Ml Enema) 4 gm IL BID [facility] Stop: 12/21/22 10:44 Last Admin: 11/21/22 13:30 Dose: 4 gm Morphine Sulfate (Morphine Sulfate 2 Mg/Ml Carp) 2 mg IV Q3H PRN PRN Reason: Pain Stop: 12/03/22 03:09 Multivitamins (Multivitamin Tab) 1 tab PO QAM [facility] Stop: 12/19/22 08:59 Last Admin: 11/21/22 07:32 Dose: 1 tab Oxycodone HCl (Oxycodone Hcl Ir 5 Mg Tab (Immediate Release)) 5 mg PO Q4H PRN PRN Reason: Pain Stop: 12/03/22 03:09 Umeclidinium Anabel (Umeclidinium Anabel 62.5mcg/Blister 7 Puffs/Inhaler) 1 puffs INH QDL [facility] Stop: 12/19/22 11:29 Last Admin: 11/21/22 11:15 Dose: 1 puffs
[2022-11-21] MEDS: CETIRIZINE HCL 10 MG TABLET PO SCH (20:45)
[2022-11-21] MEDS: MELATONIN 3 MG TAB PO PRN (20:52)
[2022-11-21] MEDS: FAMOTIDINE 10 MG TABLET PO PRN (20:52)
[2022-11-22] MEDS: methylPREDNISolone 40 MG in SYRINGE 0 ML IV SCH ×3 (02:48→18:07)
[2022-11-22] MEDS: LEVOTHYROXINE SODIUM 88 MCG TABLET PO SCH (06:04)
[2022-11-22 08:15] LABS: BUN Creatinine Ratio 25.5 (10-20); C Reactive Protein 6.1 mg/dl (0-0.5); Calcium 8.5 mg/dl (8.6-10.3); Creatinine Clr Calc Pharmacy 96.2 ml/min; Est GFR (Non-African American) 100.1 ml/min; Magnesium 1.9 mg/dl (1.7-2.4); Phosphorus 3.8 mg/dl (2.5-4.9); Potassium 4.3 mmol/L (3.5-5.1)
[2022-11-22 08:24] LABS: Hematocrit (blood only) 41.4 % (37.0-47.0); Hemoglobin 14.1 g/dl (12.0-16.0); Mean Corpuscular Hemoglobin 29.2 pg (25.0-34.0); Mean Corpuscular Hgb Conc 34.1 g/dL (32.0-36.0); Mean Corpuscular Volume 85.7 fL (80.0-100.0); Mean Platelet Volume 8.9 fL (9.4-12.4); Platelet Count 421 K/uL (130-400); RDW Coefficient of Variation 14.7 % (11.5-14.5); RDW Standard Deviation 46.1 fL (36.4-46.3); Red Blood Count 4.83 M/uL (4.20-5.40)
--- NOTE | 2022-11-22 08:35 | Gastroenterology Progress Note ---
Date of Service November 22, 2022 Assessment & Plan (1) IBD (inflammatory bowel disease): Plan: 71 year old female with history of severe refractory ulcerative colitis, 3rd hospitalization this month for the same, no improvement despite IV steroids to start infliximab today Start infliximab at 5 mg/kg then will need subsequent doses at 2 and 6 weeks, followed by every 8 weeks thereafter. Continue IV steroids to 40 mg TID Continue Rowasa enemas BID today x 1 week then once nightly Follow up CMV studies Low-residue diet, high-protein diet encouraged Negative Hep B and quant Gold studies in [place] system Monitor and document GI output Thank you for allowing us to participate in the care of this patient. Please call with any acute changes, questions or concerns. Please see addendum below with additional recommendation from my supervising physician. (2) Lower gastrointestinal hemorrhage: Admission and Anticipated Discharge Date Admission Date: November 19, 2022 Supervising Physician Co-Signing Physician Notes I saw and evaluated the patient. She notes that she has had 1 stool over the last 12 hours or so since increasing her dose of steroids. This plan is to have the patient initiate therapy with Remicade. Recommendations Remicade To be initiated today Steroids for another 24 hours, will then be transitioned to oral steroids. Continued use of Rowasa enemas twice daily Subjective Pt was seen and evaluated, chart reviewed. Feeling hopeful today - excited for biologic initation. Did start the rowasa enemas. Notes she has had 3 bowel movements today, around 3 am, 6 am and 7 am No blood, stool still all loose/liquid Abd cramping, no nausea, vomiting. Is hungry. Waiting breakfast. C.diff negative x 4 CMV pending CTAP 2022: There is moderate to severe transverse colitis. 2. There is a pulmonary parenchymal consolidation at the right lung base which is concerning for underlying infection. EGD 2022:Z-line regular, 35 cm from the incisors. - Large hiatal hernia with a akash erosion with some scattered hematin the hernia sac. - Normal stomach. - Normal duodenal bulb and second portion of the duodenum. - No specimens collected. Colonoscopy 2022: - Severe (Castano Score 3) ulcerative colitis, worsened since the last examination. The rectum, rectosigmoid, and beginning of the sigmoid colon were severely ulcerated and bleeding with even minimal scope contact. The rectosigmoid was severely narrowed due to inflammation and the scope had to be downsized to the ultrathin scope with inability to pass this area due to ulceration. As the colon was extremely friable and bleeding with any contact the decision was made to abort and admit the patient to the hospital for IV steroids and ongoing care. - No specimens collected. Review of Systems Review of Systems: All systems reviewed & are unremarkable except as noted in HPI & below Physical Exam Constitutional: WD/WN, vitals as above Respiratory: normal respiratory effort Cardiovascular: Rate/Rhythm: regular rate and regular rhythm Gastrointestinal (Abdomen): Inspection/Auscultation: abdomen normal to inspection and normal bowel sounds Percussion/Palpation: + abdomen tender and abdomen soft; no guarding and abdomen not rigid Skin: no rashes, warm and dry Results & Data Vital Signs (Past 12 Hours) Vital Signs Temp Pulse Resp BP Pulse Ox Pulse Ox O2 Del Method 11/22/22 07:40 Room Air 11/22/22 07:49 94 Room Air 11/22/22 07:47 36.4 C L 79 16 134/69 91 Room Air 11/21/22 20:45 Room Air 11/21/22 20:45 92 11/21/22 21:25 36.6 C 71 18 127/72 92 Room Air O2 Del Method 11/22/22 07:40 11/22/22 07:49 11/22/22 07:47 11/21/22 20:45 11/21/22 20:45 Room Air 11/21/22 21:25 Laboratory Results 11/22/22 11/22/22 11/21/22 Range/Units 07:15 07:15 13:20 WBC 12.00 H (4.8-10.8) K/ul RBC 4.83 (4.20-5.40) M/uL Hgb 14.1 (12.0-16.0) g/dl Hct 41.4 (37.0-47.0) % MCV 85.7 (80.0-100.0) fL MCH 29.2 (25.0-34.0) pg MCHC 34.1 (32.0-36.0) g/dL RDW Std Deviation 46.1 (36.4-46.3) fL RDW Coeff of Darryl 14.7 H (11.5-14.5) % Plt Count 421 H (130-400) K/uL MPV 8.9 L (9.4-12.4) fL Immature Gran % (Auto) % Neut % (Auto) % Lymph % (Auto) % [place] % (Auto) % Eos % (Auto) % Baso % (Auto) % Neut # (Auto) (1.40-6.50) K/uL Lymph # (Auto) (1.2-3.4) K/uL [place] # (Auto) (0.11-0.59) K/uL Eos # (Auto) (0-0.50) K/uL Baso # (Auto) (0-0.2) K/uL Immature Gran # (Auto) (0.01-0.20) K/uL Sodium 135 L (136-145) mmol/L Potassium 4.3 (3.5-5.1) mmol/L Chloride 97 L (98-107) mmol/L Carbon Dioxide 32 (21-32) mmol/L Anion Gap 6 (3-11) BUN 12 (6-23) mg/dl Creatinine 0.47 L (0.6-1.2) mg/dl Est Cr Clr Drug Dosing 96.2 ml/min Est GFR ( Amer) 116.0 ml/min Est GFR (Non-Af Amer) 100.1 ml/min BUN/Creatinine Ratio 25.5 H (10-20) Glucose 116 H (70-99(Fasting)) mg/dl Calcium 8.5 L (8.6-10.3) mg/dl Phosphorus 3.8 (2.5-4.9) mg/dl Magnesium 1.9 (1.7-2.4) mg/dl C-Reactive Protein 6.10 H (0-0.5) mg/dl Stl C. diff Tox B Gene Negative Cdiff Gene (Neg) CMV IgM Ab 11/21/22 11/21/22 11/21/22 Range/Units 11:22 08:08 08:08 WBC 15.00 H (4.8-10.8) K/ul RBC 4.96 (4.20-5.40) M/uL Hgb 14.5 (12.0-16.0) g/dl Hct 41.7 (37.0-47.0) % MCV 84.1 (80.0-100.0) fL MCH 29.2 (25.0-34.0) pg MCHC 34.8 (32.0-36.0) g/dL RDW Std Deviation 45.9 (36.4-46.3) fL RDW Coeff of Darryl 14.9 H (11.5-14.5) % Plt Count 480 H (130-400) K/uL MPV 8.8 L (9.4-12.4) fL Immature Gran % (Auto) 0.9 % Neut % (Auto) 82.3 % Lymph % (Auto) 5.3 % [place] % (Auto) 11.3 % Eos % (Auto) 0.1 % Baso % (Auto) 0.1 % Neut # (Auto) 12.34 H (1.40-6.50) K/uL Lymph # (Auto) 0.80 L (1.2-3.4) K/uL [place] # (Auto) 1.70 H (0.11-0.59) K/uL Eos # (Auto) 0.02 (0-0.50) K/uL Baso # (Auto) 0.01 (0-0.2) K/uL Immature Gran # (Auto) 0.13 (0.01-0.20) K/uL Sodium 135 L (136-145) mmol/L Potassium 3.9 (3.5-5.1) mmol/L Chloride 97 L (98-107) mmol/L Carbon Dioxide 31 (21-32) mmol/L Anion Gap 7 (3-11) BUN 10 (6-23) mg/dl Creatinine 0.45 L (0.6-1.2) mg/dl Est Cr Clr Drug Dosing 100.5 ml/min Est GFR ( Amer) 117.7 ml/min Est GFR (Non-Af Amer) 101.5 ml/min BUN/Creatinine Ratio 22.2 H (10-20) Glucose 94 (70-99(Fasting)) mg/dl Calcium 8.5 L (8.6-10.3) mg/dl Phosphorus (2.5-4.9) mg/dl Magnesium 1.9 (1.7-2.4) mg/dl C-Reactive Protein (0-0.5) mg/dl Stl C. diff Tox B Gene (Neg) CMV IgM Ab Pending
[2022-11-22 08:47] LABS: Basophils # (auto) 0.01 K/uL (0-0.2); Basophils % (auto) 0.1 %; Eosinophils # (auto) 0.01 K/uL (0-0.50); Eosinophils % (auto) 0.1 %; Immature Granulocytes # (auto) 0.08 K/uL (0.01-0.20); Immature Granulocytes % (auto) 0.7 %; Lymphocytes # (auto) 0.46 K/uL (1.2-3.4); Lymphocytes % (auto) 3.8 %; Monocytes # (auto) 0.95 K/uL (0.11-0.59); Monocytes % (auto) 7.9 %; Neutrophils # (auto) 10.49 K/uL (1.40-6.50); Neutrophils % (auto) 87.4 %; Polychromasia 1+; Toxic Vacuolation 1+
[2022-11-22] MEDS: MESALAMINE 4 GM/60 ML ENEMA PR SCH ×2 (09:18→20:38)
[2022-11-22] MEDS: FLUTICASONE/VILANTEROL 200/25MCG 14 PUFFS/INHALER INH SCH (09:18)
[2022-11-22] MEDS: MULTIVITAMIN TAB PO SCH (09:19)
[2022-11-22] MEDS: ATENOLOL 25 MG TABLET PO SCH (09:19)
--- NOTE | 2022-11-22 09:36 | Hospitalist Progress Note ---
Date of Service November 22, 2022 Assessment & Plan (1) IBD (inflammatory bowel disease): Plan: 1) Ulcerative Colitis flare: Rectal bleeding secondary to above This is patient's third admission in the last 2 weeks due to ulcerative colitis flare She reports her last normal bowel movement was the first week in September 2022 She feels that her admission for aspiration pneumonia in June and subsequent antibiotics in the setting of IBD and C. difficile contributed to her current refractive flare. Increase Solu-Medrol has improved symptoms and lab work. Continues on Rowasa enema twice daily per GI. Gave first dose of infliximab this morning. Plan to continue as outpatient. COPD: Chronic, stable. Uses rescue inhaler and Fluticasone; continue Advair No supplemental O2 at home HTN: Chronic, at goal. Continue Atenolol and Lisinopril Hypothyroidism: Chronic, stable. Continue Levothyroxine H/O C-Diff: Had fecal transplant 8years ago Stool studies continue to remain negative DVT Px: Lovenox started now that bleeding has stopped. She is not anemic and has a high risk of VTE given ongoing inflammation with UC flare. Code Status Full Code Dispo- to home when symptoms improve. Kim Valdovinos DO [facility] Hospitalist Admission and Anticipated Discharge Date Admission Date: November 19, 2022 Subjective 71-year-old female presents with ulcerative colitis flare. Multiple recent admissions for the same issue. She feels her symptoms are improving Labs reviewed and support this with decreased platelets and decreased CRP She did the Rowasa enemas overnight and this morning and was able to retain the solution for approximately 1 hour. She did have 3 bowel movements this morning with no blood but still loose with liquid. Still with abdominal cramping but no nausea and vomiting, tolerating p.o. She is currently receiving her infliximab infusion and understands she may be here an additional 2 to 3 days. Otherwise denies fever or other issues Review of Systems Review of Systems: All systems reviewed negative except as indicated above. Physical Exam Physical Exam: CONSTITUTIONAL: WNWD, vitals as above, generally well-appearing, NAD EYES: normal conjunctivae, no scleral icterus, ENT: external ear and nose normal NECK: trachea midline, RESPIRATORY: clear to auscultation bilaterally, no crackles, rales or wheezes, normal respiratory effort CARDIOVASCULAR: regular rate and rhythm, S1 and 2 heard without murmurs, gallops or rubs, no JVD, no peripheral edema CHEST: inspection of chest was normal GASTROINTESTINAL: generalized tenderness has improved, soft, ND, no guarding MUSCULOSKELETAL: strength 5/5 throughout, head is normocephalic and atraumatic SKIN: warm and dry NEUROLOGIC: CN 2-12 grossly intact, no sensory deficit, normal cognition, normal speech, no tremor PSYCHIATRIC: alert cooperative and oriented to person, place and time. Results & Data Results & Data Vital Signs (Past 12 Hours) Vital Signs Temp Pulse Resp BP Pulse Ox O2 Del Method 11/22/22 07:40 Room Air 11/22/22 07:49 94 Room Air 11/22/22 07:47 36.4 C L 79 16 134/69 91 Room Air Laboratory Results Short CBC 11/22/22 Range/Units 07:15 WBC 12.00 H (4.8-10.8) K/ul Hgb 14.1 (12.0-16.0) g/dl Hct 41.4 (37.0-47.0) % Plt Count 421 H (130-400) K/uL BMP 11/22/22 07:15 Sodium 135 L Potassium 4.3 Chloride 97 L Carbon Dioxide 32 BUN 12 Creatinine 0.47 L Glucose 116 H Calcium 8.5 L Medications Administered Current Inpatient Medications Acetaminophen (Acetaminophen 325 Mg Tab) 650 mg PO Q4H PRN PRN Reason: Pain or Fever Stop: 12/19/22 04:08 Atenolol (Atenolol 25 Mg Tablet) 25 mg PO QAM [facility] Stop: 12/19/22 08:59 Last Admin: 11/22/22 09:19 Dose: 25 mg Cetirizine HCl (Cetirizine Hcl 10 Mg Tablet) 10 mg PO HS AGGIE Stop: 12/19/22 20:59 Last Admin: 11/21/22 20:45 Dose: 10 mg Famotidine (Famotidine 10 Mg Tablet) 10 mg PO BID PRN PRN Reason: heartburn Stop: 12/19/22 04:08 Last Admin: 11/21/22 20:52 Dose: 10 mg Fluticasone Propionate (Fluticasone Propionate Na Spr 16 Gm Btl) 2 sprays NA DAILY PRN PRN Reason: Congestion Stop: 12/19/22 04:08 Fluticasone/Vilanterol (Fluticasone/Vilanterol 200/25mcg 14 Puffs/Inhaler) 1 puffs INH DAILY AGGIE Stop: 12/19/22 08:59 Last Admin: 11/22/22 09:18 Dose: 1 puffs Promethazine HCl 6.25 mg/ (Sodium Chloride) 50.25 mls @ 201 mls/hr IV Q6H PRN PRN Reason: Nausea And Vomiting Stop: 12/19/22 03:09 Methylprednisolone 40 mg/ (Syringe) 0.64 mls @ 1.5 mls/min IV Q8H AGGIE Stop: 12/19/22 10:59 Last Admin: 11/22/22 02:48 Dose: 1.5 mls/min Infliximab-axxq 300 mg/ Sodium (Chloride) 250 mls @ 125 mls/hr IV TODAY@1200 AGGIE; Protocol Stop: 11/22/22 13:59 N/A (1.2 Micron Filter Ext Set 15" W/Dehp ([id number])) 0 mls @ 0 mls/hr IV 1200 [facility] Stop: 11/22/22 18:00 Levothyroxine Sodium (Levothyroxine Sodium 88 Mcg Tablet) 88 mcg PO DAILYBB [facility] Stop: 12/19/22 06:29 Last Admin: 11/22/22 06:04 Dose: 88 mcg Lorazepam (Lorazepam 0.5 Mg Tab) 0.25 mg PO TID PRN PRN Reason: Anxiety Stop: 12/19/22 03:09 Melatonin (Melatonin 3 Mg Tab) 3 mg PO HS PRN PRN Reason: Sleep Stop: 12/20/22 20:21 Last Admin: 11/21/22 20:52 Dose: 3 mg Mesalamine (Mesalamine 4 Gm/60 Ml Enema) 4 gm [place] BID [facility] Stop: 12/21/22 10:44 Last Admin: 11/22/22 09:18 Dose: 4 gm Morphine Sulfate (Morphine Sulfate 2 Mg/Ml Carp) 2 mg IV Q3H PRN PRN Reason: Pain Stop: 12/03/22 03:09 Multivitamins (Multivitamin Tab) 1 tab PO QAM [facility] Stop: 12/19/22 08:59 Last Admin: 11/22/22 09:19 Dose: 1 tab Oxycodone HCl (Oxycodone Hcl Ir 5 Mg Tab (Immediate Release)) 5 mg PO Q4H PRN PRN Reason: Pain Stop: 12/03/22 03:09 Umeclidinium [place] (Umeclidinium [place] 62.5mcg/Blister 7 Puffs/Inhaler) 1 puffs INH QDL [facility]GGIE Stop: 12/19/22 11:29 Last Admin: 11/21/22 11:15 Dose: 1 puffs
[2022-11-22] MEDS: UMECLIDINIUM BROMIDE 62.5MCG/BLISTER 7 PUFFS/INHALER INH SCH (11:18)
[2022-11-22] MEDS ORDERED: INFLIXIMAB AXXQ IV SCH ×2 (12:00)
[2022-11-22] MEDS ORDERED: SODIUM CHLORIDE 0.9% IV SCH ×2 (12:00)
[2022-11-22] MEDS ORDERED: 1.2 MICRON FILTER 1 EACH IV SCH (12:00)
[2022-11-22] MEDS: FAMOTIDINE 10 MG TABLET PO PRN ×2 (13:44→20:37)
[2022-11-22] MEDS: MELATONIN 3 MG TAB PO PRN (20:37)
[2022-11-22] MEDS: CETIRIZINE HCL 10 MG TABLET PO SCH (20:38)
[2022-11-22] MEDS: ENOXAPARIN INJ 40 MG/0.4 ML SYR SQ SCH (20:38)
[2022-11-23] MEDS: methylPREDNISolone 40 MG in SYRINGE 0 ML IV SCH ×2 (03:31→11:44)
[2022-11-23] MEDS: LEVOTHYROXINE SODIUM 88 MCG TABLET PO SCH (05:49)
[2022-11-23 07:38] LABS: Hematocrit (blood only) 39.4 % (37.0-47.0); Hemoglobin 13.5 g/dl (12.0-16.0); Mean Corpuscular Hemoglobin 29.1 pg (25.0-34.0); Mean Corpuscular Hgb Conc 34.3 g/dL (32.0-36.0); Mean Corpuscular Volume 84.9 fL (80.0-100.0); Mean Platelet Volume 8.6 fL (9.4-12.4); Platelet Count 426 K/uL (130-400); RDW Coefficient of Variation 14.8 % (11.5-14.5); RDW Standard Deviation 45.1 fL (36.4-46.3); Red Blood Count 4.64 M/uL (4.20-5.40); White Blood Count 12.32 K/ul (4.8-10.8)
[2022-11-23 07:52] LABS: BUN Creatinine Ratio 34.2 (10-20); C Reactive Protein 4.36 mg/dl (0-0.5); Calcium 8.5 mg/dl (8.6-10.3); Est GFR (African American) 124.4 ml/min; Est GFR (Non-African American) 107.3 ml/min; Potassium 3.9 mmol/L (3.5-5.1)
[2022-11-23] MEDS: MULTIVITAMIN TAB PO SCH (09:37)
[2022-11-23] MEDS: FAMOTIDINE 10 MG TABLET PO PRN ×2 (09:37→20:23)
[2022-11-23] MEDS: ATENOLOL 25 MG TABLET PO SCH (09:37)
[2022-11-23] MEDS: MESALAMINE 4 GM/60 ML ENEMA PR SCH ×2 (09:38→20:24)
[2022-11-23] MEDS: FLUTICASONE/VILANTEROL 200/25MCG 14 PUFFS/INHALER INH SCH (09:38)
[2022-11-23] MEDS: UMECLIDINIUM BROMIDE 62.5MCG/BLISTER 7 PUFFS/INHALER INH SCH (11:44)
--- NOTE | 2022-11-23 13:15 | Gastroenterology Progress Note ---
Date of Service November 23, 2022 Assessment & Plan (1) IBD (inflammatory bowel disease): Plan: 71 year old female with history of severe refractory ulcerative colitis, 3rd hospitalization this month for the same, started infliximab yesterday. Tolerated well. Today had 3 liquid BMS (reddish/brown) but no significant bleeding. HGB stable at 13.5. Given severe disease. will plan on accelerated IFX infusion schedule with 10 mg/kg Continue IV steroids to 20 mg TID, then today likely transition to PO over weekend Continue Rowasa enemas BID today x 1 week then once nightly CMV, C diff neg Low-residue diet, high-protein diet encouraged Negative Hep B and quant Gold studies in [place] system Monitor and document GI output Thank you for allowing us to participate in the care of this patient. Please call with any acute changes, questions or concerns. Please see addendum below with additional recommendation from my supervising physician. Attg add: Pt received IFX 5 mg/kg yesterday, now with apparent decrease in stool frequency, stable VS, benign abd exam, fall in CRP. Cont solumedrol 60 qd, then transition to PO pred 40 over weekend. Given severity of symptoms and hypoalbuinemia, will plan on accelerated IFX induction dosing with 10 mg/kg. (2) Lower gastrointestinal hemorrhage: Admission and Anticipated Discharge Date Admission Date: November 19, 2022 Subjective Patient seen and examined, chart reviewed. Did well with her initial Avsola dose yesterday. Today had 3 loose BMs ("reddish/brown") so far. Tolerating low residue diet. No abd pain, cramping, fever, chills, n/v. CMV neg, C diff neg Tolerating Rowasa enemas and IV steroids Review of Systems Review of Systems: All systems reviewed & are unremarkable except as noted in HPI & below Physical Exam Constitutional: well developed, well nourished and comfortable; no acute distress Respiratory: normal resp effort Cardiovascular: RRR, no murmur, no edema Gastrointestinal (Abdomen): soft, nontender Skin: no rashes, warm and dry Psychiatric: A+Ox3, euthymic affect Results & Data Vital Signs (Past 12 Hours) Vital Signs Temp Pulse Resp BP Pulse Ox O2 Del Method 11/23/22 07:21 36.5 C 65 18 116/58 L 93 Room Air Laboratory Results 11/23/22 11/23/22 11/21/22 Range/Units 06:59 06:59 11:22 WBC 12.32 H (4.8-10.8) K/ul RBC 4.64 (4.20-5.40) M/uL Hgb 13.5 (12.0-16.0) g/dl Hct 39.4 (37.0-47.0) % MCV 84.9 (80.0-100.0) fL MCH 29.1 (25.0-34.0) pg MCHC 34.3 (32.0-36.0) g/dL RDW Std Deviation 45.1 (36.4-46.3) fL RDW Coeff of Darryl 14.8 H (11.5-14.5) % Plt Count 426 H (130-400) K/uL MPV 8.6 L (9.4-12.4) fL Sodium 133 L (136-145) mmol/L Potassium 3.9 (3.5-5.1) mmol/L Chloride 98 (98-107) mmol/L Carbon Dioxide 29 (21-32) mmol/L Anion Gap 6 (3-11) BUN 13 (6-23) mg/dl Creatinine 0.38 L (0.6-1.2) mg/dl Est Cr Clr Drug Dosing 119.0 ml/min Est GFR ( Amer) 124.4 ml/min Est GFR (Non-Af Amer) 107.3 ml/min BUN/Creatinine Ratio 34.2 H (10-20) Glucose 105 H (70-99(Fasting)) mg/dl Calcium 8.5 L (8.6-10.3) mg/dl C-Reactive Protein 4.36 H (0-0.5) mg/dl CMV IgM Ab <30.00 AU/mL
--- NOTE | 2022-11-23 14:03 | Hospitalist Progress Note ---
Date of Service November 23, 2022 Assessment & Plan (1) IBD (inflammatory bowel disease): Plan: 1) Ulcerative Colitis flare: Rectal bleeding secondary to above This is patient's third admission in the last 2 weeks due to ulcerative colitis flare She reports her last normal bowel movement was the first week in September 2022 She feels that her admission for aspiration pneumonia in June and subsequent antibiotics in the setting of IBD and C. difficile contributed to her current refractive flare. Increased Solu-Medrol has improved symptoms and lab work. Continues on Rowasa enema twice daily per GI. GI with plans to convert steroid to PO today First Avsola dose yesterday with next infusion planned in two weeks. COPD: Chronic, stable. Uses rescue inhaler and Fluticasone; continue Advair No supplemental O2 at home HTN: Chronic, at goal. Continue Atenolol and Lisinopril Hypothyroidism: Chronic, stable. Continue Levothyroxine H/O C-Diff: Had fecal transplant 8years ago Stool studies continue to remain negative DVT Px: Lovenox Code Status Full Code Dispo- to home when symptoms improve, likely tomorrow. Kim Valdovinos DO [facility] Hospitalist Admission and Anticipated Discharge Date Admission Date: November 19, 2022 Subjective 71-year-old female presents with ulcerative colitis flare. Multiple recent admissions for the same issue. She feels her symptoms are improving after Avsola yesterday Continues with the Rowasa enemas and has retained the latest one since this morning. BM are improving-3 reported loose overnight with "some debris" in them. Reviewed labwork with her. Denies other issues Review of Systems Review of Systems: All systems reviewed negative except as indicated above. Physical Exam Physical Exam: CONSTITUTIONAL: WNWD, vitals as above, generally well-appearing, NAD EYES: normal conjunctivae, no scleral icterus, ENT: external ear and nose normal NECK: trachea midline, RESPIRATORY: clear to auscultation bilaterally, no crackles, rales or wheezes, normal respiratory effort CARDIOVASCULAR: regular rate and rhythm, S1 and 2 heard without murmurs, gallops or rubs, no JVD, no peripheral edema CHEST: inspection of chest was normal GASTROINTESTINAL: generalized tenderness has improved, soft, ND, no guarding MUSCULOSKELETAL: strength 5/5 throughout, head is normocephalic and atraumatic SKIN: warm and dry NEUROLOGIC: CN 2-12 grossly intact, no sensory deficit, normal cognition, normal speech, no tremor PSYCHIATRIC: alert cooperative and oriented to person, place and time. Results & Data Results & Data Vital Signs (Past 12 Hours) Vital Signs Temp Pulse Resp BP Pulse Ox O2 Del Method 11/23/22 07:21 36.5 C 65 18 116/58 L 93 Room Air Laboratory Results Short CBC 11/23/22 Range/Units 06:59 WBC 12.32 H (4.8-10.8) K/ul Hgb 13.5 (12.0-16.0) g/dl Hct 39.4 (37.0-47.0) % Plt Count 426 H (130-400) K/uL BMP 11/23/22 06:59 Sodium 133 L Potassium 3.9 Chloride 98 Carbon Dioxide 29 BUN 13 Creatinine 0.38 L Glucose 105 H Calcium 8.5 L Medications Administered Current Inpatient Medications Acetaminophen (Acetaminophen 325 Mg Tab) 650 mg PO Q4H PRN PRN Reason: Pain or Fever Stop: 12/19/22 04:08 Atenolol (Atenolol 25 Mg Tablet) 25 mg PO QAM [facility]GGIE Stop: 12/19/22 08:59 Last Admin: 11/23/22 09:37 Dose: 25 mg Cetirizine HCl (Cetirizine Hcl 10 Mg Tablet) 10 mg PO HS AGGIE Stop: 12/19/22 20:59 Last Admin: 11/22/22 20:38 Dose: 10 mg Enoxaparin Sodium (Enoxaparin Inj 40 Mg/0.4 Ml Syr) 40 mg SQ HS AGGIE Stop: 12/22/22 20:59 Last Admin: 11/22/22 20:38 Dose: 40 mg Famotidine (Famotidine 10 Mg Tablet) 10 mg PO BID PRN PRN Reason: heartburn Stop: 12/19/22 04:08 Last Admin: 11/23/22 09:37 Dose: 10 mg Fluticasone Propionate (Fluticasone Propionate Na Spr 16 Gm Btl) 2 sprays NA DAILY PRN PRN Reason: Congestion Stop: 12/19/22 04:08 Fluticasone/Vilanterol (Fluticasone/Vilanterol 200/25mcg 14 Puffs/Inhaler) 1 puffs INH DAILY AGGIE Stop: 12/19/22 08:59 Last Admin: 11/23/22 09:38 Dose: 1 puffs Promethazine HCl 6.25 mg/ (Sodium Chloride) 50.25 mls @ 201 mls/hr IV Q6H PRN PRN Reason: Nausea And Vomiting Stop: 12/19/22 03:09 Methylprednisolone 40 mg/ (Syringe) 0.64 mls @ 1.5 mls/min IV Q8H AGGIE Stop: 12/19/22 10:59 Last Admin: 11/23/22 11:44 Dose: 1.5 mls/min Levothyroxine Sodium (Levothyroxine Sodium 88 Mcg Tablet) 88 mcg PO DAILYBB [facility] Stop: 12/19/22 06:29 Last Admin: 11/23/22 05:49 Dose: 88 mcg Lorazepam (Lorazepam 0.5 Mg Tab) 0.25 mg PO TID PRN PRN Reason: Anxiety Stop: 12/19/22 03:09 Melatonin (Melatonin 3 Mg Tab) 3 mg PO HS PRN PRN Reason: Sleep Stop: 12/20/22 20:21 Last Admin: 11/22/22 20:37 Dose: 3 mg Mesalamine (Mesalamine 4 Gm/60 Ml Enema) 4 gm [place] BID AGGIE Stop: 12/21/22 10:44 Last Admin: 11/23/22 09:38 Dose: 4 gm Morphine Sulfate (Morphine Sulfate 2 Mg/Ml Carp) 2 mg IV Q3H PRN PRN Reason: Pain Stop: 12/03/22 03:09 Multivitamins (Multivitamin Tab) 1 tab PO QAM [facility] Stop: 12/19/22 08:59 Last Admin: 11/23/22 09:37 Dose: 1 tab Oxycodone HCl (Oxycodone Hcl Ir 5 Mg Tab (Immediate Release)) 5 mg PO Q4H PRN PRN Reason: Pain Stop: 12/03/22 03:09 Umeclidinium [place] (Umeclidinium [place] 62.5mcg/Blister 7 Puffs/Inhaler) 1 puffs INH QDL [facility] Stop: 12/19/22 11:29 Last Admin: 11/23/22 11:44 Dose: 1 puffs
[2022-11-23] MEDS ORDERED: methylPREDNISolone 20 MG in SYRINGE 0 ML IV SCH (19:45)
[2022-11-23] MEDS: MELATONIN 3 MG TAB PO PRN (20:22)
[2022-11-23] MEDS: ENOXAPARIN INJ 40 MG/0.4 ML SYR SQ SCH (20:23)
[2022-11-23] MEDS: CETIRIZINE HCL 10 MG TABLET PO SCH (20:24)
[2022-11-24] MEDS: LEVOTHYROXINE SODIUM 88 MCG TABLET PO SCH (05:29)
[2022-11-24] MEDS: FLUTICASONE/VILANTEROL 200/25MCG 14 PUFFS/INHALER INH SCH (07:33)
[2022-11-24] MEDS: FAMOTIDINE 10 MG TABLET PO PRN ×2 (07:33→20:49)
[2022-11-24] MEDS: ATENOLOL 25 MG TABLET PO SCH (07:33)
[2022-11-24] MEDS: MULTIVITAMIN TAB PO SCH (07:34)
[2022-11-24] MEDS: MESALAMINE 4 GM/60 ML ENEMA PR SCH ×2 (07:34→19:37)
[2022-11-24 07:42] LABS: Hemoglobin 14.1 g/dl (12.0-16.0); Mean Corpuscular Hemoglobin 29.4 pg (25.0-34.0); Mean Corpuscular Hgb Conc 34.4 g/dL (32.0-36.0); Mean Corpuscular Volume 85.6 fL (80.0-100.0); Mean Platelet Volume 9.2 fL (9.4-12.4); Platelet Count 476 K/uL (130-400); RDW Coefficient of Variation 14.7 % (11.5-14.5); RDW Standard Deviation 45.6 fL (36.4-46.3); Red Blood Count 4.79 M/uL (4.20-5.40); White Blood Count 14.31 K/ul (4.8-10.8)
[2022-11-24 07:54] LABS: BUN Creatinine Ratio 42.9 (10-20); Calcium 8.6 mg/dl (8.6-10.3); Creatinine Clr Calc Pharmacy 129.2 ml/min; Est GFR (African American) 127.8 ml/min; Est GFR (Non-African American) 110.3 ml/min; Potassium 3.6 mmol/L (3.5-5.1)
[2022-11-24] MEDS ORDERED: predniSONE 20 MG TAB PO SCH (09:00)
--- NOTE | 2022-11-24 09:14 | Gastroenterology Progress Note ---
Date of Service November 24, 2022 Assessment & Plan (1) IBD (inflammatory bowel disease): Plan: She seems to have had a set back. Would maintain IV steroids for the time being. Hopefully will improve over the next few days. Still early to see full effect of infliximab. Admission and Anticipated Discharge Date Admission Date: November 19, 2022 Subjective Seems to have had a setback from yesterday. Had "explosive diarrhea" with worse bleeding this morning. No longer has an appetite. She understands that the only other option is colectomy. Physical Exam Physical Exam: upset but alert Results & Data Vital Signs (Past 12 Hours) Vital Signs Temp Pulse Pulse Resp BP BP Pulse Ox 11/24/22 07:34 36.8 C 80 18 130/74 92 11/23/22 22:00 11/23/22 21:15 36.6 C 70 18 111/61 96 Pulse Ox O2 Del Method O2 Del Method 11/24/22 07:34 Room Air 11/23/22 22:00 94 Room Air 11/23/22 21:15 Room Air
--- NOTE | 2022-11-24 10:18 | Hospitalist Progress Note ---
Date of Service November 24, 2022 Assessment & Plan (1) IBD (inflammatory bowel disease): Plan: 1) Ulcerative Colitis flare: Rectal bleeding secondary to above This is patient's third admission in the last 2 weeks due to ulcerative colitis flare She reports her last normal bowel movement was the first week in September 2022 She feels that her admission for aspiration pneumonia in June and subsequent antibiotics in the setting of IBD and C. difficile contributed to her current refractive flare. Increased Solu-Medrol has improved symptoms and lab work. Continues on Rowasa enema twice daily per GI x 1 week, then once nightly. First Avsola dose 11/21 with next infusion planned next week as outpatient 11/24: episode of increased cramping this morning, for now, continue with original plan for prednisone 60mg PO daily with transition to prednisone 40mg daily at discharge. COPD: Chronic, stable. Uses rescue inhaler and Fluticasone; continue Advair No supplemental O2 at home HTN: Chronic, at goal. Continue Atenolol and Lisinopril Hypothyroidism: Chronic, stable. Continue Levothyroxine H/O C-Diff: Had fecal transplant 8years ago Stool studies continue to remain negative DVT Px: Lovenox Code Status Full Code Dispo- to home when symptoms improve, likely 1-2 more days. Kim Valdovinos DO [facility] Hospitalist Admission and Anticipated Discharge Date Admission Date: November 19, 2022 Subjective 71-year-old female presents with ulcerative colitis flare. Multiple recent admissions for the same issue. Although we had a set back with the explosive diarrhea this morning between 5a- 7a and there was increased cramping Per patient she was able to get breakfast into her and is now feeling better We discussed the pros and cons of continuing IV steroids, in that if she is not able to make it home (on oral steroids) she may not be able to receive her next infliximab infusion which is planned for next week and cannot be done as inpatient. Therefore, we agreed to continue watching her progress today on oral steroids and see how things go for a little longer before saying she failed transition to PO Her last dose of solumedrol IV was last evening and she had the cramping and diarrhea likely before this wore off and prior to the oral prednisone, which goes against the idea that the prednisone isn't enough just yet. Review of Systems Review of Systems: All systems reviewed negative except as indicated above. Physical Exam Physical Exam: CONSTITUTIONAL: WNWD, vitals as above, generally well-appearing, NAD EYES: normal conjunctivae, no scleral icterus, ENT: external ear and nose normal NECK: trachea midline, RESPIRATORY: clear to auscultation bilaterally, no crackles, rales or wheezes, normal respiratory effort CARDIOVASCULAR: regular rate and rhythm, S1 and 2 heard without murmurs, gallops or rubs, no JVD, no peripheral edema CHEST: inspection of chest was normal GASTROINTESTINAL: soft, NT, ND, no guarding MUSCULOSKELETAL: strength 5/5 throughout, head is normocephalic and atraumatic SKIN: warm and dry NEUROLOGIC: CN 2-12 grossly intact, no sensory deficit, normal cognition, normal speech, no tremor PSYCHIATRIC: alert cooperative and oriented to person, place and time. Results & Data Results & Data Vital Signs (Past 12 Hours) Vital Signs Temp Pulse Resp BP Pulse Ox O2 Del Method 11/24/22 07:34 36.8 C 80 18 130/74 92 Room Air Laboratory Results Short CBC 11/24/22 Range/Units 05:55 WBC 14.31 H (4.8-10.8) K/ul Hgb 14.1 (12.0-16.0) g/dl Hct 41.0 (37.0-47.0) % Plt Count 476 H (130-400) K/uL BMP 11/24/22 05:55 Sodium 136 Potassium 3.6 Chloride 99 Carbon Dioxide 28 BUN 15 Creatinine 0.35 L Glucose 76 Calcium 8.6 Medications Administered Current Inpatient Medications Acetaminophen (Acetaminophen 325 Mg Tab) 650 mg PO Q4H PRN PRN Reason: Pain or Fever Stop: 12/19/22 04:08 Atenolol (Atenolol 25 Mg Tablet) 25 mg PO QAM [facility]IE Stop: 12/19/22 08:59 Last Admin: 11/24/22 07:33 Dose: 25 mg Cetirizine HCl (Cetirizine Hcl 10 Mg Tablet) 10 mg PO HS AGGIE Stop: 12/19/22 20:59 Last Admin: 11/23/22 20:24 Dose: 10 mg Enoxaparin Sodium (Enoxaparin Inj 40 Mg/0.4 Ml Syr) 40 mg SQ HS AGGIE Stop: 12/22/22 20:59 Last Admin: 11/23/22 20:23 Dose: 40 mg Famotidine (Famotidine 10 Mg Tablet) 10 mg PO BID PRN PRN Reason: heartburn Stop: 12/19/22 04:08 Last Admin: 11/24/22 07:33 Dose: 10 mg Fluticasone Propionate (Fluticasone Propionate Na Spr 16 Gm Btl) 2 sprays NA DAILY PRN PRN Reason: Congestion Stop: 12/19/22 04:08 Fluticasone/Vilanterol (Fluticasone/Vilanterol 200/25mcg 14 Puffs/Inhaler) 1 puffs INH DAILY AGGIE Stop: 12/19/22 08:59 Last Admin: 11/24/22 07:33 Dose: 1 puffs Promethazine HCl 6.25 mg/ (Sodium Chloride) 50.25 mls @ 201 mls/hr IV Q6H PRN PRN Reason: Nausea And Vomiting Stop: 12/19/22 03:09 Levothyroxine Sodium (Levothyroxine Sodium 88 Mcg Tablet) 88 mcg PO DAILYBB [facility] Stop: 12/19/22 06:29 Last Admin: 11/24/22 05:29 Dose: 88 mcg Lorazepam (Lorazepam 0.5 Mg Tab) 0.25 mg PO TID PRN PRN Reason: Anxiety Stop: 12/19/22 03:09 Melatonin (Melatonin 3 Mg Tab) 3 mg PO HS PRN PRN Reason: Sleep Stop: 12/20/22 20:21 Last Admin: 11/23/22 20:22 Dose: 3 mg Mesalamine (Mesalamine 4 Gm/60 Ml Enema) 4 gm [place] BID AGGIE Stop: 12/21/22 10:44 Last Admin: 11/24/22 07:34 Dose: Not Given Multivitamins (Multivitamin Tab) 1 tab PO QAM [facility]GGIE Stop: 12/19/22 08:59 Last Admin: 11/24/22 07:34 Dose: 1 tab Oxycodone HCl (Oxycodone Hcl Ir 5 Mg Tab (Immediate Release)) 5 mg PO Q4H PRN PRN Reason: Pain Stop: 12/03/22 03:09 Prednisone (Prednisone 20 Mg Tab) 40 mg PO DAILY AGGIE Stop: 12/24/22 08:59 Last Admin: 11/24/22 07:34 Dose: 40 mg Umeclidinium [place] (Umeclidinium [place] 62.5mcg/Blister 7 Puffs/Inhaler) 1 puffs INH QDL [facility]GGIE Stop: 12/19/22 11:29 Last Admin: 11/23/22 11:44 Dose: 1 puffs
[2022-11-24] MEDS: UMECLIDINIUM BROMIDE 62.5MCG/BLISTER 7 PUFFS/INHALER INH SCH (11:24)
[2022-11-24] MEDS ORDERED: predniSONE 20 MG TAB PO STA (11:57)
[2022-11-24] MEDS: ENOXAPARIN INJ 40 MG/0.4 ML SYR SQ SCH (19:37)
[2022-11-24] MEDS: CETIRIZINE HCL 10 MG TABLET PO SCH (19:37)
[2022-11-24] MEDS: MELATONIN 3 MG TAB PO PRN (20:49)
[2022-11-25] MEDS ORDERED: LOPERAMIDE HCL 2 MG CAP PO STA (02:36)
[2022-11-25] MEDS: predniSONE 20 MG TAB PO SCH (02:58)
[2022-11-25] MEDS: LEVOTHYROXINE SODIUM 88 MCG TABLET PO SCH (05:52)
[2022-11-25 07:29] LABS: Hematocrit (blood only) 41.5 % (37.0-47.0); Hemoglobin 14.3 g/dl (12.0-16.0); Mean Corpuscular Hemoglobin 29.3 pg (25.0-34.0); Mean Corpuscular Hgb Conc 34.5 g/dL (32.0-36.0); Mean Platelet Volume 8.7 fL (9.4-12.4); Platelet Count 436 K/uL (130-400); RDW Coefficient of Variation 14.7 % (11.5-14.5); RDW Standard Deviation 45.6 fL (36.4-46.3); Red Blood Count 4.88 M/uL (4.20-5.40); White Blood Count 15.94 K/ul (4.8-10.8)
[2022-11-25] MEDS: FLUTICASONE/VILANTEROL 200/25MCG 14 PUFFS/INHALER INH SCH (07:34)
[2022-11-25] MEDS: ATENOLOL 25 MG TABLET PO SCH (07:34)
[2022-11-25] MEDS: MULTIVITAMIN TAB PO SCH (07:34)
[2022-11-25] MEDS: MESALAMINE 4 GM/60 ML ENEMA PR SCH ×2 (07:35→19:25)
[2022-11-25 07:45] LABS: BUN Creatinine Ratio 29.7 (10-20); C Reactive Protein 8.48 mg/dl (0-0.5); Calcium 8.2 mg/dl (8.6-10.3); Creatinine Clr Calc Pharmacy 122.2 ml/min; Est GFR (African American) 125.5 ml/min; Est GFR (Non-African American) 108.3 ml/min; Magnesium 1.9 mg/dl (1.7-2.4); Potassium 3.9 mmol/L (3.5-5.1)
[2022-11-25] MEDS ORDERED: predniSONE 20 MG TAB PO SCH (09:00)
--- NOTE | 2022-11-25 09:39 | Gastroenterology Progress Note ---
Date of Service November 25, 2022 Assessment & Plan (1) IBD (inflammatory bowel disease): Plan: Discussed with patient and also with Dr. Valdovinos. She is only having one episode per day which is significant to her but tolerable clinically. I agree with keeping her on oral prednisone and would not really go above 60mg per day. She is to get another infusion later today. Admission and Anticipated Discharge Date Admission Date: November 19, 2022 Subjective Did not have another bowel movement yesterday but this morning "all hell broke loose". She feels okay now. Physical Exam Physical Exam: She looks well Results & Data Vital Signs (Past 12 Hours) Vital Signs Temp Pulse Resp BP Pulse Ox O2 Del Method 11/25/22 07:36 93 Room Air 11/25/22 07:26 36.6 C 79 16 102/60 91 Room Air
[2022-11-25] MEDS: UMECLIDINIUM BROMIDE 62.5MCG/BLISTER 7 PUFFS/INHALER INH SCH (11:15)
--- NOTE | 2022-11-25 13:27 | Hospitalist Progress Note ---
Date of Service November 25, 2022 Assessment & Plan (1) IBD (inflammatory bowel disease): Plan: 1) Ulcerative Colitis flare: Rectal bleeding secondary to above This is patient's third admission in the last 2 weeks due to ulcerative colitis flare She reports her last normal bowel movement was the first week in September 2022 She feels that her admission for aspiration pneumonia in June and subsequent antibiotics in the setting of IBD and C. difficile contributed to her current refractive flare. Increased Solu-Medrol has improved symptoms and lab work. Continues on Rowasa enema twice daily per GI x 1 week, then once nightly. First Avsola dose 11/21 with next infusion planned next week as outpatient 11/24: episode of increased cramping this morning, for now, continue with original plan for prednisone 60mg PO daily with transition to prednisone 40mg daily at discharge. COPD: Chronic, stable. Uses rescue inhaler and Fluticasone; continue Advair No supplemental O2 at home HTN: Chronic, at goal. Continue Atenolol and Lisinopril Hypothyroidism: Chronic, stable. Continue Levothyroxine H/O C-Diff: Had fecal transplant 8years ago Stool studies continue to remain negative DVT Px: Lovenox Code Status Full Code Dispo- to home when symptoms improve, likely 1-2 more days. Kim Valdovinos DO [facility] Hospitalist Admission and Anticipated Discharge Date Admission Date: November 19, 2022 Subjective 71-year-old female presents with ulcerative colitis flare. Multiple recent admissions for the same issue. Another episode of explosive diarrhea with significant cramping around 3 AM this morning. She reports having eaten a snack last night including Azeri ice and tushar crackers and felt this would make her better She reports that food consistently helps her She was given 1 dose of Imodium She has eaten breakfast and is starting to feel better at this point Discussed the case with Dr. Beasley and will continue p.o. prednisone at this time Review of Systems Review of Systems: All systems reviewed negative except as indicated above. Physical Exam Physical Exam: CONSTITUTIONAL: WNWD, vitals as above, generally well-appearing, NAD EYES: normal conjunctivae, no scleral icterus, ENT: external ear and nose normal NECK: trachea midline, RESPIRATORY: clear to auscultation bilaterally, no crackles, rales or wheezes, normal respiratory effort CARDIOVASCULAR: regular rate and rhythm, S1 and 2 heard without murmurs, gallops or rubs, no JVD, no peripheral edema CHEST: inspection of chest was normal GASTROINTESTINAL: soft, NT, ND, no guarding MUSCULOSKELETAL: strength 5/5 throughout, head is normocephalic and atraumatic SKIN: warm and dry NEUROLOGIC: CN 2-12 grossly intact, no sensory deficit, normal cognition, normal speech, no tremor PSYCHIATRIC: alert cooperative and oriented to person, place and time. Results & Data Results & Data Vital Signs (Past 12 Hours) Vital Signs Temp Pulse Resp BP Pulse Ox Pulse Ox O2 Del Method 11/25/22 12:56 96 Room Air 11/25/22 12:56 95 11/25/22 07:36 93 Room Air 11/25/22 07:26 36.6 C 79 16 102/60 91 Room Air O2 Del Method 11/25/22 12:56 11/25/22 12:56 Room Air 11/25/22 07:36 11/25/22 07:26 Laboratory Results Short CBC 11/25/22 Range/Units 07:03 WBC 15.94 H (4.8-10.8) K/ul Hgb 14.3 (12.0-16.0) g/dl Hct 41.5 (37.0-47.0) % Plt Count 436 H (130-400) K/uL BMP 11/25/22 07:03 Sodium 134 L Potassium 3.9 Chloride 99 Carbon Dioxide 29 BUN 11 Creatinine 0.37 L Glucose 100 H Calcium 8.2 L Medications Administered Current Inpatient Medications Acetaminophen (Acetaminophen 325 Mg Tab) 650 mg PO Q4H PRN PRN Reason: Pain or Fever Stop: 12/19/22 04:08 Atenolol (Atenolol 25 Mg Tablet) 25 mg PO [facility] Stop: 12/19/22 08:59 Last Admin: 11/25/22 07:34 Dose: 25 mg Cetirizine HCl (Cetirizine Hcl 10 Mg Tablet) 10 mg PO [facility] Stop: 12/19/22 20:59 Last Admin: 11/24/22 19:37 Dose: 10 mg Enoxaparin Sodium (Enoxaparin Inj 40 Mg/0.4 Ml Syr) 40 mg SQ HS AGGIE Stop: 12/22/22 20:59 Last Admin: 11/24/22 19:37 Dose: 40 mg Famotidine (Famotidine 10 Mg Tablet) 10 mg PO BID PRN PRN Reason: heartburn Stop: 12/19/22 04:08 Last Admin: 11/24/22 20:49 Dose: 10 mg Fluticasone Propionate (Fluticasone Propionate Na Spr 16 Gm Btl) 2 sprays NA DAILY PRN PRN Reason: Congestion Stop: 12/19/22 04:08 Fluticasone/Vilanterol (Fluticasone/Vilanterol 200/25mcg 14 Puffs/Inhaler) 1 puffs INH DAILY AGGIE Stop: 12/19/22 08:59 Last Admin: 11/25/22 07:34 Dose: 1 puffs Promethazine HCl 6.25 mg/ (Sodium Chloride) 50.25 mls @ 201 mls/hr IV Q6H PRN PRN Reason: Nausea And Vomiting Stop: 12/19/22 03:09 Levothyroxine Sodium (Levothyroxine Sodium 88 Mcg Tablet) 88 mcg PO DAILYBB AGGIE Stop: 12/19/22 06:29 Last Admin: 11/25/22 05:52 Dose: 88 mcg Lorazepam (Lorazepam 0.5 Mg Tab) 0.25 mg PO TID PRN PRN Reason: Anxiety Stop: 12/19/22 03:09 Melatonin (Melatonin 3 Mg Tab) 3 mg PO HS PRN PRN Reason: Sleep Stop: 12/20/22 20:21 Last Admin: 11/24/22 20:49 Dose: 3 mg Mesalamine (Mesalamine 4 Gm/60 Ml Enema) 4 gm MD BID AGGIE Stop: 12/21/22 10:44 Last Admin: 11/25/22 07:35 Dose: Not Given Multivitamins (Multivitamin Tab) 1 tab PO QAM AGGIE Stop: 12/19/22 08:59 Last Admin: 11/25/22 07:34 Dose: 1 tab Oxycodone HCl (Oxycodone Hcl Ir 5 Mg Tab (Immediate Release)) 5 mg PO Q4H PRN PRN Reason: Pain Stop: 12/03/22 03:09 Prednisone (Prednisone 20 Mg Tab) 60 mg PO DAILY AGGIE Stop: 12/25/22 02:39 Last Admin: 11/25/22 02:58 Dose: 60 mg Umeclidinium [place] (Umeclidinium [place] 62.5mcg/Blister 7 Puffs/Inhaler) 1 puffs INH QDL AGGIE Stop: 12/19/22 11:29 Last Admin: 11/25/22 11:15 Dose: 1 puffs
[2022-11-25] MEDS: PROMETHAZINE HCL 6.25 MG in SODIUM CHLORIDE 0.9% 50 ML IV PRN (16:09)
[2022-11-25] MEDS: FAMOTIDINE 10 MG TABLET PO PRN (19:05)
[2022-11-25] MEDS: CETIRIZINE HCL 10 MG TABLET PO SCH (19:24)
[2022-11-25] MEDS: ENOXAPARIN INJ 40 MG/0.4 ML SYR SQ SCH (19:25)
[2022-11-26] MEDS: LEVOTHYROXINE SODIUM 88 MCG TABLET PO SCH (05:40)
[2022-11-26] MEDS: MESALAMINE 4 GM/60 ML ENEMA PR SCH ×2 (09:24→21:24)
[2022-11-26] MEDS: FAMOTIDINE 10 MG TABLET PO PRN ×2 (09:48→21:18)
[2022-11-26] MEDS: FLUTICASONE/VILANTEROL 200/25MCG 14 PUFFS/INHALER INH SCH (09:49)
[2022-11-26] MEDS: predniSONE 20 MG TAB PO SCH (09:49)
[2022-11-26] MEDS: MULTIVITAMIN TAB PO SCH (09:49)
[2022-11-26] MEDS: ATENOLOL 25 MG TABLET PO SCH (09:49)
[2022-11-26 10:57] LABS: Hematocrit (blood only) 40.5 % (37.0-47.0); Hemoglobin 14.1 g/dl (12.0-16.0); Mean Corpuscular Hemoglobin 29.4 pg (25.0-34.0); Mean Corpuscular Hgb Conc 34.8 g/dL (32.0-36.0); Mean Corpuscular Volume 84.6 fL (80.0-100.0); Mean Platelet Volume 8.8 fL (9.4-12.4); Platelet Count 415 K/uL (130-400); RDW Coefficient of Variation 14.7 % (11.5-14.5); RDW Standard Deviation 45.2 fL (36.4-46.3); Red Blood Count 4.79 M/uL (4.20-5.40); White Blood Count 16.46 K/ul (4.8-10.8)
--- NOTE | 2022-11-26 11:26 | Gastroenterology Progress Note ---
Date of Service November 26, 2022 Assessment & Plan (1) IBD (inflammatory bowel disease): Plan: 71 year old female with history of severe refractory ulcerative colitis, 3rd hospitalization this month for the same, no improvement despite IV steroids. Induced with Infliximab 5mg/kg on 11/22/2022. Clinically doens't feel that she is improved, still w diarrhea, rectal bleeding and nocturnal awakening. - Awaiting insurance approval for pt to receive 2nd Infliximab induction this week and will also increase her dose to 10mg/kg - Continue Prednisone 60mg daily - Continue Rowasa enema BID - CMV stool - Protonix 40mg daily - Low reside diet - Zofran or Phenergan prn n/v Start infliximab at 5 mg/kg then will need subsequent doses at 2 and 6 weeks, followed by every 8 weeks thereafter. Admission and Anticipated Discharge Date Admission Date: November 19, 2022 Supervising Physician Co-Signing Physician Notes 71 yo fm with uc that appears as of end of october to involve more of her colon compared to her outpatient fup (rectal primarily in the past), now on imaging with transverse and descending inflammation noted on ct, colonoscopy in 10/2022 with findings of severe left sided inflammation precluding passage of the c- scope. PE as documented Slight wbc count elevation and crp elevation On infliximab, steroids, and rowasa Stool cmv. Agree with further plan of care as documented. Subjective Patient reports she had at least 8 episodes of loose bowel movements yesterday. Has some rectal bleeding but not with all bowel movements. She does have nocturnal awakening with diarrhea, and stool incontinence. Denies any fevers, chills. Nausea this morning but no abdominal pain. Review of Systems Review of Systems: All systems reviewed & are unremarkable except as noted in HPI & below Physical Exam Constitutional: WD/WN, vitals as above well groomed, cooperative and comfortable Eyes: PERRL, conjunctivae normal, anicteric sclerae ENMT: external ear and nose normal, oropharynx normal Respiratory: normal respiratory effort, lungs clear to auscultation Cardiovascular: RRR, no murmur, no edema Gastrointestinal (Abdomen): normal bowel sounds, soft, nontender, no hepatosplenomegaly Skin: no rashes, warm and dry no jaundice Psychiatric: A+Ox3, euthymic affect Lymphatic: no lymphedema Results & Data Vital Signs (Past 12 Hours) Vital Signs Temp Pulse Resp BP Pulse Ox O2 Del Method 06/05/23 07:13 36.8 C 91 H 16 105/68 93 Room Air
[2022-11-26 11:31] LABS: Calcium 7.9 mg/dl (8.6-10.3); Magnesium 1.7 mg/dl (1.7-2.4); Potassium 3.4 mmol/L (3.5-5.1)
[2022-11-26 11:37] LABS: BUN Creatinine Ratio 39.5 (10-20); Est GFR (African American) 124.4 ml/min; Est GFR (Non-African American) 107.3 ml/min
[2022-11-26] MEDS: PANTOprazole 40 MG TAB PO SCH ×2 (11:45→21:22)
[2022-11-26] MEDS: UMECLIDINIUM BROMIDE 62.5MCG/BLISTER 7 PUFFS/INHALER INH SCH (12:04)
--- NOTE | 2022-11-26 18:37 | Hospitalist Progress Note ---
Date of Service November 26, 2022 Assessment & Plan (1) IBD (inflammatory bowel disease): Plan: Ulcerative Colitis flare: Rectal bleeding secondary to above This is patient's third admission in the last 2 weeks due to ulcerative colitis flare She reports her last normal bowel movement was the first week in September 2022 She feels that her admission for aspiration pneumonia in June and subsequent antibiotics in the setting of IBD and C. difficile contributed to her current refractive flare. Increased Solu-Medrol has improved symptoms and lab work. Continues on Rowasa enema twice daily per GI x 1 week, then once nightly. First Avsola dose 11/21 with next infusion planned next week as outpatient She continues to have morning episodes of increased cramping this morning, for now, continue with original plan for prednisone 60mg PO daily with transition to prednisone 40mg daily at discharge. COPD: Chronic, stable. Uses rescue inhaler and Fluticasone; continue Advair No supplemental O2 at home HTN: Chronic, at goal. Continue Atenolol and Lisinopril Hypothyroidism: Chronic, stable. Continue Levothyroxine H/O C-Diff: Had fecal transplant 8years ago Stool studies continue to remain negative DVT Px: Lovenox Code Status Full Code Dispo- to home when symptoms improve, will have GI assist with disposition based on timing of infliximab and how controlled they feel her symptoms are. Kim Valdovinos DO [facility] Hospitalist Admission and Anticipated Discharge Date Admission Date: November 19, 2022 Subjective 71-year-old female presents with ulcerative colitis flare. Multiple recent admi ssions for the same issue. Reports more symptoms overnight Currently feeling well but she is very anxious about possible colectomy and this repeat infliximab infusion she is tolerating PO Review of Systems Review of Systems: All systems reviewed negative except as indicated above. Physical Exam Physical Exam: CONSTITUTIONAL: WNWD, vitals as above, generally well-appearing, NAD EYES: normal conjunctivae, no scleral icterus, ENT: external ear and nose normal NECK: trachea midline, RESPIRATORY: clear to auscultation bilaterally, no crackles, rales or wheezes, normal respiratory effort CARDIOVASCULAR: regular rate and rhythm, S1 and 2 heard without murmurs, gallops or rubs, no JVD, no peripheral edema CHEST: inspection of chest was normal GASTROINTESTINAL: soft, NT, ND, no guarding MUSCULOSKELETAL: strength 5/5 throughout, head is normocephalic and atraumatic SKIN: warm and dry NEUROLOGIC: CN 2-12 grossly intact, no sensory deficit, normal cognition, normal speech, no tremor PSYCHIATRIC: alert cooperative and oriented to person, place and time. Results & Data Results & Data Vital Signs (Past 12 Hours) Vital Signs Temp Pulse Resp BP Pulse Ox O2 Del Method 11/26/22 14:46 36.8 C 81 18 97/58 L 94 Room Air 11/26/22 08:20 Room Air 11/26/22 07:13 36.8 C 91 H 16 105/68 93 Room Air Laboratory Results Short CBC 11/26/22 Range/Units 10:19 WBC 16.46 H (4.8-10.8) K/ul Hgb 14.1 (12.0-16.0) g/dl Hct 40.5 (37.0-47.0) % Plt Count 415 H (130-400) K/uL BMP 11/26/22 10:19 Sodium 130 L Potassium 3.4 L Chloride 96 L Carbon Dioxide 28 BUN 15 Creatinine 0.38 L Glucose 109 H Calcium 7.9 L Medications Administered Current Inpatient Medications Acetaminophen (Acetaminophen 325 Mg Tab) 650 mg PO Q4H PRN PRN Reason: Pain or Fever Stop: 12/19/22 04:08 Atenolol (Atenolol 25 Mg Tablet) 25 mg PO QA AGGIE Stop: 12/19/22 08:59 Last Admin: 11/26/22 09:49 Dose: 25 mg Cetirizine HCl (Cetirizine Hcl 10 Mg Tablet) 10 mg PO HS AGGIE Stop: 12/19/22 20:59 Last Admin: 11/25/22 19:24 Dose: 10 mg Enoxaparin Sodium (Enoxaparin Inj 40 Mg/0.4 Ml Syr) 40 mg SQ HS AGGIE Stop: 12/22/22 20:59 Last Admin: 11/25/22 19:25 Dose: 40 mg Famotidine (Famotidine 10 Mg Tablet) 10 mg PO BID PRN PRN Reason: heartburn Stop: 12/19/22 04:08 Last Admin: 11/26/22 09:48 Dose: 10 mg Fluticasone Propionate (Fluticasone Propionate Na Spr 16 Gm Btl) 2 sprays NA DAILY PRN PRN Reason: Congestion Stop: 12/19/22 04:08 Fluticasone/Vilanterol (Fluticasone/Vilanterol 200/25mcg 14 Puffs/Inhaler) 1 puffs INH DAILY AGGIE Stop: 12/19/22 08:59 Last Admin: 11/26/22 09:49 Dose: 1 puffs Promethazine HCl 6.25 mg/ (Sodium Chloride) 50.25 mls @ 201 mls/hr IV Q6H PRN; Protocol PRN Reason: Nausea And Vomiting Stop: 12/19/22 03:09 Last Infusion: 11/25/22 16:25 Dose: Infused Levothyroxine Sodium (Levothyroxine Sodium 88 Mcg Tablet) 88 mcg PO DAILYBB [facility] Stop: 12/19/22 06:29 Last Admin: 11/26/22 05:40 Dose: 88 mcg Lorazepam (Lorazepam 0.5 Mg Tab) 0.25 mg PO TID PRN PRN Reason: Anxiety Stop: 12/19/22 03:09 Melatonin (Melatonin 3 Mg Tab) 3 mg PO HS PRN PRN Reason: Sleep Stop: 12/20/22 20:21 Last Admin: 11/24/22 20:49 Dose: 3 mg Mesalamine (Mesalamine 4 Gm/60 Ml Enema) 4 gm [place] BID [facility] Stop: 12/21/22 10:44 Last Admin: 11/26/22 09:24 Dose: Not Given Multivitamins (Multivitamin Tab) 1 tab PO QAM [facility] Stop: 12/19/22 08:59 Last Admin: 11/26/22 09:49 Dose: 1 tab Ondansetron HCl (Ondansetron Inj 2 Mg/Ml 2 Ml Vial) 4 mg IV Q6H PRN PRN Reason: Nausea And Vomiting Stop: 12/26/22 09:48 Oxycodone HCl (Oxycodone Hcl Ir 5 Mg Tab (Immediate Release)) 5 mg PO Q4H PRN PRN Reason: Pain Stop: 12/03/22 03:09 Pantoprazole Sodium (Pantoprazole 40 Mg Tab) 40 mg PO BID [facility] Stop: 12/26/22 10:14 Last Admin: 11/26/22 11:45 Dose: 40 mg Prednisone (Prednisone 20 Mg Tab) 60 mg PO DAILY [facility] Stop: 12/25/22 02:39 Last Admin: 11/26/22 09:49 Dose: 60 mg Umeclidinium [place] (Umeclidinium [place] 62.5mcg/Blister 7 Puffs/Inhaler) 1 puffs INH QDL AGGIE Stop: 12/19/22 11:29 Last Admin: 11/26/22 12:04 Dose: 1 puffs
[2022-11-26] MEDS: MELATONIN 3 MG TAB PO PRN (21:18)
[2022-11-26] MEDS: ENOXAPARIN INJ 40 MG/0.4 ML SYR SQ SCH (21:19)
[2022-11-26] MEDS: CETIRIZINE HCL 10 MG TABLET PO SCH (21:20)
[2022-11-27] MEDS: ONDANSETRON INJ 2 MG/ML 2 ML VIAL IV PRN ×2 (01:08→08:06)
[2022-11-27] MEDS: LEVOTHYROXINE SODIUM 88 MCG TABLET PO SCH (06:01)
[2022-11-27] MEDS: PANTOprazole 40 MG TAB PO SCH ×2 (08:05→20:51)
--- NOTE | 2022-11-27 08:12 | Gastroenterology Progress Note ---
Date of Service November 27, 2022 Assessment & Plan (1) IBD (inflammatory bowel disease): Plan: 71 year old female with history of severe refractory ulcerative colitis, 3rd hospitalization this month and last for the same, no improvement despite IV steroids. Induced with Infliximab 5mg/kg on 11/22/2022. Clinically doesn't feel that she is improved, still w/ diarrhea, having abd discomfort, nausea, rectal bleeding and nocturnal awakening. - Repeat H/H today - Awaiting insurance/hospital approval for pt to receive 2nd Infliximab induction this week and will also increase her dose to 10mg/kg - Continue Prednisone 60mg daily - Pt has been refusing Rowasa enemas though they were ordered BID - CMV stool can't be sent per lab. - Protonix 40mg daily - Low reside diet - encouraged fluids if she doesn't feel like eating today - Zofran or Phenergan PRN n/v Thank you for allowing us to participate in the care of this patient. Please call with any acute changes, questions or concerns. Please see addendum below with additional recommendation from my supervising physician. Admission and Anticipated Discharge Date Admission Date: November 19, 2022 Supervising Physician Co-Signing Physician Notes 71 yo fm with a history fo ibd now on infliximab, rowasa and steroids. PE as documented. Minimal improvement per patient report after first dose of infliximab on 11/22, would continue with the plan as initiated last week to receive the second dose of infliximab hopefully today. She may need more time to assess the response to this therapy. Last serum CMV negative Agree with further plan of care as documented. Subjective Patient seen and examined, chart reviewed. She said last night was "bad" - had multiple episodes of hematochezia. She states the days tend to be better but the nights are when she gets flares. Not feeling hungry right now for a diet; didn't eat her breakfast. + nausea; getting medicated for that. Having lower abd pain/cramping/dull ache. No vomiting, hematemesis, melena, fever, chills. Review of Systems Review of Systems: All systems reviewed & are unremarkable except as noted in HPI & below Physical Exam Constitutional: well developed; no acute distress and + uncomfortable Respiratory: normal respiratory effort, lungs clear to auscultation Cardiovascular: RRR, no murmur, no edema Gastrointestinal (Abdomen): Inspection/Auscultation: normal bowel sounds; a bdomen not distended (+ moderately TTP diffusely, especially RLQ; no rebound, guarding) Skin: no rashes, warm and dry Psychiatric: A+Ox3, euthymic affect Results & Data Vital Signs (Past 12 Hours) Vital Signs Temp Pulse Resp BP BP Pulse Ox O2 Del Method 11/27/22 07:41 36.5 C 100 H 16 107/66 90 Room Air 11/26/22 20:23 36.7 C 75 17 109/67 96 Room Air Laboratory Results 11/26/22 11/26/22 Range/Units 10:19 10:19 WBC 16.46 H (4.8-10.8) K/ul RBC 4.79 (4.20-5.40) M/uL Hgb 14.1 (12.0-16.0) g/dl Hct 40.5 (37.0-47.0) % MCV 84.6 (80.0-100.0) fL MCH 29.4 (25.0-34.0) pg MCHC 34.8 (32.0-36.0) g/dL RDW Std Deviation 45.2 (36.4-46.3) fL RDW Coeff of Darryl 14.7 H (11.5-14.5) % Plt Count 415 H (130-400) K/uL MPV 8.8 L (9.4-12.4) fL Sodium 130 L (136-145) mmol/L Potassium 3.4 L (3.5-5.1) mmol/L Chloride 96 L (98-107) mmol/L Carbon Dioxide 28 (21-32) mmol/L Anion Gap 6 (3-11) BUN 15 (6-23) mg/dl Creatinine 0.38 L (0.6-1.2) mg/dl Est Cr Clr Drug Dosing 119.0 ml/min Est GFR ( Amer) 124.4 ml/min Est GFR (Non-Af Amer) 107.3 ml/min BUN/Creatinine Ratio 39.5 H (10-20) Glucose 109 H (70-99(Fasting)) mg/dl Calcium 7.9 L (8.6-10.3) mg/dl Magnesium 1.7 (1.7-2.4) mg/dl
[2022-11-27] MEDS: FLUTICASONE/VILANTEROL 200/25MCG 14 PUFFS/INHALER INH SCH (09:34)
[2022-11-27] MEDS: ATENOLOL 25 MG TABLET PO SCH (09:34)
[2022-11-27] MEDS: MULTIVITAMIN TAB PO SCH (09:34)
[2022-11-27] MEDS: predniSONE 20 MG TAB PO SCH (09:34)
[2022-11-27] MEDS: MESALAMINE 4 GM/60 ML ENEMA PR SCH ×2 (09:34→21:04)
[2022-11-27 10:22] LABS: Hematocrit (blood only) 39.9 % (37.0-47.0); Hemoglobin 14.1 g/dl (12.0-16.0)
[2022-11-27 10:39] LABS: BUN Creatinine Ratio 39.5 (10-20); Creatinine Clr Calc Pharmacy 105.1 ml/min; Est GFR (African American) 119.4 ml/min; Est GFR (Non-African American) 103.1 ml/min; Potassium 3.9 mmol/L (3.5-5.1)
--- NOTE | 2022-11-27 11:27 | XRay Report ---
XR chest 1V portable CLINICAL HISTORY: coughing up greenish sputum TECHNIQUE: Single frontal radiograph of the chest was obtained. Comparison: Comparison is made to chest radiograph 09/23/2022 FINDINGS: No lines and tubes are seen. The cardiomediastinal silhouette is normal. The lungs are clear. No evid ence of pleural effusion or pneumothorax. IMPRESSION: No acute abnormalities and in particular no radiographic evidence of pneumonia. ACT 112: Negative or not required by law. Electronically signed by: Santy Fonseca M.D. 11/27/2022 11:25 AM
[2022-11-27] MEDS: UMECLIDINIUM BROMIDE 62.5MCG/BLISTER 7 PUFFS/INHALER INH SCH (13:39)
--- NOTE | 2022-11-27 14:01 | Communication Note ---
Date of Service: November 27, 2022 Reviewed with GI attending; will plan for flexible sigmoidoscopy tomorrow to do biopsy to r/o CMV as bx was not done with last endoscopy. Pt is agreeable; n nawaf and hospitalist updated. - NPO at midnight - Please do tap water this evening and tomorrow AM - Flex sig tomorrow 11/28/22
--- NOTE | 2022-11-27 14:29 | Anesthesiology Consultation ---
Date of Service November 27, 2022 Assessment & Plan (1) Encounter for pre-operative examination: Chart Review Chart Review: Acceptable Risk for Surgery, Patient NOT seen in Pre Admission Testing and engineer steam initiated Consults Requested none History Surgery Operation Date: 11/28/22 16:45 Proposed Procedures p Flexible Sigmoidoscopy Dr. Dona Carcamo MD Height/Weight Height: 5 ft 4 in Weight: 59 kg Allergies Allergy/AdvReac Type Severity Reaction Status Date / Time adhesive tape Allergy Intermediate SKIN Verified 11/19/22 00:20 IRRITATION/TAKES SKIN OFF WHEN TAKEN OFF midazolam Allergy Unknown NOT ON GMG Verified 11/19/22 00:20 OR PT LIST sulfasalazine AdvReac Severe PANCREATITI Verified 11/19/22 00:20 S Medications Home Medications Medication Instructions Recorded Confirmed Last Taken albuterol sulfate 2.5 mg/3 mL 2.5 mg inhalation DIRECTED PRN 09/20/22 11/19/22 Unknown (0.083 %) solution for nebulization Shortness Of Breath Or Wheezing albuterol sulfate 90 mcg/actuation 2 puff inhalation Q4H PRN Wheezing 09/20/22 11/19/22 11/13/22 aerosol inhaler atenolol 25 mg tablet 25 mg PO QAM 09/20/22 11/19/22 11/18/22 cetirizine 10 mg tablet (Zyrtec) 10 mg PO HS 09/20/22 11/19/22 11/17/22 cholecalciferol (vitamin D3) 25 25 mcg PO BID 09/20/22 11/19/22 11/18/22 mcg (1,000 unit) capsule (Vitamin D3) diclofenac sodium 1 % topical gel 2 g topical QID PRN Pain 09/20/22 11/19/22 11/13/22 fluticasone propionate 50 2 spray intranasal DAILY PRN 09/20/22 11/19/22 11/06/22 mcg/actuation nasal Congestion spray,suspension levothyroxine 88 mcg tablet 88 mcg PO QAM 09/20/22 11/19/22 11/18/22 multivitamin 1 tab PO QAM 09/20/22 11/19/22 11/18/22 tiotropium bromide 18 mcg capsule 18 mcg inhalation QDL 09/20/22 11/19/22 11/18/22 with inhalation device (Spiriva with HandiHaler) vitamin E 268 mg (400 unit) capsule 268 mg PO QAM 09/20/22 11/19/22 11/18/22 fluticasone 250 mcg-salmeterol 50 1 inh inhalation BID 11/02/22 11/19/22 0502/13 mcg/dose blistr powdr for inhalation (Advair Diskus) lisinopril 20 mg tablet 20 mg PO QAM 11/02/22 11/19/22 11/18/22 nicotine 7 mg/24 hr daily 2 patch transdermal DAILY 11/02/22 11/19/22 11/14/22 transdermal patch famotidine 10 mg tablet (Acid 10 mg PO BID PRN heartburn #30 tabs 11/10/22 11/19/22 11/13/22 [employer] (famotidine)) prednisone 10 mg tablet See Taper PO HS 11/19/22 11/19/22 11/17/22 Active Medications Generic Name Dose Route Start Last Admin Trade Name Freq PRN Reason Stop Dose Admin Atenolol 25 mg 11/19/22 09:00 11/27/22 09:34 Atenolol 25 Mg Tablet PO 12/19/22 08:59 25 mg QAM AGGIE Administration Cetirizine HCl 10 mg 11/19/22 21:00 11/26/22 21:20 Cetirizine Hcl 10 Mg Tablet PO 12/19/22 20:59 10 mg HS AGGIE Administration Enoxaparin Sodium 40 mg 11/22/22 21:00 11/26/22 21:19 Enoxaparin Inj 40 Mg/0.4 Ml Syr SQ 12/22/22 20:59 40 mg HS AGGIE Administration Famotidine 10 mg 11/19/22 04:09 11/26/22 21:18 Famotidine 10 Mg Tablet PO 12/19/22 04:08 10 mg BID PRN Administration heartburn Fluticasone/Vilanterol 1 puffs 11/19/22 09:00 11/27/22 09:34 Fluticasone/Vilanterol 200/25mcg 14 Puffs/Inhaler INH 12/19/22 08:59 1 puffs DAILY AGGIE Administration Promethazine HCl 6.25 mg/ 50.25 mls @ 201 mls/hr 11/19/22 03:10 11/25/22 16:25 Sodium Chloride IV 12/19/22 03:09 Infused Q6H PRN Infusion Nausea And Vomiting Protocol Levothyroxine Sodium 88 mcg 11/19/22 06:30 11/27/22 06:01 Levothyroxine Sodium 88 Mcg Tablet PO 12/19/22 06:29 88 mcg DAILYBB AGGIE Administration Melatonin 3 mg 11/20/22 20:22 11/26/22 21:18 Melatonin 3 Mg Tab PO 12/20/22 20:21 3 mg HS PRN Administration Sleep Mesalamine 4 gm 11/21/22 10:45 11/27/22 09:34 Mesalamine 4 Gm/60 Ml Enema [place] 12/21/22 10:44 Not Given BID AGGIE Multivitamins 1 tab 11/19/22 09:00 11/27/22 09:34 Multivitamin Tab PO 12/19/22 08:59 1 tab QAM AGGIE Administration Ondansetron HCl 4 mg 11/26/22 09:49 11/27/22 08:06 Ondansetron Inj 2 Mg/Ml 2 Ml Vial IV 12/26/22 09:48 4 mg Q6H PRN Administration Nausea And Vomiting Pantoprazole Sodium 40 mg 11/26/22 10:15 11/27/22 08:05 Pantoprazole 40 Mg Tab PO 12/26/22 10:14 40 mg BID AGGIE Administration Prednisone 60 mg 11/25/22 02:40 11/27/22 09:34 Prednisone 20 Mg Tab PO 12/25/22 02:39 60 mg DAILY AGGIE Administration Umeclidinium [place] 1 puffs 11/19/22 11:30 11/27/22 13:39 Umeclidinium [place] 62.5mcg/Blister 7 Puffs/Inhaler INH 12/19/22 11:29 1 puffs QDL AGGIE Administration Past Medical History Medical History (Updated 11/27/22 @ 14:31 by Duglas Acosta MD) Anxiety no meds Aspiration pneumonia hospitalized at [facility] for this in September 2022 > no further issues COPD (chronic obstructive pulmonary disease) uses res inh daily Dysphagia Encounter for pre-operative examination History of COVID-12 Aug 2021 > not hospitalized HLD (hyperlipidemia) HTN (hypertension) Hx of Clostridium difficile infection 8 yrs ago > fecal transplant > resolved Hypothyroidism Meningocele Palpitations no longer Ulcerative colitis Ulcerative colitis hx of 25 yrs ago > possible issue now?? reason for up coming colon/EGD Past Family History Family History Father , 66 Sudden cardiac Mother Bipolar disorder Past Surgical History Surgical History History of carpal tunnel surgery bilat History of colonoscopy History of tooth extraction Hx of partial thyroidectomy Hx of tubal ligation S/P fecal transplant Social History Smoking Status: Former smoker tobacco type: cigarettes Smoking cigarettes per day: 6-8 Do You Dip or Chew Tobacco: No Hx Alcohol Use: No Hx Substance Use: No substance use type: does not use Physical Exam Vital Signs Last Vital Signs Temp 36.5 C 11/27/22 07:41 Pulse 87 11/27/22 12:20 Resp 20 11/27/22 12:20 BP 102/64 11/27/22 12:20 Pulse Ox 94 11/27/22 12:20 O2 Del Method Room Air 11/27/22 12:20 Testing Laboratory Results 11/27/22 09:42 11/27/22 09:42 PT 12.0 Seconds (9.0-12.0) 11/18/22 23:35 INR 1.1 (0.9-1.1) 11/18/22 23:35 APTT 24.6 Seconds (21.0-31.0) 11/18/22 23:35 Urine Color Yellow 11/19/22 14:42 Urine Appearance Clear (Clear) 11/19/22 14:42 Urine pH 6.5 (4.5-7.5) 11/19/22 14:42 Ur Specific [place] 1.015 (1.000-1.030) 11/19/22 14:42 Urine Protein Negative (Negative) 11/19/22 14:42 Urine Glucose (UA) Negative (Negative) 11/19/22 14:42 Urine Ketones Negative (Negative) 11/19/22 14:42 Urine Nitrite Negative (Negative) 11/19/22 14:42 Ur Leukocyte Esterase Negative (Negative) 11/19/22 14:42 Blood Type A Positive 11/18/22 23:35 Antibody Screen NEGATIVE 11/18/22 23:35 Electrocardiogram Date: 11/18/22 Test Reason : Blood Pressure : / mmHG Vent. Rate : 084 BPM Atrial Rate : 084 BPM P-R Int : 132 ms QRS Dur : 076 ms QT Int : 360 ms P-R-T Axes : 076 -02 048 degrees QTc Int : 425 ms Normal sinus rhythm Possible Left atrial enlargement RSR' or QR pattern in V1 suggests right ventricular conduction delay Abnormal ECG When compared with ECG of 13-NOV-2022 23:30, No significant change was found Confirmed by Dieter Robert ([id number]) on 11/19/2022 10:48:09 AM Chest X-Ray Date: 11/27/22 XR chest 1V portable CLINICAL HISTORY: coughing up greenish sputum TECHNIQUE: Single frontal radiograph of the chest was obtained. Comparison: Comparison is made to chest radiograph 09/23/2022 FINDINGS: No lines and tubes are seen. The cardiomediastinal silhouette is normal. The lungs are clear. No evidence of pleural effusion or pneumothorax. IMPRESSION: No acute abnormalities and in particular no radiographic evidence of pneumonia.
[2022-11-27 15:27] LABS: C Reactive Protein 21.97 mg/dl (0-0.5)
--- NOTE | 2022-11-27 15:52 | Hospitalist Progress Note ---
Date of Service November 27, 2022 Assessment & Plan (1) IBD (inflammatory bowel disease): Plan: Ulcerative Colitis flare: Rectal bleeding secondary to above This is patient's third admission in the last 2 weeks due to ulcerative colitis flare She reports her last normal bowel movement was the first week in September 2022 She feels that her admission for aspiration pneumonia in June and subsequent antibiotics in the setting of IBD and C. difficile contributed to her current refractive flare. Increased Solu-Medrol has improved symptoms and lab work. Continues on Rowasa enema twice daily per GI x 1 week, then once nightly. First Avsola dose 11/21 with next infusion planned next week as outpatient She continues to have morning episodes of increased cramping this morning, for now, continue with original plan for prednisone 60mg PO daily with transition to prednisone 40mg daily at discharge. 11/27: remains on prednisone 60mg, however, symptoms are uncontrolled. May have better control on IV steroids again, however, would defer that to GI. Patient is declining Rowasa enemas. Per GI plans for unprepped flex sig in am with second Avsola dose to be given. Diet changed to clears per pt request, then NPO after MN. Cont supportive care efforts. COPD: Chronic, stable. Uses rescue inhaler and Fluticasone; continue Advair No supplemental O2 at home HTN: Chronic, at goal. Continue Atenolol and Lisinopril Hypothyroidism: Chronic, stable. Continue Levothyroxine H/O C-Diff: Had fecal transplant 8years ago Stool studies continue to remain negative DVT Px: Lovenox Code Status Full Code Dispo- to home when symptoms improve, will have GI assist with disposition based on timing of infliximab and how controlled they feel her symptoms are. Kim Valdovinos DO [facility] Hospitalist Admission and Anticipated Discharge Date Admission Date: November 19, 2022 Subjective 71-year-old female presents with ulcerative colitis flare. Multiple recent admissions for the same issue. multiple episodes of hematochezia overnight feels like her insides are raw would like to change to clears for now afebrile reported a greenish sputum with a cough since yesterday we discussed how abx are not ideal in her situation, and she agrees CXR clear, offered mucinex and she declined at this time. nausea improved with zofran Review of Systems Review of Systems: All systems reviewed negative except as indicated above. Physical Exam Physical Exam: CONSTITUTIONAL: WNWD, vitals as above, generally well-appearing, NAD EYES: normal conjunctivae, no scleral icterus, ENT: external ear and nose normal NECK: trachea midline, RESPIRATORY: clear to auscultation bilaterally, no crackles, rales or wheezes, normal respiratory effort CARDIOVASCULAR: regular rate and rhythm, S1 and 2 heard without murmurs, gallops or rubs, no JVD, no peripheral edema CHEST: inspection of chest was normal GASTROINTESTINAL: soft, NT, ND, no guarding MUSCULOSKELETAL: strength 5/5 throughout, head is normocephalic and atraumatic SKIN: warm and dry NEUROLOGIC: CN 2-12 grossly intact, no sensory deficit, normal cognition, normal speech, no tremor PSYCHIATRIC: alert cooperative and oriented to person, place and time. Results & Data Results & Data Vital Signs (Past 12 Hours) Vital Signs Temp Pulse Resp BP BP Pulse Ox O2 Del Method 11/27/22 12:20 87 20 102/64 94 Room Air 11/27/22 08:05 Room Air 11/27/22 08:20 93 Room Air 11/27/22 07:41 36.5 C 100 H 16 107/66 90 Room Air Laboratory Results Short CBC 11/27/22 Range/Units 09:42 Hgb 14.1 (12.0-16.0) g/dl Hct 39.9 (37.0-47.0) % BMP 11/27/22 09:42 Sodium 130 L Potassium 3.9 Chloride 95 L Carbon Dioxide 26 BUN 17 Creatinine 0.43 L Glucose 114 H Calcium 8.0 L Diagnostic Findings Chest X-Ray 11/27/22 09:46 XR chest 1V portable CLINICAL HISTORY: coughing up greenish sputum TECHNIQUE: Single frontal radiograph of the chest was obtained. Comparison: Comparison is made to chest radiograph 09/23/2022 FINDINGS: No lines and tubes are seen. The cardiomediastinal silhouette is normal. The lungs are clear. No evidence of pleural effusion or pneumothorax. IMPRESSION: No acute abnormalities and in particular no radiographic evidence of pneumonia. ACT 112: Negative or not required by law. Electronically signed by: Santy Fonseca M.D. 11/27/2022 11:25 AM Medications Administered Current Inpatient Medications Acetaminophen (Acetaminophen 325 Mg Tab) 650 mg PO Q4H PRN PRN Reason: Pain or Fever Stop: 12/19/22 04:08 Atenolol (Atenolol 25 Mg Tablet) 25 mg PO QAM AGGIE Stop: 12/19/22 08:59 Last Admin: 11/27/22 09:34 Dose: 25 mg Cetirizine HCl (Cetirizine Hcl 10 Mg Tablet) 10 mg PO HS AGGIE Stop: 12/19/22 20:59 Last Admin: 11/26/22 21:20 Dose: 10 mg Enoxaparin Sodium (Enoxaparin Inj 40 Mg/0.4 Ml Syr) 40 mg SQ HS AGGIE Stop: 12/22/22 20:59 Last Admin: 11/26/22 21:19 Dose: 40 mg Famotidine (Famotidine 10 Mg Tablet) 10 mg PO BID PRN PRN Reason: heartburn Stop: 12/19/22 04:08 Last Admin: 11/26/22 21:18 Dose: 10 mg Fluticasone Propionate (Fluticasone Propionate Na Spr 16 Gm Btl) 2 sprays NA DAILY PRN PRN Reason: Congestion Stop: 12/19/22 04:08 Fluticasone/Vilanterol (Fluticasone/Vilanterol 200/25mcg 14 Puffs/Inhaler) 1 puffs INH DAILY AGGIE Stop: 12/19/22 08:59 Last Admin: 11/27/22 09:34 Dose: 1 puffs Promethazine HCl 6.25 mg/ (Sodium Chloride) 50.25 mls @ 201 mls/hr IV Q6H PRN; Protocol PRN Reason: Nausea And Vomiting Stop: 12/19/22 03:09 Last Infusion: 11/25/22 16:25 Dose: Infused Levothyroxine Sodium (Levothyroxine Sodium 88 Mcg Tablet) 88 mcg PO DAILYBB AGGIE Stop: 12/19/22 06:29 Last Admin: 11/27/22 06:01 Dose: 88 mcg Lorazepam (Lorazepam 0.5 Mg Tab) 0.25 mg PO TID PRN PRN Reason: Anxiety Stop: 12/19/22 03:09 Melatonin (Melatonin 3 Mg Tab) 3 mg PO HS PRN PRN Reason: Sleep Stop: 12/20/22 20:21 Last Admin: 11/26/22 21:18 Dose: 3 mg Mesalamine (Mesalamine 4 Gm/60 Ml Enema) 4 gm [place] BID [facility] Stop: 12/21/22 10:44 Last Admin: 11/27/22 09:34 Dose: Not Given Multivitamins (Multivitamin Tab) 1 tab PO QAM [facility] Stop: 12/19/22 08:59 Last Admin: 11/27/22 09:34 Dose: 1 tab Ondansetron HCl (Ondansetron Inj 2 Mg/Ml 2 Ml Vial) 4 mg IV Q6H PRN PRN Reason: Nausea And Vomiting Stop: 12/26/22 09:48 Last Admin: 11/27/22 08:06 Dose: 4 mg Oxycodone HCl (Oxycodone Hcl Ir 5 Mg Tab (Immediate Release)) 5 mg PO Q4H PRN PRN Reason: Pain Stop: 12/03/22 03:09 Pantoprazole Sodium (Pantoprazole 40 Mg Tab) 40 mg PO BID [facility] Stop: 12/26/22 10:14 Last Admin: 11/27/22 08:05 Dose: 40 mg Prednisone (Prednisone 20 Mg Tab) 60 mg PO DAILY [facility] Stop: 12/25/22 02:39 Last Admin: 11/27/22 09:34 Dose: 60 mg Umeclidinium [place] (Umeclidinium [place] 62.5mcg/Blister 7 Puffs/Inhaler) 1 puffs INH QDL [facility] Stop: 12/19/22 11:29 Last Admin: 11/27/22 13:39 Dose: 1 puffs
[2022-11-27] MEDS: SODIUM CHLORIDE 0.9% 1000ML 1,000 ML IV SCH ×2 (16:13→23:54)
[2022-11-27] MEDS: ENOXAPARIN INJ 40 MG/0.4 ML SYR SQ SCH (20:51)
[2022-11-27] MEDS: CETIRIZINE HCL 10 MG TABLET PO SCH (20:52)
[2022-11-27] MEDS: MELATONIN 3 MG TAB PO PRN (21:03)
[2022-11-28] MEDS: ONDANSETRON INJ 2 MG/ML 2 ML VIAL IV PRN ×2 (01:35→19:02)
[2022-11-28] MEDS: oxyCODONE HCL IR 5 MG TAB (IMMEDIATE RELEASE) PO PRN ×2 (02:05→19:41)
[2022-11-28] MEDS: LEVOTHYROXINE SODIUM 88 MCG TABLET PO SCH (06:34)
--- NOTE | 2022-11-28 07:39 | Hospitalist Progress Note ---
Date of Service November 28, 2022 Assessment & Plan (1) IBD (inflammatory bowel disease): Plan: Ulcerative Colitis flare: Rectal bleeding secondary to above This is patient's third admission in the last 2 weeks due to ulcerative colitis flare She reports her last normal bowel movement was the first week in September 2022 She feels that her admission for aspiration pneumonia in June and subsequent antibiotics in the setting of IBD and C. difficile contributed to her current refractive flare. Increased Solu-Medrol has improved symptoms and lab work. Continues on Rowasa enema twice daily per GI x 1 week, then once nightly. First Avsola dose 11/21 with next infusion planned for today/tomorrow She continues to have cramping continue with original plan for prednisone 60mg PO daily with transition to prednisone 40mg daily at discharge. 11/27: remains on prednisone 60mg, however, symptoms are uncontrolled. May have better control on IV steroids again, however, would defer that to GI. Patient is declining Rowasa enemas. Per GI plans for unprepped flex sig with second Avsola dose to be given. Diet changed to clears per pt request, then NPO after MN. Cont supportive care efforts. 11/28 -patient with chest tightness this morning, tachycardia, hypotension cough with sputum production. Chest x-ray clear. ECG with sinus tachycardia and PVCs. Guaifenesin and flutter valve started IV fluids/albumin. Echo ordered and discussed with cardiology and GI. Flex sig canceled today by anesthesiology. Will obtain CT PE, sputum and blood cultx. COPD: Chronic, stable. Uses rescue inhaler and Fluticasone; continue Advair No supplemental O2 at home HTN: Chronic, at goal. Continue Atenolol and Lisinopril Hypothyroidism: Chronic, stable. Continue Levothyroxine H/O C-Diff: Had fecal transplant 8years ago Stool studies continue to remain negative DVT Px: Lovenox Code Status Full Code Dispo- to home when symptoms improve, will have GI assist with disposition based on timing of infliximab and how controlled they feel her symptoms are. Admission and Anticipated Discharge Date Admission Date: November 19, 2022 Subjective 71-year-old female presents with ulcerative colitis flare. Multiple recent admissions for the same issue. + hematochezia , Hgb stable afebrile Yesterday reported a greenish sputum with a cough and discussed w/ previous provider how abx are not ideal in her situation. CXR clear yesterday This morning patient presented with left chest tightness, coughed up sputum that had some colleen-color. Tachycardic, hypotensive. Patient tells me after she coughed up sputum, chest discomfort improved. EKG also obtained, showed sinus tachycardia with PVCs. Chest x-ray obtained and clear. Started Mucinex and flutter valve. Continued IV fluids, ordered echocardiogram and discussed with GI and cardiology. Review of Systems Review of Systems: All systems reviewed & are unremarkable except as noted in Subjective Physical Exam Physical Exam: CONSTITUTIONAL: WNWD, NAD on 3L of suppl. O2 EYES: normal conjunctivae, no scleral icterus, ENT: external ear and nose normal NECK: trachea midline, neck supple RESPIRATORY: clear to auscultation bilaterally, normal respiratory effort CARDIOVASCULAR: regular rate and rhythm, S1 and 2 heard without murmurs, gallops or rubs, no JVD, no peripheral edema CHEST: inspection of chest normal GASTROINTESTINAL: soft, NT, ND, no guarding MUSCULOSKELETAL: head is normocephalic and atraumatic, moves extremities SKIN: warm and dry NEUROLOGIC:awake and alert, normal cognition, normal speech, no tremor, moves extremities Results & Data Results & Data Vital Signs (Past 12 Hours) Vital Signs Temp Pulse Resp BP BP Pulse Ox O2 Del Method 11/28/22 07:23 37.1 C 122 H 20 94/63 L 92 Nasal Cannula 11/27/22 20:46 36.8 C 82 18 100/62 96 Room Air O2 Flow Rate 11/28/22 07:23 3 11/27/22 20:46 Laboratory Results 11/28/22 11/28/22 11/27/22 Range/Units 08:37 08:37 09:42 WBC 15.88 H (4.8-10.8) K/ul RBC 4.87 (4.20-5.40) M/uL Hgb 14.2 (12.0-16.0) g/dl Hct 41.6 (37.0-47.0) % MCV 85.4 (80.0-100.0) fL MCH 29.2 (25.0-34.0) pg MCHC 34.1 (32.0-36.0) g/dL RDW Std Deviation 45.1 (36.4-46.3) fL RDW Coeff of Darryl 14.4 (11.5-14.5) % Plt Count 393 (130-400) K/uL MPV 9.5 (9.4-12.4) fL Immature Gran % (Auto) 1.4 % Neut % (Auto) 85.0 % Lymph % (Auto) 2.0 % [place] % (Auto) 11.5 % Eos % (Auto) 0.0 % Baso % (Auto) 0.1 % Neut # (Auto) 13.52 H (1.40-6.50) K/uL Lymph # (Auto) 0.31 L (1.2-3.4) K/uL [place] # (Auto) 1.82 H (0.11-0.59) K/uL Eos # (Auto) 0.00 (0-0.50) K/uL Baso # (Auto) 0.01 (0-0.2) K/uL Immature Gran # (Auto) 0.22 H (0.01-0.20) K/uL Hyposegmented Neuts 1+ Toxic Vacuolation 1+ Dohle Bodies 1+ Polychromasia 1+ Echinocytes 1+ Sodium 132 L (136-145) mmol/L Potassium 4.0 (3.5-5.1) mmol/L Chloride 98 (98-107) mmol/L Carbon Dioxide 23 (21-32) mmol/L Anion Gap 11 (3-11) BUN 18 (6-23) mg/dl Creatinine 0.54 L (0.6-1.2) mg/dl Est Cr Clr Drug Dosing 82.5 ml/min Est GFR ( Amer) 110.0 ml/min Est GFR (Non-Af Amer) 94.9 ml/min BUN/Creatinine Ratio 33.3 H (10-20) Glucose 120 H (70-99(Fasting)) mg/dl Calcium 8.1 L (8.6-10.3) mg/dl Phosphorus 3.0 (2.5-4.9) mg/dl Magnesium 1.8 (1.7-2.4) mg/dl C-Reactive Protein 29.81 H 21.97 H (0-0.5) mg/dl Medications Administered Current Inpatient Medications Acetaminophen (Acetaminophen 325 Mg Tab) 650 mg PO Q4H PRN PRN Reason: Pain or Fever Stop: 12/19/22 04:08 Atenolol (Atenolol 25 Mg Tablet) 25 mg PO QAM AGGIE Stop: 12/19/22 08:59 Last Admin: 11/27/22 09:34 Dose: 25 mg Cetirizine HCl (Cetirizine Hcl 10 Mg Tablet) 10 mg PO HS AGGIE Stop: 12/19/22 20:59 Last Admin: 11/27/22 20:52 Dose: 10 mg Enoxaparin Sodium (Enoxaparin Inj 40 Mg/0.4 Ml Syr) 40 mg SQ HS AGGIE Stop: 12/22/22 20:59 Last Admin: 11/27/22 20:51 Dose: 40 mg Famotidine (Famotidine 10 Mg Tablet) 10 mg PO BID PRN PRN Reason: heartburn Stop: 12/19/22 04:08 Last Admin: 11/26/22 21:18 Dose: 10 mg Fluticasone Propionate (Fluticasone Propionate Na Spr 16 Gm Btl) 2 sprays NA DAILY PRN PRN Reason: Congestion Stop: 12/19/22 04:08 Fluticasone/Vilanterol (Fluticasone/Vilanterol 200/25mcg 14 Puffs/Inhaler) 1 puffs INH DAILY AGGIE Stop: 12/19/22 08:59 Last Admin: 11/27/22 09:34 Dose: 1 puffs Promethazine HCl 6.25 mg/ (Sodium Chloride) 50.25 mls @ 201 mls/hr IV Q6H PRN; Protocol PRN Reason: Nausea And Vomiting Stop: 12/19/22 03:09 Last Infusion: 11/25/22 16:25 Dose: Infused Sodium Chloride (Nss 1000ml) 1,000 mls @ 125 mls/hr IV .Q8H AGGIE Stop: 11/28/22 07:59 Last Admin: 11/27/22 23:54 Dose: 125 mls/hr Levothyroxine Sodium (Levothyroxine Sodium 88 Mcg Tablet) 88 mcg PO DAILYBB [facility] Stop: 12/19/22 06:29 Last Admin: 11/28/22 06:34 Dose: 88 mcg Lorazepam (Lorazepam 0.5 Mg Tab) 0.25 mg PO TID PRN PRN Reason: Anxiety Stop: 12/19/22 03:09 Melatonin (Melatonin 3 Mg Tab) 3 mg PO HS PRN PRN Reason: Sleep Stop: 12/20/22 20:21 Last Admin: 11/27/22 21:03 Dose: 3 mg Mesalamine (Mesalamine 4 Gm/60 Ml Enema) 4 gm [place] BID [facility] Stop: 12/21/22 10:44 Last Admin: 11/27/22 21:04 Dose: Not Given Multivitamins (Multivitamin Tab) 1 tab PO QAM [facility] Stop: 12/19/22 08:59 Last Admin: 11/27/22 09:34 Dose: 1 tab Ondansetron HCl (Ondansetron Inj 2 Mg/Ml 2 Ml Vial) 4 mg IV Q6H PRN PRN Reason: Nausea And Vomiting Stop: 12/26/22 09:48 Last Admin: 11/28/22 01:35 Dose: 4 mg Oxycodone HCl (Oxycodone Hcl Ir 5 Mg Tab (Immediate Release)) 5 mg PO Q4H PRN PRN Reason: Pain Stop: 12/03/22 03:09 Last Admin: 11/28/22 02:05 Dose: 5 mg Pantoprazole Sodium (Pantoprazole 40 Mg Tab) 40 mg PO BID [facility] Stop: 12/26/22 10:14 Last Admin: 11/27/22 20:51 Dose: 40 mg Prednisone (Prednisone 20 Mg Tab) 60 mg PO DAILY [facility] Stop: 12/25/22 02:39 Last Admin: 11/27/22 09:34 Dose: 60 mg Umeclidinium [place] (Umeclidinium [place] 62.5mcg/Blister 7 Puffs/Inhaler) 1 puffs INH QDL [facility] Stop: 12/19/22 11:29 Last Admin: 11/27/22 13:39 Dose: 1 puffs
[2022-11-28] MEDS: ATENOLOL 25 MG TABLET PO SCH (07:51)
[2022-11-28] MEDS ORDERED: ALBUMIN 25% 25 GM/100 ML VIAL IV ONE (08:05)
--- NOTE | 2022-11-28 08:42 | XRay Report ---
XR chest 1V portable CLINICAL HISTORY: cough, hypoxia, chest discomfort TECHNIQUE: Single frontal radiograph of the chest was obtained. Comparison: Comparison is made to chest radiograph 11/27/2022 FINDINGS: No lines and tubes are seen. Calcified aortic knob is seen. Reticular interstitial opacities are seen . Left hilar density is unchanged likely represent pulmonary vasculature. No evidence of pleural effu [place] or pneumothorax. IMPRESSION: No acute abnormalities and in particular no radiographic evidence of pneumonia. ACT 112: Negative or not required by law. Electronically signed by: Santy Fonseca M.D. 11/28/2022 8:40 AM
[2022-11-28 10:04] LABS: BUN Creatinine Ratio 33.3 (10-20); C Reactive Protein 29.81 mg/dl (0-0.5); Calcium 8.1 mg/dl (8.6-10.3); Creatinine Clr Calc Pharmacy 82.5 ml/min; Est GFR (Non-African American) 94.9 ml/min; Magnesium 1.8 mg/dl (1.7-2.4)
[2022-11-28 10:18] LABS: Basophils # (auto) 0.01 K/uL (0-0.2); Basophils % (auto) 0.1 %; Dohle Bodies 1+; Echinocytes 1+; Hematocrit (blood only) 41.6 % (37.0-47.0); Hemoglobin 14.2 g/dl (12.0-16.0); Immature Granulocytes # (auto) 0.22 K/uL (0.01-0.20); Immature Granulocytes % (auto) 1.4 %; Lymphocytes # (auto) 0.31 K/uL (1.2-3.4); Mean Corpuscular Hemoglobin 29.2 pg (25.0-34.0); Mean Corpuscular Hgb Conc 34.1 g/dL (32.0-36.0); Mean Corpuscular Volume 85.4 fL (80.0-100.0); Mean Platelet Volume 9.5 fL (9.4-12.4); Monocytes # (auto) 1.82 K/uL (0.11-0.59); Monocytes % (auto) 11.5 %; Neutrophils # (auto) 13.52 K/uL (1.40-6.50); Platelet Count 393 K/uL (130-400); Polychromasia 1+; RDW Coefficient of Variation 14.4 % (11.5-14.5); RDW Standard Deviation 45.1 fL (36.4-46.3); Red Blood Count 4.87 M/uL (4.20-5.40); Toxic Vacuolation 1+; White Blood Count 15.88 K/ul (4.8-10.8)
--- NOTE | 2022-11-28 10:26 | Gastroenterology Progress Note ---
Date of Service November 28, 2022 Assessment & Plan (1) IBD (inflammatory bowel disease): (2) Acute lower GI bleeding: Plan: 71 year old female with history of severe refractory ulcerative colitis, 3rd hospitalization this month and last for the same, no improvement despite IV steroids. Induced with Infliximab 5mg/kg on 11/22/2022. Clinically doesn't feel that she is improved, still w/ diarrhea, having abd discomfort, nausea, rectal bleeding and nocturnal awakening. Though this AM reports yesterday she seems to have less BM frequency. - Monitor blood ct - Anticipating 2nd Infliximab induction at dose of 10mg/kg (600mg) to be given today - Continue Prednisone 60mg daily - Pt has been refusing Rowasa enemas though they were ordered BID - Flex sig cancelled by anesthesia due to hyponatremia and chest tightness symptoms. Will attempt once she is medically optimized. - Protonix 40mg daily - Low residue diet - Zofran or Phenergan PRN n/v Admission and Anticipated Discharge Date Admission Date: November 19, 2022 Supervising Physician Co-Signing Physician Notes Flex sig for cmv biopsies was going to be done today, however patient with chest pain and also tachycardia this morning- anesthesia recommended to cancel. Prior stress echo in 2021 for chest pain showed preserved ef and no inducible ischemia. PE as documented ? biologic is contribting to chest pain- consider cardiology assessment. pending cardiology input, will try for flex sig possible tomorrow and resumption of biologic infusion tomorrow. Subjective Pt notes less BM frequency. Stools not solid yet and still w rectal bleeding. Some abd discomfort no n/v. NPO for flex sig this AM but procedure cancelled by anesthesia given Na of 130 w pt c/o chest tightness. Review of Systems Review of Systems: All systems reviewed & are unremarkable except as noted in HPI & below Physical Exam Constitutional: WD/WN, vitals as above well groomed, cooperative and comfortable Eyes: PERRL, conjunctivae normal, anicteric sclerae ENMT: external ear and nose normal, oropharynx normal Respiratory: normal respiratory effort, lungs clear to auscultation Cardiovascular: RRR, no murmur, no edema Gastrointestinal (Abdomen): normal bowel sounds, soft, nontender, no hepatosplenomegaly Skin: no rashes, warm and dry no jaundice Psychiatric: A+Ox3, euthymic affect Lymphatic: no lymphedema Results & Data Vital Signs (Past 12 Hours) Vital Signs Temp Pulse Resp BP Pulse Ox O2 Del Method O2 Flow Rate 11/28/22 09:00 36.4 C L 115 H 16 95/64 L 93 Room Air 3 11/28/22 07:23 37.1 C 122 H 20 94/63 L 92 Nasal Cannula 3
[2022-11-28] MEDS: FLUTICASONE/VILANTEROL 200/25MCG 14 PUFFS/INHALER INH SCH (10:37)
[2022-11-28] MEDS: predniSONE 20 MG TAB PO SCH (10:38)
[2022-11-28] MEDS: guaiFENesin 600 MG TABCR PO SCH ×2 (10:38→19:42)
[2022-11-28] MEDS: MULTIVITAMIN TAB PO SCH (10:39)
[2022-11-28] MEDS: PANTOprazole 40 MG TAB PO SCH ×2 (10:39→19:43)
--- NOTE | 2022-11-28 12:39 | Cardiology Consultation ---
Date of Consultation November 28, 2022 Assessment & Plan (1) Ulcerative colitis: (2) Hypotension: (3) Sinus tachycardia: (4) Hyponatremia: Plan IMPRESSION: 72 year old female with severe ulcerative colitis flare. Received first dose of Infliximab 1 week ago. Due for second dose today, has not received yet. Patient has been hypotensive and tachycardic-findings likely driven by her acute ulcerative colitis flare. Echocardiogram showing hyperdynamic LV systolic function-likely in the setting of hypovolemia and acute illness. Right heart mildly enlarged but with normal systolic function, likely consistent with prior history of COPD. Infliximab does carry risk of cardiac toxicity however there are no acute findings of this on echocardiogram. PLAN: Repeat EKG to reassess tachycardic rhythm. Patient to be transferring to the telemetry floor for closer monitoring. WBCs possibly elevated due to multiple courses of steroids- however, will obtain blood cultures to rule out sepsis (patient hypotensive and tachycardic). Hyperdynamic LV noted on echo- likely in the setting of hypovolemia and acute illness. Agree with holding of antihypertensive agents (home med-lisinopril) at this time. Will transition atenolol to metoprolol succinate 25 mg daily for improved heart rate control. However, heart rate is being driven by acute illness. IV fluids and albumin as needed per primary team. Monitor renal function and electrolytes- hyponatremia in the setting of hypovolemia and malnutrition. Potassium goal of 4.0 and mag goal of 2.0. Case discussed with Dr. Santillan- will follow. Supervising Physician Co-Signing Physician Notes Patient was seen and personally examined. Tachycardic and relative hypotension despite volume resuscitation. Patient with oxygen requirements. Echocardiogram with hyperdynamic LV function mild enlargement of the right ventricle without pulmonary hypertension No signs of cardiac dysfunction or cardiomyopathy Exam notable for lungs with anterior rhonchi right greater than left Mild abdominal tenderness without rebound or guarding Recommendations as above Would consider CTA rule out pulmonary emboli given hypotension and tachycardia and pleuritic pain Assess for sepsis bacterial and fungal given immunosuppressive History of Present Illness Reason for Consultation: Tachycardia and hypotension Requesting Physician: Bisi Medina Attending Physician: Josh Hand MD History of Present Illness 72-year-old female who represented to the [facility] emergency department due to rectal bleeding. Patient recently admitted from 11/14 to 11/18 for ulcerative colitis flare with rectal bleed. Was treated with steroids and discharged home on prednisone. Colonoscopy 11/07/2022 showed severe ulcerative colitis. Patient was working with insurance to get biologic agents covered. Represented on 11/19, 1 day after discharge, due to bouts of bloody diarrhea. Patient became hypotensive. Lisinopril held. GI started patient on infliximab (IFX, biosimilar to Remicade such as Avsola) on 11/22/2022-second dose given today, 11/28. Patient continued to have bouts of bloody diarrhea. Seen by GI who recommended repeat colonoscopy-patient was to have this done today however procedure was canceled due to tachycardia, hypotension and hyponatremia (sodium level of 132). NS IV fluids started +albumin. Echocardiogram revealing hyperdynamic left ventricular function with an EF of 65 to 70%- no wall motion abnormalities. Borderline RV enlargement with normal RV systolic function. No evidence of pulmonary hypertension. Findings likely consistent with her history of COPD. Upon entrance into the room patient patient resting in bed. She is accompanied by her . Notes feeling poorly with symptoms of generalized weakness. No acute distress. She denies palpitations. No lightheadedness or dizziness. Notes some mild chest tightness that is intermittent and occurs for no rhyme or reason. Continues to have bouts of bloody diarrhea. Past medical history: Hypertension Dyslipidemia COPD with prior tobacco use, follows with pulmonary Ulcerative colitis History of C. difficile status post fecal transplant 01/2015 Hyponatremia Hypothyroidism Allergies Allergy/AdvReac Type Severity Reaction Status Date / Time adhesive tape Allergy Intermediate SKIN Verified 11/19/22 00:20 IRRITATION/TAKES SKIN OFF WHEN TAKEN OFF midazolam Allergy Unknown NOT ON GMG Verified 11/19/22 00:20 OR PT LIST sulfasalazine AdvReac Severe PANCREATITI Verified 11/19/22 00:20 S Home Medications Medication Instructions Recorded Confirmed Type albuterol sulfate 2.5 mg/3 mL 2.5 mg inhalation DIRECTED PRN 09/20/22 11/19/22 History (0.083 %) solution for nebulization Shortness Of Breath Or Wheezing albuterol sulfate 90 mcg/actuation 2 puff inhalation Q4H PRN Wheezing 09/20/22 11/19/22 History aerosol inhaler atenolol 25 mg tablet 25 mg PO QAM 09/20/22 11/19/22 History cetirizine 10 mg tablet (Zyrtec) 10 mg PO HS 09/20/22 11/19/22 History cholecalciferol (vitamin D3) 25 25 mcg PO BID 09/20/22 11/19/22 History mcg (1,000 unit) capsule (Vitamin D3) diclofenac sodium 1 % topical gel 2 g topical QID PRN Pain 09/20/22 11/19/22 History fluticasone propionate 50 2 spray intranasal DAILY PRN 09/20/22 11/19/22 History mcg/actuation nasal Congestion spray,suspension levothyroxine 88 mcg tablet 88 mcg PO QAM 09/20/22 11/19/22 History multivitamin 1 tab PO QAM 09/20/22 11/19/22 History tiotropium bromide 18 mcg capsule 18 mcg inhalation QDL 09/20/22 11/19/22 H istory with inhalation device (Spiriva with HandiHaler) vitamin E 268 mg (400 unit) capsule 268 mg PO QAM 09/20/22 11/19/22 History fluticasone 250 mcg-salmeterol 50 1 inh inhalation BID 11/02/22 11/19/22 History mcg/dose blistr powdr for inhalation (Advair Diskus) lisinopril 20 mg tablet 20 mg PO QAM 11/02/22 11/19/22 History nicotine 7 mg/24 hr daily 2 patch transdermal DAILY 11/02/22 11/19/22 History transdermal patch famotidine 10 mg tablet (Acid 10 mg PO BID PRN heartburn #30 tabs 11/10/22 11/19/22 Rx Touch Up Worker (famotidine)) prednisone 10 mg tablet See Taper PO HS 11/19/22 11/19/22 History Patient History Medical History (Updated 11/28/22 @ 12:39 by RAYSA Richmond) Anxiety no meds Aspiration pneumonia hospitalized at [facility] for this in September 2022 > no further issues COPD (chronic obstructive pulmonary disease) uses res inh daily Dysphagia Encounter for pre-operative examination History of COVID-12 Aug 2021 > not hospitalized HLD (hyperlipidemia) HTN (hypertension) Hx of Clostridium difficile infection 8 yrs ago > fecal transplant > resolved Hypothyroidism Meningocele Palpitations no longer Ulcerative colitis Ulcerative colitis hx of 25 yrs ago > possible issue now?? reason for up coming colon/EGD Surgical History History of carpal tunnel surgery bilat History of colonoscopy History of tooth extraction Hx of partial thyroidectomy Hx of tubal ligation S/P fecal transplant Family History Father , 66 Sudden cardiac Mother Bipolar disorder Social History Smoking Status: Former smoker Tobacco Type: Cigarettes packs per day: 0.5; Cigarettes Per Day: 6-8; Second Hand Exposure: No; Do You Dip or Chew Tobacco: No; Hx Alcohol Use: No Hx Substance Use: No Preferred Language: Azeri Communication Ability: Effective Physician Practice Manager Required: No Beliefs That Will Affect Care: None Current Living Situation: Spouse Current Living Situation Comment: house Other Information That Helps Us Care for You: No Feels Safe at Home: Yes Safety Concerns: Feels Safe At This Time Assistive Devices: None Review of Systems Review of Systems: All systems reviewed & are unremarkable except as noted in HPI & below Physical Exam Constitutional: + ill appearing and + thin; no acute distress Eyes: PERRL, conjunctivae normal, anicteric sclerae Neck: normal visual inspection and trachea midline Respiratory: normal respiratory effort; no labored breathing and no cough Auscultation: + bronchovesicular breath sounds Cardiovascular: Rate/Rhythm: regular rate and regular rhythm Heart Sounds: normal S1 and normal S2 Vessels: no JVD Extremities: no edema Gastrointestinal (Abdomen): Percussion/Palpation: + abdomen tender and abdomen soft Skin: no rashes, warm and dry Psychiatric: A+Ox3, euthymic affect Results & Data Vital Signs (Past 12 Hours) Vital Signs Temp Pulse Resp BP Pulse Ox O2 Del Method O2 Flow Rate 11/28/22 11:00 92 H 18 90/57 L 96 Nasal Cannula 3 11/28/22 10:29 92 H 18 86/54 L 96 Nasal Cannula 3 11/28/22 09:00 36.4 C L 115 H 16 95/64 L 93 Room Air 3 11/28/22 07:23 37.1 C 122 H 20 94/63 L 92 Nasal Cannula 3 Laboratory Results CBC 11/28/22 Range/Units 08:37 WBC 15.88 H (4.8-10.8) K/ul RBC 4.87 (4.20-5.40) M/uL Hgb 14.2 (12.0-16.0) g/dl Hct 41.6 (37.0-47.0) % Plt Count 393 (130-400) K/uL Neut # (Auto) 13.52 H (1.40-6.50) K/uL Lymph # (Auto) 0.31 L (1.2-3.4) K/uL [place] # (Auto) 1.82 H (0.11-0.59) K/uL Eos # (Auto) 0.00 (0-0.50) K/uL Baso # (Auto) 0.01 (0-0.2) K/uL Comprehensive Metabolic Panel 11/28/22 Range/Units 08:37 Sodium 132 L (136-145) mmol/L Potassium 4.0 (3.5-5.1) mmol/L Chloride 98 (98-107) mmol/L Carbon Dioxide 23 (21-32) mmol/L BUN 18 (6-23) mg/dl Creatinine 0.54 L (0.6-1.2) mg/dl Glucose 120 H (70-99(Fasting)) mg/dl Calcium 8.1 L (8.6-10.3) mg/dl Intake and Output 11/27/22 11/28/22 11/28/22 22:59 06:59 14:59 Intake Total 960.417 / 960.417 850 / 850 Output Total Balance - / 956.417 959.417 / 956.417 850 / 850 Intake: IV 960.417 / 960.417 850 / 850 Albumin 25% 25 gm In 100 ml @ 100 / 100 50 mls/hr IV ONE ONE Rx#: [id number] Sodium Chloride 0.9% 1000ML 1, 960.417 / 960.417 750 / 750 000 ml @ 125 mls/hr IV .Q8H [facility] Rx#:[id number] Output: # Bowel Movements Other: # Unmeasured Voids 1
[2022-11-28] MEDS: MESALAMINE 4 GM/60 ML ENEMA PR SCH (12:48)
[2022-11-28] MEDS: SODIUM CHLORIDE 0.9% 1000ML 1,000 ML IV SCH ×3 (13:23→23:02)
[2022-11-28] MEDS: UMECLIDINIUM BROMIDE 62.5MCG/BLISTER 7 PUFFS/INHALER INH SCH (13:24)
[2022-11-28] MEDS ORDERED: OPTIRAY 320 500ml IV ONE (15:11)
--- NOTE | 2022-11-28 15:40 | CT Scan Report ---
CT angio chest PE protocol CLINICAL HISTORY: PE TECHNIQUE: Multidetector row helical CT of the chest was performed with angiographic protocol. Torres l and sagittal reformations were obtained. Coronal and sagittal MIPS were obtained from the axial julia a set and were submitted for review. Automated dose lowering techniques and/or adjustment according to patient size were utilized for this exam. CT DOSE: 349.41 mGy.cm Comparison: Comparison is made to CT chest 09/20/2022 FINDINGS: Lungs and pleura: Diffuse centrilobular emphysema is seen most prominent in the upper lobes. Multifoc al airspace opacities are seen most prominently in the left lung. Rounded atelectasis is noted in the right lower lung. Heart and pericardium: Heart size is normal. No pericardial effusion. Vessels: No evidence of pulmonary embolism. Mediastinum and mary: Unremarkable. Chest wall and lower neck: Unremarkable. Abdomen: Unremarkable. Bones: Degenerative changes in the thoracic spine. IMPRESSION: 1. No pulmonary embolus is seen. 2. Multifocal pneumonia is noted. ACT 112: Negative or not required by law. Electronically signed by: Santy Fonseca M.D. 11/28/2022 3:38 PM
[2022-11-28] MEDS ORDERED: AMPICILLIN/SULBACTAM SOD 3,000 MG in 0.9 % SODIUM CHLORIDE 100 ML IV SCH (17:00)
[2022-11-28] MEDS: VANCOMYCIN HCL 125 MG/2.5ML SOLN PO SCH ×2 (17:27→22:48)
[2022-11-28] MEDS: RASPBERRY SYRUP 5 ML UDP PO SCH ×2 (17:27→22:49)
[2022-11-28] MEDS ORDERED: XOPENEX/ATROVENT 1.25mg/0.5MG NEB COMBO NEB PRN (19:12)
[2022-11-28] MEDS: IPRATROPIUM BROMIDE NEB SOLN 0.02% 2.5 ML VIAL INH PRN (19:23)
[2022-11-28] MEDS: LEVALBUTEROL 1.25 MG/3 ML NEB NEB PRN (19:23)
[2022-11-28] MEDS ORDERED: METOPROLOL TARTRATE 25 MG TAB PO ONE (19:35)
[2022-11-28] MEDS: ACETAMINOPHEN 325 MG TAB PO PRN (19:41)
[2022-11-28] MEDS: FAMOTIDINE 10 MG TABLET PO PRN (19:42)
[2022-11-28] MEDS: CETIRIZINE HCL 10 MG TABLET PO SCH (19:43)
[2022-11-28] MEDS: ENOXAPARIN INJ 40 MG/0.4 ML SYR SQ SCH (19:44)
[2022-11-28] MEDS: PROMETHAZINE HCL 6.25 MG in SODIUM CHLORIDE 0.9% 50 ML IV PRN (20:44)
[2022-11-28] MEDS ORDERED: SODIUM CHLORIDE 0.9% 500 ML IV SCH (20:45)
[2022-11-28] MEDS ORDERED: VANCOMYCIN CONSULT ACTIVE PRN (22:00)
[2022-11-28] MEDS ORDERED: VANCOMYCIN HCL 1,250 MG in SODIUM CHLORIDE 0.9% 500 ML IV STA (22:15)
[2022-11-28 22:35] LABS: Albumin Globulin Ratio 1.1 (0.9-2); Albumin Level 2.3 gm/dl (3.4-5.0); BUN Creatinine Ratio 37.5 (10-20); Calcium 7.4 mg/dl (8.6-10.3); Creatinine Clr Calc Pharmacy 92.8 ml/min; Est GFR (African American) 114.4 ml/min; Est GFR (Non-African American) 98.7 ml/min; Globulin 2.1 gm/dl (2.5-4.0); Potassium 3.5 mmol/L (3.5-5.1); Total Protein 4.4 gm/dl (6.0-8.3)
[2022-11-28 22:42] LABS: Troponin I High Sensitivity 34.7 pg/ml (0-14)
[2022-11-28 22:44] LABS: Hematocrit (blood only) 34.9 % (37.0-47.0); Hemoglobin 12.1 g/dl (12.0-16.0); Mean Corpuscular Hemoglobin 29.4 pg (25.0-34.0); Mean Corpuscular Hgb Conc 34.7 g/dL (32.0-36.0); Mean Corpuscular Volume 84.7 fL (80.0-100.0); Mean Platelet Volume 9.3 fL (9.4-12.4); Platelet Count 270 K/uL (130-400); RDW Coefficient of Variation 14.1 % (11.5-14.5); RDW Standard Deviation 43.5 fL (36.4-46.3); Red Blood Count 4.12 M/uL (4.20-5.40); White Blood Count 11.03 K/ul (4.8-10.8)
[2022-11-28] MEDS ORDERED: PIPERACILLIN/TAZOBACTAM 4.5 GM in DEXTROSE 5% 100 ML IV SCH (22:46)
[2022-11-28] MEDS ORDERED: DOXYCYCLINE HYCLATE 100 MG in DEXTROSE 5% 100 ML IV SCH (22:46)
[2022-11-28] MEDS: PIPERACILLIN/TAZOBACTAM 4.5 GM in DEXTROSE 5% 100 ML IV SCH (22:53)
--- NOTE | 2022-11-28 22:55 | Pharmacy Report ---
Pharmacy PK ABX Note - Date of Service November 28, 2022 - Assessment and Plan Assessment 72 year old F receiving Vncomycin and Zosyn for treatment of empiric pulmonary infection. * Previously on Unasyn. Zosyn ordered for pulm coverage. Vanc added empirically. MRSA swab pending. * Afeb w/ WBC 11k. Cultures pending. Plan Vancomycin * Loading dose: 1250 mg IV x 1 * Maintenance dose: 1000 mg IV every 12 hours * Regimen is predicted to achieve target AUC/FLORESITA of 400-600 mg/L.hr * Level will be ordered if vancomycin therapy extends beyond 48 hours. Pharmacy will continue to follow and will adjust dose/frequency as necessary. Thank you. Pharmacy has transitioned to AUC monitoring for vancomycin. AUC/FLORESITA is the preferred PK/PD target and is associated with decreased risk of nephrotoxicity compared to traditional trough targets.
[2022-11-28 23:20] LABS: Basophils % (auto) 0.9 %; Echinocytes 1+; Immature Granulocytes # (auto) 0.11 K/uL (0.01-0.20); Lymphocytes # (auto) 0.46 K/uL (1.2-3.4); Lymphocytes % (auto) 4.2 %; Monocytes # (auto) 0.85 K/uL (0.11-0.59); Monocytes % (auto) 7.7 %; Neutrophils # (auto) 9.51 K/uL (1.40-6.50); Neutrophils % (auto) 86.2 %
[2022-11-29] MEDS ORDERED: IPRATROPIUM BROMIDE NEB SOLN 0.02% 2.5 ML VIAL INH SCH (00:45)
[2022-11-29] MEDS ORDERED: LEVALBUTEROL 1.25 MG/3 ML NEB NEB SCH (00:45)
[2022-11-29] MEDS ORDERED: BUDESONIDE 0.5 MG/2 ML VIAL (PULMICORT) NEB STA (00:45)
[2022-11-29] MEDS ORDERED: XOPENEX/ATROVENT 1.25mg/0.5MG NEB COMBO NEB SCH (01:00)
[2022-11-29] MEDS: IPRATROPIUM BROMIDE NEB SOLN 0.02% 2.5 ML VIAL INH PRN (01:15)
[2022-11-29] MEDS: LEVALBUTEROL 1.25 MG/3 ML NEB NEB PRN (01:15)
[2022-11-29 02:13] LABS: Hematocrit (blood only) 41.6 % (37.0-47.0); Mean Corpuscular Hemoglobin 29.5 pg (25.0-34.0); Mean Corpuscular Hgb Conc 33.7 g/dL (32.0-36.0); Mean Corpuscular Volume 87.8 fL (80.0-100.0); Mean Platelet Volume 8.7 fL (9.4-12.4); Platelet Count 320 K/uL (130-400); RDW Coefficient of Variation 15.1 % (11.5-14.5); RDW Standard Deviation 48.9 fL (36.4-46.3); Red Blood Count 4.74 M/uL (4.20-5.40); White Blood Count 14.49 K/ul (4.8-10.8)
[2022-11-29 02:27] LABS: iSTAT Allen Test Pass; iSTAT Art Bld Gas pCO2 Correct 52 mmHg (35-46); iSTAT Art Bld Gas pH Corrected 7.143 (7.35-7.45); iSTAT Arterial Blood Gas HCO3 18 meg/L (19-24); iSTAT Arterial Blood Gas pCO2 53 mmHg (35-46); iSTAT Arterial Blood Gas pH 7.14 (7.35-7.45); iSTAT Arterial Blood Gas pO2 90 mmHg (80-95); iSTAT Arterial Blood Gas pO2 C 87; iSTAT Carbon Dioxide 20 mmol/L (24-31); iSTAT FiO2 100 %; iSTAT Hematocrit 39 % (37-47); iSTAT Hemoglobin 13.3 g/dl (12.0-16.0); iSTAT Potassium 3.5 mmol/L (3.3-5.0); iSTAT Site L Radial; iSTAT Sodium 133 mmol/L (135-144)
[2022-11-29 02:31] LABS: BUN Creatinine Ratio 39.5 (10-20); Creatinine Clr Calc Pharmacy 103.6 ml/min; Est GFR (African American) 118.6 ml/min; Est GFR (Non-African American) 102.3 ml/min; Magnesium 1.6 mg/dl (1.7-2.4); Phosphorus 3.5 mg/dl (2.5-4.9); Potassium 3.8 mmol/L (3.5-5.1)
[2022-11-29 02:38] LABS: Troponin I High Sensitivity 33.7 pg/ml (0-14)
[2022-11-29] MEDS: ONDANSETRON INJ 2 MG/ML 2 ML VIAL IV PRN (02:53)
[2022-11-29] MEDS ORDERED: SODIUM BICARB 8.4% INJ 50 MEQ/50 ML SYR IV STA ×2 (03:40→06:19)
[2022-11-29] MEDS ORDERED: SODIUM BICARB 8.4% INJ 50 MEQ/50 ML SYR IV ONE (03:44)
[2022-11-29] MEDS ORDERED: STAT IV Infusion **Titration per Protocol STA (03:45)
[2022-11-29] MEDS ORDERED: AMIODARONE IV BOLUS & DRIP IV STA (03:45)
--- NOTE | 2022-11-29 03:56 | Critical Care Consultation ---
Date of Consultation November 29, 2022 Assessment & Plan (1) Acute on chronic respiratory failure with hypoxia and hypercapnia: Reason Critically Ill: 72-year-old female presents to the ICU for worsening hypoxia following hypotension which she received fluid resuscitation. She is currently undergoing treatment for ulcerative colitis flare and appears to now be developing pneumonia, and worsening metabolic acidosis. Patient's course also complicated by new onset of atrial fibrillation with RVR . She is now on bicarb and amiodarone drip and is currently requiring high flow nasal cannula. Neuro - [facility] ICU: Negative Cardiac - Hypotensionappears to be improved with fluid resuscitation. Expect this is mul tifactorial and that the patient is septic and also hypovolemic from chronic diarrhea. -She has received 2 L crystalloid bolus. We will hold on further boluses for now as the patient has become hypoxic. -Hold antihypertensives -CTA chest negative for PE -TTE 11/28 with normal EF, aortic valve sclerosis without significant aortic valvular stenosis -Troponin within normal limits. EKG with A-fib RVR -Continuous monitoring on telemetry for now. Maintain maps greater than 65. No current need for vasopressors at this time A-fib RVRnew onset as patient has no prior history. Given hemodynamics we will start on amiodarone drip for rate control. Hold on anticoagulation for GI bleed Respiratory - Acute hypoxic hypercapnic respiratory failurepatient with history of COPD now with worsening hypoxia requiring high flow nasal cannula, and patient refusing BiPAP and is DNI -ABG with hypoxia and mixed respiratory and metabolic acidosis - CTA chest was negative for PE. Did show multifocal airspace opacities prominently in the left lung field. Suspect that the patient may have underlying pneumonia -Currently on 60 mg of prednisone for ulcerative colitis flare. GI - Ulcerative colitis flarepatient currently being followed by gastroenterology. This is her third hospitalization in the past month for ulcerative colitis flare. She is currently on 60 mg of prednisone daily. She has been refusing Rowasa enemas per report. Flex sig was canceled yesterday due to tachycardia. No significant GI bleeding as of now we will continue with PPI. Continue with Zofran and Phenergan for nausea. We will follow GI recommendations. RENAL/LYTES - Creatinine within normal limits. Monitor routine BMPs and replete electrolytes as indicated Metabolic acidosissuspect this is likely multifactoral in the setting of sepsis and will repeat lactate. Patient has also had chronic diarrhea. We will start on bicarb drip for now and follow-up pH - Foleystrict I's and O's ENDO - Hypothyroidismcontinue Synthroid HEME - H&H stable, monitor routine CBC ID - Sepsissuspect this is likely pulmonary versus abdominal source. Patient does have productive cough and CT findings concerning for pneumonia -Leukocytosis of 12,000 and Pro-Usama currently elevated at 8, patient also's with low-grade fever -Blood cultures and sputum culture pending. Will obtain stool culture if able -Continue with Zosyn and vancomycin for now LINES/IV ACCESS - Peripheral IVs DVT PROPHYLAXIS - SCDs CODE STATUS: DNR/DNI I have personally spent 55 minutes of critical care time in the direct man agement of this patient. This is a life/limb threatening event. This includes time spent evaluating patient, direct bedside care, chart review, placing orders, interpretation of diagnostic studies, discussion with consultants, patient, and family members, as well as other required patient management activities. This time is exclusive of all separately billable procedures, and teaching time and separate from and in addition to any other critical care service time. Thank you for allowing us to participate in the care of this patient. Please refer to my attending physician's documentation for any further recommendations. (2) Hypotension: (3) Atrial fibrillation with RVR: (4) IBD (inflammatory bowel disease): (5) Acute lower GI bleeding: (6) Hypothyroidism: (7) COPD (chronic obstructive pulmonary disease): (8) HLD (hyperlipidemia): (9) HTN (hypertension): Supervising Physician Co-Signing Physician Notes I had a discussion with the patient's and multiple sons at bedside. We also stepped outside of the room. They indicated that patient would not want aggressive measures and they would wish to transition to comfort measures only given her declining overall status and understanding the patient's desires to not pursue aggressive care. I think this is reasonable at this time. We will transition the patient to comfort measures. Discontinue lab draws and imaging studies. Initiate morphine infusion. History of Present Illness Attending Physician: Josh Hand MD History of Present Illness Patient is a 72-year-old female with past medical history significant for COPD, HTN, hypothyroidism, and ulcerative colitis with multiple recent admissions and currently admitted for ulcerative colitis flare. Patient reports that her last normal bowel movement was at the beginning of September and she has had diarrhea for months. She was undergoing treatment with steroids and Rowasa enemas. I was notified that the patient had become hypotensive and was given 2 L crystalloid bolus which did improve her blood pressure. She is also in A-fib RVR with heart rate in the 140s and has become increasingly hypoxic. She did undergo TTE earlier today which showed normal EF, hyperdynamic and aortic valve sclerosis without significant aortic valve Beehler stenosis. ABG for revealed mixed metabolic and respiratory acidosis. Her initial lactate was negative, although she has elevated procalcitonin and has spiked a fever. She underwent CTA chest which was negative for PE but did show multifocal airspace is opacities prominently in the left lung. Patient has refused BiPAP and is currently DNI. She is now transferred to ICU for further management at this time. On arrival to the ICU the patient is alert and oriented. She complains of nausea, weakness, and generalized abdominal pain. She denies any headache, dizziness, syncopal events, vision changes, shortness of breath, chest pain or palpitations. Patient states that she has had about 6 episodes of diarrhea per day for the past few months. She does report feeling hot and was noted to have a low-grade fever. She is also reporting a productive cough. Allergies Allergy/AdvReac Type Severity Reaction Status Date / Time adhesive tape Allergy Intermediate SKIN Verified 11/19/22 00:20 IRRITATION/TAKES SKIN OFF WHEN TAKEN OFF midazolam Allergy Unknown NOT ON GMG Verified 11/19/22 00:20 OR PT LIST sulfasalazine AdvReac Severe PANCREATITI Verified 11/19/22 00:20 S Home Medications Medication Instructions Recorded Confirmed Type albuterol sulfate 2.5 mg/3 mL 2.5 mg inhalation DIRECTED PRN 09/20/22 11/19/22 History (0.083 %) solution for nebulization Shortness Of Breath Or Wheezing albuterol sulfate 90 mcg/actuation 2 puff inhalation Q4H PRN Wheezing 09/20/22 11/19/22 History aerosol inhaler atenolol 25 mg tablet 25 mg PO QAM 09/20/22 11/19/22 History cetirizine 10 mg tablet (Zyrtec) 10 mg PO HS 09/20/22 11/19/22 History cholecalciferol (vitamin D3) 25 25 mcg PO BID 09/20/22 11/19/22 History mcg (1,000 unit) capsule (Vitamin D3) diclofenac sodium 1 % topical gel 2 g topical QID PRN Pain 09/20/22 11/19/22 History fluticasone propionate 50 2 spray intranasal DAILY PRN 09/20/22 11/19/22 History mcg/actuation nasal Congestion spray,suspension levothyroxine 88 mcg tablet 88 mcg PO QAM 09/20/22 11/19/22 History multivitamin 1 tab PO QAM 09/20/22 11/19/22 History tiotropium bromide 18 mcg capsule 18 mcg inhalation QDL 09/20/22 11/19/22 History with inhalation device (Spiriva with HandiHaler) vitamin E 268 mg (400 unit) capsule 268 mg PO QAM 09/20/22 11/19/22 History fluticasone 250 mcg-salmeterol 50 1 inh inhalation BID 11/02/22 11/19/22 History mcg/dose blistr powdr for inhalation (Advair Diskus) lisinopril 20 mg tablet 20 mg PO QAM 11/02/22 11/19/22 History nicotine 7 mg/24 hr daily 2 patch transdermal DAILY 11/02/22 11/19/22 History transdermal patch famotidine 10 mg tablet (Acid 10 mg PO BID PRN heartburn #30 tabs 11/10/22 11/19/22 Rx [employer] (famotidine)) prednisone 10 mg tablet See Taper PO HS 11/19/22 11/19/22 History Patient History Medical History (Updated 11/29/22 @ 05:42 by RAYSA Mclean) Anxiety no meds Aspiration pneumonia hospitalized at [facility] for this in September 2022 > no further issues COPD (chronic obstructive pulmonary disease) uses res inh daily Dysphagia Encounter for pre-operative examination History of COVID-12 Aug 2021 > not hospitalized HLD (hyperlipidemia) HTN (hypertension) Hx of Clostridium difficile infection 8 yrs ago > fecal transplant > resolved Hypothyroidism Meningocele Palpitations no longer Ulcerative colitis Ulcerative colitis hx of 25 yrs ago > possible issue now?? reason for up coming colon/EGD Surgical History History of carpal tunnel surgery bilat History of colonoscopy History of tooth extraction Hx of partial thyroidectomy Hx of tubal ligation S/P fecal transplant Family History Father , 66 Sudden cardiac Mother Bipolar disorder Social History Smoking Status: Former smoker Tobacco Type: Cigarettes packs per day: 0.5; Cigarettes Per Day: 6-8; Second Hand Exposure: No; Do You Dip or Chew Tobacco: No; Hx Alcohol Use: No Hx Substance Use: No Preferred Language: Kosovan Communication Ability: Effective Quarter Folder Required: No Beliefs That Will Affect Care: None Current Living Situation: Spouse Current Living Situation Comment: house Other Information That Helps Us Care for You: No Feels Safe at Home: Yes Safety Concerns: Feels Safe At This Time Assistive Devices: None Review of Systems Review of Systems: All systems reviewed & are unremarkable except as noted in HPI & below Physical Exam Constitutional: WD/WN, vitals as above Eyes: PERRL, conjunctivae normal, anicteric sclerae ENMT: external ear and nose normal, oropharynx normal Neck: trachea midline, no thyromegaly Respiratory: Rhonchi auscultated bilaterally with coarse crackles auscultated in the left lower lobe. No wheezes. Symmetrical chest wall movement. Mild tachypnea. No use of accessory muscles Cardiovascular: Rate/Rhythm: + tachycardic and + irregularly irregular Heart Sounds: no murmur Vessels: no JVD Extremities: no edema Gastrointestinal (Abdomen): Abdomen soft, nondistended, tender to palpation, bowel sounds auscultated all 4 quadrants Musculoskeletal: no cyanosis or clubbing, extremities motor strength 5/5 Skin: no rashes, warm and dry Neurologic: PERRL, EOMI, accommodation nl, no face palsy, no dysarthria Psychiatric: A+Ox3, euthymic affect Genitourinary: Indwelling Armstrong catheter present Results & Data Results & Data Vital Signs (Past 12 Hours) Vital Signs Temp Pulse Pulse Resp BP BP Pulse Ox 11/29/22 03:07 133 H 37 H 92 11/29/22 02:44 11/29/22 01:54 150 H 36 H 125/69 90 11/29/22 01:51 143 H 90 11/29/22 01:27 131 H 128/75 89 L 11/29/22 01:16 123 H 22 84 L 11/28/22 23:54 101/64 11/28/22 22:50 36.4 C L 100 H 24 85/52 L 94 11/28/22 22:50 11/28/22 22:30 96 H 20 80/51 L 96 11/28/22 22:04 96 H 14 72/45 L 95 11/28/22 21:46 156 H 74/46 L 11/28/22 19:20 11/28/22 20:49 36.4 C L 116 H 32 H 92 11/28/22 20:17 140 H 26 H 93 11/28/22 19:23 109 H 22 92 11/28/22 19:29 36.5 C 120 H 22 108/68 89 L O2 Del Method O2 Flow Rate 11/29/22 03:07 Nasal Cannula, High Flow Nasal Cannula 15 11/29/22 02:44 High Flow Nasal Cannula 15 11/29/22 01:54 High Flow Nasal Cannula 90 11/29/22 01:51 High Flow Nasal Cannula 15 11/29/22 01:27 Nasal Cannula 7 11/29/22 01:16 Nasal Cannula 4 11/28/22 23:54 11/28/22 22:50 Nasal Cannula 4 11/28/22 22:50 Nasal Cannula 4 11/28/22 22:30 Nasal Cannula 4 11/28/22 22:04 Nasal Cannula 4 11/28/22 21:46 11/28/22 19:20 Nasal Cannula 2 11/28/22 20:49 Nasal Cannula 4 11/28/22 20:17 Nasal Cannula 4 11/28/22 19:23 Nasal Cannula 2 11/28/22 19:29 Nasal Cannula 2 Coding Level of Care Code 08378 CRITICAL CARE 1ST 30-74M Diagnoses Acute on chronic respiratory failure with hypoxia and hypercapnia J96.21; J96.22 Hypotension I95.9 Atrial fibrillation with RVR I48.91 IBD (inflammatory bowel disease) K52.9 Acute lower GI bleeding K92.2 Hypothyroidism E03.9 COPD (chronic obstructive pulmonary disease) J44.9 HLD (hyperlipidemia) E78.5 HTN (hypertension) I10
[2022-11-29] MEDS ORDERED: AMIODARONE / D5W 150 MG/100 ML BAG IV ONE (04:00)
[2022-11-29] MEDS ORDERED: 0.2 MICRON FILTER SET 1 EACH IV ONE (04:00)
[2022-11-29] MEDS ORDERED: SODIUM BICARBONATE 8.4% 150 MEQ in WATER, STERILE 1,000 ML IV SCH (04:00)
[2022-11-29] MEDS ORDERED: AMIODARONE / D5W 360 MG/200 ML BAG IV ONE (04:10)
[2022-11-29 04:36] LABS: Albumin Level 2.1 gm/dl (3.4-5.0); Bilirubin Direct 0.4 mg/dl (0-0.2); Bilirubin,Total 0.7 mg/dl (0.2-1.0)
[2022-11-29 04:37] LABS: BUN Creatinine Ratio 31.4 (10-20); Calcium 6.2 mg/dl (8.6-10.3); Creatinine Clr Calc Pharmacy 87.4 ml/min; Est GFR (African American) 112.1 ml/min; Est GFR (Non-African American) 96.7 ml/min; Magnesium 1.6 mg/dl (1.7-2.4); Phosphorus 3.6 mg/dl (2.5-4.9); Potassium 3.5 mmol/L (3.5-5.1)
[2022-11-29 04:49] LABS: Hematocrit (blood only) 37.7 % (37.0-47.0); Hemoglobin 12.5 g/dl (12.0-16.0); Mean Corpuscular Hemoglobin 29.3 pg (25.0-34.0); Mean Corpuscular Hgb Conc 33.2 g/dL (32.0-36.0); Mean Corpuscular Volume 88.5 fL (80.0-100.0); Mean Platelet Volume 9.2 fL (9.4-12.4); Platelet Count 274 K/uL (130-400); RDW Coefficient of Variation 15.1 % (11.5-14.5); RDW Standard Deviation 48.6 fL (36.4-46.3); Red Blood Count 4.26 M/uL (4.20-5.40); White Blood Count 12.83 K/ul (4.8-10.8)
[2022-11-29 04:55] LABS: Basophils # (auto) 0.02 K/uL (0-0.2); Basophils % (auto) 0.2 %; Echinocytes 2+; Eosinophils # (auto) 0.04 K/uL (0-0.50); Eosinophils % (auto) 0.3 %; Hypersegmented Neutrophils 1+; Immature Granulocytes # (auto) 0.34 K/uL (0.01-0.20); Immature Granulocytes % (auto) 2.7 %; Lymphocytes # (auto) 0.26 K/uL (1.2-3.4); Monocytes % (auto) 4.7 %; Neutrophils # (auto) 11.57 K/uL (1.40-6.50); Neutrophils % (auto) 90.1 %; Toxic Vacuolation 1+
[2022-11-29 04:57] LABS: Toxic Vacuolation 1+
[2022-11-29 04:59] LABS: iSTAT Art Bld Gas pCO2 Correct 59 mmHg (35-46); iSTAT Art Bld Gas pH Corrected 7.146 (7.35-7.45); iSTAT Arterial Blood Gas HCO3 20 meg/L (19-24); iSTAT Arterial Blood Gas pCO2 56 mmHg (35-46); iSTAT Arterial Blood Gas pH 7.16 (7.35-7.45); iSTAT Arterial Blood Gas pO2 72 mmHg (80-95); iSTAT Arterial Blood Gas pO2 C 77; iSTAT Carbon Dioxide 22 mmol/L (24-31); iSTAT Hematocrit 40 % (37-47); iSTAT Hemoglobin 13.6 g/dl (12.0-16.0); iSTAT Potassium 3.5 mmol/L (3.3-5.0); iSTAT Site R Brachial; iSTAT Sodium 134 mmol/L (135-144)
[2022-11-29] MEDS: ACETAMINOPHEN 325 MG TAB PO PRN (05:14)
[2022-11-29] MEDS: SODIUM CHLORIDE 0.9% 1000ML 1,000 ML IV SCH (05:44)
[2022-11-29] MEDS: RASPBERRY SYRUP 5 ML UDP PO SCH (05:44)
[2022-11-29 06:13] LABS: A calco-baum cmplx NotReported Not Detected (NotDetected); Bact fragilis Not Reported Not Detected (NotDetected); C auris Not Reported Not Detected (NotDetected); CTX-M Resistant Gene Not Detected (NotDetected); Calbicans Not Reported Not Detected (NotDetected); Candida glabrata Not Reported Not Detected (NotDetected); Candida krusei Not Reported Not Detected (NotDetected); Cneoformans/gatti Not Reported Not Detected (NotDetected); Cparapsilosis Not Reported Not Detected (NotDetected); Ctropicalis Not Reported Not Detected (NotDetected); E cloacae compx Not Reported Not Detected (NotDetected); Efaecalis Not Reported Not Detected (NotDetected); Efaecium Not Reported Not Detected (NotDetected); Enterobacterales Not Reported Not Detected (NotDetected); Escherichia coli Not Reported Not Detected (NotDetected); H influenzae Not Reported Not Detected (NotDetected); IMP Resistant Gene Not Detected (NotDetected); K aerogenes Not Reported Not Detected (NotDetected); KPC Resistant Gene Not Detected (NotDetected); Koxytoca Not Reported Not Detected (NotDetected); Kpneumoniae grp Not Reported Not Detected (NotDetected); Lmonocyt Not Reported Not Detected (NotDetected); N meningitidis Not Reported Not Detected (NotDetected); NDM Resistant Gene Not Detected (NotDetected); P aeruginosa Not Reported DETECTED (NotDetected); Proteus spp Not Reported Not Detected (NotDetected); Salmonella spp Not Reported Not Detected (NotDetected); Smarcescens Not Reported Not Detected (NotDetected); Staph lugdunensis Not Reported Not Detected (NotDetected); Staph spp. Not Reported Not Detected (NotDetected); Staphaureus Not Reported Not Detected (NotDetected); Staphepi Not Reported Not Detected (NotDetected); Stenmaltophilia Not Reported Not Detected (NotDetected); Strep agal(GrpB) Not Reported Not Detected (NotDetected); Strep pneum Not Reported Not Detected (NotDetected); Strep pyog (GrpA) Not Reported Not Detected (NotDetected); Strep spp Not Reported Not Detected (NotDetected); VIM Resistant Gene Not Detected (NotDetected)
[2022-11-29] MEDS: VANCOMYCIN HCL 125 MG/2.5ML SOLN PO SCH (06:13)
[2022-11-29] MEDS: LEVOTHYROXINE SODIUM 88 MCG TABLET PO SCH (06:13)
[2022-11-29 06:17] LABS: Pseudomonas aeruginosa DETECTED (NotDetected)
[2022-11-29] MEDS: PIPERACILLIN/TAZOBACTAM 4.5 GM in DEXTROSE 5% 100 ML IV SCH (06:35)
--- NOTE | 2022-11-29 06:42 | CT Scan Report ---
CT OF THE ABDOMEN AND PELVIS WITHOUT CONTRAST CLINICAL HISTORY: Abdominal pain, LA, fever COMPARISON STUDY: CT of the abdomen and pelvis November 14, 2022. Chest CT November 28, 2022. TECHNIQUE: Axial images of the abdomen and pelvis were obtained without IV contrast. Images were revi ewed in the axial, sagittal, and coronal planes. Automated exposure control was utilized for the jameel dy. A dose lowering technique was utilized adhering to the principles of ALARA. FINDINGS: Extensive multifocal consolidation within the lower lungs have significantly progressed sin ce chest CT November 28, 2022. This is most pronounced within the lingula and left lower lobe. There are s mall bilateral pleural effusions. A small hiatal hernia is present. Evaluation of the abdomen and pel vis is suboptimal on this unenhanced examination. No pneumatosis, free air or portal venous gas is pr esent. Excreted contrast within the collecting systems, ureters and bladder is from recent contrast-e nhanced CT. Renal enhancement is also noted. Unenhanced images of the liver, spleen, adrenal glands a nd pancreas are unremarkable with the exception of pancreatic glandular atrophy. The gallbladder is m ildly distended. There is no definite pericholecystic inflammation or wall thickening. No evidence fo r a bowel obstruction. Colorectal wall thickening has decreased since CT of November 14, 2022. Pericolonic inflammation has also decreased. There is a small amount of ascites. Anasarca is noted. No fluid col lection within the abdomen or pelvis is identified. There is no hydronephrosis. A Armstrong balloon withi n the bladder is noted as well as a small amount of gas. There is no lymphadenopathy. IMPRESSION: 1. Significant progression of extensive consolidation within the lower lungs since chest CT of November. This is suggestive of multifocal pneumonia. 2. Interval decrease in colorectal wall thickening and pericolonic infiltration since CT of November 14 023. 3. No pneumatosis, free air or portal venous gas. 4. Anasarca. Small amount of ascites. 5. Mild gallbladder distention. No convincing evidence for acute cholecystitis however, if right uppe r quadrant pain, a right upper quadrant ultrasound could be obtained for further evaluation. ACT 112: Negative or not required by law. Electronically signed by: Mohit Childers M.D. 11/29/2022 6:40 AM
--- NOTE | 2022-11-29 06:51 | XRay Report ---
XR chest 1V portable CLINICAL HISTORY: Hypoxia. COMPARISON STUDY: Chest radiograph and chest CT November 28, 2022. FINDINGS: Dense consolidation within the left mid and lower lung has significantly progressed since C T of November 28, 2022. There is a trace left pleural effusion. No pneumothorax is present. Right basilar consolidation has also progressed. Cardiomediastinal silhouette is stable. No evidence for overt pulm onary edema. IMPRESSION: Significant progression of multifocal pneumonia, most pronounced within the lingula and left lower lobe. ACT 112: Negative or not required by law. Electronically signed by: Mohit Childers M.D. 11/29/2022 6:49 AM
--- NOTE | 2022-11-29 07:11 | Hospitalist Progress Note ---
Date of Service November 29, 2022 Assessment & Plan (1) IBD (inflammatory bowel disease): Plan: Ulcerative Colitis flare: Rectal bleeding secondary to above Sepsis, bacteremia, pna ,immunocompromised status This is patient's third admission in the last 2 weeks due to ulcerative colitis flare She reports her last normal bowel movement was the first week in September 2022 She feels that her admission for aspiration pneumonia in June and subsequent antibiotics in the setting of IBD and C. difficile contributed to her current refractive flare. Increased Solu-Medrol has improved symptoms and lab work. Continues on Rowasa enema twice daily per GI x 1 week, then once nightly. First Avsola dose 11/21 with next infusion planned for today/tomorrow She continues to have cramping continue with original plan for prednisone 60mg PO daily with transition to prednisone 40mg daily at discharge. 11/27: remains on prednisone 60mg, however, symptoms are uncontrolled. May have better control on IV steroids again, however, would defer that to GI. Patient is declining Rowasa enemas. Per GI plans for unprepped flex sig with second Avsola dose to be given. Diet changed to clears per pt request, then NPO after MN. Cont supportive care efforts. 11/28 -patient with chest tightness this morning, tachycardia, hypotension cough with sputum production. Chest x-ray unremarkable. ECG with sinus tachycardia and PVCs. Guaifenesin and flutter valve started IV fluids/albumin. Echo ordered and discussed with cardiology and GI. Flex sig canceled today by anesthesiology. Will obtain CT PE, sputum and blood cultx. Update: CT chest reviewed w/ Dr. Owens (pulmonary)- no PE, multifocal pna - discussed this with the patient and her son at the bedside, agreeable to antibiotics. Started Unasyn and p.o. Vanco for C. difficile prophylaxis. 11/29 - Overnight pt became febrile and more tachycardic/ hypotensive despite fluids and antibiotics, went into Afib w/ RVR and was transferred to ICU for further care. Amiodarone was started and bicarb drip. Pt's antibiotics switched to vanco + zosyn. Cultures - blood cultx and sputum cultx obtained - blood culture positive for Gram negative bacilli. Sputum cultx - probable Pseudomonas. This morning discussion with the family and ICU staff -> pt made comfort care and then at 10:35 AM. Other chronic conditions COPD: Chronic, stable. Uses rescue inhaler and Fluticasone; continue Advair No supplemental O2 at home HTN: Chronic, at goal. on Atenolol and Lisinopril Hypothyroidism: Chronic, stable. Continue Levothyroxine H/O C-Diff: Had fecal transplant 8years ago Stool studies continue to remain negative DVT Px: Lovenox Code Status - changed to DNR/DNI - comfort care Admission and Anticipated Discharge Date Admission Date: November 19, 2022 Subjective Pt presents with ulcerative colitis flare. Multiple recent admissions for the same issue. Yesterday pt became tachycardic, hypotensive - work up showed pneumonia/ sepsis and pt was started on antibiotic. Overnight pt became febrile and more tachycardic/ hypotensive despite fluids and antibiotics, went into Afib w/ RVR and was transferred to ICU for further care. This morning discussion with the family and ICU staff -> pt made comfort care Review of Systems Review of Systems: All systems reviewed & are unremarkable except as noted in Subjective Physical Exam Physical Exam: Pt at 10:35 AM 11/29/2022 Results & Data Results & Data Vital Signs (Past 12 Hours) Vital Signs Temp Pulse Pulse Pulse Resp BP BP 11/29/22 06:30 37.6 C H 113 H 33 H 11/29/22 06:22 97/65 L 11/29/22 06:22 37.8 C H 116 H 29 H 11/29/22 06:21 37.8 C H 114 H 36 H 11/29/22 06:21 81/67 L 11/29/22 06:15 37.9 C H 113 H 33 H 11/29/22 06:06 37.9 C H 113 H 19 11/29/22 05:45 38.0 C H 115 H 34 H 11/29/22 05:45 120/67 11/29/22 05:43 112/70 11/29/22 05:43 38.0 C H 117 H 40 H 11/29/22 05:31 37.9 C H 124 H 34 H 11/29/22 05:30 37.9 C H 117 H 38 H 11/29/22 05:20 37.8 C H 128 H 28 H 11/29/22 05:17 114/70 11/29/22 05:17 37.9 C H 131 H 35 H 11/29/22 05:10 37.9 C H 116 H 36 H 11/29/22 05:02 37.9 C H 120 H 29 H 11/29/22 05:00 37.9 C H 124 H 37 H 11/29/22 04:50 37.9 C H 130 H 34 H 11/29/22 04:45 117/60 11/29/22 04:45 37.9 C H 133 H 34 H 11/29/22 04:40 37.9 C H 130 H 33 H 11/29/22 04:30 38.0 C H 130 H 21 11/29/22 04:30 109/67 11/29/22 04:24 122/66 11/29/22 04:24 38.0 C H 114 H 25 H 11/29/22 04:20 38.0 C H 116 H 31 H 11/29/22 04:10 38.0 C H 126 H 34 H 11/29/22 04:01 128/81 11/29/22 04:01 38.1 C H 136 H 25 H 11/29/22 04:00 38.1 C H 153 H 35 H 11/29/22 03:50 38.0 C H 148 H 31 H 11/29/22 03:47 141/77 H 11/29/22 03:47 38.0 C H 155 H 30 H 11/29/22 03:40 37.9 C H 161 H 33 H 11/29/22 03:30 37.8 C H 141 H 27 H 11/29/22 03:30 115/77 11/29/22 03:20 38.0 C H 132 H 29 H 11/29/22 03:15 123/64 11/29/22 03:15 38.0 C H 132 H 34 H 11/29/22 03:10 38.0 C H 140 H 40 H 11/29/22 03:06 128/72 11/29/22 03:06 37.9 C H 144 H 39 H 11/29/22 03:00 37.8 C H 153 H 36 H 11/29/22 02:50 37.6 C H 128 H 29 H 11/29/22 02:40 36.6 C 142 H 27 H 11/29/22 02:36 127 H 24 11/29/22 03:07 133 H 37 H 11/29/22 02:44 11/29/22 01:54 150 H 36 H 11/29/22 01:51 143 H 11/29/22 01:27 131 H 11/29/22 01:16 123 H 22 11/28/22 23:54 11/28/22 22:50 36.4 C L 100 H 24 11/28/22 22:50 11/28/22 22:30 96 H 20 80/51 L 11/28/22 22:04 96 H 14 72/45 L 11/28/22 21:46 156 H 74/46 L 11/28/22 19:20 11/28/22 20:49 36.4 C L 116 H 32 H 11/28/22 20:17 140 H 26 H 11/28/22 19:23 109 H 22 11/28/22 19:29 36.5 C 120 H 22 108/68 BP Pulse Ox O2 Del Method O2 Flow Rate 11/29/22 06:30 11/29/22 06:22 11/29/22 06:22 11/29/22 06:21 91 11/29/22 06:21 11/29/22 06:15 11/29/22 06:06 96 11/29/22 05:45 92 11/29/22 05:45 11/29/22 05:43 11/29/22 05:43 91 11/29/22 05:31 90 11/29/22 05:30 92 11/29/22 05:20 89 L 11/29/22 05:17 11/29/22 05:17 90 11/29/22 05:10 93 11/29/22 05:02 92 11/29/22 05:00 100 11/29/22 04:50 92 11/29/22 04:45 11/29/22 04:45 91 11/29/22 04:40 92 11/29/22 04:30 93 11/29/22 04:30 11/29/22 04:24 11/29/22 04:24 94 11/29/22 04:20 93 11/29/22 04:10 92 11/29/22 04:01 11/29/22 04:01 94 11/29/22 04:00 94 11/29/22 03:50 93 11/29/22 03:47 06/08/23 03:47 94 11/29/22 03:40 95 11/29/22 03:30 89 L 11/29/22 03:30 11/29/22 03:20 96 11/29/22 03:15 11/29/22 03:15 94 11/29/22 03:10 96 11/29/22 03:06 11/29/22 03:06 96 11/29/22 03:00 91 11/29/22 02:50 80 L 11/29/22 02:40 88 L 11/29/22 02:36 11/29/22 03:07 92 Nasal Cannula, High Flow Nasal Cannula 15 11/29/22 02:44 High Flow Nasal Cannula 15 11/29/22 01:54 125/69 90 High Flow Nasal Cannula 90 11/29/22 01:51 90 High Flow Nasal Cannula 15 11/29/22 01:27 128/75 89 L Nasal Cannula 7 11/29/22 01:16 84 L Nasal Cannula 4 11/28/22 23:54 101/64 11/28/22 22:50 85/52 L 94 Nasal Cannula 4 11/28/22 22:50 Nasal Cannula 4 11/28/22 22:30 96 Nasal Cannula 4 11/28/22 22:04 95 Nasal Cannula 4 11/28/22 21:46 11/28/22 19:20 Nasal Cannula 2 11/28/22 20:49 92 Nasal Cannula 4 11/28/22 20:17 93 Nasal Cannula 4 11/28/22 19:23 92 Nasal Cannula 2 11/28/22 19:29 89 L Nasal Cannula 2 Laboratory Results 11/29/22 11/29/22 11/29/22 Range/Units 04:45 04:42 04:10 WBC (4.8-10.8) K/ul RBC (4.20-5.40) M/uL Hgb (12.0-16.0) g/dl POC Hgb 13.6 (12.0-16.0) g/dl Hct (37.0-47.0) % POC Hct 40 (37-47) % MCV (80.0-100.0) fL MCH (25.0-34.0) pg MCHC (32.0-36.0) g/dL RDW Std Deviation (36.4-46.3) fL RDW Coeff of Darryl (11.5-14.5) % Plt Count (130-400) K/uL MPV (9.4-12.4) fL Immature Gran % (Auto) % Neut % (Auto) % Lymph % (Auto) % Lamb % (Auto) % Eos % (Auto) % Baso % (Auto) % Neut # (Auto) (1.40-6.50) K/uL Lymph # (Auto) (1.2-3.4) K/uL Lamb # (Auto) (0.11-0.59) K/uL Eos # (Auto) (0-0.50) K/uL Baso # (Auto) (0-0.2) K/uL Immature Gran # (Auto) (0.01-0.20) K/uL Hypersegmented Neuts Hyposegmented Neuts Toxic Vacuolation Dohle Bodies Polychromasia Echinocytes Sample Site R Brachial POC pH 7.16 L* (7.35-7.45) POC pCO2 56 H (35-46) mmHg POC pO2 72 L (80-95) mmHg POC HCO3 20 (19-24) mars/L POC Total CO2 22 L (24-31) mmol/L POC Base Excess -9.0 (-9-1.8) mars/L ABG pH (Temp Correct) 7.146 L* (7.35-7.45) ABG pCO2 (Temp Corrct 59 H (35-46) mmHg POC ABG pO2 at Pt Temp 77 POC ABG O2 Sat 89.0 L (90-95) % Mango Test NA O2 Delivery Device Cannula POC FiO2 % POC Sodium 134 L (135-144) mmol/L Sodium (136-145) mmol/L POC Potassium 3.5 (3.3-5.0) mmol/L Potassium (3.5-5.1) mmol/L Chloride (98-107) mmol/L Carbon Dioxide (21-32) mmol/L Anion Gap (3-11) BUN (6-23) mg/dl Creatinine (0.6-1.2) mg/dl Est Cr Clr Drug Dosing ml/min Est GFR ( Amer) ml/min Est GFR (Non-Af Amer) ml/min BUN/Creatinine Ratio (10-20) Glucose (70-99(Fasting)) mg/dl POC Glucose 117 H (70-99) mg/dl Lactate (0.4-2.0) mmol/L Calcium (8.6-10.3) mg/dl Phosphorus (2.5-4.9) mg/dl Magnesium (1.7-2.4) mg/dl Total Bilirubin 0.7 (0.2-1.0) mg/dl Direct Bilirubin 0.4 H (0-0.2) mg/dl AST 16 (13-39) U/L ALT 9 (7-52) U/L Alkaline Phosphatase 44 (34-104) U/L Troponin I High Sens (0-14) pg/ml C-Reactive Protein (0-0.5) mg/dl Total Protein 4.0 L (6.0-8.3) gm/dl Albumin 2.1 L (3.4-5.0) gm/dl Globulin (2.5-4.0) gm/dl Albumin/Globulin Ratio (0.9-2) Lipase 7 L (11-82) U/L Procalcitonin (0-0.5) ng/ml Nasal Screen MRSA (PCR) (Negative) P. aeruginosa (PCR) (NotDetected) blaIMP Car res Gene PCR (NotDetected) KPC-Carbap Res Gene PCR (NotDetected) blaNDM Car Res Gene PCR (NotDetected) blaVIM Car Res Gene PCR (NotDetected) CTX-M Gene Resistance (PCR) (NotDetected) Bld Cult ID Panel PCR (NotDetected) 11/29/22 11/29/22 11/29/22 Range/Units 04:10 04:10 04:10 WBC 12.83 H (4.8-10.8) K/ul RBC 4.26 (4.20-5.40) M/uL Hgb 12.5 (12.0-16.0) g/dl POC Hgb (12.0-16.0) g/dl Hct 37.7 (37.0-47.0) % POC Hct (37-47) % MCV 88.5 (80.0-100.0) fL MCH 29.3 (25.0-34.0) pg MCHC 33.2 (32.0-36.0) g/dL RDW Std Deviation 48.6 H (36.4-46.3) fL RDW Coeff of Darryl 15.1 H (11.5-14.5) % Plt Count 274 (130-400) K/uL MPV 9.2 L (9.4-12.4) fL Immature Gran % (Auto) 2.7 % Neut % (Auto) 90.1 % Lymph % (Auto) 2.0 % Lamb % (Auto) 4.7 % Eos % (Auto) 0.3 % Baso % (Auto) 0.2 % Neut # (Auto) 11.57 H (1.40-6.50) K/uL Lymph # (Auto) 0.26 L (1.2-3.4) K/uL Lamb # (Auto) 0.60 H (0.11-0.59) K/uL Eos # (Auto) 0.04 (0-0.50) K/uL Baso # (Auto) 0.02 (0-0.2) K/uL Immature Gran # (Auto) 0.34 H (0.01-0.20) K/uL Hypersegmented Neuts 1+ Hyposegmented Neuts Toxic Vacuolation 1+ Dohle Bodies Polychromasia Echinocytes 2+ Sample Site POC pH (7.35-7.45) POC pCO2 (35-46) mmHg POC pO2 (80-95) mmHg POC HCO3 (19-24) mars/L POC Total CO2 (24-31) mmol/L POC Base Excess (-9-1.8) mars/L ABG pH (Temp Correct) (7.35-7.45) ABG pCO2 (Temp Corrct (35-46) mmHg POC ABG pO2 at Pt Temp POC ABG O2 Sat (90-95) % Mango Test O2 Delivery Device POC FiO2 % POC Sodium (135-144) mmol/L Sodium 130 L (136-145) mmol/L POC Potassium (3.3-5.0) mmol/L Potassium 3.5 (3.5-5.1) mmol/L Chloride 97 L (98-107) mmol/L Carbon Dioxide 20 L (21-32) mmol/L Anion Gap 13 H (3-11) BUN 16 (6-23) mg/dl Creatinine 0.51 L (0.6-1.2) mg/dl Est Cr Clr Drug Dosing 87.4 ml/min Est GFR ( Amer) 112.1 ml/min Est GFR (Non-Af Amer) 96.7 ml/min BUN/Creatinine Ratio 31.4 H (10-20) Glucose 388 H* (70-99(Fasting)) mg/dl POC Glucose (70-99) mg/dl Lactate 3.1 H* (0.4-2.0) mmol/L Calcium 6.2 L (8.6-10.3) mg/dl Phosphorus 3.6 (2.5-4.9) mg/dl Magnesium 1.6 L (1.7-2.4) mg/dl Total Bilirubin (0.2-1.0) mg/dl Direct Bilirubin (0-0.2) mg/dl AST (13-39) U/L ALT (7-52) U/L Alkaline Phosphatase (34-104) U/L Troponin I High Sens (0-14) pg/ml C-Reactive Protein (0-0.5) mg/dl Total Protein (6.0-8.3) gm/dl Albumin (3.4-5.0) gm/dl Globulin (2.5-4.0) gm/dl Albumin/Globulin Ratio (0.9-2) Lipase (11-82) U/L Procalcitonin (0-0.5) ng/ml Nasal Screen MRSA (PCR) (Negative) P. aeruginosa (PCR) (NotDetected) blaIMP Car res Gene PCR (NotDetected) KPC-Carbap Res Gene PCR (NotDetected) blaNDM Car Res Gene PCR (NotDetected) blaVIM Car Res Gene PCR (NotDetected) CTX-M Gene Resistance (PCR) (NotDetected) Bld Cult ID Panel PCR (NotDetected) 11/29/22 11/29/22 11/29/22 Range/Units 02:07 01:56 01:56 WBC (4.8-10.8) K/ul RBC (4.20-5.40) M/uL Hgb (12.0-16.0) g/dl POC Hgb 13.3 (12.0-16.0) g/dl Hct (37.0-47.0) % POC Hct 39 (37-47) % MCV (80.0-100.0) fL MCH (25.0-34.0) pg MCHC (32.0-36.0) g/dL RDW Std Deviation (36.4-46.3) fL RDW Coeff of Darryl (11.5-14.5) % Plt Count (130-400) K/uL MPV (9.4-12.4) fL Immature Gran % (Auto) % Neut % (Auto) % Lymph % (Auto) % Lamb % (Auto) % Eos % (Auto) % Baso % (Auto) % Neut # (Auto) (1.40-6.50) K/uL Lymph # (Auto) (1.2-3.4) K/uL Lamb # (Auto) (0.11-0.59) K/uL Eos # (Auto) (0-0.50) K/uL Baso # (Auto) (0-0.2) K/uL Immature Gran # (Auto) (0.01-0.20) K/uL Hypersegmented Neuts Hyposegmented Neuts Toxic Vacuolation Dohle Bodies Polychromasia Echinocytes Sample Site L Radial POC pH 7.14 L* (7.35-7.45) POC pCO2 53 H (35-46) mmHg POC pO2 90 (80-95) mmHg POC HCO3 18 L (19-24) mars/L POC Total CO2 20 L (24-31) mmol/L POC Base Excess -11.0 L (-9-1.8) mars/L ABG pH (Temp Correct) 7.143 L* (7.35-7.45) ABG pCO2 (Temp Corrct 52 H (35-46) mmHg POC ABG pO2 at Pt Temp 87 POC ABG O2 Sat 93.0 (90-95) % Mango Test Pass O2 Delivery Device Hi Alan Can POC FiO2 100 % POC Sodium 133 L (135-144) mmol/L Sodium 133 L (136-145) mmol/L POC Potassium 3.5 (3.3-5.0) mmol/L Potassium 3.8 (3.5-5.1) mmol/L Chloride 105 (98-107) mmol/L Carbon Dioxide 19 L (21-32) mmol/L Anion Gap 9 (3-11) BUN 17 (6-23) mg/dl Creatinine 0.43 L (0.6-1.2) mg/dl Est Cr Clr Drug Dosing 103.6 ml/min Est GFR ( Amer) 118.6 ml/min Est GFR (Non-Af Amer) 102.3 ml/min BUN/Creatinine Ratio 39.5 H (10-20) Glucose 129 H (70-99(Fasting)) mg/dl POC Glucose (70-99) mg/dl Lactate (0.4-2.0) mmol/L Calcium 7.0 L (8.6-10.3) mg/dl Phosphorus 3.5 (2.5-4.9) mg/dl Magnesium 1.6 L (1.7-2.4) mg/dl Total Bilirubin (0.2-1.0) mg/dl Direct Bilirubin (0-0.2) mg/dl AST (13-39) U/L ALT (7-52) U/L Alkaline Phosphatase (34-104) U/L Troponin I High Sens 33.7 H (0-14) pg/ml C-Reactive Protein (0-0.5) mg/dl Total Protein (6.0-8.3) gm/dl Albumin (3.4-5.0) gm/dl Globulin (2.5-4.0) gm/dl Albumin/Globulin Ratio (0.9-2) Lipase (11-82) U/L Procalcitonin 8.24 H (0-0.5) ng/ml Nasal Screen MRSA (PCR) (Negative) P. aeruginosa (PCR) (NotDetected) blaIMP Car res Gene PCR (NotDetected) KPC-Carbap Res Gene PCR (NotDetected) blaNDM Car Res Gene PCR (NotDetected) blaVIM Car Res Gene PCR (NotDetected) CTX-M Gene Resistance (PCR) (NotDetected) Bld Cult ID Panel PCR (NotDetected) 11/29/22 11/28/22 11/28/22 Range/Units 01:56 Unknown 21:53 WBC 14.49 H (4.8-10.8) K/ul RBC 4.74 (4.20-5.40) M/uL Hgb 14.0 (12.0-16.0) g/dl POC Hgb (12.0-16.0) g/dl Hct 41.6 (37.0-47.0) % POC Hct (37-47) % MCV 87.8 (80.0-100.0) fL MCH 29.5 (25.0-34.0) pg MCHC 33.7 (32.0-36.0) g/dL RDW Std Deviation 48.9 H (36.4-46.3) fL RDW Coeff of Darryl 15.1 H (11.5-14.5) % Plt Count 320 (130-400) K/uL MPV 8.7 L (9.4-12.4) fL Immature Gran % (Auto) % Neut % (Auto) % Lymph % (Auto) % Lamb % (Auto) % Eos % (Auto) % Baso % (Auto) % Neut # (Auto) (1.40-6.50) K/uL Lymph # (Auto) (1.2-3.4) K/uL Lamb # (Auto) (0.11-0.59) K/uL Eos # (Auto) (0-0.50) K/uL Baso # (Auto) (0-0.2) K/uL Immature Gran # (Auto) (0.01-0.20) K/uL Hypersegmented Neuts Hyposegmented Neuts Toxic Vacuolation Dohle Bodies Polychromasia Echinocytes Sample Site POC pH (7.35-7.45) POC pCO2 (35-46) mmHg POC pO2 (80-95) mmHg POC HCO3 (19-24) mars/L POC Total CO2 (24-31) mmol/L POC Base Excess (-9-1.8) mars/L ABG pH (Temp Correct) (7.35-7.45) ABG pCO2 (Temp Corrct (35-46) mmHg POC ABG pO2 at Pt Temp POC ABG O2 Sat (90-95) % Mango Test O2 Delivery Device POC FiO2 % POC Sodium (135-144) mmol/L Sodium 130 L (136-145) mmol/L POC Potassium (3.3-5.0) mmol/L Potassium 3.5 (3.5-5.1) mmol/L Chloride 101 (98-107) mmol/L Carbon Dioxide 20 L (21-32) mmol/L Anion Gap 9 (3-11) BUN 18 (6-23) mg/dl Creatinine 0.48 L (0.6-1.2) mg/dl Est Cr Clr Drug Dosing 92.8 ml/min Est GFR ( Amer) 114.4 ml/min Est GFR (Non-Af Amer) 98.7 ml/min BUN/Creatinine Ratio 37.5 H (10-20) Glucose 116 H (70-99(Fasting)) mg/dl POC Glucose (70-99) mg/dl Lactate (0.4-2.0) mmol/L Calcium 7.4 L (8.6-10.3) mg/dl Phosphorus (2.5-4.9) mg/dl Magnesium (1.7-2.4) mg/dl Total Bilirubin 1.0 (0.2-1.0) mg/dl Direct Bilirubin (0-0.2) mg/dl AST 11 L (13-39) U/L ALT 7 (7-52) U/L Alkaline Phosphatase 43 (34-104) U/L Troponin I High Sens 34.7 H (0-14) pg/ml C-Reactive Protein (0-0.5) mg/dl Total Protein 4.4 L (6.0-8.3) gm/dl Albumin 2.3 L (3.4-5.0) gm/dl Globulin 2.1 L (2.5-4.0) gm/dl Albumin/Globulin Ratio 1.1 (0.9-2) Lipase (11-82) U/L Procalcitonin (0-0.5) ng/ml Nasal Screen MRSA (PCR) Negative (Negative) P. aeruginosa (PCR) (NotDetected) blaIMP Car res Gene PCR (NotDetected) KPC-Carbap Res Gene PCR (NotDetected) blaNDM Car Res Gene PCR (NotDetected) blaVIM Car Res Gene PCR (NotDetected) CTX-M Gene Resistance (PCR) (NotDetected) Bld Cult ID Panel PCR (NotDetected) 11/28/22 11/28/22 11/28/22 Range/Units 21:53 21:18 14:25 WBC 11.03 H (4.8-10.8) K/ul RBC 4.12 L (4.20-5.40) M/uL Hgb 12.1 (12.0-16.0) g/dl POC Hgb (12.0-16.0) g/dl Hct 34.9 L (37.0-47.0) % POC Hct (37-47) % MCV 84.7 (80.0-100.0) fL MCH 29.4 (25.0-34.0) pg MCHC 34.7 (32.0-36.0) g/dL RDW Std Deviation 43.5 (36.4-46.3) fL RDW Coeff of Darryl 14.1 (11.5-14.5) % Plt Count 270 (130-400) K/uL MPV 9.3 L (9.4-12.4) fL Immature Gran % (Auto) 1.0 % Neut % (Auto) 86.2 % Lymph % (Auto) 4.2 % Lamb % (Auto) 7.7 % Eos % (Auto) 0.0 % Baso % (Auto) 0.9 % Neut # (Auto) 9.51 H (1.40-6.50) K/uL Lymph # (Auto) 0.46 L (1.2-3.4) K/uL Lamb # (Auto) 0.85 H (0.11-0.59) K/uL Eos # (Auto) 0.00 (0-0.50) K/uL Baso # (Auto) 0.10 (0-0.2) K/uL Immature Gran # (Auto) 0.11 (0.01-0.20) K/uL Hypersegmented Neuts Hyposegmented Neuts 1+ Toxic Vacuolation 1+ Dohle Bodies Polychromasia Echinocytes 1+ Sample Site POC pH (7.35-7.45) POC pCO2 (35-46) mmHg POC pO2 (80-95) mmHg POC HCO3 (19-24) mars/L POC Total CO2 (24-31) mmol/L POC Base Excess (-9-1.8) mars/L ABG pH (Temp Correct) (7.35-7.45) ABG pCO2 (Temp Corrct (35-46) mmHg POC ABG pO2 at Pt Temp POC ABG O2 Sat (90-95) % Mango Test O2 Delivery Device POC FiO2 % POC Sodium (135-144) mmol/L Sodium (136-145) mmol/L POC Potassium (3.3-5.0) mmol/L Potassium (3.5-5.1) mmol/L Chloride (98-107) mmol/L Carbon Dioxide (21-32) mmol/L Anion Gap (3-11) BUN (6-23) mg/dl Creatinine (0.6-1.2) mg/dl Est Cr Clr Drug Dosing ml/min Est GFR ( Amer) ml/min Est GFR (Non-Af Amer) ml/min BUN/Creatinine Ratio (10-20) Glucose (70-99(Fasting)) mg/dl POC Glucose (70-99) mg/dl Lactate 1.7 (0.4-2.0) mmol/L Calcium (8.6-10.3) mg/dl Phosphorus (2.5-4.9) mg/dl Magnesium (1.7-2.4) mg/dl Total Bilirubin (0.2-1.0) mg/dl Direct Bilirubin (0-0.2) mg/dl AST (13-39) U/L ALT (7-52) U/L Alkaline Phosphatase (34-104) U/L Troponin I High Sens (0-14) pg/ml C-Reactive Protein (0-0.5) mg/dl Total Protein (6.0-8.3) gm/dl Albumin (3.4-5.0) gm/dl Globulin (2.5-4.0) gm/dl Albumin/Globulin Ratio (0.9-2) Lipase (11-82) U/L Procalcitonin (0-0.5) ng/ml Nasal Screen MRSA (PCR) (Negative) P. aeruginosa (PCR) DETECTED A (NotDetected) blaIMP Car res Gene PCR Not Detected (NotDetected) KPC-Carbap Res Gene PCR Not Detected (NotDetected) blaNDM Car Res Gene PCR Not Detected (NotDetected) blaVIM Car Res Gene PCR Not Detected (NotDetected) CTX-M Gene Resistance (PCR) Not Detected (NotDetected) Bld Cult ID Panel PCR See PCR Comment (NotDetected) 11/28/22 11/28/22 Range/Units 08:37 08:37 WBC 15.88 H (4.8-10.8) K/ul RBC 4.87 (4.20-5.40) M/uL Hgb 14.2 (12.0-16.0) g/dl POC Hgb (12.0-16.0) g/dl Hct 41.6 (37.0-47.0) % POC Hct (37-47) % MCV 85.4 (80.0-100.0) fL MCH 29.2 (25.0-34.0) pg MCHC 34.1 (32.0-36.0) g/dL RDW Std Deviation 45.1 (36.4-46.3) fL RDW Coeff of Darryl 14.4 (11.5-14.5) % Plt Count 393 (130-400) K/uL MPV 9.5 (9.4-12.4) fL Immature Gran % (Auto) 1.4 % Neut % (Auto) 85.0 % Lymph % (Auto) 2.0 % Lamb % (Auto) 11.5 % Eos % (Auto) 0.0 % Baso % (Auto) 0.1 % Neut # (Auto) 13.52 H (1.40-6.50) K/uL Lymph # (Auto) 0.31 L (1.2-3.4) K/uL Lamb # (Auto) 1.82 H (0.11-0.59) K/uL Eos # (Auto) 0.00 (0-0.50) K/uL Baso # (Auto) 0.01 (0-0.2) K/uL Immature Gran # (Auto) 0.22 H (0.01-0.20) K/uL Hypersegmented Neuts Hyposegmented Neuts 1+ Toxic Vacuolation 1+ Dohle Bodies 1+ Polychromasia 1+ Echinocytes 1+ Sample Site POC pH (7.35-7.45) POC pCO2 (35-46) mmHg POC pO2 (80-95) mmHg POC HCO3 (19-24) mars/L POC Total CO2 (24-31) mmol/L POC Base Excess (-9-1.8) mars/L ABG pH (Temp Correct) (7.35-7.45) ABG pCO2 (Temp Corrct (35-46) mmHg POC ABG pO2 at Pt Temp POC ABG O2 Sat (90-95) % Mango Test O2 Delivery Device POC FiO2 % POC Sodium (135-144) mmol/L Sodium 132 L (136-145) mmol/L POC Potassium (3.3-5.0) mmol/L Potassium 4.0 (3.5-5.1) mmol/L Chloride 98 (98-107) mmol/L Carbon Dioxide 23 (21-32) mmol/L Anion Gap 11 (3-11) BUN 18 (6-23) mg/dl Creatinine 0.54 L (0.6-1.2) mg/dl Est Cr Clr Drug Dosing 82.5 ml/min Est GFR ( Amer) 110.0 ml/min Est GFR (Non-Af Amer) 94.9 ml/min BUN/Creatinine Ratio 33.3 H (10-20) Glucose 120 H (70-99(Fasting)) mg/dl POC Glucose (70-99) mg/dl Lactate (0.4-2.0) mmol/L Calcium 8.1 L (8.6-10.3) mg/dl Phosphorus 3.0 (2.5-4.9) mg/dl Magnesium 1.8 (1.7-2.4) mg/dl Total Bilirubin (0.2-1.0) mg/dl Direct Bilirubin (0-0.2) mg/dl AST (13-39) U/L ALT (7-52) U/L Alkaline Phosphatase (34-104) U/L Troponin I High Sens (0-14) pg/ml C-Reactive Protein 29.81 H (0-0.5) mg/dl Total Protein (6.0-8.3) gm/dl Albumin (3.4-5.0) gm/dl Globulin (2.5-4.0) gm/dl Albumin/Globulin Ratio (0.9-2) Lipase (11-82) U/L Procalcitonin (0-0.5) ng/ml Nasal Screen MRSA (PCR) (Negative) P. aeruginosa (PCR) (NotDetected) blaIMP Car res Gene PCR (NotDetected) KPC-Carbap Res Gene PCR (NotDetected) blaNDM Car Res Gene PCR (NotDetected) blaVIM Car Res Gene PCR (NotDetected) CTX-M Gene Resistance (PCR) (NotDetected) Bld Cult ID Panel PCR (NotDetected) Medications Administered Current Inpatient Medications Acetaminophen (Acetaminophen 325 Mg Tab) 650 mg PO Q4H PRN PRN Reason: Pain or Fever Stop: 12/19/22 04:08 Last Admin: 11/28/22 19:41 Dose: 650 mg Cetirizine HCl (Cetirizine Hcl 10 Mg Tablet) 10 mg PO HS AGGIE Stop: 12/19/22 20:59 Last Admin: 11/28/22 19:43 Dose: 10 mg Enoxaparin Sodium (Enoxaparin Inj 40 Mg/0.4 Ml Syr) 40 mg SQ HS AGGIE Stop: 12/22/22 20:59 Last Admin: 11/28/22 19:44 Dose: 40 mg Famotidine (Famotidine 10 Mg Tablet) 10 mg PO BID PRN PRN Reason: heartburn Stop: 12/19/22 04:08 Last Admin: 11/28/22 19:42 Dose: 10 mg Fluticasone Propionate (Fluticasone Propionate Na Spr 16 Gm Btl) 2 sprays NA DA SPRING PRN PRN Reason: Congestion Stop: 12/19/22 04:08 Fluticasone/Vilanterol (Fluticasone/Vilanterol 200/25mcg 14 Puffs/Inhaler) 1 puffs INH DAILY AGGIE Stop: 12/19/22 08:59 Last Admin: 11/28/22 10:37 Dose: 1 puffs Guaifenesin (Guaifenesin 600 Mg Tabcr) 600 mg PO Q12 AGGIE Stop: 12/28/22 08:59 Last Admin: 11/28/22 19:42 Dose: 600 mg Promethazine HCl 6.25 mg/ (Sodium Chloride) 50.25 mls @ 201 mls/hr IV Q6H PRN; Protocol PRN Reason: Nausea And Vomiting Stop: 12/19/22 03:09 Last Infusion: 11/28/22 21:00 Dose: Infused Sodium Chloride (Nss 1000ml) 1,000 mls @ 80 mls/hr IV .[id number] AGGIE Stop: 12/28/22 10:59 Last Admin: 11/29/22 05:44 Dose: Not Given Piperacillin Sod/Tazobactam (Sod 4.5 gm/ Dextrose) 120 mls @ 30 mls/hr IV Q8H [facility]; Protocol Stop: 12/05/22 21:59 Last Admin: 11/29/22 06:35 Dose: 30 mls/hr Vancomycin HCl 1,000 mg/ (Sodium Chloride) 270 mls @ 200 mls/hr IV Q12H [facility] Stop: 11/30/22 21:59 Sodium Bicarbonate 150 meq/ (Sterile Water) 1,150 mls @ 80 mls/hr IV .[id number] [facility] Stop: 12/29/22 03:59 Last Admin: 11/29/22 04:06 Dose: 80 mls/hr Amiodarone HCl/Dextrose (Nexterone / D5w) 360 mg in 200 mls @ 16.667 mls/hr IV .Q12H [facility] Stop: 12/29/22 10:09 Amiodarone HCl/Dextrose (Nexterone / D5w) 360 mg in 200 mls @ 33.333 mls/hr IV ONE ONE Stop: 11/29/22 10:09 Last Admin: 11/29/22 04:04 Dose: 1 mg/min, 33.3 mls/hr Ipratropium Coy (Ipratropium Coy Neb Soln 0.02% 2.5 Ml Vial) 0.5 mg INH Q6R PRN PRN Reason: Shortness of breath, wheezing Stop: 12/29/22 00:59 Last Admin: 11/29/22 01:15 Dose: 0.5 mg Levalbuterol HCl (Levalbuterol 1.25 Mg/3 Ml Neb) 1.25 mg NEB Q6R PRN PRN Reason: Shortness of breath, wheezing Stop: 12/29/22 00:59 Last Admin: 11/29/22 01:15 Dose: 1.25 mg Levothyroxine Sodium (Levothyroxine Sodium 88 Mcg Tablet) 88 mcg PO DAILYBB [facility] Stop: 12/19/22 06:29 Last Admin: 11/29/22 06:13 Dose: Not Given Lorazepam (Lorazepam 0.5 Mg Tab) 0.25 mg PO TID PRN PRN Reason: Anxiety Stop: 12/19/22 03:09 Last Admin: 11/29/22 00:50 Dose: 0.25 mg Melatonin (Melatonin 3 Mg Tab) 3 mg PO HS PRN PRN Reason: Sleep Stop: 12/20/22 20:21 Last Admin: 11/27/22 21:03 Dose: 3 mg Miscellaneous Information (Vancomycin Consult Active) 1 each N/A UD PRN PRN Reason: Consult Stop: 12/28/22 21:59 Multivitamins (Multivitamin Tab) 1 tab PO QAM [facility] Stop: 12/19/22 08:59 Last Admin: 11/28/22 10:39 Dose: 1 tab Ondansetron HCl (Ondansetron Inj 2 Mg/Ml 2 Ml Vial) 4 mg IV Q6H PRN PRN Reason: Nausea And Vomiting Stop: 12/26/22 09:48 Last Admin: 11/29/22 02:53 Dose: 4 mg Oxycodone HCl (Oxycodone Hcl Ir 5 Mg Tab (Immediate Release)) 5 mg PO Q4H PRN PRN Reason: Pain Stop: 12/03/22 03:09 Last Admin: 11/28/22 19:41 Dose: 5 mg Pantoprazole Sodium (Pantoprazole 40 Mg Tab) 40 mg PO BID [facility] Stop: 12/26/22 10:14 Last Admin: 11/28/22 19:43 Dose: 40 mg Prednisone (Prednisone 20 Mg Tab) 60 mg PO DAILY [facility] Stop: 12/25/22 02:39 Last Admin: 11/28/22 10:38 Dose: 60 mg Raspberry (Raspberry Syrup 5 Ml Udp) 5 ml PO Q6 [facility] Stop: 12/08/22 17:59 Last Admin: 11/29/22 05:44 Dose: Not Given Umeclidinium Coy (Umeclidinium Coy 62.5mcg/Blister 7 Puffs/Inhaler) 1 puffs INH QDL [facility] Stop: 12/19/22 11:29 Last Admin: 11/28/22 13:24 Dose: 1 puffs Vancomycin HCl (Vancomycin Hcl 125 Mg/2.5ml Soln) 125 mg PO Q6 [facility] Stop: 12/08/22 17:59 Last Admin: 11/29/22 06:13 Dose: Not Given
[2022-11-29] MEDS ORDERED: MAGNESIUM SULFATE / D5W 1 GM/100 ML BAG IV SCH (07:30)
--- NOTE | 2022-11-29 07:40 | Cardiology Progress Note ---
Date of Service November 29, 2022 Assessment & Plan (1) Ulcerative colitis: (2) Hypotension: (3) Sinus tachycardia: (4) Atrial fibrillation with RVR: (5) Hyponatremia: Plan IMPRESSION: 72 year old female with severe ulcerative colitis flare complicated by sepsis, metabolic acidosis, and PAF. Patient clinically deteriorated over night and is no longer responsive. Family wishes for comfort measures only at this time. PLAN: Had a lengthy discussion with and family- wishes all medications/drips be stopped and wants to focus on comfort measures only at this time. Will defer to primary team for de-escalation of care. Case discussed with Dr. Santillan. No further recommendations from a cardiac standpoint. Will sign off. Admission and Anticipated Discharge Date Admission Date: November 19, 2022 Supervising Physician Co-Signing Physician Notes Assessment and plan as above. Acute clinical decline consistent with sepsis in immunocompromised patient. We will abide by patient and family wishes Subjective Medically complex 72-year-old female with severe ulcerative colitis flare. Having active rectal bleeding. Became tachycardic and hypotensive yesterday, 11/28. EKGs revealing sinus tachycardia. Received IV fluids and albumin without improvement. Echocardiogram showing a hyperdynamic LVEF of 65 to 70% with mild enlargement of the right ventricle but no pulmonary hypertension. CTA of the chest was negative for PE but did show multifocal pneumonia. Blood cultures preliminarily show gram-negative bacilli growth. Worsening metabolic acidosis noted. Patient on bicarb drip and requiring high flow nasal cannula. Course now complicated by new onset atrial fibrillation with RVR. Patient was transferred to ICU and placed on an amiodarone drip. Anticoagulation was deferred due to active bleeding. TELE: SR/ST with frequent PACs Upon entrance into the room patient resting in bed-non responsive. Family at bedside. Patient now comfort measures only per the family. wishes all medications/drips be stopped. Review of Systems Review of Systems: Unobtainable due to cognitive status Physical Exam Constitutional: + ill appearing and + thin; no acute distress Respiratory: normal respiratory effort; no labored breathing and no cough Auscultation: + bronchovesicular breath sounds Cardiovascular: Rate/Rhythm: regular rate and regular rhythm Heart Sounds: normal S1 and normal S2 Vessels: no JVD Extremities: no edema Gastrointestinal (Abdomen): Percussion/Palpation: + abdomen tender and abdomen soft Skin: no rashes, warm and dry Results & Data Vital Signs (Past 12 Hours) Vital Signs Temp Pulse Pulse Pulse Resp BP BP 11/29/22 06:30 37.6 C H 113 H 33 H 11/29/22 06:22 97/65 L 11/29/22 06:22 37.8 C H 116 H 29 H 11/29/22 06:21 37.8 C H 114 H 36 H 11/29/22 06:21 81/67 L 11/29/22 06:15 37.9 C H 113 H 33 H 11/29/22 06:06 37.9 C H 113 H 19 11/29/22 05:45 38.0 C H 115 H 34 H 11/29/22 05:45 120/67 11/29/22 05:43 112/70 11/29/22 05:43 38.0 C H 117 H 40 H 11/29/22 05:31 37.9 C H 124 H 34 H 11/29/22 05:30 37.9 C H 117 H 38 H 11/29/22 05:20 37.8 C H 128 H 28 H 11/29/22 05:17 114/70 11/29/22 05:17 37.9 C H 131 H 35 H 11/29/22 05:10 37.9 C H 116 H 36 H 11/29/22 05:02 37.9 C H 120 H 29 H 11/29/22 05:00 37.9 C H 124 H 37 H 11/29/22 04:50 37.9 C H 130 H 34 H 11/29/22 04:45 117/60 11/29/22 04:45 37.9 C H 133 H 34 H 11/29/22 04:40 37.9 C H 130 H 33 H 11/29/22 04:30 38.0 C H 130 H 21 11/29/22 04:30 109/67 11/29/22 04:24 122/66 11/29/22 04:24 38.0 C H 114 H 25 H 11/29/22 04:20 38.0 C H 116 H 31 H 11/29/22 04:10 38.0 C H 126 H 34 H 11/29/22 04:01 128/81 11/29/22 04:01 38.1 C H 136 H 25 H 11/29/22 04:00 38.1 C H 153 H 35 H 11/29/22 03:50 38.0 C H 148 H 31 H 11/29/22 03:47 141/77 H 11/29/22 03:47 38.0 C H 155 H 30 H 11/29/22 03:40 37.9 C H 161 H 33 H 11/29/22 03:30 37.8 C H 141 H 27 H 11/29/22 03:30 115/77 11/29/22 03:20 38.0 C H 132 H 29 H 11/29/22 03:15 123/64 11/29/22 03:15 38.0 C H 132 H 34 H 11/29/22 03:10 38.0 C H 140 H 40 H 11/29/22 03:06 128/72 11/29/22 03:06 37.9 C H 144 H 39 H 11/29/22 03:00 37.8 C H 153 H 36 H 11/29/22 02:50 37.6 C H 128 H 29 H 11/29/22 02:40 36.6 C 142 H 27 H 11/29/22 02:36 127 H 24 11/29/22 03:07 133 H 37 H 11/29/22 02:44 11/29/22 01:54 150 H 36 H 11/29/22 01:51 143 H 11/29/22 01:27 131 H 11/29/22 01:16 123 H 22 11/28/22 23:54 11/28/22 22:50 36.4 C L 100 H 24 11/28/22 22:50 11/28/22 22:30 96 H 20 80/51 L 11/28/22 22:04 96 H 14 72/45 L 11/28/22 21:46 156 H 74/46 L 11/28/22 20:49 36.4 C L 116 H 32 H 11/28/22 20:17 140 H 26 H BP Pulse Ox O2 Del Method O2 Flow Rate 11/29/22 06:30 11/29/22 06:22 11/29/22 06:22 11/29/22 06:21 91 11/29/22 06:21 11/29/22 06:15 11/29/22 06:06 96 11/29/22 05:45 92 11/29/22 05:45 11/29/22 05:43 11/29/22 05:43 91 11/29/22 05:31 90 11/29/22 05:30 92 11/29/22 05:20 89 L 11/29/22 05:17 11/29/22 05:17 90 11/29/22 05:10 93 11/29/22 05:02 92 11/29/22 05:00 100 11/29/22 04:50 92 11/29/22 04:45 11/29/22 04:45 91 11/29/22 04:40 92 11/29/22 04:30 93 11/29/22 04:30 11/29/22 04:24 11/29/22 04:24 94 11/29/22 04:20 93 11/29/22 04:10 92 11/29/22 04:01 11/29/22 04:01 94 11/29/22 04:00 94 11/29/22 03:50 93 11/29/22 03:47 11/29/22 03:47 94 11/29/22 03:40 95 11/29/22 03:30 89 L 11/29/22 03:30 11/29/22 03:20 96 11/29/22 03:15 11/29/22 03:15 94 11/29/22 03:10 96 11/29/22 03:06 11/29/22 03:06 96 11/29/22 03:00 91 11/29/22 02:50 80 L 11/29/22 02:40 88 L 11/29/22 02:36 11/29/22 03:07 92 Nasal Cannula, High Flow Nasal Cannula 15 11/29/22 02:44 High Flow Nasal Cannula 15 11/29/22 01:54 125/69 90 High Flow Nasal Cannula 90 11/29/22 01:51 90 High Flow Nasal Cannula 15 11/29/22 01:27 128/75 89 L Nasal Cannula 7 11/29/22 01:16 84 L Nasal Cannula 4 11/28/22 23:54 101/64 11/28/22 22:50 85/52 L 94 Nasal Cannula 4 11/28/22 22:50 Nasal Cannula 4 11/28/22 22:30 96 Nasal Cannula 4 11/28/22 22:04 95 Nasal Cannula 4 11/28/22 21:46 11/28/22 20:49 92 Nasal Cannula 4 11/28/22 20:17 93 Nasal Cannula 4 Laboratory Results Cardiac Enzymes 11/28/22 11/29/22 11/29/22 Range/Units 21:53 01:56 04:10 AST 11 L 16 (13-39) U/L Troponin I High Sens 34.7 H 33.7 H (0-14) pg/ml CBC 11/28/22 11/28/22 11/29/22 Range/Units 08:37 21:53 01:56 WBC 15.88 H 11.03 H 14.49 H (4.8-10.8) K/ul RBC 4.87 4.12 L 4.74 (4.20-5.40) M/uL Hgb 14.2 12.1 14.0 (12.0-16.0) g/dl Hct 41.6 34.9 L 41.6 (37.0-47.0) % Plt Count 393 270 320 (130-400) K/uL Neut # (Auto) 13.52 H 9.51 H (1.40-6.50) K/uL Lymph # (Auto) 0.31 L 0.46 L (1.2-3.4) K/uL [place] # (Auto) 1.82 H 0.85 H (0.11-0.59) K/uL Eos # (Auto) 0.00 0.00 (0-0.50) K/uL Baso # (Auto) 0.01 0.10 (0-0.2) K/uL 11/29/22 Range/Units 04:10 WBC 12.83 H (4.8-10.8) K/ul RBC 4.26 (4.20-5.40) M/uL Hgb 12.5 (12.0-16.0) g/dl Hct 37.7 (37.0-47.0) % Plt Count 274 (130-400) K/uL Neut # (Auto) 11.57 H (1.40-6.50) K/uL Lymph # (Auto) 0.26 L (1.2-3.4) K/uL [place] # (Auto) 0.60 H (0.11-0.59) K/uL Eos # (Auto) 0.04 (0-0.50) K/uL Baso # (Auto) 0.02 (0-0.2) K/uL Comprehensive Metabolic Panel 11/28/22 11/28/22 11/29/22 Range/Units 08:37 21:53 01:56 Sodium 132 L 130 L 133 L (136-145) mmol/L Potassium 4.0 3.5 3.8 (3.5-5.1) mmol/L Chloride 98 101 105 (98-107) mmol/L Carbon Dioxide 23 20 L 19 L (21-32) mmol/L BUN 18 18 17 (6-23) mg/dl Creatinine 0.54 L 0.48 L 0.43 L (0.6-1.2) mg/dl Glucose 120 H 116 H 129 H (70-99(Fasting)) mg/dl Calcium 8.1 L 7.4 L 7.0 L (8.6-10.3) mg/dl Direct Bilirubin (0-0.2) mg/dl AST 11 L (13-39) U/L ALT 7 (7-52) U/L Alkaline Phosphatase 43 (34-104) U/L Total Protein 4.4 L (6.0-8.3) gm/dl Albumin 2.3 L (3.4-5.0) gm/dl 11/29/22 11/29/22 Range/Units 04:10 04:10 Sodium 130 L (136-145) mmol/L Potassium 3.5 (3.5-5.1) mmol/L Chloride 97 L (98-107) mmol/L Carbon Dioxide 20 L (21-32) mmol/L BUN 16 (6-23) mg/dl Creatinine 0.51 L (0.6-1.2) mg/dl Glucose 388 H* (70-99(Fasting)) mg/dl Calcium 6.2 L (8.6-10.3) mg/dl Direct Bilirubin 0.4 H (0-0.2) mg/dl AST 16 (13-39) U/L ALT 9 (7-52) U/L Alkaline Phosphatase 44 (34-104) U/L Total Protein 4.0 L (6.0-8.3) gm/dl Albumin 2.1 L (3.4-5.0) gm/dl Intake and Output 06/07/23 06/08/23 06/08/23 22:59 06:59 14:59 Intake Total 1658.250 / 4644.200 1935.95 / 4644.200 Output Total 435 / 437 Balance 1658.250 / 4207.200 1500.95 / 4207.200 Intake: IV 1658.250 / 4444.200 1935.95 / 4444.200 Amiodarone / D5w 150 mg In 100 100 / 100 ml @ 600 mls/hr IV ONE ONE Rx#: [id number] Ampicillin/Sulbactam Sod 3,000 108 / 108 mg In 0.9 % Sodium Chloride 100 ml @ 200 mls/hr IV Q6H [facility] Rx# :[id number] Piperacillin/Tazobactam 4.5 gm 120 / 120 In Dextrose 5% 100 ml @ 30 mls/ hr IV Q8H [facility] Rx#:[id number] Promethazine HCl 6.25 mg In 50.25 / 50.25 Sodium Chloride 0.9% 50 ml @ 201 mls/hr IV Q6H PRN Rx#: [id number] Sodium Chloride 0.9% 1000ML 1, 1000.000 / 2715.950 1715.95 / 2715.950 000 ml @ 999 mls/hr IV .Q1H1M [facility] Rx#:[id number] Sodium Chloride 0.9% 500 ml @ 500 / 500 500 mls/hr IV .Q1H [facility] Rx#: [id number] Output: Urine Amount (Catheter) 435 / 435 Armstrong/Indwelling 435 / 435 Other: Weight 59 kg
[2022-11-29] MEDS: MULTIVITAMIN TAB PO SCH (07:52)
[2022-11-29] MEDS: PANTOprazole 40 MG TAB PO SCH (07:52)
[2022-11-29] MEDS: predniSONE 20 MG TAB PO SCH (07:53)
[2022-11-29] MEDS: guaiFENesin 600 MG TABCR PO SCH (07:53)
[2022-11-29] MEDS: FLUTICASONE/VILANTEROL 200/25MCG 14 PUFFS/INHALER INH SCH (07:58)
[2022-11-29] MEDS ORDERED: ATROPINE SULFATE 1% OP SOLN 5 ML BTL SL PRN (07:58)
[2022-11-29] MEDS ORDERED: ONDANSETRON INJ 2 MG/ML 2 ML VIAL IV PRN (07:58)
[2022-11-29] MEDS ORDERED: ONDANSETRON 4 MG OD TAB SL PRN (07:58)
[2022-11-29] MEDS ORDERED: MoRPHine BOLUS from BAG IV PRN (07:58)
[2022-11-29] MEDS ORDERED: LORazepam 0.5 MG TAB PO PRN (07:58)
[2022-11-29] MEDS ORDERED: LORazepam 2 MG/1 ML VIAL IV PRN (07:58)
[2022-11-29] MEDS ORDERED: MoRPHine SULF/NSS 250 MG/250 ML BTL IV SCH (08:00)
--- NOTE | 2022-11-29 08:29 | Communication Note ---
Date of Service: November 29, 2022 Last night patient became hypotensive sbp In 70's and Heart rates in 150's.Ordered fluid bolus 2lts. Started on iv vanco and zosyn. checked lactic acid and was ok. hb ok.Transferred to PCU. BP improved with fluid bolus. Heart rate came down to low 100's.Denied any chest pain or abdominal pain. After 1.5lt bolus fluids changed to maintenance fluids as BP improved and patient was getting sob.hx of copd gave a neb tx. Heart rates again going up to 130's and requiring 15lts oxygen. Discussed with critical care and transferred to ICU. Notified .
--- NOTE | 2022-11-29 08:59 | Palliative Care Consultation ---
Date of Consultation November 29, 2022 Assessment & Plan (1) Palliative care by specialist: (2) Advanced care planning/counseling discussion: (3) Abdominal pain, generalized: (4) Weakness generalized: (5) Bloody diarrhea: (6) Atrial fibrillation with RVR: (7) Acute on chronic respiratory failure with hypoxia and hypercapnia: (8) IBD (inflammatory bowel disease): (9) Lower gastrointestinal hemorrhage: (10) Ulcerative colitis: Plan Upon arrival to ICU pt is noted to be surrounded by large family, bereavement cart outside room. Discussed with nursing who advised she was moved to comfort care and is actively dying. [facility] [employer] orders are written by [facility], no new needs at this time. I spoke with ICU attending and nursing teams. We agreed she does not have refractory symptom mgt needs and she is imminently dying. Therefore, I did not see pt per discussion with staff and will remain available to assist if needed. No charge submitted/pt not seen Thank you for allowing us to participate in the ongoing care of this patient. Please don't hesitate to call or page with any additional concerns. Dr. Little Wood [facility] Director, Palliative Care History of Present Illness Reason for Consultation: [facility] Attending Physician: Josh Hand MD History of Present Illness Per admitting note, this is a 72yo female admitted 11/18/22 with c/o diarrhea x months. She has been undergoing treatment with steroids and Rowasa enemas, numerous admissions for protracted IBD flare. Received first dose of Infliximab approx 2 weeks ago. Progressive worsening this admission, now with pneumonia, and worsening metabolic acidosis; became hypotensive and given 2 L crystalloid bolus to improve BP. She remains in A-fib RVR with heart rate in the 140s, +increasing hypoxia. Her TTE showed normal EF, hyperdynamic and Ao valve sclerosis without significant aortic valve stenosis. ABG for revealed mixed metabolic and respiratory acidosis, initial lactate negative, +elevated procalcitonin, +fever. CTA chest which was negative for PE but did show multifocal airspace is opacities prominently in the left lung. Patient has refused BiPAP and is currently DNR/DNI. She was transferred to ICU for further management overnight Hyperdynamic LV noted on echo Darshana was admitted 11/14 - 11/18/22 for ulcerative colitis flare with rectal bleed, which was treated with steroids; she was dc home w/prednisone. Recent colonoscopy 11/07/2022 showed severe UC. At that time patient indicated she was "working with insurance to get biologic agents covered." She returned to ED one dy after dc, on 11/19, with c/o bloody diarrhea. Patient became hypotensive.GI consulted, pt started infliximab (IFX, biosimilar to Remicade such as Avsola) on 11/22/2022-second dose 11/28. Patient continued to have bouts of bloody diarrhea. GI recc repeat colonoscopy but unfortunately this was cancelled due to patient decompensation with tachycardia, hypotension and hyponatremia (sodium level of 132). NS IV fluids started +albumin. Echo noted hyperdynamic left ventricular function with an EF of 65 to 70%- no wall motion abnormalities. Borderline RV enlargement with normal RV systolic function. No evidence of pulmonary hypertension. These findings felt to be c/w her h/o COPD. PMH: COPD, HTN, hypothyroidism, and ulcerative colitis with multiple recent admissions and currently admitted for ulcerative colitis flare. NOK is Ted Evans, contact #[phone] Allergies Allergy/AdvReac Type Severity Reaction Status Date / Time adhesive tape Allergy Intermediate SKIN Verified 11/19/22 00:20 IRRITATION/TAKES SKIN OFF WHEN TAKEN OFF midazolam Allergy Unknown NOT ON GMG Verified 11/19/22 00:20 OR PT LIST sulfasalazine AdvReac Severe PANCREATITI Verified 11/19/22 00:20 S Home Medications Medication Instructions Recorded Confirmed Type albuterol sulfate 2.5 mg/3 mL 2.5 mg inhalation DIRECTED PRN 09/20/22 11/19/22 History (0.083 %) solution for nebulization Shortness Of Breath Or Wheezing albuterol sulfate 90 mcg/actuation 2 puff inhalation Q4H PRN Wheezing 09/20/22 11/19/22 History aerosol inhaler atenolol 25 mg tablet 25 mg PO QAM 09/20/22 11/19/22 History cetirizine 10 mg tablet (Zyrtec) 10 mg PO HS 09/20/22 11/19/22 History cholecalciferol (vitamin D3) 25 25 mcg PO BID 09/20/22 11/19/22 History mcg (1,000 unit) capsule (Vitamin D3) diclofenac sodium 1 % topical gel 2 g topical QID PRN Pain 09/20/22 11/19/22 History fluticasone propionate 50 2 spray intranasal DAILY PRN 09/20/22 11/19/22 History mcg/actuation nasal Congestion spray,suspension levothyroxine 88 mcg tablet 88 mcg PO QAM 09/20/22 11/19/22 History multivitamin 1 tab PO QAM 09/20/22 11/19/22 History tiotropium bromide 18 mcg capsule 18 mcg inhalation QDL 09/20/22 11/19/22 History with inhalation device (Spiriva with HandiHaler) vitamin E 268 mg (400 unit) capsule 268 mg PO QAM 09/20/22 11/19/22 History fluticasone 250 mcg-salmeterol 50 1 inh inhalation BID 11/02/22 11/19/22 History mcg/dose blistr powdr for inhalation (Advair Diskus) lisinopril 20 mg tablet 20 mg PO QAM 11/02/22 11/19/22 History nicotine 7 mg/24 hr daily 2 patch transdermal DAILY 11/02/22 11/19/22 History transdermal patch famotidine 10 mg tablet (Acid 10 mg PO BID PRN heartburn #30 tabs 11/10/22 11/19/22 Rx News Assistant (famotidine)) prednisone 10 mg tablet See Taper PO HS 11/19/22 11/19/22 History Patient History Medical History (Updated 11/29/22 @ 09:21 by Little Wood DNP) Abdominal pain, generalized Advanced care planning/counseling discussion Anxiety no meds Aspiration pneumonia hospitalized at [facility] for this in September 2022 > no further issues Bloody diarrhea COPD (chronic obstructive pulmonary disease) uses res inh daily Dysphagia Encounter for pre-operative examination History of COVID-12 Aug 2021 > not hospitalized HLD (hyperlipidemia) HTN (hypertension) Hx of Clostridium difficile infection 8 yrs ago > fecal transplant > resolved Hypothyroidism Meningocele Palliative care by specialist Palpitations no longer Ulcerative colitis Ulcerative colitis hx of 25 yrs ago > possible issue now?? reason for up coming colon/EGD Weakness generalized Surgical History History of carpal tunnel surgery bilat History of colonoscopy History of tooth extraction Hx of partial thyroidectomy Hx of tubal ligation S/P fecal transplant Family History Father , 66 Sudden cardiac Mother Bipolar disorder Social History Smoking Status: Former smoker Tobacco Type: Cigarettes packs per day: 0.5; Cigarettes Per Day: 6-8; Second Hand Exposure: No; Do You Dip or Chew Tobacco: No; Hx Alcohol Use: No Hx Substance Use: No Preferred Language: Armenian Communication Ability: Effective Textile Examiner Required: No Beliefs That Will Affect Care: Mosque Current Living Situation: Spouse Current Living Situation Comment: house Feels Safe at Home: Yes Assistive Devices: None Review of Systems Review of Systems: All systems reviewed & are unremarkable except as noted in Subjective Physical Exam Physical Exam: Pt not seen - see below Results & Data Vital Signs (Past 12 Hours) Vital Signs Temp Pulse Pulse Resp BP BP BP 11/29/22 08:30 37.7 C H 89 29 H 11/29/22 08:01 125/68 11/29/22 08:01 37.7 C H 106 H 33 H 11/29/22 08:00 37.7 C H 115 H 32 H 11/29/22 07:30 37.8 C H 108 H 33 H 11/29/22 07:30 111/72 11/29/22 07:15 104/62 11/29/22 07:15 37.8 C H 109 H 31 H 11/29/22 07:14 115/60 11/29/22 07:14 37.8 C H 115 H 35 H 11/29/22 07:00 37.8 C H 111 H 32 H 11/29/22 08:14 11/29/22 06:30 37.6 C H 113 H 33 H 11/29/22 06:22 97/65 L 11/29/22 06:22 37.8 C H 116 H 29 H 11/29/22 06:21 37.8 C H 114 H 36 H 11/29/22 06:21 81/67 L 11/29/22 06:15 37.9 C H 113 H 33 H 11/29/22 06:06 37.9 C H 113 H 19 11/29/22 05:45 38.0 C H 115 H 34 H 11/29/22 05:45 120/67 11/29/22 05:43 112/70 11/29/22 05:43 38.0 C H 117 H 40 H 11/29/22 05:31 37.9 C H 124 H 34 H 11/29/22 05:30 37.9 C H 117 H 38 H 11/29/22 05:20 37.8 C H 128 H 28 H 11/29/22 05:17 114/70 11/29/22 05:17 37.9 C H 131 H 35 H 11/29/22 05:10 37.9 C H 116 H 36 H 11/29/22 05:02 37.9 C H 120 H 29 H 11/29/22 05:00 37.9 C H 124 H 37 H 11/29/22 04:50 37.9 C H 130 H 34 H 11/29/22 04:45 117/60 11/29/22 04:45 37.9 C H 133 H 34 H 11/29/22 04:40 37.9 C H 130 H 33 H 11/29/22 04:30 38.0 C H 130 H 21 11/29/22 04:30 109/67 11/29/22 04:24 122/66 11/29/22 04:24 38.0 C H 114 H 25 H 11/29/22 04:20 38.0 C H 116 H 31 H 11/29/22 04:10 38.0 C H 126 H 34 H 11/29/22 04:01 128/81 11/29/22 04:01 38.1 C H 136 H 25 H 11/29/22 04:00 38.1 C H 153 H 35 H 11/29/22 03:50 38.0 C H 148 H 31 H 11/29/22 03:47 141/77 H 11/29/22 03:47 38.0 C H 155 H 30 H 11/29/22 03:40 37.9 C H 161 H 33 H 11/29/22 03:30 37.8 C H 141 H 27 H 11/29/22 03:30 115/77 11/29/22 03:20 38.0 C H 132 H 29 H 11/29/22 03:15 123/64 11/29/22 03:15 38.0 C H 132 H 34 H 11/29/22 03:10 38.0 C H 140 H 40 H 11/29/22 03:06 128/72 11/29/22 03:06 37.9 C H 144 H 39 H 11/29/22 03:00 37.8 C H 153 H 36 H 11/29/22 02:50 37.6 C H 128 H 29 H 11/29/22 02:40 36.6 C 142 H 27 H 11/29/22 02:36 127 H 24 11/29/22 03:07 133 H 37 H 11/29/22 02:44 11/29/22 01:54 150 H 36 H 125/69 11/29/22 01:51 143 H 11/29/22 01:27 131 H 128/75 11/29/22 01:16 123 H 22 11/28/22 23:54 101/64 11/28/22 22:50 36.4 C L 100 H 24 85/52 L 11/28/22 22:50 11/28/22 22:30 96 H 20 80/51 L 11/28/22 22:04 96 H 14 72/45 L 11/28/22 21:46 156 H 74/46 L Pulse Ox O2 Del Method O2 Flow Rate 11/29/22 08:30 11/29/22 08:01 11/29/22 08:01 88 L 11/29/22 08:00 89 L 11/29/22 07:30 90 11/29/22 07:30 11/29/22 07:15 11/29/22 07:15 92 11/29/22 07:14 11/29/22 07:14 93 11/29/22 07:00 11/29/22 08:14 High Flow Nasal Cannula 15 11/29/22 06:30 11/29/22 06:22 11/29/22 06:22 11/29/22 06:21 91 11/29/22 06:21 11/29/22 06:15 11/29/22 06:06 96 11/29/22 05:45 92 11/29/22 05:45 11/29/22 05:43 11/29/22 05:43 91 11/29/22 05:31 90 11/29/22 05:30 92 11/29/22 05:20 89 L 11/29/22 05:17 11/29/22 05:17 90 11/29/22 05:10 93 11/29/22 05:02 92 11/29/22 05:00 100 11/29/22 04:50 92 11/29/22 04:45 11/29/22 04:45 91 11/29/22 04:40 92 11/29/22 04:30 93 11/29/22 04:30 11/29/22 04:24 11/29/22 04:24 94 11/29/22 04:20 93 11/29/22 04:10 92 11/29/22 04:01 11/29/22 04:01 94 11/29/22 04:00 94 11/29/22 03:50 93 11/29/22 03:47 11/29/22 03:47 94 11/29/22 03:40 95 11/29/22 03:30 89 L 11/29/22 03:30 11/29/22 03:20 96 11/29/22 03:15 11/29/22 03:15 94 11/29/22 03:10 96 11/29/22 03:06 11/29/22 03:06 96 11/29/22 03:00 91 11/29/22 02:50 80 L 11/29/22 02:40 88 L 11/29/22 02:36 11/29/22 03:07 92 Nasal Cannula, High Flow Nasal Cannula 15 11/29/22 02:44 High Flow Nasal Cannula 15 11/29/22 01:54 90 High Flow Nasal Cannula 90 11/29/22 01:51 90 High Flow Nasal Cannula 15 11/29/22 01:27 89 L Nasal Cannula 7 11/29/22 01:16 84 L Nasal Cannula 4 11/28/22 23:54 11/28/22 22:50 94 Nasal Cannula 4 11/28/22 22:50 Nasal Cannula 4 11/28/22 22:30 96 Nasal Cannula 4 11/28/22 22:04 95 Nasal Cannula 4 11/28/22 21:46 Laboratory Results data reviewed Diagnostic Findings data reviewed PG Care Time/CCT Total # of Minutes Spent Total Time Spent with Patient: Total time spent is greater than 50% in coordination of care (as documented) at patient's floor/unit and/or counseling patient: Coding Level of Care Code New Pt None Patient Type New Medical Decision Making High Complexity Diagnoses Palliative care by specialist Z51.5 Advanced care planning/counseling discussion Z71.89 Abdominal pain, generalized R10.84 Weakness generalized R53.1 Bloody diarrhea R19.7 Atrial fibrillation with RVR I48.91 Acute on chronic respiratory failure with hypoxia and hypercapnia J96.21; J96.22 IBD (inflammatory bowel disease) K52.9 Lower gastrointestinal hemorrhage K92.2 Ulcerative colitis K51.90
[2022-11-29] MEDS ORDERED: METOPROLOL SUCC 25MG EXT REL TAB PO SCH (09:00)
--- NOTE | 2022-11-29 09:39 | Gastroenterology Progress Note ---
Date of Service November 29, 2022 Assessment & Plan (1) IBD (inflammatory bowel disease): (2) Acute lower GI bleeding: Plan: 71 year old female with history of severe refractory ulcerative colitis, 3rd hospitalization this month and last for the same, no improvement despite IV steroids. Induced with Infliximab 5mg/kg on 11/22/2022. Clinically w minimal improvement. Planned for flexible sigmoidscopy with biopsies, however pt developed chest tightness symptoms and found to have multifocal pneumonia, sepsis (GNR on blood cx, P. aureginosa on sputum cx) and new Afib w RVR yesterday. Clinically doing poorly and family opted to make her comfort measures only. Her code status was DNR/DNI, husbands states pt refused to be on ventilator support. Palliative Care has met with family. Admission and Anticipated Discharge Date Admission Date: November 19, 2022 Supervising Physician Co-Signing Physician Notes Agree with PE as documented Family at bedside Agree with further plan of care as documented. Subjective Pt transferred to ICU overnight. Found to be tachycardic, hypotensive and febrile. CTA showed multifocal pneumonia, and labs w elevated lactate, acidosis, consistent w sepsis. Blood cx growing gram negative bacilli, sputum culture growing p.aureginosa on Zosyn and Vancomycin. She also has new onset Afib with RVR, placed on Amiodarone IV. Family had discussion w ICU attending this AM, and would like to change her status to comfort measures. Pt unable to provide history. Unresponsive for me - laying in ICU bed, eyes open, pupils reactive, but not answering questions, or following commands. Did not respond to sternal rub, but when abd palpated, did voice out "ow" slightly. Review of Systems Review of Systems: Other (Unable to obtain due to unresponsiveness (see HPI)) Physical Exam Constitutional: + ill appearing and + thin Eyes: PERRL, conjunctivae normal, anicteric sclerae ENMT: external ear and nose normal, oropharynx normal Respiratory: Diminished lung sounds, O2 15L per NC, O2 sat 91%. Cardiovascular: RRR, no murmur or gallops Gastrointestinal (Abdomen): Soft, BS absent, expressed discomfort on palpation Neurologic: Unresponsive for me - laying in ICU bed, eyes open, pupils reactive, but not answering questions, or following commands. Did not respond to sternal rub, but when abd palpated, did voice out "ow" slightly. Lymphatic: + lymphedema (anasarca) Results & Data Vital Signs (Past 12 Hours) Vital Signs Temp Pulse Pulse Resp BP BP BP 11/29/22 08:30 37.7 C H 89 29 H 11/29/22 08:01 125/68 11/29/22 08:01 37.7 C H 106 H 33 H 11/29/22 08:00 37.7 C H 115 H 32 H 11/29/22 07:30 37.8 C H 108 H 33 H 11/29/22 07:30 111/72 11/29/22 07:15 104/62 11/29/22 07:15 37.8 C H 109 H 31 H 11/29/22 07:14 115/60 11/29/22 07:14 37.8 C H 115 H 35 H 11/29/22 07:00 37.8 C H 111 H 32 H 11/29/22 08:14 11/29/22 06:30 37.6 C H 113 H 33 H 11/29/22 06:22 97/65 L 11/29/22 06:22 37.8 C H 116 H 29 H 11/29/22 06:21 37.8 C H 114 H 36 H 11/29/22 06:21 81/67 L 11/29/22 06:15 37.9 C H 113 H 33 H 11/29/22 06:06 37.9 C H 113 H 19 11/29/22 05:45 38.0 C H 115 H 34 H 11/29/22 05:45 120/67 11/29/22 05:43 112/70 11/29/22 05:43 38.0 C H 117 H 40 H 11/29/22 05:31 37.9 C H 124 H 34 H 11/29/22 05:30 37.9 C H 117 H 38 H 11/29/22 05:20 37.8 C H 128 H 28 H 11/29/22 05:17 114/70 11/29/22 05:17 37.9 C H 131 H 35 H 11/29/22 05:10 37.9 C H 116 H 36 H 11/29/22 05:02 37.9 C H 120 H 29 H 11/29/22 05:00 37.9 C H 124 H 37 H 11/29/22 04:50 37.9 C H 130 H 34 H 11/29/22 04:45 117/60 11/29/22 04:45 37.9 C H 133 H 34 H 11/29/22 04:40 37.9 C H 130 H 33 H 11/29/22 04:30 38.0 C H 130 H 21 11/29/22 04:30 109/67 11/29/22 04:24 122/66 11/29/22 04:24 38.0 C H 114 H 25 H 11/29/22 04:20 38.0 C H 116 H 31 H 11/29/22 04:10 38.0 C H 126 H 34 H 11/29/22 04:01 128/81 11/29/22 04:01 38.1 C H 136 H 25 H 11/29/22 04:00 38.1 C H 153 H 35 H 11/29/22 03:50 38.0 C H 148 H 31 H 11/29/22 03:47 141/77 H 11/29/22 03:47 38.0 C H 155 H 30 H 11/29/22 03:40 37.9 C H 161 H 33 H 11/29/22 03:30 37.8 C H 141 H 27 H 11/29/22 03:30 115/77 11/29/22 03:20 38.0 C H 132 H 29 H 11/29/22 03:15 123/64 11/29/22 03:15 38.0 C H 132 H 34 H 11/29/22 03:10 38.0 C H 140 H 40 H 11/29/22 03:06 128/72 11/29/22 03:06 37.9 C H 144 H 39 H 11/29/22 03:00 37.8 C H 153 H 36 H 11/29/22 02:50 37.6 C H 128 H 29 H 11/29/22 02:40 36.6 C 142 H 27 H 11/29/22 02:36 127 H 24 11/29/22 03:07 133 H 37 H 11/29/22 02:44 11/29/22 01:54 150 H 36 H 125/69 11/29/22 01:51 143 H 11/29/22 01:27 131 H 128/75 11/29/22 01:16 123 H 22 11/28/22 23:54 101/64 11/28/22 22:50 36.4 C L 100 H 24 85/52 L 11/28/22 22:50 11/28/22 22:30 96 H 20 80/51 L 11/28/22 22:04 96 H 14 72/45 L 11/28/22 21:46 156 H 74/46 L Pulse Ox O2 Del Method O2 Flow Rate 11/29/22 08:30 11/29/22 08:01 11/29/22 08:01 88 L 11/29/22 08:00 89 L 11/29/22 07:30 90 11/29/22 07:30 11/29/22 07:15 11/29/22 07:15 92 11/29/22 07:14 11/29/22 07:14 93 11/29/22 07:00 11/29/22 08:14 High Flow Nasal Cannula 15 11/29/22 06:30 11/29/22 06:22 11/29/22 06:22 11/29/22 06:21 91 11/29/22 06:21 11/29/22 06:15 11/29/22 06:06 96 11/29/22 05:45 92 11/29/22 05:45 11/29/22 05:43 11/29/22 05:43 91 11/29/22 05:31 90 11/29/22 05:30 92 11/29/22 05:20 89 L 11/29/22 05:17 11/29/22 05:17 90 11/29/22 05:10 93 11/29/22 05:02 92 11/29/22 05:00 100 11/29/22 04:50 92 11/29/22 04:45 11/29/22 04:45 91 11/29/22 04:40 92 11/29/22 04:30 93 11/29/22 04:30 11/29/22 04:24 11/29/22 04:24 94 11/29/22 04:20 93 11/29/22 04:10 92 11/29/22 04:01 11/29/22 04:01 94 11/29/22 04:00 94 11/29/22 03:50 93 11/29/22 03:47 11/29/22 03:47 94 11/29/22 03:40 95 11/29/22 03:30 89 L 11/29/22 03:30 11/29/22 03:20 96 11/29/22 03:15 11/29/22 03:15 94 11/29/22 03:10 96 11/29/22 03:06 11/29/22 03:06 96 11/29/22 03:00 91 11/29/22 02:50 80 L 11/29/22 02:40 88 L 11/29/22 02:36 11/29/22 03:07 92 Nasal Cannula, High Flow Nasal Cannula 15 11/29/22 02:44 High Flow Nasal Cannula 15 11/29/22 01:54 90 High Flow Nasal Cannula 90 11/29/22 01:51 90 High Flow Nasal Cannula 15 11/29/22 01:27 89 L Nasal Cannula 7 11/29/22 01:16 84 L Nasal Cannula 4 11/28/22 23:54 11/28/22 22:50 94 Nasal Cannula 4 11/28/22 22:50 Nasal Cannula 4 11/28/22 22:30 96 Nasal Cannula 4 11/28/22 22:04 95 Nasal Cannula 4 11/28/22 21:46
[2022-11-29] MEDS ORDERED: VANCOMYCIN HCL 1,000 MG in SODIUM CHLORIDE 0.9% 250 ML IV SCH (10:00)
[2022-11-29] MEDS ORDERED: AMIODARONE / D5W 360 MG/200 ML BAG IV SCH (10:10)
--- NOTE | 2022-11-29 11:17 | Hospitalist Progress Note ---
Date of Service November 29, 2022 Assessment & Plan Admission and Anticipated Discharge Date Admission Date: November 19, 2022 Subjective NOTE Notified by nursing staff, that patient ceased to breathe at 10:35 AM. Patient was made comfort care earlier this morning. On my exam, patient is unresponsive to voice or touch, there are no breath sounds, no heart sounds. There is no radial or carotid pulse. Pupils are fixed and dilated. MD Peace Results & Data Results & Data Vital Signs (Past 12 Hours) Vital Signs Temp Pulse Pulse Resp BP BP Pulse Ox 11/29/22 08:30 37.7 C H 89 29 H 11/29/22 08:01 125/68 11/29/22 08:01 37.7 C H 106 H 33 H 88 L 11/29/22 08:00 37.7 C H 115 H 32 H 89 L 11/29/22 07:30 37.8 C H 108 H 33 H 90 11/29/22 07:30 111/72 11/29/22 07:15 104/62 11/29/22 07:15 37.8 C H 109 H 31 H 92 11/29/22 07:14 115/60 11/29/22 07:14 37.8 C H 115 H 35 H 93 11/29/22 07:00 37.8 C H 111 H 32 H 11/29/22 08:14 11/29/22 06:30 37.6 C H 113 H 33 H 11/29/22 06:22 97/65 L 11/29/22 06:22 37.8 C H 116 H 29 H 11/29/22 06:21 37.8 C H 114 H 36 H 91 11/29/22 06:21 81/67 L 11/29/22 06:15 37.9 C H 113 H 33 H 11/29/22 06:06 37.9 C H 113 H 19 96 11/29/22 05:45 38.0 C H 115 H 34 H 92 11/29/22 05:45 120/67 11/29/22 05:43 112/70 11/29/22 05:43 38.0 C H 117 H 40 H 91 11/29/22 05:31 37.9 C H 124 H 34 H 90 11/29/22 05:30 37.9 C H 117 H 38 H 92 11/29/22 05:20 37.8 C H 128 H 28 H 89 L 11/29/22 05:17 114/70 11/29/22 05:17 37.9 C H 131 H 35 H 90 11/29/22 05:10 37.9 C H 116 H 36 H 93 11/29/22 05:02 37.9 C H 120 H 29 H 92 11/29/22 05:00 37.9 C H 124 H 37 H 100 11/29/22 04:50 37.9 C H 130 H 34 H 92 11/29/22 04:45 117/60 11/29/22 04:45 37.9 C H 133 H 34 H 91 11/29/22 04:40 37.9 C H 130 H 33 H 92 11/29/22 04:30 38.0 C H 130 H 21 93 11/29/22 04:30 109/67 11/29/22 04:24 122/66 11/29/22 04:24 38.0 C H 114 H 25 H 94 11/29/22 04:20 38.0 C H 116 H 31 H 93 11/29/22 04:10 38.0 C H 126 H 34 H 92 11/29/22 04:01 128/81 11/29/22 04:01 38.1 C H 136 H 25 H 94 11/29/22 04:00 38.1 C H 153 H 35 H 94 11/29/22 03:50 38.0 C H 148 H 31 H 93 11/29/22 03:47 141/77 H 11/29/22 03:47 38.0 C H 155 H 30 H 94 11/29/22 03:40 37.9 C H 161 H 33 H 95 11/29/22 03:30 37.8 C H 141 H 27 H 89 L 11/29/22 03:30 115/77 11/29/22 03:20 38.0 C H 132 H 29 H 96 11/29/22 03:15 123/64 11/29/22 03:15 38.0 C H 132 H 34 H 94 11/29/22 03:10 38.0 C H 140 H 40 H 96 11/29/22 03:06 128/72 11/29/22 03:06 37.9 C H 144 H 39 H 96 11/29/22 03:00 37.8 C H 153 H 36 H 91 11/29/22 02:50 37.6 C H 128 H 29 H 80 L 11/29/22 02:40 36.6 C 142 H 27 H 88 L 11/29/22 02:36 127 H 24 11/29/22 03:07 133 H 37 H 92 11/29/22 02:44 11/29/22 01:54 150 H 36 H 125/69 90 11/29/22 01:51 143 H 90 11/29/22 01:27 131 H 128/75 89 L 11/29/22 01:16 123 H 22 84 L 11/28/22 23:54 101/64 O2 Del Method O2 Flow Rate 11/29/22 08:30 11/29/22 08:01 11/29/22 08:01 11/29/22 08:00 11/29/22 07:30 11/29/22 07:30 11/29/22 07:15 11/29/22 07:15 11/29/22 07:14 11/29/22 07:14 11/29/22 07:00 11/29/22 08:14 High Flow Nasal Cannula 15 11/29/22 06:30 11/29/22 06:22 11/29/22 06:22 11/29/22 06:21 11/29/22 06:21 11/29/22 06:15 11/29/22 06:06 11/29/22 05:45 11/29/22 05:45 11/29/22 05:43 11/29/22 05:43 11/29/22 05:31 11/29/22 05:30 11/29/22 05:20 11/29/22 05:17 11/29/22 05:17 11/29/22 05:10 11/29/22 05:02 11/29/22 05:00 11/29/22 04:50 11/29/22 04:45 11/29/22 04:45 11/29/22 04:40 11/29/22 04:30 11/29/22 04:30 11/29/22 04:24 11/29/22 04:24 11/29/22 04:20 11/29/22 04:10 11/29/22 04:01 11/29/22 04:01 11/29/22 04:00 11/29/22 03:50 11/29/22 03:47 11/29/22 03:47 11/29/22 03:40 11/29/22 03:30 11/29/22 03:30 11/29/22 03:20 11/29/22 03:15 11/29/22 03:15 11/29/22 03:10 11/29/22 03:06 11/29/22 03:06 11/29/22 03:00 11/29/22 02:50 11/29/22 02:40 11/29/22 02:36 11/29/22 03:07 Nasal Cannula, High Flow Nasal Cannula 15 11/29/22 02:44 High Flow Nasal Cannula 15 11/29/22 01:54 High Flow Nasal Cannula 90 11/29/22 01:51 High Flow Nasal Cannula 15 11/29/22 01:27 Nasal Cannula 7 11/29/22 01:16 Nasal Cannula 4 11/28/22 23:54
--- NOTE | 2022-11-29 11:17 | Discharge Summary ---
Date of Service November 29, 2022 Admission HPI Per Admitting Provider History obtained from patient, family, and records. Medical history significant for ulcerative colitis, hypertension, hyperlipidemia, COPD, hypothyroidism, anxiety disorder, past history of C. difficile, past tobacco abuse Four admissions since August 2022. Last confinement November 14 to 2022 for ulcerative colitis flare. Patient discharged on prednisone taper yesterday. GI specialist coordinating outpatient insurance coverage for [facility] as per outpatient documentation. Patient noted bloody diarrhea after a soup dinner last night. Belly pain not any worse than last admission. Patient denies chest pain or unusual SOB/cough symptoms. Patient brought to ER for evaluation. Medical History as above 2022 colonoscopy showed severe (Castano Score 3) ulcerative colitis, worsened since the last examination. The rectum, rectosigmoid, and beginning of the sigmoid colon were severely ulcerated and bleeding with even minimal scope contact. 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 Admission Exam Per Admitting Provider GENERAL: Slightly uncomfortable, no respiratory distress SKIN: Normal color, warm HEENT: [place] palpebral conjunctivae, no ptosis, dry buccal mucosa NECK : Supple, no tenderness CHEST : Decreased breath sounds, scattered wheezes right lower lung field, no tenderness HEART : RRR, no obvious murmurs ABDOMEN: Some distention, hypogastric tenderness EXTREMITIES : No LE swelling/tenderness, no other conspicuous deformities noted NEUROLOGIC : Coherent, no facial asymmetry, no other gross focality Principal Diagnosis Sepsis / septic shock bacteremia, pneumonia Refractory ulcerative colitis Immunocompromise status Discharge Exam Notified by nursing staff, that patient ceased to breathe at 10:35 AM. Patient was made comfort care earlier this morning. On my exam, patient is unresponsive to voice or touch, there are no breath sounds, no heart sounds. There is no radial or carotid pulse. Pupils are fixed and dilated. Discharge Data Allergies Allergy/AdvReac Type Severity Reaction Status Date / Time adhesive tape Allergy Intermediate SKIN Verified 11/19/22 00:20 IRRITATION/TAKES SKIN OFF WHEN TAKEN OFF midazolam Allergy Unknown NOT ON GMG Verified 11/19/22 00:20 OR PT LIST sulfasalazine AdvReac Severe PANCREATITI Verified 11/19/22 00:20 S Consultations 11/19/22 00:36 ED Decision to Admit Stat 11/19/22 04:09 Consult Gastroenterology Routine 11/28/22 11:58 Consult Cardiology Routine 11/29/22 02:39 Consult Sheriff Officer Routine 11/29/22 08:39 Consult Palliative Care Routine Procedures Performed Operation Date: 11/29/22 16:45 <No data on this case meets the specified criteria> Ordered Studies 11/28/22 13:55 CT angio chest PE protocol Urgent FINDINGS: Lungs and pleura: Diffuse centrilobular emphysema is seen most prominent in the upper lobes. Multifocal airspace opacities are seen most prominently in the left lung. Rounded atelectasis is noted in the right lower lung. Heart and pericardium: Heart size is normal. No pericardial effusion. Vessels: No evidence of pulmonary embolism. Mediastinum and mary: Unremarkable. Chest wall and lower neck: Unremarkable. Abdomen: Unremarkable. Bones: Degenerative changes in the thoracic spine. IMPRESSION: 1. No pulmonary embolus is seen. 2. Multifocal pneumonia is noted. 11/29/22 05:37 CT Abd and Pelvis [CT abd pelvis wo con] Stat FINDINGS: Extensive multifocal consolidation within the lower lungs have significantly progressed since chest CT November 28, 2022. This is most pronounced within the lingula and left lower lobe. There are small bilateral pleural effusions. A small hiatal hernia is present. Evaluation of the abdomen and pelvis is suboptimal on this unenhanced examination. No pneumatosis, free air or portal venous gas is present. Excreted contrast within the collecting systems, ureters and bladder is from recent contrast-enhanced CT. Renal enhancement is also noted. Unenhanced images of the liver, spleen, adrenal glands and pancreas are unremarkable with the exception of pancreatic glandular atrophy. The gallbladder is mildly distended. There is no definite pericholecystic inflammation or wall thickening. No evidence for a bowel obstruction. Colorectal wall thickening has decreased since CT of November 14, 2022. Pericolonic inflammation has also decreased. There is a small amount of ascites. Anasarca is noted. No fluid collection within the abdomen or pelvis is identified. There is no hydronephrosis. A Armstrong balloon within the bladder is noted as well as a small amount of gas. There is no lymphadenopathy. IMPRESSION: 1. Significant progression of extensive consolidation within the lower lungs since chest CT of November 28, 2022. This is suggestive of multifocal pneumonia. 2. Interval decrease in colorectal wall thickening and pericolonic infiltration since CT of November 14, 2022. 3. No pneumatosis, free air or portal venous gas. 4. Anasarca. Small amount of ascites. 5. Mild gallbladder distention. No convincing evidence for acute cholecystitis however, if right upper quadrant pain, a right upper quadrant ultrasound could be obtained for further evaluation. Hospital Course (1) IBD (inflammatory bowel disease): Ulcerative Colitis flare: Rectal bleeding secondary to above Sepsis, bacteremia, pna ,immunocompromised status This is patient's third admission in the last 2 weeks due to ulcerative colitis flare She reports her last normal bowel movement was the first week in September 2022 She feels that her admission for aspiration pneumonia in June and subsequent antibiotics in the setting of IBD and C. difficile contributed to her current refractive flare. Increased Solu-Medrol has improved symptoms and lab work. Continues on Rowasa enema twice daily per GI x 1 week, then once nightly. First Avsola dose 11/21 with next infusion planned for today/tomorrow She continues to have cramping continue with original plan for prednisone 60mg PO daily with transition to prednisone 40mg daily at discharge. 11/27: remains on prednisone 60mg, however, symptoms are uncontrolled. May have better control on IV steroids again, however, would defer that to GI. Patient is declining Rowasa enemas. Per GI plans for unprepped flex sig with second Avsola dose to be given. Diet changed to clears per pt request, then NPO after MN. Cont supportive care efforts. 11/28 -patient with chest tightness this morning, tachycardia, hypotension cough with sputum production. Chest x-ray unremarkable. ECG with sinus tachycardia and PVCs. Guaifenesin and flutter valve started IV fluids/albumin. Echo ordered and discussed with cardiology and GI. Flex sig canceled today by anesthesiology. Will obtain CT PE, sputum and blood cultx. Update: CT chest reviewed w/ Dr. Owens (pulmonary)- no PE, multifocal pna - discussed this with the patient and her son at the bedside, agreeable to antibiotics. Started Unasyn and p.o. Vanco for C. difficile prophylaxis. 6/8 - Overnight pt became febrile and more tachycardic/ hypotensive despite fluids and antibiotics, went into Afib w/ RVR and was transferred to ICU for further care. Amiodarone was started and bicarb drip. Pt's antibiotics switched to vanco + zosyn. Cultures - blood cultx and sputum cultx obtained - blood culture positive for Gram negative bacilli. Sputum cultx - probable Pseudomonas. This morning discussion with the family and ICU staff -> pt made comfort care and then at 10:35 AM. Other chronic conditions COPD: Chronic, stable. Uses rescue inhaler and Fluticasone; continue Advair No supplemental O2 at home HTN: Chronic, at goal. on Atenolol and Lisinopril Hypothyroidism: Chronic, stable. Continue Levothyroxine H/O C-Diff: Had fecal transplant 8years ago Stool studies negative Total Time Total Time Spent Total Time Spent (In Minutes): 0 Discharge Plan Discharge Items Patient Disposition: Discharge Diagnosis: Sepsis / septic shock bacteremia, pneumonia Refractory ulcerative colitis Immunocompromise status Other Date/Time: 11/29/22 10:35
--- NOTE | 2022-11-30 05:33 | Electrocardiogram Report ---
Test Reason : Blood Pressure : / mmHG Vent. Rate : 112 BPM Atrial Rate : 112 BPM P-R Int : 118 ms QRS Dur : 082 ms QT Int : 308 ms P-R-T Axes : 076 046 055 degrees QTc Int : 420 ms Sinus tachycardia with Premature supraventricular complexes Nonspecific ST abnormality Abnormal ECG When compared with ECG of 18-NOV-2022 23:32, Premature supraventricular complexes are now Present Criteria for Septal infarct are no longer Present Confirmed by Alvarado Hopson ([id number]) on 11/30/2022 5:33:07 AM Referred By: REFERRED SELF Confirmed By:Alvarado Hopson
--- NOTE | 2022-12-01 06:09 | Electrocardiogram Report ---
Test Reason : Blood Pressure : / mmHG Vent. Rate : 120 BPM Atrial Rate : 120 BPM P-R Int : 128 ms QRS Dur : 082 ms QT Int : 310 ms P-R-T Axes : 065 040 055 degrees QTc Int : 438 ms Poor data quality, interpretation may be adversely affected Sinus tachycardia Otherwise normal ECG When compared with ECG of 28-NOV-2022 07:43, Premature supraventricular complexes are no longer Present Confirmed by Alvarado Hopson ([id number]) on 12/01/2022 6:09:02 AM Referred By: REFERRED SELF Confirmed By:Alvarado Hopson
--- NOTE | 2022-12-01 06:36 | Electrocardiogram Report ---
Test Reason : Blood Pressure : / mmHG Vent. Rate : 140 BPM Atrial Rate : 140 BPM P-R Int : 120 ms QRS Dur : 072 ms QT Int : 284 ms P-R-T Axes : 061 -01 047 degrees QTc Int : 433 ms Poor data quality, interpretation may be adversely affected Sinus tachycardia Low voltage QRS Nonspecific ST and T wave abnormality Abnormal ECG When compared with ECG of 29-NOV-2022 03:22, Premature supraventricular complexes are no longer Present Confirmed by Alvarado Hopson ([id number]) on 12/01/2022 6:36:10 AM Referred By: REFERRED SELF Confirmed By:Alvarado Hopson
== END 2022-11-29 12:54 | disposition expired | DRG 385 ==
LOC: ED 23:26 → SUATTDRO 11-19 03:07 → 2E 11-19 03:07 → 3N 11-19 18:21 → 2N 11-28 13:09 → 4W 11-28 22:47 → 1E 11-29 02:32